=== PATIENT | male | born 1955 | race African-American/Black ===

== ENCOUNTER 2016-10-30 10:39 | Inpatient (IN) | payer OTHER ==
[2016-10-30 11:24] VITALS: BMI 30.1
--- NOTE | 2016-10-30 13:23 | HP ---
COWS - Scale Resting Pulse: 0= ND 80 or Below Sweatin= Chills/Flushing Pupil Size: 2= Moderately Dilated Bone or Joint Aches: 4=Acute Joint/Muscle Pain Runny Nose/ Eye Tearin= Runny Nose/Eyes GI Upset > 30mins: 1= Stomach Cramp Tremor Observation: 1= Tremor [place], Not Seen Yawning Observation: 1= 1-2x During Session Anxiety or Irritability: 2=Irritable/Anxious Goose Flesh Skin: 0=Smooth Skin CIWA Score - CIWA Score Nausea/Vomitin-No Nausea/No Vomiting Muscle Tremors: 4-Moderate,w/Arms Extend Anxiety: 4-Mod. Anxious/Guarded Agitation: 4-Moderately Restless Paroxysmal Sweats: 1-Minimal Palms Moist Orientation: 0-Oriented Tacttile Disturbances: 3-Moderate Itch/Numb/Burn Visual Disturbances: 0-None Headache: 0-None Present Admission ROS BHS - HPI Chief Complaint: DETOX TX FOR HEROIN ALCOHOL AND MARIJUANA DEPENDENCE Allergies/Adverse Reactions: Allergies Allergy/AdvReac Type Severity Reaction Status Date / Time No Known Allergies Allergy Verified 10/30/16 11:32 History of Present Illness: 61 Y/O AA/MALE WITH A HX OF HEROIN,ALCOHOL AND MARIJUANA DEPENDENCE SEEKING DETOX TX Exam Limitations: No Limitations - Ebola screening Have you traveled outside of the country in the last 21 days: No Have you had contact with anyone from an Ebola affected area: No Have you been sick,other than usual withdrawal symptoms: No - Review of Systems Constitutional: Chills, Loss of Appetite, Night Sweats, Changes in sleep EENT: reports: Blurred Vision, Tearing, Nose Congestion, Dental Problems ( MISSING TEETH UPPER) Respiratory: reports: No Symptoms reported Cardiac: reports: Lightheadedness GI: reports: Diarrhea, Poor Appetite : reports: Frequency Musculoskeletal: reports: Back Pain, Joint Pain (ARTHRITIS), Muscle Pain Integumentary: reports: Other (RIGHT KNEE WITH 6 KELLY-- S/P SUGERY RIGHT KNEE 10/21/16 AT [facility]. PT TO RETURN FOR FOLLOW UP ON 11/13/16.) Neuro: reports: Headache, Dizziness Endocrine: reports: No Symptoms Reported Hematology: reports: No Symptoms Reported Psychiatric: reports: Orientated x3, Anxious Other Systems: Reviewed and Negative Patient History - Patient Medical History Hx Anemia: No Hx Asthma: No Hx Chronic Obstructive Pulmonary Disease (COPD): No Hx Cancer: No Hx Cardiac Disorders: No Hx Congestive Heart Failure: No Hx Hypertension: Yes (on meds.) Hx Hypercholesterolemia: No Hx Pacemaker: No HX Cerebrovascular Accident: No Hx Seizures: No Hx Dementia: No Hx Diabetes: No Hx Gastrointestinal Disorders: No Hx Liver Disease: No Hx Genitourinary Disorders: No Hx Sexually Transmitted Disorders: No Hx Renal Disease (ESRD): No Hx Thyroid Disease: No Hx Human Immunodeficiency Virus (HIV): No (NEGATIVE HX) Hx Hepatitis C: No Hx Depression: No Hx Suicide Attempt: No Hx Bipolar Disorder: No Hx Schizophrenia: No - Patient Surgical History Past Surgical History: No Hx Neurologic Surgery: No Hx Cataract Extraction: No Hx Cardiac Surgery: No Hx Lung Surgery: No Hx Breast Surgery: No Hx Breast Biopsy: No Hx Abdominal Surgery: No Hx Appendectomy: No Hx Cholecystectomy: No Hx Genitourinary Surgery: No Hx Section: No Hx Orthopedic Surgery: No Other Surgical History: Nail removed from R knee 1 week ago-10/21/16. Anesthesia Reaction: No - PPD History Previous Implant?: Yes Documented Results: Negative w/proof Implanted On Prior [facility] Admission?: Yes Date: 08/27/16 Results: 0 mm PPD to be Administered?: No - Reproductive History Patient is a Female of Child Bearing Age (11 -55 yrs old): No (MALE) - Smoking Cessation Smoking history: Never smoked Have you smoked in the past 12 months: No Cigars Per Day: 0 Hx Chewing Tobacco Use: No Initiated information on smoking cessation: No - Substance & Tx. History Hx Alcohol Use: Yes (BEER/GIN) Hx Substance Use: Yes (HEROIN/MARIJUANA) Substance Use Type: Alcohol, Heroin, Marijuana Hx Substance Use Treatment: Yes ([facility]-DETOX) - Substances Abused Heroin Route: Inhalation Frequency: Daily Amount used: 2 BAGS Age of first use: 57 Date of Last Use: 10/29/16 Alcohol Route: Oral Frequency: Daily Amount used: 2-3 40 OZ BEER Age of first use: 17 Date of Last Use: 10/29/16 Marijuana/Hashish Route: Smoking Frequency: Daily Amount used: 2-3 JOINTS Age of first use: 17 Date of Last Use: 10/29/16 Family Disease History - Family Disease History Family Disease History: Diabetes: Mother, [place]: Brother (), Sister ( ), Other: Father () Admission Physical Exam [facility] - Vital Signs Vital Signs: Vital Signs - 24 hr 10/30/16 11:21 Temperature 95.8 F L Pulse Rate 51 L Respiratory 20 Rate Blood Pressure 136/95 - Physical General Appearance: Yes: Moderate Distress, Irritable, Anxious HEENTM: Yes: EOMI, Normocephalic, LISA, Pharynx Normal Respiratory: Yes: Chest Non-Tender, Lungs Clear, Normal Breath Sounds, No Respiratory Distress Neck: Yes: Supple, Trachea in good position Breast: Yes: Breast Exam Deferred Cardiology: Yes: Regular Rhythm, Regular Rate, S1, S2 Abdominal: Yes: Normal Bowel Sounds, Non Tender, Soft Genitourinary: Yes: Other (N/C) Back: Yes: Within Normal Limits Musculoskeletal: Yes: full range of Motion, Gait Steady Extremities: Yes: Normal Range of Motion, Non-Tender 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: Yes: machine stuffer automatic II-XII NML intact, Fully Oriented, Alert Integumentary: Yes: Dry, Warm Lymphatic: Yes: Within Normal Limits - Addiitonal Findings: RIGHT KNEE SX WITH [address](PT HAS FOLLOW UP VISIT ON 11/13/16 AT [facility]). NO SWELLING, REDNESS OR DRAINAGE TO KNEE OR ON SX SITE. - Diagnostic (1) Alcohol dependence with uncomplicated withdrawal Current Visit: Yes Status: Acute (2) Cannabis dependence Current Visit: Yes Status: Acute (3) Essential hypertension Current Visit: Yes Status: Chronic (4) Opioid dependence with withdrawal Current Visit: Yes Status: Acute (5) Arthritis Current Visit: Yes Status: Chronic Comment: KNEES (6) S/P knee surgery Current Visit: Yes Status: Acute Comment: RECENT RIGHT KNEE SX ON 10/21/16 WITH SIX KELLY INTACT. Cleared for Admission [facility] - Detox or Rehab [facility] Level of Care: Medically Managed Detox Regimen/Protocol: Methadone/Librium [facility] Breath Alcohol Content Breath Alcohol Content: 0 Urine Drug Screen - Results Drug Screen Negative: No Urine Drug Screen Results: THC-Marijuana, OPI-Opiates, BZO-Benzodiazepines
[2016-10-30] MEDS ORDERED: MAGNESIUM HYDROX 2400MG/30ML ORAL SUSPENSION 30 ML CUP PO PRN (13:37)
[2016-10-30] MEDS ORDERED: chlordiazePOXIDE HCL 25 MG CAPSULE PO PRN (13:37)
[2016-10-30] MEDS ORDERED: P-EPHED 60MG/TRIPROLIDI 2.5MG TABLET PO PRN (13:37)
[2016-10-30] MEDS ORDERED: hydrOXYzine PAMOATE 50 MG CAPSULE (FP) PO PRN (13:37)
[2016-10-30] MEDS ORDERED: MAGNESIUM CITRATE 300 ML BOTTLE PO PRN (13:37)
[2016-10-30] MEDS ORDERED: guaiFENesin/D-METHORPHAN HB 10 ML UNIT-DOSE CUPS PO PRN (13:37)
[2016-10-30] MEDS ORDERED: MENTHOL/PHENOL 1 EACH UD MM PRN (13:37)
[2016-10-30] MEDS ORDERED: MAG HYDROX/AL HYDROX/SIMETH 30 ML UNIT-DOSE CUP PO PRN (13:37)
[2016-10-30] MEDS ORDERED: LOPERAMIDE HCL 2 MG CAPSULE PO PRN (13:37)
[2016-10-30] MEDS ORDERED: chlordiazePOXIDE HCL 25 MG CAPSULE PO ONE (14:00)
[2016-10-30] MEDS ORDERED: METHADONE HCL 10 MG TABLET (FOR DETOX USE ONLY) PO ONE ×2 (14:01→23:00)
[2016-10-30] MEDS: CYCLOBENZAPRINE HCL 10 MG TABLET (FP) PO PRN ×2 (14:53→22:40)
[2016-10-30] MEDS: BACITRACIN 0.9 GM PACKET TP SCH (14:53)
[2016-10-30 16:54] LABS: URINE APPEARANCE CLEAR; URINE BILIRUBIN NEGATIVE (NEGATIVE); URINE BLOOD NEGATIVE (NEGATIVE); URINE COLOR YELLOW; URINE GLUCOSE (UA) NEGATIVE (NEGATIVE); URINE KETONE NEGATIVE (NEGATIVE); URINE LEUK ESTERASE NEGATIVE (NEGATIVE); URINE NITRITE NEGATIVE (NEGATIVE); URINE UROBILINOGEN 4.0 E.U/dl E.U./dl (0.2-1.0)
[2016-10-30 16:56] LABS: URINE PROTEIN 1+ (NEGATIVE)
[2016-10-30 17:04] LABS: URINE MUCUS MANY; URINE RBC 1 /hpf (0-3); URINE WBC 1 /hpf (3-5); YEAST RARE
[2016-10-30] MEDS: chlordiazePOXIDE HCL 25 MG CAPSULE PO SCH ×2 (17:11→22:37)
[2016-10-30] MEDS: IBUPROFEN 400 MG TABLET (FP) PO PRN (17:11)
[2016-10-30] MEDS: cloNIDine HCL 0.1 MG TABLET PO SCH (22:36)
[2016-10-30] MEDS: THIAMINE HCL 100 MG TABLET (FP) PO SCH (22:36)
[2016-10-30] MEDS: METOPROLOL TARTRATE 25 MG TABLET (FP) PO SCH (22:37)
[2016-10-31] MEDS: chlordiazePOXIDE HCL 25 MG CAPSULE PO SCH ×4 (05:46→23:28)
[2016-10-31] MEDS: CYCLOBENZAPRINE HCL 10 MG TABLET (FP) PO PRN ×2 (05:49→13:54)
[2016-10-31] MEDS: IBUPROFEN 400 MG TABLET (FP) PO PRN ×2 (05:49→17:22)
--- NOTE | 2016-10-31 09:15 | PN ---
S CIWA - CIWA Score Nausea/Vomitin Muscle Tremors: 3 Anxiety: 3 Agitation: 3 Paroxysmal Sweats: 1-Minimal Palms Moist Orientation: 0-Oriented Tacttile Disturbances: 1-Very Mild Itch/Numbness Auditory Disturbances: 1-Very Mild Visual Disturbances: 1-Very Mild Sensitivity Headache: 2-Mild CIWA-Ar Total Score: 18 BHS COWS - Scale Resting Pulse: 1= [place] 81-100 Sweatin= Chills/Flushing Restless Observation: 3= Extraneous Movement Pupil Size: 1= Pupils >than Normal Bone or Joint Aches: 2= Severe Diffuse Aches Runny Nose/ Eye Tearin= Runny Nose/Eyes GI Upset > 30mins: 2= Nausea/Diarrhea Tremor Observation of Outstretched Hands: 2= Slight Tremor Visible Yawning Observation: 1= 1-2x During Session Anxiety or Irritability: 2=Irritable/Anxious Goose Flesh Skin: 0=Smooth Skin COWS Score: 17 S Progress Note (SOAP) Subjective: ALERT,IRRITABLE,ANXIOUS,INTERRUPTED SLEEP,PAIN IN THE BODY,BACK,KNEE Objective: 10/31/16 09:11 Vital Signs Temperature 97.7 F 10/31/16 06:31 Pulse Rate 84 10/31/16 06:31 Respiratory Rate 18 10/31/16 06:31 Blood Pressure 112/64 10/31/16 06:31 O2 Sat by Pulse Oximetry (%) Laboratory Last Values Urine Color Yellow 10/30/16 13:00 Urine Appearance Clear 10/30/16 13:00 Urine pH 6.0 (5.0-8.0) 10/30/16 13:00 Ur Specific [place] 1.024 (1.001-1.035) 10/30/16 13:00 Urine Protein 1+ (NEGATIVE) H 10/30/16 13:00 Urine Glucose (UA) Negative (NEGATIVE) 10/30/16 13:00 Urine Ketones Negative (NEGATIVE) 10/30/16 13:00 Urine Blood Negative (NEGATIVE) 10/30/16 13:00 Urine Nitrite Negative (NEGATIVE) 10/30/16 13:00 Urine Bilirubin Negative (NEGATIVE) 10/30/16 13:00 Urine Urobilinogen 4.0 e.u/dl E.U./dl (0.2-1.0) 10/30/16 13:00 Ur Leukocyte Esterase Negative (NEGATIVE) 10/30/16 13:00 Urine RBC 1 /hpf (0-3) 10/30/16 13:00 Urine WBC 1 /hpf (3-5) 10/30/16 13:00 Ur Epithelial Cells Rare /hpf (FEW) 10/30/16 13:00 Urine Mucus Many 10/30/16 13:00 Urine Yeast Rare 10/30/16 13:00 LABS PENDING EKG NSR,NORMAL ECG Assessment: 10/31/16 09:13 WITHDRAWAL SYMPTOM Plan: CONTINUE DETOX,AMBULATE WITH WHEELCHAIR,ALLOW A PITCHER OF WATER AT BEDSIDE
[2016-10-31 09:31] LABS: MCH 29.5 pg (25.7-33.7); MCHC 33.3 g/dl (32.0-35.9); MEAN CELL VOLUME 88.4 fl (80-96); MEAN PLT VOLUME 8.8 fl (7.5-11.1); PLATELET COUNT 207 K/MM3 (134-434); RDW 13.9 % (11.9-15.9); WHITE BLOOD COUNT 2.4 K/mm3 (4.0-10.0)
[2016-10-31] MEDS ORDERED: METHADONE HCL 10 MG TABLET (FOR DETOX USE ONLY) PO SCH (10:00)
[2016-10-31] MEDS: PRENATAL VITAMINS W/ FOLIC ACID TABLET (FP) PO SCH (10:06)
[2016-10-31] MEDS: BACITRACIN 0.9 GM PACKET TP SCH (10:07)
[2016-10-31] MEDS: cloNIDine HCL 0.1 MG TABLET PO SCH ×2 (10:07→22:55)
[2016-10-31] MEDS: METOPROLOL TARTRATE 25 MG TABLET (FP) PO SCH ×2 (10:07→22:55)
[2016-10-31 10:38] LABS: ALBUMIN 2.9 g/dl (3.4-5.0); ANION GAP 9 (8-16); BILIRUBIN,TOTAL 0.3 mg/dL (0.2-1.0); CALCIUM 8.2 mg/dL (8.5-10.1); CO2 27 mmol/L (21-32); CREATININE 1.1 mg/dL (0.7-1.3); GLUCOSE,RANDOM 79 mg/dL (74-106); SGOT/AST 20 U/L (15-37); SGPT/ALT 19 U/L (12-78); TOT PROT 5.9 g/dl (6.4-8.2)
[2016-10-31 10:39] LABS: ALK PHOS 74 U/L (45-117)
--- NOTE | 2016-10-31 16:44 | EKG ---
Test Reason : Blood Pressure : / mmHG Vent. Rate : 061 BPM Atrial Rate : 061 BPM P-R Int : 158 ms QRS Dur : 086 ms QT Int : 432 ms P-R-T Axes : 060 -26 024 degrees QTc Int : 434 ms NORMAL SINUS RHYTHM NORMAL ECG NO PREVIOUS ECGS AVAILABLE Confirmed by MD ALEXEI, YUNIOR ([id number]) on 10/31/2016 4:44:00 PM Referred By: Confirmed By:YUNIOR LINDA MD
[2016-10-31] MEDS: THIAMINE HCL 100 MG TABLET (FP) PO SCH (22:55)
[2016-11-01] MEDS: CYCLOBENZAPRINE HCL 10 MG TABLET (FP) PO PRN (05:23)
[2016-11-01] MEDS: IBUPROFEN 400 MG TABLET (FP) PO PRN ×2 (05:23→16:35)
[2016-11-01] MEDS: chlordiazePOXIDE HCL 25 MG CAPSULE PO SCH ×2 (05:23→10:18)
[2016-11-01] MEDS: PRENATAL VITAMINS W/ FOLIC ACID TABLET (FP) PO SCH (10:17)
[2016-11-01] MEDS: BACITRACIN 0.9 GM PACKET TP SCH (10:17)
[2016-11-01] MEDS: METOPROLOL TARTRATE 25 MG TABLET (FP) PO SCH ×2 (10:17→22:12)
[2016-11-01] MEDS: cloNIDine HCL 0.1 MG TABLET PO SCH ×2 (10:17→22:12)
[2016-11-01] MEDS: METHADONE HCL 5 MG TABLET (FOR DETOX USE ONLY) PO SCH (10:18)
--- NOTE | 2016-11-01 10:40 | PN ---
S CIWA - CIWA Score Nausea/Vomitin Muscle Tremors: 3 Anxiety: 3 Agitation: 2 Paroxysmal Sweats: 2 Orientation: 0-Oriented Tacttile Disturbances: 1-Very Mild Itch/Numbness Auditory Disturbances: 0-None Visual Disturbances: 0-None Headache: 2-Mild CIWA-Ar Total Score: 15 S COWS - Scale Resting Pulse: 0= SD 80 or Below Sweatin= Chills/Flushing Restless Observation: 1= Difficult to Sit Still Pupil Size: 0= Normal to Room Light Bone or Joint Aches: 2= Severe Diffuse Aches Runny Nose/ Eye Tearin= Nasal Congestion GI Upset > 30mins: 2= Nausea/Diarrhea Tremor Observation of Outstretched Hands: 2= Slight Tremor Visible Yawning Observation: 0= None Anxiety or Irritability: 2=Irritable/Anxious Goose Flesh Skin: 0=Smooth Skin COWS Score: 11 S Progress Note (SOAP) Subjective: restlessness, sleeplessness, joint pain Objective: 11/01/16 10:39 Vital Signs - 8 hr 11/01/16 11/01/16 03:30 06:00 Temperature 97.7 F Pulse Rate 65 Respiratory 18 18 Rate Blood Pressure 137/89 Laboratory Last Values WBC 2.4 K/mm3 (4.0-10.0) L D 10/31/16 06:20 RBC 3.98 M/mm3 (4.00-5.60) L 10/31/16 06:20 Hgb 11.7 GM/dL (11.7-16.9) D 10/31/16 06:20 Hct 35.2 % (35.4-49) L D 10/31/16 06:20 MCV 88.4 fl (80-96) 10/31/16 06:20 MCHC 33.3 g/dl (32.0-35.9) 10/31/16 06:20 RDW 13.9 % (11.9-15.9) 10/31/16 06:20 Plt Count 207 K/MM3 (134-434) 10/31/16 06:20 MPV 8.8 fl (7.5-11.1) 10/31/16 06:20 Sodium 142 mmol/L (136-145) 10/31/16 06:20 Potassium 3.7 mmol/L (3.5-5.1) 10/31/16 06:20 Chloride 106 mmol/L (98-107) 10/31/16 06:20 Carbon Dioxide 27 mmol/L (21-32) 10/31/16 06:20 Anion Gap 9 (8-16) 10/31/16 06:20 BUN 21 mg/dL (7-18) H D 10/31/16 06:20 Creatinine 1.1 mg/dL (0.7-1.3) 10/31/16 06:20 Creat Clearance w eGFR > 60 (>60) 10/31/16 06:20 Random Glucose 79 mg/dL (74-106) 10/31/16 06:20 Calcium 8.2 mg/dL (8.5-10.1) L 10/31/16 06:20 Total Bilirubin 0.3 mg/dL (0.2-1.0) D 10/31/16 06:20 AST 20 U/L (15-37) 10/31/16 06:20 ALT 19 U/L (12-78) 10/31/16 06:20 Alkaline Phosphatase 74 U/L (45-117) 10/31/16 06:20 Total Protein 5.9 g/dl (6.4-8.2) L 10/31/16 06:20 Albumin 2.9 g/dl (3.4-5.0) L D 10/31/16 06:20 Urine Color Yellow 10/30/16 13:00 Urine Appearance Clear 10/30/16 13:00 Urine pH 6.0 (5.0-8.0) 10/30/16 13:00 Ur Specific [place] 1.024 (1.001-1.035) 10/30/16 13:00 Urine Protein 1+ (NEGATIVE) H 10/30/16 13:00 Urine Glucose (UA) Negative (NEGATIVE) 10/30/16 13:00 Urine Ketones Negative (NEGATIVE) 10/30/16 13:00 Urine Blood Negative (NEGATIVE) 10/30/16 13:00 Urine Nitrite Negative (NEGATIVE) 10/30/16 13:00 Urine Bilirubin Negative (NEGATIVE) 10/30/16 13:00 Urine Urobilinogen 4.0 e.u/dl E.U./dl (0.2-1.0) 10/30/16 13:00 Ur Leukocyte Esterase Negative (NEGATIVE) 10/30/16 13:00 Urine RBC 1 /hpf (0-3) 10/30/16 13:00 Urine WBC 1 /hpf (3-5) 10/30/16 13:00 Ur Epithelial Cells Rare /hpf (FEW) 10/30/16 13:00 Urine Mucus Many 10/30/16 13:00 Urine Yeast Rare 10/30/16 13:00 RPR Titer Nonreactive (NONREACTIVE) 10/31/16 06:20 Hepatitis C Antibody <0.1 s/co ratio (0.0-0.9) 10/31/16 06:20 Labs noted, shani to right knee, s/p surgery for injury, sight with no drainage, no odor or any other signs of infection Assessment: 11/01/16 10:40 withdrawal sx s/p right knee surgery Plan: continue detox, monitor surgical site for signs and symptoms of infection
[2016-11-01] MEDS: chlordiazePOXIDE 5 MG CAPSULE PO SCH ×2 (17:58→22:11)
[2016-11-01] MEDS: THIAMINE HCL 100 MG TABLET (FP) PO SCH (22:11)
[2016-11-01] MEDS: diphenhydrAMINE HCL 50 MG CAPSULE PO PRN (22:13)
[2016-11-02] MEDS: CYCLOBENZAPRINE HCL 10 MG TABLET (FP) PO PRN (06:11)
[2016-11-02] MEDS: chlordiazePOXIDE 5 MG CAPSULE PO SCH ×2 (06:11→11:50)
[2016-11-02] MEDS: IBUPROFEN 400 MG TABLET (FP) PO PRN (06:13)
--- NOTE | 2016-11-02 07:17 | PN ---
S Progress Note Note: ASKED TO SEE PT FOR A FALL. PT STATES FELL OOB WHEN TRANSFERRING TO W/C. FELL ON HANDS AND KNEES. DENIES ANY INJURIES/PAIN, C.P., SOB, DIZZINESS, LOC, HEAD TRAUMA. CLIENT RESTING IN BED NAD AWAKE/ALERT/X3 HEAD- NCAT SKIN INTACT NO VISIBLE INJURIES EXTREMITIES FROM W/O LIMITATIONS OR INJURIES NOTED Last Vital Signs Temp Pulse Resp BP Pulse Ox 97.7 F 43 L 18 141/83 11/02/16 06:00 11/02/16 06:00 11/02/16 06:00 11/02/16 06:00 S/P FALL P- FALL PROTOCOL #2 MOTRIN/TYLENOL FOR PAIN ORDERED
--- NOTE | 2016-11-02 10:49 | PN ---
BHS Progress Note (SOAP) Subjective: Restlessness, Anxiety, Body aches, Right Knee discomfort, interrupted sleep Objective: Vital Signs Temperature 97.9 F 11/02/16 10:00 Pulse Rate 52 L 11/02/16 10:00 Respiratory Rate 16 11/02/16 10:00 Blood Pressure 131/91 11/02/16 10:00 O2 Sat by Pulse Oximetry (%) Laboratory Last Values WBC 2.4 K/mm3 (4.0-10.0) L D 10/31/16 06:20 RBC 3.98 M/mm3 (4.00-5.60) L 10/31/16 06:20 Hgb 11.7 GM/dL (11.7-16.9) D 10/31/16 06:20 Hct 35.2 % (35.4-49) L D 10/31/16 06:20 MCV 88.4 fl (80-96) 10/31/16 06:20 MCHC 33.3 g/dl (32.0-35.9) 10/31/16 06:20 RDW 13.9 % (11.9-15.9) 10/31/16 06:20 Plt Count 207 K/MM3 (134-434) 10/31/16 06:20 MPV 8.8 fl (7.5-11.1) 10/31/16 06:20 Sodium 142 mmol/L (136-145) 10/31/16 06:20 Potassium 3.7 mmol/L (3.5-5.1) 10/31/16 06:20 Chloride 106 mmol/L (98-107) 10/31/16 06:20 Carbon Dioxide 27 mmol/L (21-32) 10/31/16 06:20 Anion Gap 9 (8-16) 10/31/16 06:20 BUN 21 mg/dL (7-18) H D 10/31/16 06:20 Creatinine 1.1 mg/dL (0.7-1.3) 10/31/16 06:20 Creat Clearance w eGFR > 60 (>60) 10/31/16 06:20 Random Glucose 79 mg/dL (74-106) 10/31/16 06:20 Calcium 8.2 mg/dL (8.5-10.1) L 10/31/16 06:20 Total Bilirubin 0.3 mg/dL (0.2-1.0) D 10/31/16 06:20 AST 20 U/L (15-37) 10/31/16 06:20 ALT 19 U/L (12-78) 10/31/16 06:20 Alkaline Phosphatase 74 U/L (45-117) 10/31/16 06:20 Total Protein 5.9 g/dl (6.4-8.2) L 10/31/16 06:20 Albumin 2.9 g/dl (3.4-5.0) L D 10/31/16 06:20 Urine Color Yellow 10/30/16 13:00 Urine Appearance Clear 10/30/16 13:00 Urine pH 6.0 (5.0-8.0) 10/30/16 13:00 Ur Specific [place] 1.024 (1.001-1.035) 10/30/16 13:00 Urine Protein 1+ (NEGATIVE) H 10/30/16 13:00 Urine Glucose (UA) Negative (NEGATIVE) 10/30/16 13:00 Urine Ketones Negative (NEGATIVE) 10/30/16 13:00 Urine Blood Negative (NEGATIVE) 10/30/16 13:00 Urine Nitrite Negative (NEGATIVE) 10/30/16 13:00 Urine Bilirubin Negative (NEGATIVE) 10/30/16 13:00 Urine Urobilinogen 4.0 e.u/dl E.U./dl (0.2-1.0) 10/30/16 13:00 Ur Leukocyte Esterase Negative (NEGATIVE) 10/30/16 13:00 Urine RBC 1 /hpf (0-3) 10/30/16 13:00 Urine WBC 1 /hpf (3-5) 10/30/16 13:00 Ur Epithelial Cells Rare /hpf (FEW) 10/30/16 13:00 Urine Mucus Many 10/30/16 13:00 Urine Yeast Rare 10/30/16 13:00 RPR Titer Nonreactive (NONREACTIVE) 10/31/16 06:20 Hepatitis C Antibody <0.1 s/co ratio (0.0-0.9) 10/31/16 06:20 labs noted 11/02/16 10:48 Assessment: Right Knee with Sanaz noted on Right Knee, no s/s of infection Withdrawal Symptoms Plan: Continue Detox
[2016-11-02] MEDS: METHADONE HCL 5 MG TABLET (FOR DETOX USE ONLY) PO SCH (11:49)
[2016-11-02] MEDS: PRENATAL VITAMINS W/ FOLIC ACID TABLET (FP) PO SCH (11:49)
[2016-11-02] MEDS: cloNIDine HCL 0.1 MG TABLET PO SCH ×2 (11:49→22:36)
[2016-11-02] MEDS: METOPROLOL TARTRATE 25 MG TABLET (FP) PO SCH ×2 (11:49→22:36)
[2016-11-02] MEDS: BACITRACIN 0.9 GM PACKET TP SCH (11:49)
[2016-11-02] MEDS: chlordiazePOXIDE HCL 10 MG CAPSULE PO SCH ×2 (17:15→23:02)
[2016-11-02] MEDS: THIAMINE HCL 100 MG TABLET (FP) PO SCH (22:36)
[2016-11-02] MEDS: diphenhydrAMINE HCL 50 MG CAPSULE PO PRN (22:36)
[2016-11-03] MEDS: chlordiazePOXIDE HCL 10 MG CAPSULE PO SCH ×2 (05:51→10:15)
[2016-11-03] MEDS: IBUPROFEN 400 MG TABLET (FP) PO PRN (05:53)
[2016-11-03] MEDS: CYCLOBENZAPRINE HCL 10 MG TABLET (FP) PO PRN ×2 (05:53→22:16)
[2016-11-03] MEDS ORDERED: METHADONE HCL 10 MG TABLET (FOR DETOX USE ONLY) PO SCH (10:00)
[2016-11-03] MEDS: PRENATAL VITAMINS W/ FOLIC ACID TABLET (FP) PO SCH (10:14)
[2016-11-03] MEDS: BACITRACIN 0.9 GM PACKET TP SCH (10:14)
[2016-11-03] MEDS: cloNIDine HCL 0.1 MG TABLET PO SCH ×2 (10:15→22:16)
[2016-11-03] MEDS: METOPROLOL TARTRATE 25 MG TABLET (FP) PO SCH ×2 (10:15→22:16)
--- NOTE | 2016-11-03 11:43 | PN ---
BHS Progress Note (SOAP) Subjective: rt knee shani . sweats Objective: 11/03/16 11:41 Vital Signs Temperature 97.9 F 11/03/16 10:17 Pulse Rate 60 11/03/16 10:17 Respiratory Rate 18 11/03/16 10:17 Blood Pressure 138/83 11/03/16 10:17 O2 Sat by Pulse Oximetry (%) Laboratory Tests 10/30/16 10/31/16 10/31/16 13:00 06:20 06:20 WBC 2.4 L D RBC 3.98 L Hgb 11.7 D Hct 35.2 L D MCV 88.4 MCHC 33.3 RDW 13.9 Plt Count 207 MPV 8.8 Sodium Potassium Chloride Carbon Dioxide Anion Gap BUN Creatinine Creat Clearance w eGFR Random Glucose Calcium Total Bilirubin AST ALT Alkaline Phosphatase Total Protein Albumin Urine Color Yellow Urine Appearance Clear Urine pH 6.0 Ur Specific [place] 1.024 Urine Protein 1+ H Urine Glucose (UA) Negative Urine Ketones Negative Urine Blood Negative Urine Nitrite Negative Urine Bilirubin Negative Urine Urobilinogen 4.0 e.u/dl Ur Leukocyte Esterase Negative Urine RBC 1 Urine WBC 1 Ur Epithelial Cells Rare Urine Mucus Many Urine Yeast Rare RPR Titer Hepatitis C Antibody <0.1 10/31/16 10/31/16 06:20 06:20 WBC RBC Hgb Hct MCV MCHC RDW Plt Count MPV Sodium 142 Potassium 3.7 Chloride 106 Carbon Dioxide 27 Anion Gap 9 BUN 21 H D Creatinine 1.1 Creat Clearance w eGFR > 60 Random Glucose 79 Calcium 8.2 L Total Bilirubin 0.3 D AST 20 ALT 19 Alkaline Phosphatase 74 Total Protein 5.9 L Albumin 2.9 L D Urine Color Urine Appearance Urine pH Ur Specific [place] Urine Protein Urine Glucose (UA) Urine Ketones Urine Blood Urine Nitrite Urine Bilirubin Urine Urobilinogen Ur Leukocyte Esterase Urine RBC Urine WBC Ur Epithelial Cells Urine Mucus Urine Yeast RPR Titer Nonreactive Hepatitis C Antibody pt aox3 in wheelchair multiple rt knee shani Assessment: 11/03/16 11:42 withdrawl sx's shani -clean no d/c Plan: cont. detox increase fluids a/d oint
[2016-11-03] MEDS: VITAMINS A AND D TOPICAL OINTMENT 60 GM TUBE TP SCH ×3 (14:17→23:47)
[2016-11-03] MEDS: ACETAMINOPHEN 325 MG TABLET (FP) PO PRN (19:20)
[2016-11-03] MEDS: THIAMINE HCL 100 MG TABLET (FP) PO SCH (22:16)
[2016-11-03] MEDS: diphenhydrAMINE HCL 50 MG CAPSULE PO PRN (22:17)
[2016-11-04] MEDS: IBUPROFEN 400 MG TABLET (FP) PO PRN (01:08)
[2016-11-04] MEDS: diphenhydrAMINE HCL 50 MG CAPSULE PO PRN (01:08)
[2016-11-04] MEDS: CYCLOBENZAPRINE HCL 10 MG TABLET (FP) PO PRN (05:50)
[2016-11-04] MEDS: ACETAMINOPHEN 325 MG TABLET (FP) PO PRN (05:51)
[2016-11-04] MEDS ORDERED: METHADONE HCL 5 MG TABLET (FOR DETOX USE ONLY) PO SCH (06:00)
[2016-11-04 06:27] VITALS: BP 144/85; PULSE 62; TEMP 98.2
[2016-11-04] MEDS: VITAMINS A AND D TOPICAL OINTMENT 60 GM TUBE TP SCH (06:33)
--- NOTE | 2016-11-04 08:45 | DS ---
[facility] Detox Discharge Summary Admission Date: 10/30/16 Discharge Date: 11/04/16 - History Present History: Alcohol Dependence, Cannabis Dependence, Opioid Dependence - Physical Exam Results Vital Signs: Vital Signs Temperature 98.2 F 11/04/16 06:26 Pulse Rate 62 11/04/16 06:26 Respiratory Rate 16 11/04/16 06:26 Blood Pressure 144/85 11/04/16 06:26 O2 Sat by Pulse Oximetry (%) - Treatment Hospital Course: Detox Protocol Followed, Detoxed Safely, Responded well, Discharged Condition Good, Rehab Referral Accepted - Medication Discharge Medications: Ambulatory Orders Clonidine HCl [Catapres -] 0.1 mg PO BID 08/27/15 Metoprolol Tartrate [Lopressor -] 25 mg PO BID 08/27/15 Clotrimazole [Mycelex -] 10 mg PO 5XD #70 evie 11/04/16 - Diagnosis (1) Alcohol dependence with uncomplicated withdrawal Current Visit: Yes Status: Chronic (2) Cannabis dependence Current Visit: Yes Status: Chronic (3) Opioid dependence with withdrawal Current Visit: Yes Status: Chronic (4) S/P knee surgery Current Visit: No Status: Chronic (5) Arthritis Current Visit: Yes Status: Chronic (6) Essential hypertension Current Visit: Yes Status: Chronic (7) Thrush, oral Current Visit: Yes Status: Acute - AMA Did Patient Leave Against Medical Advice: No
[2016-11-04] MEDS ORDERED: CLOTRIMAZOLE 10 MG TROCHE (FP) PO SCH (10:00)
== END 2016-11-04 08:55 | disposition home or self-care (01) | DRG 773 ==
LOC: YASAS 10:39 → Y6N 13:09
PROVIDERS: ADMIT Internal Medicine; ATTEND Internal Medicine
PROC: HZ2ZZZZ Detoxification Services for Substance Abuse Treatment (ICD-10-PCS; principal; 2016-10-30)
DX: F11.23 Opioid dependence with withdrawal (principal); F10.230 Alcohol dependence with withdrawal, uncomplicated; F12.20 Cannabis dependence, uncomplicated; M19.90 Unspecified osteoarthritis, unspecified site; I10 Essential (primary) hypertension; B37.0 Candidal stomatitis; Z99.3 Dependence on wheelchair; Z98.890 Other specified postprocedural states
CPT/HCPCS: 36415; 80053; 81003; 81015; 85027; 86593; 93005; 93010

== ENCOUNTER 2017-02-15 21:23 | Inpatient (IN) | payer OTHER ==
--- NOTE | 2017-02-15 21:35 | HP ---
COWS - Scale Resting Pulse: 0= [place] 80 or Below Sweatin= Chills/Flushing Restless Observation: 3= Extraneous Movement Pupil Size: 1= Pupils >than Normal Bone or Joint Aches: 2= Severe Diffuse Aches Runny Nose/ Eye Tearin= Runny Nose/Eyes GI Upset > 30mins: 2= Nausea/Diarrhea Tremor Observation: 1= Tremor [place], Not Seen Yawning Observation: 1= 1-2x During Session Anxiety or Irritability: 2=Irritable/Anxious Goose Flesh Skin: 0=Smooth Skin COWS Score: 15 CIWA Score - CIWA Score Nausea/Vomitin Muscle Tremors: 2 Anxiety: 3 Agitation: 2 Paroxysmal Sweats: 3 Orientation: 1-Uncertain about Date Tacttile Disturbances: 1-Very Mild Itch/Numbness Auditory Disturbances: 0-None Visual Disturbances: 0-None Headache: 2-Mild CIWA-Ar Total Score: 16 Admission ROS S - HPI Chief Complaint: WITHDRAWAL SYMPTOMS Allergies/Adverse Reactions: Allergies Allergy/AdvReac Type Severity Reaction Status Date / Time No Known Allergies Allergy Verified 10/30/16 11:32 History of Present Illness: 61 Y.O. MAN WITH A HISTORY OF ALCOHOL AND HEROIN DEPENDENCE IS HERE SEEKING DETOX. HE WAS PREVIOUSLY HERE ON 10/30/16 FOR DETOX. HIS LONGEST PERIOD CLEAN HAS BEEN 13 YEARS. Exam Limitations: Intoxication - Ebola screening Have you traveled outside of the country in the last 21 days: No (N) Have you had contact with anyone from an Ebola affected area: No Do you have a fever: No - Review of Systems Constitutional: Chills, Loss of Appetite, Changes in sleep, Unintentional Wgt. Loss EENT: reports: Blurred Vision, Tearing, Nose Congestion, Difficulty Swallowing Respiratory: reports: Shortness of Breath Cardiac: reports: No Symptoms Reported GI: reports: Diarrhea, Nausea : reports: No Symptoms Reported Musculoskeletal: reports: Back Pain Integumentary: reports: No Symptoms Reported Neuro: reports: Headache Endocrine: reports: No Symptoms Reported Hematology: reports: No Symptoms Reported Psychiatric: reports: Mood/Affect Appropiate Other Systems: Reviewed and Negative Patient History - Patient Medical History Hx Anemia: No Hx Asthma: No Hx Chronic Obstructive Pulmonary Disease (COPD): No Hx Cancer: No Hx Cardiac Disorders: No Hx Congestive Heart Failure: No Hx Hypertension: Yes (on meds.) Hx Hypercholesterolemia: No Hx Pacemaker: No HX Cerebrovascular Accident: No Hx Seizures: No Hx Dementia: No Hx Diabetes: No Hx Gastrointestinal Disorders: No Hx Liver Disease: No Hx Genitourinary Disorders: No Hx Sexually Transmitted Disorders: No Hx Renal Disease (ESRD): No Hx Thyroid Disease: No Hx Human Immunodeficiency Virus (HIV): No (NEGATIVE HX) Hx Hepatitis C: No Hx Depression: No Hx Suicide Attempt: No Hx Bipolar Disorder: No Hx Schizophrenia: No - Patient Surgical History Past Surgical History: Yes Hx Neurologic Surgery: No Hx Cataract Extraction: No Hx Cardiac Surgery: No Hx Lung Surgery: No Hx Breast Surgery: No Hx Breast Biopsy: No Hx Abdominal Surgery: No Hx Appendectomy: No Hx Cholecystectomy: No Hx Genitourinary Surgery: No Hx Section: No Hx Orthopedic Surgery: No Other Surgical History: Nail removed from R knee on 10/21/16. Anesthesia Reaction: No - PPD History Previous Implant?: Yes Documented Results: Negative w/proof Implanted On Prior [facility] Admission?: Yes Date: 08/27/16 Results: 0 mm PPD to be Administered?: No - Reproductive History Patient is a Female of Child Bearing Age (11 -55 yrs old): No - Smoking Cessation Smoking history: Never smoked Have you smoked in the past 12 months: No Cigars Per Day: 0 Hx Chewing Tobacco Use: No - Substance & Tx. History Hx Alcohol Use: Yes Hx Substance Use: Yes Substance Use Type: Alcohol, Heroin Hx Substance Use Treatment: Yes (Detox ([facility]-12/2016) & rehab (can't recall date)) - Substances Abused Alcohol Route: Oral Frequency: 3-6 times per week Amount used: 2-3 40oz of beer + 1-2 c. of liquor Age of first use: 17 Date of Last Use: 02/15/17 Heroin Route: Inhalation Frequency: 3-6 times per week Amount used: 2-3 bags Age of first use: 58 Date of Last Use: 02/15/17 Family Disease History - Family Disease History Family Disease History: Diabetes: Mother, [place]: Brother (), Sister ( ), Other: Father () Admission Physical Exam [facility] - Vital Signs Vital Signs: Last Vital Signs Temp Pulse Resp BP Pulse Ox 98.2 F 71 16 147/99 02/15/17 21:48 02/15/17 21:48 02/15/17 21:48 02/15/17 21:48 - Physical General Appearance: Yes: Alcohol on Breath, Intoxicated, Anxious HEENTM: Yes: Hearing grossly Normal, Normocephalic, Normal Voice Respiratory: Yes: Chest Non-Tender, Lungs Clear, Normal Breath Sounds, No Respiratory Distress, No Accessory Muscle Use Neck: Yes: No masses,lesions,Nodules, Trachea in good position Breast: Yes: Breast Exam Deferred Cardiology: Yes: Regular Rhythm, Regular Rate, S1, S2 Abdominal: Yes: Flat, Soft Genitourinary: Yes: Other (NO COMPLAINT REPORTED) Back: Yes: Normal Inspection Musculoskeletal: Yes: Back pain Extremities: Yes: Normal Inspection, Normal Range of Motion, Non-Tender, Tremors 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: Yes: Alert, Motor Strength 5/5, Normal Mood/Affect, Normal Response Integumentary: Yes: Other (Abrasion to the back of the head. Pt. reports it's due to shaving.) Lymphatic: Yes: Within Normal Limits - Diagnostic (1) Alcohol dependence with uncomplicated withdrawal Current Visit: Yes Status: Chronic (2) Arthritis Current Visit: Yes Status: Chronic Comment: KNEES (3) Essential hypertension Current Visit: Yes Status: Chronic (4) Opioid dependence with withdrawal Current Visit: Yes Status: Chronic Cleared for Admission [facility] - Detox or Rehab [facility] Level of Care: Medically Managed Detox Regimen/Protocol: Methadone/Librium S Breath Alcohol Content Breath Alcohol Content: 0.21 Vital Signs - Vital Signs Vital Signs Refused: No Temperature: 98.2 F Temperature Source: Oral Pulse Rate: 71 Respiratory Rate: 16 Blood Pressure: 147/99 BP Location: Left Arm Blood Pressure Position: Sitting - Height Height: 5 ft 11 in - Weight Weight: 208 lb Weight Measurement Method: Standing Scale Body Mass Index (BMI): 29.0 Urine Drug Screen - Test Device Lot Number: [id number] Expiration Date: 08/06/18 - Results Urine Drug Screen Results: THC-Marijuana, OPI-Opiates, OXY-Oxycodone
[2017-02-15] MEDS ORDERED: METHADONE HCL 10 MG TABLET (FOR DETOX USE ONLY) PO ONE ×2 (21:41→23:00)
[2017-02-15] MEDS ORDERED: guaiFENesin/D-METHORPHAN HB 10 ML UNIT-DOSE CUPS PO PRN (21:41)
[2017-02-15] MEDS ORDERED: MENTHOL/PHENOL 1 EACH UD MM PRN (21:41)
[2017-02-15] MEDS ORDERED: chlordiazePOXIDE HCL 25 MG CAPSULE PO ONE (21:41)
[2017-02-15] MEDS ORDERED: IBUPROFEN 400 MG TABLET (FP) PO PRN (21:41)
[2017-02-15] MEDS ORDERED: MAGNESIUM CITRATE 300 ML BOTTLE PO PRN (21:41)
[2017-02-15] MEDS ORDERED: hydrOXYzine PAMOATE 50 MG CAPSULE (FP) PO PRN (21:41)
[2017-02-15] MEDS ORDERED: ACETAMINOPHEN 325 MG TABLET (FP) PO PRN (21:41)
[2017-02-15] MEDS ORDERED: MAGNESIUM HYDROX 2400MG/30ML ORAL SUSPENSION 30 ML CUP PO PRN (21:41)
[2017-02-15] MEDS ORDERED: LOPERAMIDE HCL 2 MG CAPSULE PO PRN (21:41)
[2017-02-15] MEDS ORDERED: P-EPHED 60MG/TRIPROLIDI 2.5MG TABLET PO PRN (21:41)
[2017-02-15 21:48] VITALS: BMI 29.0
[2017-02-15] MEDS: METOPROLOL TARTRATE 25 MG TABLET (FP) PO SCH (23:07)
[2017-02-15] MEDS: chlordiazePOXIDE HCL 25 MG CAPSULE PO SCH (23:08)
[2017-02-15] MEDS: diphenhydrAMINE HCL 50 MG CAPSULE PO PRN (23:10)
[2017-02-15] MEDS: THIAMINE HCL 100 MG TABLET (FP) PO SCH (23:10)
[2017-02-15] MEDS: BACITRACIN 30 GM TUBE TOPICAL OINTMENT TP SCH (23:12)
[2017-02-15] MEDS: MAG HYDROX/AL HYDROX/SIMETH 30 ML UNIT-DOSE CUP PO PRN (23:23)
[2017-02-16] MEDS: chlordiazePOXIDE HCL 25 MG CAPSULE PO PRN (01:36)
[2017-02-16] MEDS: diphenhydrAMINE HCL 50 MG CAPSULE PO PRN (01:38)
[2017-02-16] MEDS: chlordiazePOXIDE HCL 25 MG CAPSULE PO SCH ×4 (05:05→22:35)
[2017-02-16] MEDS ORDERED: BACITRACIN 0.9 GM PACKET ONE (08:54)
--- NOTE | 2017-02-16 09:57 | PN ---
[facility] CIWA - CIWA Score Nausea/Vomitin Muscle Tremors: 3 Anxiety: 2 Agitation: 2 Paroxysmal Sweats: 1-Minimal Palms Moist Orientation: 0-Oriented Tacttile Disturbances: 1-Very Mild Itch/Numbness Auditory Disturbances: 1-Very Mild Visual Disturbances: 1-Very Mild Sensitivity Headache: 2-Mild CIWA-Ar Total Score: 16 [facility] COWS - Scale Resting Pulse: 2= [place] 101-120 Sweatin= Chills/Flushing Restless Observation: 3= Extraneous Movement Pupil Size: 1= Pupils >than Normal Bone or Joint Aches: 2= Severe Diffuse Aches Runny Nose/ Eye Tearin= Runny Nose/Eyes GI Upset > 30mins: 3= Vomiting/Diarrhea Tremor Observation of Outstretched Hands: 2= Slight Tremor Visible Yawning Observation: 1= 1-2x During Session Anxiety or Irritability: 2=Irritable/Anxious Goose Flesh Skin: 0=Smooth Skin COWS Score: 19 S Progress Note (SOAP) Subjective: ALERT,IRRITABLE,ANXIOUS,INTERRUPTED SLEEP,TREMOR,PAIN IN THE BODY AND BACK Objective: 02/16/17 09:55 Vital Signs Temperature 97.0 F L 02/16/17 09:52 Pulse Rate 62 02/16/17 09:53 Respiratory Rate 18 02/16/17 09:53 Blood Pressure 133/93 02/16/17 09:53 O2 Sat by Pulse Oximetry (%) EKG SINUS BRADYCARDIA 56/MIN NO CHEST PAIN,NO SOB,NO DIZZINESS LABS PENDING Assessment: 02/16/17 09:57 WITHDRAWAL SYMPTOM Plan: CONTINUE DETOX
[2017-02-16] MEDS ORDERED: METHADONE HCL 10 MG TABLET (FOR DETOX USE ONLY) PO SCH (10:00)
[2017-02-16 10:04] LABS: MCH 28.5 pg (25.7-33.7); MCHC 32.6 g/dl (32.0-35.9); MEAN CELL VOLUME 87.5 fl (80-96); MEAN PLT VOLUME 9.4 fl (7.5-11.1); PLATELET COUNT 152 K/MM3 (134-434); RDW 14.2 % (11.9-15.9); WHITE BLOOD COUNT 3.6 K/mm3 (4.0-10.0)
[2017-02-16 10:25] LABS: ALBUMIN 3.9 g/dl (3.4-5.0); BILIRUBIN,TOTAL 0.7 mg/dL (0.2-1.0); CALCIUM 9.1 mg/dL (8.5-10.1); COCKROFT - GAULT 69.88; CREATININE 1.5 mg/dL (0.7-1.3)
[2017-02-16] MEDS: METOPROLOL TARTRATE 25 MG TABLET (FP) PO SCH ×2 (10:42→22:35)
[2017-02-16] MEDS: PRENATAL VITAMINS W/ FOLIC ACID TABLET (FP) PO SCH (10:42)
[2017-02-16] MEDS: BACITRACIN 30 GM TUBE TOPICAL OINTMENT TP SCH ×2 (10:42→22:37)
[2017-02-16 10:56] LABS: URINE APPEARANCE CLEAR; URINE BLOOD NEGATIVE (NEGATIVE); URINE COLOR AMBER; URINE GLUCOSE (UA) NEGATIVE (NEGATIVE); URINE KETONE TRACE (NEGATIVE); URINE LEUK ESTERASE NEGATIVE (NEGATIVE); URINE NITRITE NEGATIVE (NEGATIVE); URINE UROBILINOGEN 2.0 E.U/dl E.U./dl (0.2-1.0)
[2017-02-16 10:58] LABS: URINE PROTEIN 1+ (NEGATIVE)
[2017-02-16 11:05] LABS: URINE HYALINE CAST 21 /lpf; URINE MUCUS MANY; URINE RBC 1 /hpf (0-3); URINE WBC 1 /hpf (3-5)
[2017-02-16 12:39] LABS: HIV 1 & 2 AB NEGATIVE; HIV 1 AGp24 NEGATIVE
--- NOTE | 2017-02-16 14:12 | EKG ---
Test Reason : Blood Pressure : / mmHG Vent. Rate : 056 BPM Atrial Rate : 056 BPM P-R Int : 152 ms QRS Dur : 094 ms QT Int : 424 ms P-R-T Axes : 045 -35 032 degrees QTc Int : 409 ms SINUS BRADYCARDIA LEFT AXIS DEVIATION INCOMPLETE RIGHT BUNDLE BRANCH BLOCK ABNORMAL ECG WHEN COMPARED WITH ECG OF 30-OCT-2016 14:48, INCOMPLETE RIGHT BUNDLE BRANCH BLOCK IS NOW PRESENT Confirmed by EMILY PATEL MD ([id number]) on 02/16/2017 2:12:15 PM Referred By: Confirmed By:EMILY PATEL MD
[2017-02-16] MEDS: MAG HYDROX/AL HYDROX/SIMETH 30 ML UNIT-DOSE CUP PO PRN (17:22)
[2017-02-16] MEDS: cloNIDine HCL 0.1 MG TABLET PO PRN (22:35)
[2017-02-16] MEDS: THIAMINE HCL 100 MG TABLET (FP) PO SCH (22:35)
[2017-02-17] MEDS: chlordiazePOXIDE HCL 25 MG CAPSULE PO SCH ×3 (05:42→18:00)
--- NOTE | 2017-02-17 10:32 | PN ---
[facility] CIWA - CIWA Score Nausea/Vomitin Muscle Tremors: 3 Anxiety: 2 Agitation: 2 Paroxysmal Sweats: 1-Minimal Palms Moist Orientation: 0-Oriented Tacttile Disturbances: 1-Very Mild Itch/Numbness Auditory Disturbances: 1-Very Mild Visual Disturbances: 1-Very Mild Sensitivity Headache: 2-Mild CIWA-Ar Total Score: 16 BHS COWS - Scale Resting Pulse: 0= [place] 80 or Below Sweatin= Chills/Flushing Restless Observation: 3= Extraneous Movement Pupil Size: 1= Pupils >than Normal Bone or Joint Aches: 2= Severe Diffuse Aches Runny Nose/ Eye Tearin= Runny Nose/Eyes GI Upset > 30mins: 2= Nausea/Diarrhea Tremor Observation of Outstretched Hands: 2= Slight Tremor Visible Yawning Observation: 1= 1-2x During Session Anxiety or Irritability: 2=Irritable/Anxious Goose Flesh Skin: 0=Smooth Skin COWS Score: 16 [facility] Progress Note (SOAP) Subjective: ALERT,IRRITABLE,ANXIOUS,INTERRUPTED SLEEP,PAIN IN THE BODY AND BACK Objective: 02/17/17 10:31 Vital Signs Temperature 96.3 F L 02/17/17 09:39 Pulse Rate 79 02/17/17 09:39 Respiratory Rate 20 02/17/17 09:39 Blood Pressure 127/80 02/17/17 09:39 O2 Sat by Pulse Oximetry (%) Laboratory Last Values WBC 3.6 K/mm3 (4.0-10.0) L D 02/16/17 07:00 RBC 4.82 M/mm3 (4.00-5.60) D 02/16/17 07:00 Hgb 13.8 GM/dL (11.7-16.9) D 02/16/17 07:00 Hct 42.2 % (35.4-49) D 02/16/17 07:00 MCV 87.5 fl (80-96) 02/16/17 07:00 MCHC 32.6 g/dl (32.0-35.9) 02/16/17 07:00 RDW 14.2 % (11.9-15.9) 02/16/17 07:00 Plt Count 152 K/MM3 (134-434) D 02/16/17 07:00 MPV 9.4 fl (7.5-11.1) 02/16/17 07:00 Sodium 141 mmol/L (136-145) 02/16/17 07:00 Potassium 4.0 mmol/L (3.5-5.1) 02/16/17 07:00 Chloride 102 mmol/L (98-107) 02/16/17 07:00 Carbon Dioxide 32 mmol/L (21-32) 02/16/17 07:00 Anion Gap 7 (8-16) L 02/16/17 07:00 BUN 18 mg/dL (7-18) 02/16/17 07:00 Creatinine 1.5 mg/dL (0.7-1.3) H D 02/16/17 07:00 Creat Clearance w eGFR 47.74 (>60) 02/16/17 07:00 Random Glucose 100 mg/dL (74-106) D 02/16/17 07:00 Calcium 9.1 mg/dL (8.5-10.1) 02/16/17 07:00 Total Bilirubin 0.7 mg/dL (0.2-1.0) D 02/16/17 07:00 AST 22 U/L (15-37) 02/16/17 07:00 ALT 22 U/L (12-78) 02/16/17 07:00 Alkaline Phosphatase 90 U/L (45-117) D 02/16/17 07:00 Total Protein 7.0 g/dl (6.4-8.2) 02/16/17 07:00 Albumin 3.9 g/dl (3.4-5.0) D 02/16/17 07:00 Urine Color [place] 02/16/17 08:00 Urine Appearance Clear 02/16/17 08:00 Urine pH 5.0 (5.0-8.0) 02/16/17 08:00 Ur Specific [place] >= 1.030 (1.005-1.025) H 02/16/17 08:00 Urine Protein 1+ (NEGATIVE) H 02/16/17 08:00 Urine Glucose (UA) Negative (NEGATIVE) 02/16/17 08:00 Urine Ketones Trace (NEGATIVE) H 02/16/17 08:00 Urine Blood Negative (NEGATIVE) 02/16/17 08:00 Urine Nitrite Negative (NEGATIVE) 02/16/17 08:00 Urine Bilirubin 2.0 (NEGATIVE) 02/16/17 08:00 Urine Urobilinogen 2.0 e.u/dl E.U./dl (0.2-1.0) 02/16/17 08:00 Ur Leukocyte Esterase Negative (NEGATIVE) 02/16/17 08:00 Urine RBC 1 /hpf (0-3) 02/16/17 08:00 Urine WBC 1 /hpf (3-5) 02/16/17 08:00 Ur Epithelial Cells Rare /hpf (FEW) 02/16/17 08:00 Hyaline Casts 21 /lpf 02/16/17 08:00 Urine Mucus Many 02/16/17 08:00 RPR Titer Nonreactive (NONREACTIVE) 02/16/17 07:00 Hepatitis C Antibody <0.1 s/co ratio (0.0-0.9) 02/15/17 07:00 HIV 1&2 Antibody Screen Negative 02/16/17 07:00 HIV P24 Antigen Negative 02/16/17 07:00 Assessment: 02/17/17 10:32 WITHDRAWAL SYMPTOM Plan: CONTINUE DETOX
[2017-02-17] MEDS: cloNIDine HCL 0.1 MG TABLET PO PRN (10:42)
[2017-02-17] MEDS: PRENATAL VITAMINS W/ FOLIC ACID TABLET (FP) PO SCH (10:42)
[2017-02-17] MEDS: METOPROLOL TARTRATE 25 MG TABLET (FP) PO SCH ×2 (10:42→22:07)
[2017-02-17] MEDS: METHADONE HCL 5 MG TABLET (FOR DETOX USE ONLY) PO SCH (10:42)
[2017-02-17] MEDS: BACITRACIN 30 GM TUBE TOPICAL OINTMENT TP SCH ×2 (10:44→23:18)
[2017-02-17] MEDS: chlordiazePOXIDE 5 MG CAPSULE PO SCH (22:07)
[2017-02-17] MEDS: THIAMINE HCL 100 MG TABLET (FP) PO SCH (22:07)
[2017-02-18] MEDS: chlordiazePOXIDE 5 MG CAPSULE PO SCH ×3 (05:41→18:50)
[2017-02-18] MEDS: METHADONE HCL 5 MG TABLET (FOR DETOX USE ONLY) PO SCH (10:46)
[2017-02-18] MEDS: METOPROLOL TARTRATE 25 MG TABLET (FP) PO SCH ×2 (10:46→23:07)
[2017-02-18] MEDS: PRENATAL VITAMINS W/ FOLIC ACID TABLET (FP) PO SCH (10:46)
[2017-02-18] MEDS: cloNIDine HCL 0.1 MG TABLET PO PRN (10:46)
[2017-02-18] MEDS: BACITRACIN 30 GM TUBE TOPICAL OINTMENT TP SCH ×2 (10:47→23:07)
--- NOTE | 2017-02-18 11:06 | PN ---
S Progress Note (SOAP) Subjective: alert,irritable,anxious,interrupted sleep Objective: 02/18/17 11:05 Vital Signs Temperature 97.3 F L 02/18/17 09:46 Pulse Rate 65 02/18/17 09:46 Respiratory Rate 20 02/18/17 09:46 Blood Pressure 132/89 02/18/17 09:46 O2 Sat by Pulse Oximetry (%) Assessment: 02/18/17 11:05 withdrawal symptom Plan: continue detox
[2017-02-18] MEDS: chlordiazePOXIDE HCL 25 MG CAPSULE PO PRN (15:10)
[2017-02-18] MEDS: chlordiazePOXIDE HCL 10 MG CAPSULE PO SCH (23:06)
[2017-02-18] MEDS: THIAMINE HCL 100 MG TABLET (FP) PO SCH (23:07)
[2017-02-19] MEDS: chlordiazePOXIDE HCL 10 MG CAPSULE PO SCH (06:00)
[2017-02-19 06:19] VITALS: BP 141/88; PULSE 55; TEMP 97
--- NOTE | 2017-02-19 08:32 | DS ---
[facility] Detox Discharge Summary Admission Date: 02/15/17 Discharge Date: 02/19/17 - History Present History: Opioid Dependence, Sedative Dependence Additional Comments: FOLLOW UP WITH AFTER CARE PROGRAM ARRANGE,EMT AND PMD FOR MEDICAL PROBLEM Pertinent Past History: ARTHRITIS HYPERTENSION WEIGHT LOSS - Physical Exam Results Vital Signs: Vital Signs Temperature 97 F L 02/19/17 06:19 Pulse Rate 55 L 02/19/17 06:19 Respiratory Rate 18 02/19/17 06:19 Blood Pressure 141/88 02/19/17 06:19 O2 Sat by Pulse Oximetry (%) Pertinent Admission Physical Exam Findings: WITHDRAWAL SYMPTOM - Treatment Hospital Course: Detox Protocol Followed, Detoxed Safely, Responded well, Discharged Condition Good Patient has Accepted a Rehab Referral to: DECLINED - Medication Discharge Medications: Ambulatory Orders Metoprolol Tartrate [Lopressor -] 25 mg PO BID 08/27/15 - AMA Did Patient Leave Against Medical Advice: No
[2017-02-19] MEDS ORDERED: METHADONE HCL 5 MG TABLET (FOR DETOX USE ONLY) PO ONE (08:35)
[2017-02-19] MEDS: PRENATAL VITAMINS W/ FOLIC ACID TABLET (FP) PO SCH (09:01)
[2017-02-19] MEDS: METOPROLOL TARTRATE 25 MG TABLET (FP) PO SCH (09:03)
[2017-02-19] MEDS ORDERED: METHADONE HCL 10 MG TABLET (FOR DETOX USE ONLY) PO SCH (10:00)
--- NOTE | 2017-02-19 10:53 | PN ---
S Progress Note (SOAP) Subjective: ALERT,NO COMPLAINT Objective: 02/19/17 10:51 Vital Signs Temperature 97 F L 02/19/17 06:19 Pulse Rate 55 L 02/19/17 06:19 Respiratory Rate 18 02/19/17 06:19 Blood Pressure 141/88 02/19/17 06:19 O2 Sat by Pulse Oximetry (%) 02/19/17 10:52 Assessment: 02/19/17 10:52 NO WITHDRAWAL SYMPTOM Plan: DISCHARGE TODAY,FOLLOW UP WITH AFTER CARE PROGRAM ARRANGEMENT
[2017-02-20] MEDS ORDERED: METHADONE HCL 5 MG TABLET (FOR DETOX USE ONLY) PO SCH (06:00)
== END 2017-02-19 09:23 | disposition home or self-care (01) | DRG 773 ==
LOC: YASAS 21:23 → Y6N 21:39
PROVIDERS: ADMIT Internal Medicine; ATTEND Internal Medicine
PROC: HZ2ZZZZ Detoxification Services for Substance Abuse Treatment (ICD-10-PCS; principal; 2017-02-15)
DX: F11.23 Opioid dependence with withdrawal (principal); F10.230 Alcohol dependence with withdrawal, uncomplicated; I10 Essential (primary) hypertension; M19.90 Unspecified osteoarthritis, unspecified site; R00.1 Bradycardia, unspecified; Z87.898 Personal history of other specified conditions
CPT/HCPCS: 36415; 80053; 81003; 81015; 85027; 86593; 86803; 87389; 93005; 93010

== ENCOUNTER 2018-09-01 14:15 | Inpatient (IN) | payer OTHER ==
[2018-09-01 15:11] VITALS: BMI 30.5
--- NOTE | 2018-09-01 16:17 | HP ---
COWS - Scale Resting Pulse: 0= [place] 80 or Below Sweatin=Flushed/Facial Moisture Restless Observation: 1= Difficult to Sit Still Pupil Size: 0= Normal to Room Light Bone or Joint Aches: 2= Severe Diffuse Aches Runny Nose/ Eye Tearin= Runny Nose/Eyes GI Upset > 30mins: 2= Nausea/Diarrhea Tremor Observation: 2= Slight Tremor Visible Yawning Observation: 0= None Anxiety or Irritability: 1=Feels Anxious/Irritable Goose Flesh Skin: 0=Smooth Skin COWS Score: 12 CIWA Score Nausea/Vomitin-Mild Nausea/No Vomiting Muscle Tremors: 4-Moderate,w/Arms Extend Anxiety: 3 Agitation: 3 Paroxysmal Sweats: 3 Orientation: 0-Oriented Tacttile Disturbances: 0-None Auditory Disturbances: 0-None Visual Disturbances: 0-None Headache: 1-Very Mild CIWA-Ar Total Score: 15 - Admission Criteria [facility] Guidelines: Admission for Medically Managed Detox: Requires at least one of the followin. CIWA greater than 12 2. Seizures within the past 24 hours 3. Delirium tremens within the past 24 hours 4. Hallucinations within the past 24 hours 5. Acute intervention needed for co occurring medical disorder 6. Acute intervention needed for co occurring psychiatric disorder 7. Severe withdrawal that cannot be handled at a lower level of care (continued vomiting, continued diarrhea, abnormal vital signs) requiring intravenous medication and/or fluids 8. Admission ROS [facility] Chief Complaint: I am here to try to kick this habit. Allergies/Adverse Reactions: Allergies Allergy/AdvReac Type Severity Reaction Status Date / Time No Known Allergies Allergy Verified 09/01/18 15:34 History of Present Illness: pt is a 63yr old male with a history of heroin, alcohol and cannabis dependence seeking detox for treatment. Exam Limitations: No Limitations - Ebola screening Have you traveled outside of the country in the last 21 days: No (N) Have you had contact with anyone from an Ebola affected area: No Have you been sick,other than usual withdrawal symptoms: No Do you have a fever: No - Review of Systems Constitutional: Chills, Diaphoresis, Changes in sleep EENT: reports: Tearing, Nose Congestion, Dental Problems (missing teeth) Respiratory: reports: No Symptoms reported Cardiac: reports: No Symptoms Reported GI: reports: Nausea, Poor Fluid Intake : reports: No Symptoms Reported Musculoskeletal: reports: Back Pain Integumentary: reports: Flushing, Sweating Neuro: reports: Headache, Tremors Endocrine: reports: Excessive Sweating, Flushing, Intolerance to Cold, Intolerance to Heat Hematology: reports: No Symptoms Reported Psychiatric: reports: Judgement Intact, Mood/Affect Appropiate, Orientated x3, Agitated, Anxious Other Systems: Reviewed and Negative Patient History - Patient Medical History Hx Anemia: No Hx Asthma: No Hx Chronic Obstructive Pulmonary Disease (COPD): No Hx Cancer: No Hx Cardiac Disorders: No Hx Congestive Heart Failure: No Hx Hypertension: Yes (on medication) Hx Hypercholesterolemia: No Hx Pacemaker: No HX Cerebrovascular Accident: No Hx Seizures: No Hx Dementia: No Hx Diabetes: No Hx Gastrointestinal Disorders: No Hx Liver Disease: No Hx Genitourinary Disorders: No Hx Sexually Transmitted Disorders: No Hx Renal Disease (ESRD): No Hx Thyroid Disease: No Hx Human Immunodeficiency Virus (HIV): No (negative) Hx Hepatitis C: No (negative) Hx Depression: No Hx Suicide Attempt: No (denies) Hx Bipolar Disorder: No Hx Schizophrenia: No - Patient Surgical History Past Surgical History: Yes Hx Neurologic Surgery: No Hx Cataract Extraction: No Hx Cardiac Surgery: No Hx Lung Surgery: No Hx Breast Surgery: No Hx Breast Biopsy: No Hx Abdominal Surgery: No Hx Appendectomy: No Hx Cholecystectomy: No Hx Genitourinary Surgery: No Hx Section: No Hx Orthopedic Surgery: No Other Surgical History: Nail removed from R knee on 10/21/16. Anesthesia Reaction: No - PPD History Previous Implant?: Yes Date: 08/27/16 Results: 0 mm PPD to be Administered?: Yes - Reproductive History Patient is a Female of Child Bearing Age (11 -55 yrs old): No - Smoking Cessation Smoking history: Never smoked Have you smoked in the past 12 months: No Aproximately how many cigarettes per day: 0 Cigars Per Day: 0 Hx Chewing Tobacco Use: No Initiated information on smoking cessation: No - Substance & Tx. History Hx Alcohol Use: Yes Hx Substance Use: Yes Substance Use Type: Alcohol, Heroin, Marijuana Hx Substance Use Treatment: Yes (last detox 3weeks ago [facility]) - Substances Abused Alcohol Route: Oral Frequency: Daily Amount used: 3 40oz cans of beer Age of first use: 18 Date of Last Use: 08/31/18 Marijuana/Hashish Route: Smoking Frequency: Daily Amount used: 6 joints Age of first use: 22 Date of Last Use: 08/31/18 Heroin Route: Inhalation Frequency: Daily Amount used: 3 bags Age of first use: 56 Date of Last Use: 09/01/18 Family Disease History - Family Disease History Family Disease History: Diabetes: Mother, [place]: Brother (), Sister ( ), Other: Father () Admission Physical Exam [facility] - Vital Signs Vital Signs: Vital Signs - 24 hr 09/01/18 15:08 Temperature 97.8 F Pulse Rate 67 Respiratory 18 Rate Blood Pressure 145/91 - Physical General Appearance: Yes: Appropriately Dressed, Moderate Distress, Tremorous, Irritable, Sweating, Anxious HEENTM: Yes: Normal Voice, Nasal Congestion, Rhinorrhea, Other (redness to both eyes. not conjuctivities. no d/c complain or noted) Respiratory: Yes: Lungs Clear, Normal Breath Sounds, No Respiratory Distress Neck: Yes: No masses,lesions,Nodules Breast: Yes: Within Normal Limits Cardiology: Yes: Regular Rhythm, Regular Rate, S1, S2 Abdominal: Yes: Normal Bowel Sounds, Non Tender, Soft Genitourinary: Yes: Within Normal Limits Back: Yes: Normal Inspection Musculoskeletal: Yes: full range of Motion, Back pain Extremities: Yes: Normal Capillary Refill, Normal Inspection, Non-Tender, Tremors 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: Yes: Fully Oriented, Alert, Normal Response Integumentary: Yes: Normal Color, Diaphoresis Lymphatic: Yes: Within Normal Limits - Diagnostic (1) Alcohol dependence with uncomplicated withdrawal Current Visit: Yes Status: Chronic (2) Cannabis dependence Current Visit: Yes Status: Chronic (3) Essential hypertension Current Visit: Yes Status: Chronic (4) Opioid dependence with withdrawal Current Visit: Yes Status: Chronic (5) S/P knee surgery Current Visit: No Status: Chronic Comment: RECENT RIGHT KNEE SX ON 10/21/16 WITH SIX KELLY INTACT. (6) Redness of eye Current Visit: Yes Status: Chronic Comment: no conjuctivities noted Cleared for Admission [facility] - Detox or Rehab [facility] Level of Care: Medically Managed Detox Regimen/Protocol: Methadone/Librium S Breath Alcohol Content Breath Alcohol Content: 0 Urine Drug Screen - Results Drug Screen Negative: No Urine Drug Screen Results: THC-Marijuana, OPI-Opiates, BZO-Benzodiazepines, FEN- Fentanyl
[2018-09-01] MEDS ORDERED: MAGNESIUM HYDROX 2400MG/30ML ORAL SUSPENSION 30 ML CUP PO PRN (16:20)
[2018-09-01] MEDS ORDERED: chlordiazePOXIDE HCL 25 MG CAPSULE PO PRN (16:20)
[2018-09-01] MEDS ORDERED: MAGNESIUM CITRATE 300 ML BOTTLE PO PRN (16:20)
[2018-09-01] MEDS ORDERED: LOPERAMIDE HCL 2 MG CAPSULE PO PRN (16:20)
[2018-09-01] MEDS ORDERED: P-EPHED 60MG/TRIPROLIDI 2.5MG TABLET PO PRN (16:20)
[2018-09-01] MEDS ORDERED: METHADONE HCL 10 MG TABLET (FOR DETOX USE ONLY) PO ONE ×2 (16:20→23:00)
[2018-09-01] MEDS ORDERED: MENTHOL/PHENOL 1 EACH UD MM PRN (16:20)
[2018-09-01] MEDS ORDERED: IBUPROFEN 400 MG TABLET (FP) PO PRN (16:20)
[2018-09-01] MEDS ORDERED: guaiFENesin/D-METHORPHAN HB 10 ML UNIT-DOSE CUPS PO PRN (16:20)
[2018-09-01] MEDS ORDERED: MAG HYDROX/AL HYDROX/SIMETH 30 ML UNIT-DOSE CUP PO PRN (16:20)
[2018-09-01] MEDS ORDERED: ACETAMINOPHEN 325 MG TABLET (FP) PO PRN (16:20)
[2018-09-01] MEDS ORDERED: chlordiazePOXIDE HCL 25 MG CAPSULE PO ONE (16:20)
[2018-09-01] MEDS ORDERED: TRYPAN BLUE 0.5 ML DISP.SYRIN IO SCH (22:00)
[2018-09-01] MEDS: chlordiazePOXIDE HCL 25 MG CAPSULE PO SCH (22:27)
[2018-09-01] MEDS: NAPHAZOLINE/PHENIRAMINE OPHTHALMIC 15 ML BOTTLE OU PRN (22:27)
[2018-09-01] MEDS: THIAMINE HCL 100 MG TABLET (FP) PO SCH (22:27)
[2018-09-01] MEDS: MELATONIN 5 MG TABLETS PO PRN (23:28)
[2018-09-02] MEDS: chlordiazePOXIDE HCL 25 MG CAPSULE PO SCH ×4 (05:32→22:08)
--- NOTE | 2018-09-02 07:56 | PN ---
[facility] Progress Note Note: Patient was seen at bedside and examined with complaint of left upper lips swelling. Patient was noted with upper tooth decay and gum tenderness and swelling. He denies allergy to medications. Vital Signs Temperature 97.7 F 09/02/18 06:01 Pulse Rate 50 L 09/02/18 06:01 Respiratory Rate 18 09/02/18 06:01 Blood Pressure 117/73 09/02/18 06:01 O2 Sat by Pulse Oximetry (%) Action: Penicillin V. Potassium 250mg Q6H x 7 days ordered
[2018-09-02] MEDS ORDERED: diphenhydrAMINE HCL 50 MG CAPSULE PO ONE ×2 (09:55→11:25)
[2018-09-02] MEDS ORDERED: METHADONE HCL 10 MG TABLET (FOR DETOX USE ONLY) PO SCH (10:00)
--- NOTE | 2018-09-02 10:00 | PN ---
S Progress Note Note: pt c/o upper lip swollen pt states he is not allergic to anything as far as he is concerned. pt states this happened just this morning. no s/s of infection noted to gum, there is tooth decay noted but no s/s of infection. ABX discontinued. Benadryl 50mg x one dose ordered. will continue to monitor
[2018-09-02] MEDS ORDERED: diphenhydrAMINE HCL 25 MG CAPSULE (FP) PO ONE ×2 (10:02→11:23)
[2018-09-02] MEDS: amLODIPine BESYLATE 10 MG TABLET (FP) PO SCH (10:13)
[2018-09-02] MEDS: PRENATAL VITAMINS W/ FOLIC ACID TABLET (FP) PO SCH (10:13)
[2018-09-02] MEDS: ASPIRIN COATED 81 MG TABLET.EC PO SCH (10:13)
[2018-09-02] MEDS: LISINOPRIL 10 MG TABLET (FP) PO SCH (10:16)
[2018-09-02 11:01] LABS: HEMATOCRIT 39.7 % (35.4-49); HEMOGLOBIN 13.1 GM/dL (11.7-16.9); MCH 28.5 pg (25.7-33.7); MCHC 32.9 g/dl (32.0-35.9); MEAN CELL VOLUME 86.6 fl (80-96); MEAN PLT VOLUME 9.1 fl (7.5-11.1); PLATELET COUNT 184 K/MM3 (134-434); RBC 4.58 M/mm3 (4.00-5.60); RDW 13.3 % (11.9-15.9); WHITE BLOOD COUNT 3.4 K/mm3 (4.0-10.0)
[2018-09-02 11:20] LABS: ALBUMIN 3.7 g/dl (3.4-5.0); ALK PHOS 107 U/L (45-117); ANION GAP 6 MMOL/L (8-16); BILIRUBIN,TOTAL 0.4 mg/dL (0.2-1); BLOOD UREA NITROGEN 21 mg/dL (7-18); CALCIUM 8.9 mg/dL (8.5-10.1); CHLORIDE 103 mmol/L (98-107); CO2 30 mmol/L (21-32); CREATININE 1.2 mg/dL (0.55-1.3); GLUCOSE,RANDOM 118 mg/dL (74-106); POTASSIUM 3.8 mmol/L (3.5-5.1); SGOT/AST 19 U/L (15-37); SGPT/ALT 23 U/L (13-61); SODIUM 139 mmol/L (136-145); TOT PROT 6.9 g/dl (6.4-8.2)
--- NOTE | 2018-09-02 11:22 | PN ---
[facility] CIWA - CIWA Score Nausea/Vomitin-No Nausea/No Vomiting Muscle Tremors: 3 Anxiety: 3 Agitation: 3 Paroxysmal Sweats: 3 Orientation: 0-Oriented Tacttile Disturbances: 0-None Auditory Disturbances: 0-None Visual Disturbances: 0-None Headache: 0-None Present CIWA-Ar Total Score: 12 [facility] COWS - Scale Resting Pulse: 0= [place] 80 or Below Sweatin=Flushed/Facial Moisture Restless Observation: 1= Difficult to Sit Still Pupil Size: 0= Normal to Room Light Bone or Joint Aches: 2= Severe Diffuse Aches Runny Nose/ Eye Tearin= Runny Nose/Eyes GI Upset > 30mins: 1= Stomach Cramp Tremor Observation of Outstretched Hands: 2= Slight Tremor Visible Yawning Observation: 2= >3x During Session Anxiety or Irritability: 2=Irritable/Anxious Goose Flesh Skin: 0=Smooth Skin COWS Score: 14 S Progress Note (SOAP) Subjective: sweats shakes interrupted sleep upper lip swelling noted Objective: 09/02/18 11:20 Vital Signs Temperature 97 F L 09/02/18 09:59 Pulse Rate 54 L 09/02/18 09:59 Respiratory Rate 16 09/02/18 09:59 Blood Pressure 121/78 09/02/18 09:59 O2 Sat by Pulse Oximetry (%) Laboratory Tests 09/02/18 09/02/18 07:00 07:00 WBC 3.4 L RBC 4.58 Hgb 13.1 Hct 39.7 MCV 86.6 MCH 28.5 MCHC 32.9 RDW 13.3 Plt Count 184 D MPV 9.1 Sodium 139 Potassium 3.8 Chloride 103 Carbon Dioxide 30 Anion Gap 6 L BUN 21 H Creatinine 1.2 Creat Clearance w eGFR > 60 Random Glucose 118 H Calcium 8.9 Total Bilirubin 0.4 AST 19 ALT 23 Alkaline Phosphatase 107 Total Protein 6.9 Albumin 3.7 aaox3 ambulating no acute distress Assessment: 09/02/18 11:21 withdrawal sx Plan: continue detox increase fluids note for upper lip swelling documented on next note
[2018-09-02] MEDS ORDERED: PENICILLIN V POTASSIUM 250 MG TABLET PO SCH (12:00)
[2018-09-02] MEDS: METHYL SALICYLATE/MENTHOL OINT 30 GM TUBE TP SCH ×2 (12:32→22:07)
[2018-09-02] MEDS ORDERED: diphenhydrAMINE HCL 25 MG CAPSULE (FP) PO PRN (12:39)
[2018-09-02] MEDS ORDERED: PENICILLIN V POTASSIUM 500 MG TABLET PO ONE (12:41)
--- NOTE | 2018-09-02 12:43 | PN ---
[facility] Progress Note Note: benadryl 50mg x 2 ordered and swelling is minimally decreasing. pt will continue with benadryl 25mg q6hr until swelling decreases.
[2018-09-02] MEDS ORDERED: diphenhydrAMINE HCL 25 MG CAPSULE (FP) PO SCH (12:45)
[2018-09-02] MEDS ORDERED: PENICILLIN V POTASSIUM 500 MG TABLET PO SCH (18:00)
[2018-09-02] MEDS: diphenhydrAMINE HCL 25 MG CAPSULE (FP) PO SCH ×2 (18:13→23:25)
[2018-09-02] MEDS: NAPHAZOLINE/PHENIRAMINE OPHTHALMIC 15 ML BOTTLE OU PRN ×2 (18:14→22:08)
[2018-09-02] MEDS: THIAMINE HCL 100 MG TABLET (FP) PO SCH (22:07)
[2018-09-03] MEDS: chlordiazePOXIDE HCL 25 MG CAPSULE PO SCH ×3 (05:42→17:15)
[2018-09-03] MEDS: diphenhydrAMINE HCL 25 MG CAPSULE (FP) PO SCH (05:42)
[2018-09-03] MEDS: amLODIPine BESYLATE 10 MG TABLET (FP) PO SCH (10:17)
[2018-09-03] MEDS: ASPIRIN COATED 81 MG TABLET.EC PO SCH (10:17)
[2018-09-03] MEDS: LISINOPRIL 10 MG TABLET (FP) PO SCH (10:17)
[2018-09-03] MEDS: PRENATAL VITAMINS W/ FOLIC ACID TABLET (FP) PO SCH (10:17)
[2018-09-03] MEDS: METHADONE HCL 5 MG TABLET (FOR DETOX USE ONLY) PO SCH (10:18)
[2018-09-03] MEDS: NAPHAZOLINE/PHENIRAMINE OPHTHALMIC 15 ML BOTTLE OU PRN (10:19)
[2018-09-03] MEDS: METHYL SALICYLATE/MENTHOL OINT 30 GM TUBE TP SCH ×2 (10:19→21:58)
[2018-09-03] MEDS ORDERED: diphenhydrAMINE HCL 25 MG CAPSULE (FP) PO PRN (10:50)
--- NOTE | 2018-09-03 10:55 | PN ---
[facility] CIWA - CIWA Score Nausea/Vomitin-No Nausea/No Vomiting Muscle Tremors: 3 Anxiety: 2 Agitation: 3 Paroxysmal Sweats: 2 Orientation: 0-Oriented Tacttile Disturbances: 0-None Auditory Disturbances: 0-None Visual Disturbances: 0-None Headache: 0-None Present CIWA-Ar Total Score: 10 S COWS - Scale Resting Pulse: 0= [place] 80 or Below Sweatin=Flushed/Facial Moisture Restless Observation: 1= Difficult to Sit Still Pupil Size: 0= Normal to Room Light Bone or Joint Aches: 2= Severe Diffuse Aches Runny Nose/ Eye Tearin= Nasal Congestion GI Upset > 30mins: 0= None Tremor Observation of Outstretched Hands: 2= Slight Tremor Visible Yawning Observation: 2= >3x During Session Anxiety or Irritability: 2=Irritable/Anxious Goose Flesh Skin: 0=Smooth Skin COWS Score: 12 [facility] Progress Note (SOAP) Subjective: lip swelling feels better sweats shakes body aches Objective: 09/03/18 10:58 Vital Signs Temperature 98.4 F 09/03/18 09:12 Pulse Rate 61 09/03/18 09:12 Respiratory Rate 18 09/03/18 09:12 Blood Pressure 126/76 09/03/18 09:12 O2 Sat by Pulse Oximetry (%) Laboratory Tests 09/02/18 09/02/18 09/02/18 07:00 07:00 07:00 WBC 3.4 L RBC 4.58 Hgb 13.1 Hct 39.7 MCV 86.6 MCH 28.5 MCHC 32.9 RDW 13.3 Plt Count 184 D MPV 9.1 Sodium 139 Potassium 3.8 Chloride 103 Carbon Dioxide 30 Anion Gap 6 L BUN 21 H Creatinine 1.2 Creat Clearance w eGFR > 60 Random Glucose 118 H Calcium 8.9 Total Bilirubin 0.4 AST 19 ALT 23 Alkaline Phosphatase 107 Total Protein 6.9 Albumin 3.7 RPR Titer Nonreactive Hep C Ab Diagnostic 09/02/18 07:00 WBC RBC Hgb Hct MCV MCH MCHC RDW Plt Count MPV Sodium Potassium Chloride Carbon Dioxide Anion Gap BUN Creatinine Creat Clearance w eGFR Random Glucose Calcium Total Bilirubin AST ALT Alkaline Phosphatase Total Protein Albumin RPR Titer Hep C Ab Diagnostic 0.2 aaox3 ambulating no acute distress Assessment: 09/03/18 11:00 withdrawal sx lip swelling has decreased significantly Plan: continue detox increase fluids scheduled Benadryl switched to prn if needed
[2018-09-03] MEDS: THIAMINE HCL 100 MG TABLET (FP) PO SCH (21:57)
[2018-09-03] MEDS: chlordiazePOXIDE 5 MG CAPSULE PO SCH (22:01)
[2018-09-04] MEDS: chlordiazePOXIDE 5 MG CAPSULE PO SCH ×3 (05:24→18:07)
[2018-09-04] MEDS: METHADONE HCL 5 MG TABLET (FOR DETOX USE ONLY) PO SCH (10:30)
[2018-09-04] MEDS: LISINOPRIL 10 MG TABLET (FP) PO SCH (10:30)
[2018-09-04] MEDS: METHYL SALICYLATE/MENTHOL OINT 30 GM TUBE TP SCH ×2 (10:31→22:29)
[2018-09-04] MEDS: ASPIRIN COATED 81 MG TABLET.EC PO SCH (10:31)
[2018-09-04] MEDS: amLODIPine BESYLATE 10 MG TABLET (FP) PO SCH (10:31)
[2018-09-04] MEDS: PRENATAL VITAMINS W/ FOLIC ACID TABLET (FP) PO SCH (10:31)
--- NOTE | 2018-09-04 10:57 | PN ---
[facility] Progress Note Note: PATIENT CONTINUES WITH DETOX REGIMEN. PATIENT C/O LBP BUT FEELS MUCH BETTER SINCE ADMISSION. Vital Signs Temperature 97.7 F 09/04/18 06:00 Pulse Rate 48 L 09/04/18 06:00 Respiratory Rate 20 09/04/18 06:00 Blood Pressure 126/77 09/04/18 06:00 O2 Sat by Pulse Oximetry (%) Laboratory Tests 09/02/18 09/02/18 09/02/18 07:00 07:00 07:00 WBC 3.4 L RBC 4.58 Hgb 13.1 Hct 39.7 MCV 86.6 MCH 28.5 MCHC 32.9 RDW 13.3 Plt Count 184 D MPV 9.1 Sodium 139 Potassium 3.8 Chloride 103 Carbon Dioxide 30 Anion Gap 6 L BUN 21 H Creatinine 1.2 Creat Clearance w eGFR > 60 Random Glucose 118 H Calcium 8.9 Total Bilirubin 0.4 AST 19 ALT 23 Alkaline Phosphatase 107 Total Protein 6.9 Albumin 3.7 RPR Titer Nonreactive Hep C Ab Diagnostic HIV 1&2 Antibody Screen HIV P24 Antigen 09/02/18 09/03/18 07:00 06:00 WBC RBC Hgb Hct MCV MCH MCHC RDW Plt Count MPV Sodium Potassium Chloride Carbon Dioxide Anion Gap BUN Creatinine Creat Clearance w eGFR Random Glucose Calcium Total Bilirubin AST ALT Alkaline Phosphatase Total Protein Albumin RPR Titer Hep C Ab Diagnostic 0.2 HIV 1&2 Antibody Screen Negative HIV P24 Antigen Negative PE: ALERT AND ORIENTED X 3 SKIN WARM AND DRY EXT FULL ROM AMB AD CHAYA A/P WITHDRAWAL SX-IMPROVED CONTINUE DETOX CONTINUE TO MONITOR
[2018-09-04] MEDS: NAPHAZOLINE/PHENIRAMINE OPHTHALMIC 15 ML BOTTLE OU PRN (11:24)
--- NOTE | 2018-09-04 13:28 | EKG ---
Test Reason : Blood Pressure : / mmHG Vent. Rate : 050 BPM Atrial Rate : 050 BPM P-R Int : 172 ms QRS Dur : 094 ms QT Int : 454 ms P-R-T Axes : 029 -29 009 degrees QTc Int : 413 ms SINUS BRADYCARDIA WITH PREMATURE ATRIAL COMPLEXES OTHERWISE NORMAL ECG WHEN COMPARED WITH ECG OF 15-FEB-2017 21:59, PREMATURE ATRIAL COMPLEXES ARE NOW PRESENT INCOMPLETE RIGHT BUNDLE BRANCH BLOCK IS NO LONGER PRESENT Confirmed by NICKIE SADLER, TARAN ([id number]) on 09/04/2018 1:28:30 PM Referred By: Confirmed By:TARAN FU MD
[2018-09-04] MEDS: chlordiazePOXIDE HCL 10 MG CAPSULE PO SCH (22:28)
[2018-09-04] MEDS: THIAMINE HCL 100 MG TABLET (FP) PO SCH (22:28)
[2018-09-05] MEDS: MELATONIN 5 MG TABLETS PO PRN ×2 (02:13→22:15)
[2018-09-05] MEDS: chlordiazePOXIDE HCL 10 MG CAPSULE PO SCH ×3 (06:12→17:36)
[2018-09-05] MEDS: NAPHAZOLINE/PHENIRAMINE OPHTHALMIC 15 ML BOTTLE OU PRN (07:02)
[2018-09-05] MEDS ORDERED: METHADONE HCL 10 MG TABLET (FOR DETOX USE ONLY) PO SCH (10:00)
[2018-09-05] MEDS: amLODIPine BESYLATE 10 MG TABLET (FP) PO SCH (10:12)
[2018-09-05] MEDS: LISINOPRIL 10 MG TABLET (FP) PO SCH (10:12)
[2018-09-05] MEDS: METHYL SALICYLATE/MENTHOL OINT 30 GM TUBE TP SCH ×2 (10:12→22:15)
[2018-09-05] MEDS: ASPIRIN COATED 81 MG TABLET.EC PO SCH (10:12)
[2018-09-05] MEDS: PRENATAL VITAMINS W/ FOLIC ACID TABLET (FP) PO SCH (10:13)
--- NOTE | 2018-09-05 13:59 | PN ---
[facility] Progress Note (SOAP) Subjective: feeling better no body aches no gi distress no tremor less sweat sleep better at night discuss aftercare with staff Objective: 09/05/18 13:59 Vital Signs Temperature 97.5 F L 09/05/18 13:41 Pulse Rate 63 09/05/18 13:41 Respiratory Rate 18 09/05/18 13:41 Blood Pressure 117/70 09/05/18 13:41 O2 Sat by Pulse Oximetry (%) Laboratory Last Values WBC 3.4 K/mm3 (4.0-10.0) L 09/02/18 07:00 RBC 4.58 M/mm3 (4.00-5.60) 09/02/18 07:00 Hgb 13.1 GM/dL (11.7-16.9) 09/02/18 07:00 Hct 39.7 % (35.4-49) 09/02/18 07:00 MCV 86.6 fl (80-96) 09/02/18 07:00 MCH 28.5 pg (25.7-33.7) 09/02/18 07:00 MCHC 32.9 g/dl (32.0-35.9) 09/02/18 07:00 RDW 13.3 % (11.9-15.9) 09/02/18 07:00 Plt Count 184 K/MM3 (134-434) D 09/02/18 07:00 MPV 9.1 fl (7.5-11.1) 09/02/18 07:00 Sodium 139 mmol/L (136-145) 09/02/18 07:00 Potassium 3.8 mmol/L (3.5-5.1) 09/02/18 07:00 Chloride 103 mmol/L (98-107) 09/02/18 07:00 Carbon Dioxide 30 mmol/L (21-32) 09/02/18 07:00 Anion Gap 6 MMOL/L (8-16) L 09/02/18 07:00 BUN 21 mg/dL (7-18) H 09/02/18 07:00 Creatinine 1.2 mg/dL (0.55-1.3) 09/02/18 07:00 Creat Clearance w eGFR > 60 (>60) 09/02/18 07:00 Random Glucose 118 mg/dL (74-106) H 09/02/18 07:00 Calcium 8.9 mg/dL (8.5-10.1) 09/02/18 07:00 Total Bilirubin 0.4 mg/dL (0.2-1) 09/02/18 07:00 AST 19 U/L (15-37) 09/02/18 07:00 ALT 23 U/L (13-61) 09/02/18 07:00 Alkaline Phosphatase 107 U/L (45-117) 09/02/18 07:00 Total Protein 6.9 g/dl (6.4-8.2) 09/02/18 07:00 Albumin 3.7 g/dl (3.4-5.0) 09/02/18 07:00 RPR Titer Nonreactive (NONREACTIVE) 09/02/18 07:00 Hep C Ab Diagnostic 0.2 s/co ratio (0.0-0.9) 09/02/18 07:00 HIV 1&2 Antibody Screen Negative 09/03/18 06:00 HIV P24 Antigen Negative 09/03/18 06:00 lab noted Assessment: 09/05/18 14:01 mild withdrawal sx Plan: medically supervised detox
[2018-09-05] MEDS: THIAMINE HCL 100 MG TABLET (FP) PO SCH (22:15)
[2018-09-06] MEDS ORDERED: METHADONE HCL 5 MG TABLET (FOR DETOX USE ONLY) PO SCH (06:00)
[2018-09-06 07:18] VITALS: BP 132/85; PULSE 55; TEMP 97.9
[2018-09-06] MEDS: NAPHAZOLINE/PHENIRAMINE OPHTHALMIC 15 ML BOTTLE OU PRN (08:01)
--- NOTE | 2018-09-06 08:41 | DS ---
[facility] Detox Discharge Summary Admission Date: 09/01/18 Discharge Date: 09/06/18 - History Present History: Alcohol Dependence, Cannabis Dependence, Opioid Dependence - Physical Exam Results Vital Signs: Vital Signs Temperature 97.9 F 09/06/18 07:17 Pulse Rate 55 L 09/06/18 07:17 Respiratory Rate 18 09/06/18 07:17 Blood Pressure 132/85 09/06/18 07:17 O2 Sat by Pulse Oximetry (%) - Treatment Hospital Course: Detox Protocol Followed, Detoxed Safely, Responded well, Discharged Condition Good, Rehab Referral Accepted - Medication Discharge Medications: Ambulatory Orders Aspirin [Aspirin EC] 81 mg PO DAILY 09/01/18 Folic Acid 1 mg PO DAILY 09/01/18 Multivitamin,Ther and Minerals [Vitamin and Minerals] 1 tab PO DAILY 09/01/18 Amlodipine Besylate 10 mg PO DAILY #20 tablet 09/05/18 Lisinopril 10 mg PO DAILY #20 tablet 09/05/18 - Diagnosis (1) Alcohol dependence with uncomplicated withdrawal Current Visit: Yes Status: Chronic (2) Cannabis dependence Current Visit: Yes Status: Chronic (3) Essential hypertension Current Visit: Yes Status: Chronic (4) Opioid dependence with withdrawal Current Visit: Yes Status: Chronic (5) S/P knee surgery Current Visit: No Status: Chronic (6) Redness of eye Current Visit: Yes Status: Chronic (7) Swollen upper lip Current Visit: Yes Status: Acute - AMA Did Patient Leave Against Medical Advice: No (referred to outpatient rehab.)
== END 2018-09-06 08:52 | disposition home or self-care (01) | DRG 773 ==
LOC: YASAS 14:15 → Y6N 16:33
PROC: HZ2ZZZZ Detoxification Services for Substance Abuse Treatment (ICD-10-PCS; principal; 2018-09-01)
DX: F11.23 Opioid dependence with withdrawal (principal); F10.230 Alcohol dependence with withdrawal, uncomplicated; F12.20 Cannabis dependence, uncomplicated; I10 Essential (primary) hypertension; H57.89 Other specified disorders of eye and adnexa; R22.0 Localized swelling, mass and lump, head; Z98.890 Other specified postprocedural states
CPT/HCPCS: 36415; 80053; 85027; 86593; 86803; 87389; 93005; 93010

== ENCOUNTER 2018-10-08 18:14 | Inpatient (IN) | payer OTHER ==
[2018-10-08 19:22] VITALS: BMI 29.8
--- NOTE | 2018-10-08 23:04 | HP ---
COWS - Scale Resting Pulse: 0= [place] 80 or Below Sweatin=Flushed/Facial Moisture Restless Observation: 1= Difficult to Sit Still Pupil Size: 0= Normal to Room Light Bone or Joint Aches: 2= Severe Diffuse Aches Runny Nose/ Eye Tearin= Runny Nose/Eyes GI Upset > 30mins: 3= Vomiting/Diarrhea (VOMITING X 4, NO DIARRHEA) Tremor Observation: 2= Slight Tremor Visible Yawning Observation: 0= None Anxiety or Irritability: 2=Irritable/Anxious Goose Flesh Skin: 0=Smooth Skin COWS Score: 14 CIWA Score Nausea/Vomitin Muscle Tremors: 3 Anxiety: 3 Agitation: 3 Paroxysmal Sweats: 2 Orientation: 0-Oriented Tacttile Disturbances: 1-Very Mild Itch/Numbness Auditory Disturbances: 0-None Visual Disturbances: 0-None Headache: 0-None Present CIWA-Ar Total Score: 15 - Admission Criteria [facility] Guidelines: Admission for Medically Managed Detox: Requires at least one of the followin. CIWA greater than 12 2. Seizures within the past 24 hours 3. Delirium tremens within the past 24 hours 4. Hallucinations within the past 24 hours 5. Acute intervention needed for co occurring medical disorder 6. Acute intervention needed for co occurring psychiatric disorder 7. Severe withdrawal that cannot be handled at a lower level of care (continued vomiting, continued diarrhea, abnormal vital signs) requiring intravenous medication and/or fluids 8. Admission [facility] Chief Complaint: Heroin and alcohol withdrawal symptoms Allergies/Adverse Reactions: Allergies Allergy/AdvReac Type Severity Reaction Status Date / Time No Known Allergies Allergy Verified 09/01/18 15:34 History of Present Illness: 63 years old male with a long history of alcohol dependence and five years of heroin dependence us seeking admission. Patient was in detox 09/01/2018 - 2017. He reports 10 years of sobriety. He has medical history of hypertension and denies suicide attempt or suicidal ideation at this time. Exam Limitations: No Limitations - Ebola screening Have you traveled outside of the country in the last 21 days: No Have you had contact with anyone from an Ebola affected area: No Have you been sick,other than usual withdrawal symptoms: No Do you have a fever: No - Review of Systems Constitutional: Chills, Loss of Appetite, Malaise, Changes in sleep, Weakness EENT: reports: Nose Congestion Respiratory: reports: No Symptoms reported Cardiac: reports: No Symptoms Reported GI: reports: Diarrhea, Poor Appetite, Poor Fluid Intake : reports: No Symptoms Reported Musculoskeletal: reports: Back Pain Integumentary: reports: Dryness, Flushing Neuro: reports: Tremors Endocrine: reports: No Symptoms Reported Hematology: reports: No Symptoms Reported Psychiatric: reports: Orientated x3, Anxious Other Systems: Reviewed and Negative Patient History - Patient Medical History Hx Anemia: No Hx Asthma: No Hx Chronic Obstructive Pulmonary Disease (COPD): No Hx Cancer: No Hx Cardiac Disorders: No Hx Congestive Heart Failure: No Hx Hypertension: Yes (on medication) Hx Hypercholesterolemia: No Hx Pacemaker: No HX Cerebrovascular Accident: No Hx Seizures: No Hx Dementia: No Hx Diabetes: No Hx Gastrointestinal Disorders: No Hx Liver Disease: No Hx Genitourinary Disorders: No Hx Sexually Transmitted Disorders: No Hx Renal Disease (ESRD): No Hx Thyroid Disease: No Hx Human Immunodeficiency Virus (HIV): No (Negat2017) Hx Hepatitis C: No Hx Depression: No Hx Suicide Attempt: No (Denies suicidal ideation at this time) Hx Bipolar Disorder: No Hx Schizophrenia: No - Patient Surgical History Past Surgical History: Yes Hx Neurologic Surgery: No Hx Cataract Extraction: No Hx Cardiac Surgery: No Hx Lung Surgery: No Hx Breast Surgery: No Hx Breast Biopsy: No Hx Abdominal Surgery: No Hx Appendectomy: No Hx Cholecystectomy: No Hx Genitourinary Surgery: No Hx Section: No Hx Orthopedic Surgery: No Other Surgical History: Nail removed from R knee on 10/21/16. Anesthesia Reaction: No - PPD History Date: 09/03/18 Results: 0 mm - Smoking Cessation Smoking history: Never smoked Have you smoked in the past 12 months: No Aproximately how many cigarettes per day: 0 Cigars Per Day: 0 Hx Chewing Tobacco Use: No Family Disease History - Family Disease History Family Disease History: Diabetes: Mother, [place]: Brother (), Sister ( ), Other: Father () Admission Physical Exam [facility] - Vital Signs Vital Signs: Vital Signs - 24 hr 10/08/18 19:18 Temperature 98.6 F Pulse Rate 65 Respiratory 18 Rate Blood Pressure 139/82 - Physical General Appearance: Yes: Moderate Distress, Tremorous, Irritable, Sweating, Anxious HEENTM: Yes: EOMI, Normal ENT Inspection, Normal Voice, LISA Respiratory: Yes: Lungs Clear, Normal Breath Sounds, No Respiratory Distress Neck: Yes: Supple Breast: Yes: Breast Exam Deferred Cardiology: Yes: Regular Rhythm Abdominal: Yes: Normal Bowel Sounds Genitourinary: Yes: Within Normal Limits Back: Yes: Normal Inspection Musculoskeletal: Yes: Back pain Extremities: Yes: Tremors 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: Yes: Alert, Normal Mood/Affect Integumentary: Yes: Warm Lymphatic: Yes: Within Normal Limits - Diagnostic (1) Alcohol dependence with uncomplicated withdrawal Current Visit: Yes Status: Chronic (2) Cannabis dependence Current Visit: Yes Status: Chronic (3) Essential hypertension Current Visit: Yes Status: Chronic (4) Opioid dependence with withdrawal Current Visit: Yes Status: Chronic Cleared for Admission [facility] - Detox or Rehab [facility] Level of Care: Medically Managed Detox Regimen/Protocol: Methadone/Librium [facility] Breath Alcohol Content Breath Alcohol Content: 0 Urine Drug Screen - Results Drug Screen Negative: No Urine Drug Screen Results: THC-Marijuana, OPI-Opiates, BAR-Barbiturates, BZO- Benzodiazepines, FEN-Fentanyl
[2018-10-08] MEDS ORDERED: MENTHOL/PHENOL 1 EACH UD MM PRN (23:24)
[2018-10-08] MEDS ORDERED: P-EPHED 60MG/TRIPROLIDI 2.5MG TABLET PO PRN (23:24)
[2018-10-08] MEDS ORDERED: IBUPROFEN 400 MG TABLET (FP) PO PRN (23:24)
[2018-10-08] MEDS ORDERED: guaiFENesin/D-METHORPHAN HB 10 ML UNIT-DOSE CUPS PO PRN (23:24)
[2018-10-08] MEDS ORDERED: MAGNESIUM HYDROX 2400MG/30ML ORAL SUSPENSION 30 ML CUP PO PRN (23:24)
[2018-10-08] MEDS ORDERED: MAG HYDROX/AL HYDROX/SIMETH 30 ML UNIT-DOSE CUP PO PRN (23:24)
[2018-10-08] MEDS ORDERED: MAGNESIUM CITRATE 300 ML BOTTLE PO PRN (23:24)
[2018-10-08] MEDS ORDERED: ACETAMINOPHEN 325 MG TABLET (FP) PO PRN (23:24)
[2018-10-08] MEDS ORDERED: LOPERAMIDE HCL 2 MG CAPSULE PO PRN (23:24)
[2018-10-09] MEDS ORDERED: METHADONE HCL 10 MG TABLET (FOR DETOX USE ONLY) PO ONE ×3 (00:46→22:00)
[2018-10-09] MEDS ORDERED: chlordiazePOXIDE HCL 25 MG CAPSULE PO PRN (00:46)
[2018-10-09] MEDS: MELATONIN 5 MG TABLETS PO PRN (01:38)
[2018-10-09] MEDS ORDERED: diphenhydrAMINE HCL 25 MG CAPSULE (FP) PO ONE (04:07)
[2018-10-09] MEDS: chlordiazePOXIDE HCL 25 MG CAPSULE PO SCH ×4 (05:21→22:24)
--- NOTE | 2018-10-09 07:42 | PN ---
[facility] Progress Note Note: I was notified by the the nurse, Warren Matthew that patient had a cut while shaving his head. Laceration noted on the top lower right side of the head and and close to the right ear. Patient denies pain or discomfort. Vital Signs Temperature 97.9 F 10/09/18 06:37 Pulse Rate 56 L 10/09/18 06:37 Respiratory Rate 18 10/09/18 06:37 Blood Pressure 115/79 10/09/18 06:37 O2 Sat by Pulse Oximetry (%) Action: Bacitracin ointment ordered to be applied as directed
[2018-10-09] MEDS ORDERED: MULTIVITAMINS THER W-MINERALS COMBO TABLET (FP) PO SCH (10:00)
[2018-10-09] MEDS: PRENATAL VITAMINS W/ FOLIC ACID TABLET (FP) PO SCH (10:07)
[2018-10-09] MEDS: LISINOPRIL 10 MG TABLET (FP) PO SCH (10:07)
[2018-10-09] MEDS: ASPIRIN COATED 81 MG TABLET.EC PO SCH (10:08)
[2018-10-09] MEDS: amLODIPine BESYLATE 10 MG TABLET (FP) PO SCH (10:08)
--- NOTE | 2018-10-09 10:23 | PN ---
[facility] CIWA - CIWA Score Nausea/Vomitin Muscle Tremors: 2 Anxiety: 1-Mildly Anxious Agitation: 2 Paroxysmal Sweats: 2 Orientation: 0-Oriented Tacttile Disturbances: 2-Mild Itch/Numbness/Burn Auditory Disturbances: 2-Mild Harshness/Frighten Visual Disturbances: 1-Very Mild Sensitivity Headache: 3-Moderate CIWA-Ar Total Score: 17 [facility] COWS - Scale Resting Pulse: 0= [place] 80 or Below Sweatin= Chills/Flushing Restless Observation: 1= Difficult to Sit Still Pupil Size: 0= Normal to Room Light Bone or Joint Aches: 1= Mild Discomfort Runny Nose/ Eye Tearin= Nasal Congestion GI Upset > 30mins: 2= Nausea/Diarrhea Tremor Observation of Outstretched Hands: 2= Slight Tremor Visible Yawning Observation: 0= None Anxiety or Irritability: 2=Irritable/Anxious Goose Flesh Skin: 0=Smooth Skin COWS Score: 10 S Progress Note (SOAP) Subjective: Abdominal cramps,headache, sweats,tremors and irritability Objective: 10/09/18 10:20 Vital Signs 10/09/18 10/09/18 06:37 09:15 Temperature 97.9 F 97.0 F L Pulse Rate 56 L 69 Respiratory 18 18 Rate Blood Pressure 115/79 109/85 Labs pending Small scalp laceration from razor blade, no bleeding, denies pain Assessment: 10/09/18 10:23 Withdrawal sx Plan: Continue detox Continue bacitracin to scalp
[2018-10-09 10:41] LABS: HEMATOCRIT 40.3 % (35.4-49); HEMOGLOBIN 13.6 GM/dL (11.7-16.9); MCH 29.7 pg (25.7-33.7); MCHC 33.7 g/dl (32.0-35.9); MEAN CELL VOLUME 87.9 fl (80-96); PLATELET COUNT 168 K/MM3 (134-434); RBC 4.58 M/mm3 (4.00-5.60); RDW 13.2 % (11.9-15.9); WHITE BLOOD COUNT 2.7 K/mm3 (4.0-10.0)
[2018-10-09 11:04] LABS: ALBUMIN 3.8 g/dl (3.4-5.0); ALK PHOS 100 U/L (45-117); ANION GAP 8 MMOL/L (8-16); BILIRUBIN,TOTAL 0.4 mg/dL (0.2-1); BLOOD UREA NITROGEN 17 mg/dL (7-18); CHLORIDE 104 mmol/L (98-107); CO2 29 mmol/L (21-32); CREATININE 1.4 mg/dL (0.55-1.3); GLUCOSE,RANDOM 81 mg/dL (74-106); POTASSIUM 4.2 mmol/L (3.5-5.1); SGOT/AST 17 U/L (15-37); SGPT/ALT 19 U/L (13-61); SODIUM 141 mmol/L (136-145)
[2018-10-09] MEDS: THIAMINE HCL 100 MG TABLET (FP) PO SCH (22:24)
[2018-10-10] MEDS: chlordiazePOXIDE HCL 25 MG CAPSULE PO SCH ×4 (05:36→22:04)
[2018-10-10] MEDS ORDERED: METHADONE HCL 10 MG TABLET (FOR DETOX USE ONLY) PO SCH (10:00)
[2018-10-10] MEDS: PRENATAL VITAMINS W/ FOLIC ACID TABLET (FP) PO SCH (10:04)
[2018-10-10] MEDS: ASPIRIN COATED 81 MG TABLET.EC PO SCH (10:04)
[2018-10-10] MEDS: LISINOPRIL 10 MG TABLET (FP) PO SCH (10:04)
[2018-10-10] MEDS: amLODIPine BESYLATE 10 MG TABLET (FP) PO SCH (10:04)
--- NOTE | 2018-10-10 10:26 | PN ---
[facility] CIWA - CIWA Score Nausea/Vomitin-No Nausea/No Vomiting Muscle Tremors: None Anxiety: 0-No Anxiety, at Ease Agitation: 0-Normal Activity Paroxysmal Sweats: No Perspiration Orientation: 0-Oriented Tacttile Disturbances: 0-None Auditory Disturbances: 0-None Visual Disturbances: 0-None Headache: 0-None Present CIWA-Ar Total Score: 0 [facility] COWS - Scale Resting Pulse: 0= [place] 80 or Below Sweatin= No chills or Flushing Restless Observation: 0= Sits Still Pupil Size: 0= Normal to Room Light Bone or Joint Aches: 0= None Runny Nose/ Eye Tearin= None GI Upset > 30mins: 0= None Tremor Observation of Outstretched Hands: 0= None Yawning Observation: 0= None Anxiety or Irritability: 0= None Goose Flesh Skin: 0=Smooth Skin COWS Score: 0 [facility] Progress Note (SOAP) Subjective: pt states feeling fine on detox protocol, says he has had unilateral L lower lip swelling since yesterday, somewhat better with benadryl. would like another dose. O: Vital Signs - 24 hr 10/09/18 10/09/18 10/09/18 13:41 17:23 22:06 Temperature 97.5 F L 97.7 F 98.4 F Pulse Rate 54 L 53 L 54 L Respiratory 16 18 18 Rate Blood Pressure 116/65 137/81 142/75 10/10/18 10/10/18 10/10/18 00:44 06:26 09:17 Temperature 98.1 F 98.2 F Pulse Rate 47 L 62 Respiratory 18 18 16 Rate Blood Pressure 132/84 122/76 Laboratory Tests 10/09/18 10/09/18 10/09/18 08:00 08:00 08:00 WBC 2.7 L RBC 4.58 Hgb 13.6 Hct 40.3 MCV 87.9 MCH 29.7 MCHC 33.7 RDW 13.2 Plt Count 168 MPV 9.0 Sodium 141 Potassium 4.2 Chloride 104 Carbon Dioxide 29 Anion Gap 8 BUN 17 Creatinine 1.4 H Creat Clearance w eGFR 51.35 Random Glucose 81 Calcium 9.0 Total Bilirubin 0.4 AST 17 ALT 19 Alkaline Phosphatase 100 Total Protein 7.0 Albumin 3.8 RPR Titer Nonreactive L lower lip- with minimal edema of L side of lower lip a/p: conintue alcohol and opioid detox lip swelling most likely due to lisinopril related angioedema: will d/c lisinopril and add this to allergy list pt on norvasc and HCTZ for BP control- BP 122/76 this morning
[2018-10-10] MEDS ORDERED: diphenhydrAMINE HCL 25 MG CAPSULE (FP) PO ONE (10:49)
[2018-10-10] MEDS ORDERED: diphenhydrAMINE HCL 25 MG CAPSULE (FP) PO PRN (10:50)
[2018-10-10] MEDS: THIAMINE HCL 100 MG TABLET (FP) PO SCH (22:04)
[2018-10-11] MEDS: MELATONIN 5 MG TABLETS PO PRN (00:56)
[2018-10-11] MEDS ORDERED: chlordiazePOXIDE 5 MG CAPSULE PO SCH ×2 (05:00→11:00)
[2018-10-11] MEDS ORDERED: METHADONE HCL 10 MG TABLET (FOR DETOX USE ONLY) PO SCH (10:00)
[2018-10-11] MEDS ORDERED: METHADONE HCL 5 MG TABLET (FOR DETOX USE ONLY) PO SCH (10:00)
[2018-10-11] MEDS: amLODIPine BESYLATE 10 MG TABLET (FP) PO SCH (10:27)
[2018-10-11] MEDS: PRENATAL VITAMINS W/ FOLIC ACID TABLET (FP) PO SCH (10:27)
[2018-10-11] MEDS: ASPIRIN COATED 81 MG TABLET.EC PO SCH (10:27)
--- NOTE | 2018-10-11 13:06 | PN ---
S Progress Note (SOAP) Subjective: Patient Denies Any Current Withdrawal / Detox Symptoms and Reports That He Feels Well Overall At This Time. Objective: PATIENT A & O X 3, OBSERVED AMBULATING ON UNIT. IN NO ACUTE DISTRESS. 10/11/18 13:02 Vital Signs Temperature 98.1 F 10/11/18 09:03 Pulse Rate 56 L 10/11/18 09:03 Respiratory Rate 18 10/11/18 09:03 Blood Pressure 109/70 10/11/18 09:03 O2 Sat by Pulse Oximetry (%) Laboratory Tests 10/09/18 10/09/18 10/09/18 08:00 08:00 08:00 WBC 2.7 L RBC 4.58 Hgb 13.6 Hct 40.3 MCV 87.9 MCH 29.7 MCHC 33.7 RDW 13.2 Plt Count 168 MPV 9.0 Sodium 141 Potassium 4.2 Chloride 104 Carbon Dioxide 29 Anion Gap 8 BUN 17 Creatinine 1.4 H Creat Clearance w eGFR 51.35 Random Glucose 81 Calcium 9.0 Total Bilirubin 0.4 AST 17 ALT 19 Alkaline Phosphatase 100 Total Protein 7.0 Albumin 3.8 RPR Titer Nonreactive LABS NOTED. PATIENT HAS HAD LOW WBC COUNTS ON PREVIOUS ADMISSIONS. 10/11/18 13:05 Assessment: 10/11/18 13:03 WITHDRAWAL SYMPTOMS. LEUKOPENIA. 10/11/18 13:05 Plan: CONTINUE DETOX. D/C IBUPROFEN AND MAGNESIUM-CONTAINING MEDS. FOR ABNORMAL ADMISSION RENAL LAB VALUES. PATIENT REPORTS THAT HE IS TOLERATING CURRENT WITHDRAWAL / DETOX SYMPTOMS WELL. AT PATIENT'S REQUEST, CURRENT DETOX MEDICATION REGIMEN (METHADONE - LIBRIUM) MODIFIED SO THAT PATIENT MAY BE DISCHARGED TOMORROW, 10/12/2018.
[2018-10-11 13:09] VITALS: BP 124/79; PULSE 54; TEMP 98
--- NOTE | 2018-10-11 15:31 | DS ---
[facility] Detox Discharge Summary Admission Date: 10/09/18 Discharge Date: 10/11/18 - History Present History: Alcohol Dependence, Cannabis Dependence, Opioid Dependence Additional Comments: PATIENT REPORTS SUDDEN FAMILY EMERGENCY AND DOES NOT WISH TO REMAIN TO COMPLETE DETOX REGIMEN. DURATION OF DETOX REGIMEN ALREADY PREVIOUSLY SHORTENED BY ONE DAY TO ALLOW PATIENT TO COMPLETE DETOX REGIMEN (TOMORROW) ONE DAY EARLIER THAN ORIGINALLY SCHEDULED. THUS, UNABLE TO MARGARITA STANDARD DISCHARGE TO PATIENT AT THIS TIME. RISKS OF LEAVING DETOX UNIT AGAINST MEDICAL ADVICE AND PRIOR TO COMPLETION OF DETOX REGIMEN EXPLAINED TO PATIENT. PATIENT ADVISED TO GO IMMEDIATELY TO NEAREST ER SHOULD ANY INTOLERABLE DETOX SYMPTOMS DEVELOP AT ANY TIME. PATIENT VERBALIZED UNDERSTANDING OF ALL INFORMATION / RECOMMENDATIONS PRESENTED TO HIM PRIOR TO DEPARTURE FROM DETOX UNIT. PATIENT DECLINED OFFER OF MEDICATION PRESCRIPTION FOR HOME MEDICATION AT TIME OF DISCHARGE FROM DETOX, NOTING THAT HE CURRENTLY HAS ADEQUATE SUPPLIES OF ALL PRESCRIBED HOME MEDICATIONS AT HOME. PATIENT LEFT DETOX UNIT IN STABLE MEDICAL CONDITION. Pertinent Past History: HTN. - Physical Exam Results Vital Signs: Vital Signs Temperature 98.0 F 10/11/18 13:09 Pulse Rate 54 L 10/11/18 13:09 Respiratory Rate 18 10/11/18 13:09 Blood Pressure 124/79 10/11/18 13:09 O2 Sat by Pulse Oximetry (%) Pertinent Admission Physical Exam Findings: WITHDRAWAL SYMPTOMS. Laboratory Tests 10/09/18 10/09/18 10/09/18 08:00 08:00 08:00 WBC 2.7 L RBC 4.58 Hgb 13.6 Hct 40.3 MCV 87.9 MCH 29.7 MCHC 33.7 RDW 13.2 Plt Count 168 MPV 9.0 Sodium 141 Potassium 4.2 Chloride 104 Carbon Dioxide 29 Anion Gap 8 BUN 17 Creatinine 1.4 H Creat Clearance w eGFR 51.35 Random Glucose 81 Calcium 9.0 Total Bilirubin 0.4 AST 17 ALT 19 Alkaline Phosphatase 100 Total Protein 7.0 Albumin 3.8 RPR Titer Nonreactive LABS NOTED. - Treatment Hospital Course: Detoxed Safely - Medication Discharge Medications: Ambulatory Orders Aspirin [Aspirin EC] 81 mg PO DAILY 09/01/18 Folic Acid 1 mg PO DAILY 09/01/18 Multivitamin,Ther and Minerals [Vitamin and Minerals] 1 tab PO DAILY 09/01/18 Amlodipine Besylate 10 mg PO DAILY #20 tablet 09/05/18 Lisinopril 10 mg PO DAILY #20 tablet 12/30/18 - Diagnosis (1) Alcohol dependence with uncomplicated withdrawal Current Visit: Yes Status: Acute (2) Cannabis dependence Current Visit: Yes Status: Acute (3) Opioid dependence with withdrawal Current Visit: Yes Status: Acute (4) Essential hypertension Current Visit: Yes Status: Chronic - AMA Did Patient Leave Against Medical Advice: Yes (PT HAS FAMILY EMERGENCY AND DOES NOT WISH TO REMAIN TO COMPLETE DETOX.)
[2018-10-12] MEDS ORDERED: chlordiazePOXIDE HCL 10 MG CAPSULE PO SCH (05:00)
[2018-10-13] MEDS ORDERED: METHADONE HCL 10 MG TABLET (FOR DETOX USE ONLY) PO SCH (10:00)
[2018-10-14] MEDS ORDERED: METHADONE HCL 5 MG TABLET (FOR DETOX USE ONLY) PO SCH (06:00)
== END 2018-10-11 15:40 | disposition left against medical advice (07) | DRG 770 ==
LOC: YASAS 18:14 → Y6N 10-09 01:01
PROVIDERS: ADMIT Neuromusculoskeletal Medicine & OMM; ATTEND Neuromusculoskeletal Medicine & OMM
PROC: HZ2ZZZZ Detoxification Services for Substance Abuse Treatment (ICD-10-PCS; principal; 2018-10-09)
DX: F11.23 Opioid dependence with withdrawal (principal); F10.230 Alcohol dependence with withdrawal, uncomplicated; F12.20 Cannabis dependence, uncomplicated; I10 Essential (primary) hypertension; D72.819 Decreased white blood cell count, unspecified; T78.3XXA Angioneurotic edema, initial encounter; R22.0 Localized swelling, mass and lump, head
CPT/HCPCS: 36415; 80053; 85027; 86593

== ENCOUNTER 2018-10-29 16:40 | Inpatient (IN) | payer OTHER ==
[2018-10-29 18:31] VITALS: BMI 28.6
[2018-10-29] MEDS ORDERED: MELATONIN 5 MG TABLETS PO PRN (22:00)
--- NOTE | 2018-10-29 22:53 | HP ---
COWS - Scale Resting Pulse: 0= [place] 80 or Below Sweatin=Flushed/Facial Moisture Restless Observation: 1= Difficult to Sit Still Pupil Size: 0= Normal to Room Light Bone or Joint Aches: 4=Acute Joint/Muscle Pain Runny Nose/ Eye Tearin= Runny Nose/Eyes GI Upset > 30mins: 2= Nausea/Diarrhea (diarrhea x 2) Tremor Observation: 2= Slight Tremor Visible Yawning Observation: 1= 1-2x During Session Anxiety or Irritability: 2=Irritable/Anxious Goose Flesh Skin: 0=Smooth Skin COWS Score: 16 CIWA Score Nausea/Vomitin-Mild Nausea/No Vomiting Muscle Tremors: 3 Anxiety: 3 Agitation: 3 Paroxysmal Sweats: 2 Orientation: 0-Oriented Tacttile Disturbances: 0-None Auditory Disturbances: 0-None Visual Disturbances: 0-None Headache: 3-Moderate CIWA-Ar Total Score: 15 - Admission Criteria OASAS Guidelines: Admission for Medically Managed Detox: Requires at least one of the followin. CIWA greater than 12 2. Seizures within the past 24 hours 3. Delirium tremens within the past 24 hours 4. Hallucinations within the past 24 hours 5. Acute intervention needed for co occurring medical disorder 6. Acute intervention needed for co occurring psychiatric disorder 7. Severe withdrawal that cannot be handled at a lower level of care (continued vomiting, continued diarrhea, abnormal vital signs) requiring intravenous medication and/or fluids 8. Admission [facility] Chief Complaint: Heroin and alcohol withdrawal symptoms Allergies/Adverse Reactions: Allergies Allergy/AdvReac Type Severity Reaction Status Date / Time lisinopril AdvReac Mild Swelling Verified 10/29/18 23:00 History of Present Illness: 63 years old male with a long history of alcohol and heroin dependence is seeking admission to detox. Patient reports 10 years of sobriety. He has medical history of hypertension and denies suicide attempt or suicidal ideation at this time. Exam Limitations: No Limitations - Ebola screening Have you traveled outside of the country in the last 21 days: No (N) Have you had contact with anyone from an Ebola affected area: No Have you been sick,other than usual withdrawal symptoms: No Do you have a fever: No - Review of Systems Constitutional: Chills, Malaise, Night Sweats EENT: reports: Nose Congestion Respiratory: reports: No Symptoms reported Cardiac: reports: No Symptoms Reported GI: reports: Diarrhea, Poor Appetite, Poor Fluid Intake, Vomiting, Abdominal cramping : reports: No Symptoms Reported Musculoskeletal: reports: Back Pain Integumentary: reports: Dryness, Flushing Endocrine: reports: Flushing Hematology: reports: No Symptoms Reported Psychiatric: reports: Mood/Affect Appropiate, Orientated x3, Anxious Other Systems: Reviewed and Negative Patient History - Patient Medical History Hx Anemia: No Hx Asthma: No Hx Chronic Obstructive Pulmonary Disease (COPD): No Hx Cancer: No Hx Cardiac Disorders: No Hx Congestive Heart Failure: No Hx Hypertension: Yes (Not on mwedication) Hx Hypercholesterolemia: No Hx Pacemaker: No HX Cerebrovascular Accident: No Hx Seizures: No Hx Dementia: No Hx Diabetes: No Hx Gastrointestinal Disorders: No Hx Liver Disease: No Hx Genitourinary Disorders: No Hx Sexually Transmitted Disorders: No Hx Renal Disease (ESRD): No Hx Thyroid Disease: No Hx Human Immunodeficiency Virus (HIV): No (Negative 2017) Hx Hepatitis C: No Hx Depression: No Hx Suicide Attempt: No (Denies suicidal ideation at this time) Hx Bipolar Disorder: No Hx Schizophrenia: No - Patient Surgical History Past Surgical History: Yes Hx Neurologic Surgery: No Hx Cataract Extraction: No Hx Cardiac Surgery: No Hx Lung Surgery: No Hx Breast Surgery: No Hx Breast Biopsy: No Hx Abdominal Surgery: No Hx Appendectomy: No Hx Cholecystectomy: No Hx Genitourinary Surgery: No Hx Section: No Hx Orthopedic Surgery: No Other Surgical History: Nail removed from R knee on 10/21/16. Anesthesia Reaction: No - PPD History Previous Implant?: Yes Documented Results: Negative w/o proof Date: 09/03/18 Results: 0 mm PPD to be Administered?: No - Reproductive History Patient is a Female of Child Bearing Age (11 -55 yrs old): No (Male) - Smoking Cessation Smoking history: Never smoked Have you smoked in the past 12 months: No Aproximately how many cigarettes per day: 0 Cigars Per Day: 0 Hx Chewing Tobacco Use: No Initiated information on smoking cessation: No - Substance & Tx. History Hx Alcohol Use: Yes Hx Substance Use: Yes Substance Use Type: Alcohol, Cocaine, Heroin, Opiates Hx Substance Use Treatment: Yes ([facility]) - Substances Abused Heroin Route: SNIFF Amount used: 4-5 BAGS Age of first use: 51 Date of Last Use: 10/28/18 Alcohol Route: Oral Frequency: Daily Amount used: 4-5 BEERS Age of first use: 16 Date of Last Use: 10/28/18 Marijuana/Hashish Route: Smoking Frequency: 3-6 times per week Amount used: 4- BLUNTS Age of first use: 16 Date of Last Use: 10/28/18 Family Disease History - Family Disease History Family Disease History: Diabetes: Mother, [place]: Brother (), Sister ( ), Other: Father () Admission Physical Exam [facility] - Vital Signs Vital Signs: Vital Signs - 24 hr 10/29/18 18:29 Temperature 96.8 F L Pulse Rate 49 L Respiratory 18 Rate Blood Pressure 131/80 - Physical General Appearance: Yes: Moderate Distress, Tremorous, Sweating, Anxious HEENTM: Yes: EOMI, Normal ENT Inspection, Normal Voice, LISA Cleared for Admission [facility] - Detox or Rehab [facility] Level of Care: Medically Managed Detox Regimen/Protocol: Methadone/Valium S Breath Alcohol Content Breath Alcohol Content: 0 Urine Drug Screen - Results Drug Screen Negative: No Urine Drug Screen Results: OPI-Opiates, AMP-Amphetamines, BZO-Benzodiazepines, MTD-Methadone, FEN-Fentanyl Inpatient Rehab Admission - Rehab Decision to Admit Inpatient rehab admission?: No
[2018-10-29] MEDS ORDERED: METHADONE HCL 10 MG TABLET (FOR DETOX USE ONLY) PO ONE ×2 (23:00→23:03)
[2018-10-29] MEDS ORDERED: LOPERAMIDE HCL 2 MG CAPSULE PO PRN (23:03)
[2018-10-29] MEDS ORDERED: P-EPHED 60MG/TRIPROLIDI 2.5MG TABLET PO PRN (23:03)
[2018-10-29] MEDS ORDERED: guaiFENesin/D-METHORPHAN HB 10 ML UNIT-DOSE CUPS PO PRN (23:03)
[2018-10-29] MEDS ORDERED: MAGNESIUM HYDROX 2400MG/30ML ORAL SUSPENSION 30 ML CUP PO PRN (23:03)
[2018-10-29] MEDS ORDERED: ACETAMINOPHEN 325 MG TABLET (FP) PO PRN (23:03)
[2018-10-29] MEDS ORDERED: chlordiazePOXIDE HCL 25 MG CAPSULE PO PRN (23:03)
[2018-10-29] MEDS ORDERED: MAG HYDROX/AL HYDROX/SIMETH 30 ML UNIT-DOSE CUP PO PRN (23:03)
[2018-10-29] MEDS ORDERED: IBUPROFEN 400 MG TABLET (FP) PO PRN (23:03)
[2018-10-29] MEDS ORDERED: MENTHOL/PHENOL 1 EACH UD MM PRN (23:03)
[2018-10-29] MEDS ORDERED: MAGNESIUM CITRATE 300 ML BOTTLE PO PRN (23:03)
[2018-10-29] MEDS: chlordiazePOXIDE HCL 25 MG CAPSULE PO SCH (23:41)
[2018-10-30] MEDS: chlordiazePOXIDE HCL 25 MG CAPSULE PO SCH ×4 (05:53→23:31)
[2018-10-30] MEDS ORDERED: METHADONE HCL 10 MG TABLET (FOR DETOX USE ONLY) PO SCH (10:00)
[2018-10-30 10:31] LABS: HEMATOCRIT 41.1 % (35.4-49); MCH 29.6 pg (25.7-33.7); MCHC 34.1 g/dl (32.0-35.9); MEAN CELL VOLUME 86.9 fl (80-96); MEAN PLT VOLUME 9.5 fl (7.5-11.1); PLATELET COUNT 156 K/MM3 (134-434); RBC 4.73 M/mm3 (4.00-5.60); RDW 12.9 % (11.9-15.9); WHITE BLOOD COUNT 3.2 K/mm3 (4.0-10.0)
[2018-10-30] MEDS: PRENATAL VITAMINS W/ FOLIC ACID TABLET (FP) PO SCH (10:35)
[2018-10-30] MEDS: ASPIRIN COATED 81 MG TABLET.EC PO SCH (10:40)
[2018-10-30 10:41] LABS: ALBUMIN 3.8 g/dl (3.4-5.0); ALK PHOS 108 U/L (45-117); ANION GAP 8 MMOL/L (8-16); BILIRUBIN,TOTAL 0.4 mg/dL (0.2-1); BLOOD UREA NITROGEN 16 mg/dL (7-18); CALCIUM 8.9 mg/dL (8.5-10.1); CHLORIDE 102 mmol/L (98-107); CO2 27 mmol/L (21-32); CREATININE 1.3 mg/dL (0.55-1.3); GLUCOSE,RANDOM 78 mg/dL (74-106); POTASSIUM 3.9 mmol/L (3.5-5.1); SGOT/AST 16 U/L (15-37); SGPT/ALT 18 U/L (13-61); SODIUM 137 mmol/L (136-145); TOT PROT 7.2 g/dl (6.4-8.2)
[2018-10-30] MEDS: amLODIPine BESYLATE 10 MG TABLET (FP) PO SCH (11:00)
--- NOTE | 2018-10-30 13:43 | PN ---
S CIWA - CIWA Score Nausea/Vomitin-No Nausea/No Vomiting Muscle Tremors: 4-Moderate,w/Arms Extend Anxiety: 5 Agitation: 4-Moderately Restless Paroxysmal Sweats: 1-Minimal Palms Moist Orientation: 0-Oriented Tacttile Disturbances: 0-None Auditory Disturbances: 0-None Visual Disturbances: 0-None Headache: 0-None Present CIWA-Ar Total Score: 14 S COWS - Scale Resting Pulse: 0= [place] 80 or Below Sweatin= Chills/Flushing Restless Observation: 3= Extraneous Movement Pupil Size: 0= Normal to Room Light Bone or Joint Aches: 1= Mild Discomfort Runny Nose/ Eye Tearin= None GI Upset > 30mins: 0= None Tremor Observation of Outstretched Hands: 1= Tremor [place], Not Seen Yawning Observation: 1= 1-2x During Session Anxiety or Irritability: 2=Irritable/Anxious Goose Flesh Skin: 0=Smooth Skin COWS Score: 9 S Progress Note (SOAP) Subjective: ANXIETY, IRRITABILITY, TREMORS, DECRESED APPETITE AND INTERMITTENT SLEEP-"HAD A ROUGH NIGHT". Objective: 10/30/18 13:42 Vital Signs 10/30/18 10/30/18 06:00 10:02 Temperature 97.0 F L 98.1 F Pulse Rate 48 L 66 Respiratory 18 16 Rate Blood Pressure 130/81 137/79 Laboratory Tests 10/30/18 10/30/18 10/30/18 07:40 07:40 07:40 WBC 3.2 L RBC 4.73 Hgb 14.0 Hct 41.1 MCV 86.9 MCH 29.6 MCHC 34.1 RDW 12.9 Plt Count 156 MPV 9.5 Sodium 137 Potassium 3.9 Chloride 102 Carbon Dioxide 27 Anion Gap 8 BUN 16 Creatinine 1.3 Creat Clearance w eGFR 55.94 Random Glucose 78 Calcium 8.9 Total Bilirubin 0.4 AST 16 ALT 18 Alkaline Phosphatase 108 Total Protein 7.2 Albumin 3.8 RPR Titer Nonreactive Assessment: 10/30/18 13:42 WITHDRAWAL SX Plan: CONTINUE DETOX
[2018-10-30] MEDS: hydrOXYzine PAMOATE 50 MG CAPSULE (FP) PO PRN (23:30)
[2018-10-30] MEDS: THIAMINE HCL 100 MG TABLET (FP) PO SCH (23:31)
[2018-10-31] MEDS: chlordiazePOXIDE HCL 25 MG CAPSULE PO SCH ×3 (06:17→17:56)
[2018-10-31] MEDS ORDERED: METHADONE HCL 5 MG TABLET (FOR DETOX USE ONLY) PO SCH (10:00)
[2018-10-31] MEDS: PRENATAL VITAMINS W/ FOLIC ACID TABLET (FP) PO SCH (10:10)
[2018-10-31] MEDS: amLODIPine BESYLATE 10 MG TABLET (FP) PO SCH (10:10)
[2018-10-31] MEDS: ASPIRIN COATED 81 MG TABLET.EC PO SCH (10:10)
--- NOTE | 2018-10-31 16:15 | PN ---
[facility] CIWA - CIWA Score Nausea/Vomitin-Mild Nausea/No Vomiting Muscle Tremors: 3 Anxiety: 3 Agitation: 3 Paroxysmal Sweats: 3 Orientation: 0-Oriented Tacttile Disturbances: 0-None Auditory Disturbances: 0-None Visual Disturbances: 0-None Headache: 0-None Present CIWA-Ar Total Score: 13 [facility] COWS - Scale Resting Pulse: 0= [place] 80 or Below Sweatin= Chills/Flushing Restless Observation: 3= Extraneous Movement Pupil Size: 0= Normal to Room Light Bone or Joint Aches: 2= Severe Diffuse Aches Runny Nose/ Eye Tearin= Runny Nose/Eyes GI Upset > 30mins: 1= Stomach Cramp Tremor Observation of Outstretched Hands: 2= Slight Tremor Visible Yawning Observation: 0= None Anxiety or Irritability: 2=Irritable/Anxious Goose Flesh Skin: 0=Smooth Skin COWS Score: 13 [facility] Progress Note (SOAP) Subjective: Back pain, runny nose. Patient requesting to be discharged on Thursday instead of Thursday. He agreed to have his detox protocol adjusted. Objective: 10/31/18 16:13 Last Vital Signs Temp Pulse Resp BP Pulse Ox 97.2 F L 68 18 143/93 10/31/18 13:27 10/31/18 13:27 10/31/18 13:27 10/31/18 13:27 Laboratory Tests 10/30/18 10/30/18 10/30/18 07:40 07:40 07:40 WBC 3.2 L RBC 4.73 Hgb 14.0 Hct 41.1 MCV 86.9 MCH 29.6 MCHC 34.1 RDW 12.9 Plt Count 156 MPV 9.5 Sodium 137 Potassium 3.9 Chloride 102 Carbon Dioxide 27 Anion Gap 8 BUN 16 Creatinine 1.3 Creat Clearance w eGFR 55.94 Random Glucose 78 Calcium 8.9 Total Bilirubin 0.4 AST 16 ALT 18 Alkaline Phosphatase 108 Total Protein 7.2 Albumin 3.8 RPR Titer Nonreactive Labs reviewed: prerenal azotemia, encouraged PO water hydration Assessment: 10/31/18 16:13 Withdrawal symptoms Noted with prerenal azotemia Plan: Continue detox Prerenal azotemia: encouraged PO water hydration Detox protocol for methadone adjusted so patient can be discharged on Thursday as per his request
[2018-10-31] MEDS: hydrOXYzine PAMOATE 50 MG CAPSULE (FP) PO PRN (23:17)
[2018-10-31] MEDS: chlordiazePOXIDE 5 MG CAPSULE PO SCH (23:17)
[2018-10-31] MEDS: THIAMINE HCL 100 MG TABLET (FP) PO SCH (23:17)
[2018-11-01] MEDS: chlordiazePOXIDE 5 MG CAPSULE PO SCH ×3 (06:23→18:30)
[2018-11-01] MEDS ORDERED: METHADONE HCL 10 MG TABLET (FOR DETOX USE ONLY) PO SCH (10:00)
[2018-11-01] MEDS: PRENATAL VITAMINS W/ FOLIC ACID TABLET (FP) PO SCH (11:01)
[2018-11-01] MEDS: ASPIRIN COATED 81 MG TABLET.EC PO SCH (11:01)
[2018-11-01] MEDS: amLODIPine BESYLATE 10 MG TABLET (FP) PO SCH (11:01)
--- NOTE | 2018-11-01 14:18 | PN ---
[facility] Progress Note (SOAP) Subjective: DENIES ANY COMPLAINTS VERBALIZED AGAIN WANTING TO LEAVE TOMORROW BECAUSE HIS CAR IS PARKED ON THE WRONG SIDE OF STREET AND DOES NOT WANT TO GET A TICKET. DECLINES MED PRESCRIPTIONS STATING HE HAS REFILLS AT HIS RX. DECLINES [facility] BECAUSE "I AM GOING TO STAY AWAY FROM THOSE THINGS , I AM GOING TO START GOING BACK TO [place]. IT HELPED ME BEFORE". DECLINES AFTERCARE GROUP MEETINGS STATING "THE [place] IS ALL I NEED". Objective: 11/01/18 14:17 A & O X3 SLIGHT TREMORS OF ARMS NOTED NOT IN ACUTE DISTRESS GAIT STEADY CONVERSATIONAL, CALM AND COOPERATIVE Vital Signs Temperature 97.3 F L 11/01/18 09:13 Pulse Rate 58 L 11/01/18 09:13 Respiratory Rate 16 11/01/18 09:13 Blood Pressure 129/87 11/01/18 09:13 O2 Sat by Pulse Oximetry (%) Laboratory Last Values WBC 3.2 K/mm3 (4.0-10.0) L 10/30/18 07:40 RBC 4.73 M/mm3 (4.00-5.60) 10/30/18 07:40 Hgb 14.0 GM/dL (11.7-16.9) 10/30/18 07:40 Hct 41.1 % (35.4-49) 10/30/18 07:40 MCV 86.9 fl (80-96) 10/30/18 07:40 MCH 29.6 pg (25.7-33.7) 10/30/18 07:40 MCHC 34.1 g/dl (32.0-35.9) 10/30/18 07:40 RDW 12.9 % (11.9-15.9) 10/30/18 07:40 Plt Count 156 K/MM3 (134-434) 10/30/18 07:40 MPV 9.5 fl (7.5-11.1) 10/30/18 07:40 Sodium 137 mmol/L (136-145) 10/30/18 07:40 Potassium 3.9 mmol/L (3.5-5.1) 10/30/18 07:40 Chloride 102 mmol/L (98-107) 10/30/18 07:40 Carbon Dioxide 27 mmol/L (21-32) 10/30/18 07:40 Anion Gap 8 MMOL/L (8-16) 10/30/18 07:40 BUN 16 mg/dL (7-18) 10/30/18 07:40 Creatinine 1.3 mg/dL (0.55-1.3) 10/30/18 07:40 Creat Clearance w eGFR 55.94 (>60) 10/30/18 07:40 Random Glucose 78 mg/dL (74-106) 10/30/18 07:40 Calcium 8.9 mg/dL (8.5-10.1) 10/30/18 07:40 Total Bilirubin 0.4 mg/dL (0.2-1) 10/30/18 07:40 AST 16 U/L (15-37) 10/30/18 07:40 ALT 18 U/L (13-61) 10/30/18 07:40 Alkaline Phosphatase 108 U/L (45-117) 10/30/18 07:40 Total Protein 7.2 g/dl (6.4-8.2) 10/30/18 07:40 Albumin 3.8 g/dl (3.4-5.0) 10/30/18 07:40 RPR Titer Nonreactive (NONREACTIVE) 10/30/18 07:40 LABS NOTED Assessment: 11/01/18 14:18 WITHDRAWAL SX DETOX GOING WELL Plan: CONTINUE DETOX FOR DISCHARGE IN A.M
[2018-11-01] MEDS: THIAMINE HCL 100 MG TABLET (FP) PO SCH (22:26)
[2018-11-01] MEDS: chlordiazePOXIDE HCL 10 MG CAPSULE PO SCH (22:26)
[2018-11-01] MEDS: hydrOXYzine PAMOATE 50 MG CAPSULE (FP) PO PRN (22:28)
[2018-11-02] MEDS ORDERED: METHADONE HCL 5 MG TABLET (FOR DETOX USE ONLY) PO SCH (06:00)
[2018-11-02] MEDS: chlordiazePOXIDE HCL 10 MG CAPSULE PO SCH (06:21)
[2018-11-02 07:00] VITALS: BP 137/86; PULSE 62; TEMP 97.9
--- NOTE | 2018-11-02 08:30 | DS ---
[facility] Detox Discharge Summary Admission Date: 10/29/18 Discharge Date: 11/02/18 - History Present History: Alcohol Dependence, Cannabis Dependence, Opioid Dependence - Physical Exam Results Vital Signs: Vital Signs Temperature 97.9 F 11/02/18 06:59 Pulse Rate 62 11/02/18 06:59 Respiratory Rate 18 11/02/18 06:59 Blood Pressure 137/86 11/02/18 06:59 O2 Sat by Pulse Oximetry (%) - Treatment Hospital Course: Detox Protocol Followed, Detoxed Safely, Responded well, Discharged Condition Good, Rehab Referral Accepted - Medication Discharge Medications: Ambulatory Orders Aspirin [Aspirin EC] 81 mg PO DAILY 09/01/18 Amlodipine Besylate 10 mg PO DAILY #20 tablet 09/05/18 Folic Acid - 1 mg PO DAILY 10/29/18 - AMA Did Patient Leave Against Medical Advice: No (referred to PCP/outpatient rehab)
[2018-11-02] MEDS ORDERED: METHADONE HCL 10 MG TABLET (FOR DETOX USE ONLY) PO SCH (10:00)
[2018-11-03] MEDS ORDERED: METHADONE HCL 5 MG TABLET (FOR DETOX USE ONLY) PO SCH (06:00)
== END 2018-11-02 09:18 | disposition home or self-care (01) | DRG 773 ==
LOC: YASAS 16:40 → Y6N 20:22
PROVIDERS: ADMIT Surgery; ATTEND Surgery
PROC: HZ2ZZZZ Detoxification Services for Substance Abuse Treatment (ICD-10-PCS; principal; 2018-10-29)
DX: F11.23 Opioid dependence with withdrawal (principal); F10.230 Alcohol dependence with withdrawal, uncomplicated; F12.20 Cannabis dependence, uncomplicated; I10 Essential (primary) hypertension; Z88.8 Allergy status to other drugs, medicaments and biological substances
CPT/HCPCS: 36415; 80053; 85027; 86593

== ENCOUNTER 2018-12-31 11:11 | Inpatient (IN) | payer OTHER ==
[2018-12-31 12:52] VITALS: BMI 29.0
--- NOTE | 2018-12-31 14:10 | HP ---
COWS - Scale Resting Pulse: 0= [place] 80 or Below Sweatin=Flushed/Facial Moisture Restless Observation: 1= Difficult to Sit Still Pupil Size: 0= Normal to Room Light Bone or Joint Aches: 2= Severe Diffuse Aches Runny Nose/ Eye Tearin= Runny Nose/Eyes GI Upset > 30mins: 0= None Tremor Observation: 2= Slight Tremor Visible Yawning Observation: 2= >3x During Session Anxiety or Irritability: 2=Irritable/Anxious Goose Flesh Skin: 0=Smooth Skin COWS Score: 13 CIWA Score Nausea/Vomitin-Mild Nausea/No Vomiting Muscle Tremors: 4-Moderate,w/Arms Extend Anxiety: 3 Agitation: 3 Paroxysmal Sweats: 3 Orientation: 0-Oriented Tacttile Disturbances: 0-None Auditory Disturbances: 0-None Visual Disturbances: 0-None Headache: 1-Very Mild CIWA-Ar Total Score: 15 - Admission Criteria OASAS Guidelines: Admission for Medically Managed Detox: Requires at least one of the followin. CIWA greater than 12 2. Seizures within the past 24 hours 3. Delirium tremens within the past 24 hours 4. Hallucinations within the past 24 hours 5. Acute intervention needed for co occurring medical disorder 6. Acute intervention needed for co occurring psychiatric disorder 7. Severe withdrawal that cannot be handled at a lower level of care (continued vomiting, continued diarrhea, abnormal vital signs) requiring intravenous medication and/or fluids 8. Admission ROS S - [facility] Chief Complaint: I need to get it right this time. Allergies/Adverse Reactions: Allergies Allergy/AdvReac Type Severity Reaction Status Date / Time lisinopril AdvReac Mild Swelling Verified 12/31/18 12:40 History of Present Illness: pt is a 63yrold male with a history of alcohol and heroin dependence seeking detox for treatment. Exam Limitations: No Limitations - Ebola screening Have you traveled outside of the country in the last 21 days: No Have you had contact with anyone from an Ebola affected area: No Have you been sick,other than usual withdrawal symptoms: No Do you have a fever: No - Review of Systems Constitutional: Chills, Diaphoresis, Loss of Appetite, Night Sweats, Unintentional Wgt. Loss EENT: reports: Tearing, Dental Problems (missing teeth) Respiratory: reports: No Symptoms reported Cardiac: reports: No Symptoms Reported GI: reports: Nausea, Poor Fluid Intake : reports: No Symptoms Reported Musculoskeletal: reports: Back Pain, Joint Pain Integumentary: reports: Flushing, Sweating Neuro: reports: Headache, Tremors Endocrine: reports: Flushing, Intolerance to Cold, Intolerance to Heat Hematology: reports: No Symptoms Reported Psychiatric: reports: Judgement Intact, Mood/Affect Appropiate, Orientated x3, Agitated, Anxious Other Systems: Reviewed and Negative Patient History - Patient Medical History Hx Anemia: No Hx Asthma: No Hx Chronic Obstructive Pulmonary Disease (COPD): No Hx Cancer: No Hx Cardiac Disorders: No Hx Congestive Heart Failure: No Hx Hypertension: Yes (norvasc 10mg) Hx Hypercholesterolemia: No Hx Pacemaker: No HX Cerebrovascular Accident: No Hx Seizures: No Hx Dementia: No Hx Diabetes: No Hx Gastrointestinal Disorders: No Hx Liver Disease: No Hx Genitourinary Disorders: No Hx Sexually Transmitted Disorders: No Hx Renal Disease (ESRD): No Hx Thyroid Disease: No Hx Human Immunodeficiency Virus (HIV): No (Negative 2017) Hx Hepatitis C: No (negative) Hx Depression: No Hx Suicide Attempt: No Hx Bipolar Disorder: No Hx Schizophrenia: No - Patient Surgical History Past Surgical History: Yes Hx Neurologic Surgery: No Hx Cataract Extraction: No Hx Cardiac Surgery: No Hx Lung Surgery: No Hx Breast Surgery: No Hx Breast Biopsy: No Hx Abdominal Surgery: No Hx Appendectomy: No Hx Cholecystectomy: No Hx Genitourinary Surgery: No Hx Section: No Hx Orthopedic Surgery: No Other Surgical History: Nail removed from R knee on 10/21/16. Anesthesia Reaction: No - PPD History Previous Implant?: Yes Documented Results: Negative w/o proof Date: 09/03/18 Results: 0 mm PPD to be Administered?: No - Reproductive History Patient is a Female of Child Bearing Age (11 -55 yrs old): No - Smoking Cessation Smoking history: Never smoked Have you smoked in the past 12 months: No Aproximately how many cigarettes per day: 0 Cigars Per Day: 0 Hx Chewing Tobacco Use: No Initiated information on smoking cessation: No - Substance & Tx. History Hx Alcohol Use: Yes Hx Substance Use: Yes Substance Use Type: Alcohol, Heroin, Marijuana Hx Substance Use Treatment: Yes (last detox [facility] 2019) - Substances abused Heroin Substance route: Inhalation Frequency: Daily Amount used: 4 to 5 bags Age of first use: 55 Date of last use: 12/31/18 Alcohol Substance route: Oral Frequency: Daily Amount used: 3 of 40 ounce of beer Age of first use: 19 Date of last use: 12/30/18 Marijuana/Hashish Substance route: Smoking Frequency: Daily Amount used: 4 to 5 joints Age of first use: 19 Date of last use: 12/30/18 Family Disease History - Family Disease History Family Disease History: Diabetes: Mother, [place]: Brother (), Sister ( ), Other: Father () Admission Physical Exam [facility] - Vital Signs Vital Signs: Vital Signs - 24 hr 12/31/18 12:45 Temperature 96.8 F L Pulse Rate 54 L Respiratory 18 Rate Blood Pressure 139/85 - Physical General Appearance: Yes: Appropriately Dressed, Moderate Distress, Tremorous, Irritable, Sweating, Anxious HEENTM: Yes: Normal Voice, Nasal Congestion, Rhinorrhea Respiratory: Yes: Lungs Clear, Normal Breath Sounds, No Respiratory Distress Neck: Yes: No masses,lesions,Nodules Breast: Yes: Within Normal Limits Cardiology: Yes: Regular Rhythm, Regular Rate, S1, S2 Abdominal: Yes: Normal Bowel Sounds, Non Tender, Soft Genitourinary: Yes: Within Normal Limits Back: Yes: Normal Inspection Musculoskeletal: Yes: full range of Motion, Back pain Extremities: Yes: Normal Capillary Refill, Normal Inspection, Tremors 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: Yes: Fully Oriented, Alert, Normal Response Integumentary: Yes: Diaphoresis Lymphatic: Yes: Within Normal Limits - Diagnostic (1) Alcohol dependence with uncomplicated withdrawal Current Visit: Yes Status: Chronic (2) Cannabis dependence Current Visit: Yes Status: Chronic (3) Opioid dependence with withdrawal Current Visit: Yes Status: Chronic (4) Essential hypertension Current Visit: Yes Status: Chronic (5) S/P knee surgery Current Visit: No Status: Chronic Comment: RECENT RIGHT KNEE SX ON 10/21/16 WITH SIX KELLY INTACT. Cleared for Admission [facility] - Detox or Rehab [facility] Level of Care: Medically Managed Detox Regimen/Protocol: Methadone/Librium Breathalyzer - Breathalyzer Breathalyzer: 0 Urine Drug Screen - Test Device Lot number: [id number] Expiration date: 08/06/20 - Control Is test valid?: Yes - Results Drug screen NEGATIVE: No Urine drug screen results: THC-Marijuana, MOP-Opiates Inpatient Rehab Admission - Rehab Decision to Admit Inpatient rehab admission?: No
[2018-12-31] MEDS ORDERED: MAGNESIUM CITRATE 300 ML BOTTLE PO PRN (14:24)
[2018-12-31] MEDS ORDERED: chlordiazePOXIDE HCL 25 MG CAPSULE PO PRN (14:24)
[2018-12-31] MEDS ORDERED: MAG HYDROX/AL HYDROX/SIMETH 30 ML UNIT-DOSE CUP PO PRN (14:24)
[2018-12-31] MEDS ORDERED: ACETAMINOPHEN 325 MG TABLET (FP) PO PRN ×2 (14:24)
[2018-12-31] MEDS ORDERED: IBUPROFEN 400 MG TABLET (FP) PO PRN (14:24)
[2018-12-31] MEDS ORDERED: MAGNESIUM HYDROX 2400MG/30ML ORAL SUSPENSION 30 ML CUP PO PRN (14:24)
[2018-12-31] MEDS ORDERED: MENTHOL/PHENOL 1 EACH UD MM PRN (14:24)
[2018-12-31] MEDS ORDERED: ONDANSETRON *ODT* 4 MG TABLET SL PRN (14:24)
[2018-12-31] MEDS ORDERED: P-EPHED 60MG/TRIPROLIDI 2.5MG TABLET PO PRN (14:24)
[2018-12-31] MEDS ORDERED: BISMUTH SUBSALICYLATE 262 MG/15 ML BTL PO PRN (14:24)
[2018-12-31] MEDS ORDERED: METHOCARBAMOL 500 MG TABLET PO PRN (14:24)
[2018-12-31] MEDS ORDERED: DICYCLOMINE HCL 10 MG CAPSULE PO PRN (14:24)
[2018-12-31] MEDS ORDERED: chlordiazePOXIDE HCL 25 MG CAPSULE PO ONE (14:45)
[2018-12-31] MEDS ORDERED: METHADONE HCL 10 MG TABLET (FOR DETOX USE ONLY) PO ONE ×2 (14:45→23:00)
[2018-12-31 16:51] LABS: HEMATOCRIT 43.8 % (35.4-49); HEMOGLOBIN 14.7 GM/dL (11.7-16.9); MCH 29.3 pg (25.7-33.7); MCHC 33.7 g/dl (32.0-35.9); MEAN CELL VOLUME 87.1 fl (80-96); MEAN PLT VOLUME 9.7 fl (7.5-11.1); PLATELET COUNT 160 K/MM3 (134-434); RBC 5.03 M/mm3 (4.00-5.60); RDW 13.8 % (11.9-15.9)
[2018-12-31 16:53] LABS: ALBUMIN 3.9 g/dl (3.4-5.0); ALK PHOS 91 U/L (45-117); ANION GAP 5 MMOL/L (8-16); BILIRUBIN,TOTAL 0.9 mg/dL (0.2-1); BLOOD UREA NITROGEN 14 mg/dL (7-18); CALCIUM 9.5 mg/dL (8.5-10.1); CHLORIDE 102 mmol/L (98-107); CO2 32 mmol/L (21-32); CREATININE 1.3 mg/dL (0.55-1.3); GLUCOSE,RANDOM 110 mg/dL (74-106); POTASSIUM 4.1 mmol/L (3.5-5.1); SGOT/AST 20 U/L (15-37); SGPT/ALT 19 U/L (13-61); SODIUM 139 mmol/L (136-145); TOT PROT 7.5 g/dl (6.4-8.2)
[2018-12-31] MEDS: hydrOXYzine PAMOATE 25 MG CAPSULE (FP) PO PRN (22:23)
[2018-12-31] MEDS: MELATONIN 5 MG TABLETS PO PRN (22:23)
[2018-12-31] MEDS: cloNIDine HCL 0.1 MG TABLET PO PRN (22:23)
[2018-12-31] MEDS: THIAMINE HCL 100 MG TABLET (FP) PO SCH (22:23)
[2018-12-31] MEDS: chlordiazePOXIDE HCL 25 MG CAPSULE PO SCH (22:23)
[2019-01-01] MEDS: chlordiazePOXIDE HCL 25 MG CAPSULE PO SCH ×4 (05:26→22:23)
[2019-01-01] MEDS ORDERED: METHADONE HCL 10 MG TABLET (FOR DETOX USE ONLY) PO ONE (10:00)
[2019-01-01] MEDS: PRENATAL VITAMINS W/ FOLIC ACID TABLET (FP) PO SCH (10:36)
[2019-01-01] MEDS: ASPIRIN COATED 81 MG TABLET.EC PO SCH (10:36)
[2019-01-01] MEDS: amLODIPine BESYLATE 10 MG TABLET (FP) PO SCH (10:36)
--- NOTE | 2019-01-01 11:50 | PN ---
[facility] CIWA - CIWA Score Nausea/Vomitin-No Nausea/No Vomiting Muscle Tremors: 3 Anxiety: 3 Agitation: 3 Paroxysmal Sweats: 3 Orientation: 0-Oriented Tacttile Disturbances: 0-None Auditory Disturbances: 0-None Visual Disturbances: 0-None Headache: 0-None Present CIWA-Ar Total Score: 12 S COWS - Scale Resting Pulse: 0= [place] 80 or Below Sweatin=Flushed/Facial Moisture Restless Observation: 0= Sits Still Pupil Size: 0= Normal to Room Light Bone or Joint Aches: 2= Severe Diffuse Aches Runny Nose/ Eye Tearin= Nasal Congestion GI Upset > 30mins: 0= None Tremor Observation of Outstretched Hands: 1= Tremor [place], Not Seen Yawning Observation: 2= >3x During Session Anxiety or Irritability: 2=Irritable/Anxious Goose Flesh Skin: 0=Smooth Skin COWS Score: 10 [facility] Progress Note (SOAP) Subjective: sweats shakes interrupted sleep body aches Objective: 01/01/19 11:49 Vital Signs Temperature 97.0 F L 01/01/19 09:38 Pulse Rate 51 L 01/01/19 09:38 Respiratory Rate 16 01/01/19 09:38 Blood Pressure 103/66 01/01/19 09:38 O2 Sat by Pulse Oximetry (%) Laboratory Tests 12/31/18 12/31/18 12/31/18 14:15 14:15 14:15 WBC 3.0 L RBC 5.03 Hgb 14.7 Hct 43.8 MCV 87.1 MCH 29.3 MCHC 33.7 RDW 13.8 Plt Count 160 MPV 9.7 Sodium 139 Potassium 4.1 Chloride 102 Carbon Dioxide 32 Anion Gap 5 L BUN 14 Creatinine 1.3 Creat Clearance w eGFR 55.94 Random Glucose 110 H Calcium 9.5 Total Bilirubin 0.9 AST 20 ALT 19 Alkaline Phosphatase 91 Total Protein 7.5 Albumin 3.9 RPR Titer Nonreactive aaox3 ambulating no acute distress Assessment: 01/01/19 11:49 withdrawal sx Plan: continue detox increase fluids
[2019-01-01] MEDS: cloNIDine HCL 0.1 MG TABLET PO PRN (22:23)
[2019-01-01] MEDS: THIAMINE HCL 100 MG TABLET (FP) PO SCH (22:23)
[2019-01-02] MEDS: chlordiazePOXIDE HCL 25 MG CAPSULE PO SCH ×3 (06:12→17:55)
[2019-01-02] MEDS ORDERED: METHADONE HCL 10 MG TABLET (FOR DETOX USE ONLY) PO ONE (10:00)
--- NOTE | 2019-01-02 10:55 | PN ---
[facility] CIWA - CIWA Score Nausea/Vomitin-Mild Nausea/No Vomiting Muscle Tremors: None Anxiety: 2 Agitation: 2 Paroxysmal Sweats: 2 Orientation: 0-Oriented Tacttile Disturbances: 0-None Auditory Disturbances: 0-None Visual Disturbances: 0-None Headache: 2-Mild CIWA-Ar Total Score: 9 S COWS - Scale Resting Pulse: 1= [place] 81-100 Sweatin= Chills/Flushing Restless Observation: 1= Difficult to Sit Still Pupil Size: 0= Normal to Room Light Bone or Joint Aches: 1= Mild Discomfort Runny Nose/ Eye Tearin= None GI Upset > 30mins: 2= Nausea/Diarrhea Tremor Observation of Outstretched Hands: 0= None Yawning Observation: 0= None Anxiety or Irritability: 1=Feels Anxious/Irritable Goose Flesh Skin: 0=Smooth Skin COWS Score: 7 [facility] Progress Note (SOAP) Subjective: patient c/o anxiety, restlessness, sweating, mild nausea, headache Objective: 01/02/19 10:53 Laboratory Tests 12/31/18 12/31/18 12/31/18 14:15 14:15 14:15 WBC 3.0 L RBC 5.03 Hgb 14.7 Hct 43.8 MCV 87.1 MCH 29.3 MCHC 33.7 RDW 13.8 Plt Count 160 MPV 9.7 Sodium 139 Potassium 4.1 Chloride 102 Carbon Dioxide 32 Anion Gap 5 L BUN 14 Creatinine 1.3 Creat Clearance w eGFR 55.94 Random Glucose 110 H Calcium 9.5 Total Bilirubin 0.9 AST 20 ALT 19 Alkaline Phosphatase 91 Total Protein 7.5 Albumin 3.9 RPR Titer Nonreactive Vital Signs Temperature 97.3 F L 01/02/19 09:33 Pulse Rate 56 L 01/02/19 09:33 Respiratory Rate 18 01/02/19 09:33 Blood Pressure 132/77 01/02/19 09:33 O2 Sat by Pulse Oximetry (%) pe: alert and oriented x 3 skin warm,mild moisture to forehead +perrla, eoms intact b/l ext full rom, amb ad lindy anxious Assessment: 01/02/19 10:54 withdrawal sx Plan: continue detox encourage fluids monitor clinically
[2019-01-02] MEDS: amLODIPine BESYLATE 10 MG TABLET (FP) PO SCH (11:00)
[2019-01-02] MEDS: ASPIRIN COATED 81 MG TABLET.EC PO SCH (11:00)
[2019-01-02] MEDS: cloNIDine HCL 0.1 MG TABLET PO PRN (11:00)
[2019-01-02] MEDS: PRENATAL VITAMINS W/ FOLIC ACID TABLET (FP) PO SCH (11:01)
[2019-01-02] MEDS: THIAMINE HCL 100 MG TABLET (FP) PO SCH (22:04)
[2019-01-02] MEDS: chlordiazePOXIDE HCL 10 MG CAPSULE PO SCH (22:04)
[2019-01-02] MEDS: MELATONIN 5 MG TABLETS PO PRN (22:04)
[2019-01-02] MEDS ORDERED: chlordiazePOXIDE HCL 10 MG CAPSULE PO PRN (23:00)
[2019-01-03] MEDS: chlordiazePOXIDE HCL 10 MG CAPSULE PO SCH ×3 (06:29→18:24)
[2019-01-03] MEDS ORDERED: METHADONE HCL 10 MG TABLET (FOR DETOX USE ONLY) PO ONE (10:00)
[2019-01-03] MEDS: amLODIPine BESYLATE 10 MG TABLET (FP) PO SCH (10:19)
[2019-01-03] MEDS: ASPIRIN COATED 81 MG TABLET.EC PO SCH (10:19)
[2019-01-03] MEDS: PRENATAL VITAMINS W/ FOLIC ACID TABLET (FP) PO SCH (10:19)
--- NOTE | 2019-01-03 15:46 | PN ---
[facility] CIWA - CIWA Score Nausea/Vomitin-No Nausea/No Vomiting Muscle Tremors: None Anxiety: 0-No Anxiety, at Ease Agitation: 1-Slight > Activity Paroxysmal Sweats: No Perspiration Orientation: 0-Oriented Tacttile Disturbances: 0-None Auditory Disturbances: 0-None Visual Disturbances: 0-None Headache: 0-None Present CIWA-Ar Total Score: 1 [facility] COWS - Scale Resting Pulse: 0= ID 80 or Below Sweatin= No chills or Flushing Restless Observation: 0= Sits Still Pupil Size: 0= Normal to Room Light Bone or Joint Aches: 0= None Runny Nose/ Eye Tearin= None GI Upset > 30mins: 0= None Tremor Observation of Outstretched Hands: 0= None Yawning Observation: 1= 1-2x During Session Anxiety or Irritability: 0= None Goose Flesh Skin: 0=Smooth Skin COWS Score: 1 [facility] Progress Note (SOAP) Subjective: Patient denies current Withdrawal / Detox symptoms and reports that he feels well overall. Objective: PATIENT A & O X 3, OBSERVED AMBULATING ON UNIT UNASSISTED. IN NO ACUTE DISTRESS. 01/03/19 15:45 Vital Signs Temperature 97.7 F 01/03/19 13:12 Pulse Rate 57 L 01/03/19 13:12 Respiratory Rate 18 01/03/19 13:12 Blood Pressure 122/76 01/03/19 13:12 O2 Sat by Pulse Oximetry (%) Laboratory Tests 12/31/18 12/31/18 12/31/18 14:15 14:15 14:15 WBC 3.0 L RBC 5.03 Hgb 14.7 Hct 43.8 MCV 87.1 MCH 29.3 MCHC 33.7 RDW 13.8 Plt Count 160 MPV 9.7 Sodium 139 Potassium 4.1 Chloride 102 Carbon Dioxide 32 Anion Gap 5 L BUN 14 Creatinine 1.3 Creat Clearance w eGFR 55.94 Random Glucose 110 H Calcium 9.5 Total Bilirubin 0.9 AST 20 ALT 19 Alkaline Phosphatase 91 Total Protein 7.5 Albumin 3.9 RPR Titer Nonreactive LABS NOTED. PATIENT HAS HAD LOW WBC LEVELS ON PREVIOUS ADMISSIONS. 01/03/19 15:45 Assessment: 01/03/19 15:46 WITHDRAWAL SYMPTOMS. LEUKOPENIA. Plan: CONTINUE DETOX. PATIENT SCHEDULED FOR D/C TOMORROW.
[2019-01-03] MEDS: THIAMINE HCL 100 MG TABLET (FP) PO SCH (22:41)
[2019-01-03] MEDS: hydrOXYzine PAMOATE 25 MG CAPSULE (FP) PO PRN (22:42)
[2019-01-03] MEDS: MELATONIN 5 MG TABLETS PO PRN (22:42)
[2019-01-03] MEDS ORDERED: chlordiazePOXIDE HCL 10 MG CAPSULE PO SCH (23:00)
[2019-01-04] MEDS ORDERED: METHADONE HCL 5 MG TABLET (FOR DETOX USE ONLY) PO ONE (06:00)
[2019-01-04 07:06] VITALS: BP 138/86; PULSE 52; TEMP 97.2
--- NOTE | 2019-01-04 16:04 | DS ---
[facility] Detox Discharge Summary Admission Date: 12/31/18 Discharge Date: 01/04/19 - History Present History: Alcohol Dependence, Cannabis Dependence, Opioid Dependence Additional Comments: PATIENT GOING HOME FOR TIME BEING, REPORTS THAT HE NEEDS TO HAVE SURGERY ON HIS HIP IN NEAR FUTURE AND THAT HE WILL CONSIDER AFTERCARE OPTIONS AFTER ADDRESSING THAT ISSUE. PATIENT ADVISED TO CONSIDER LOCAL 12-STEP / NA / AA OUTPATIENT SUPPORT GROUP MEETINGS FOR AFTERCARE. PATIENT VERBALIZED UNDERSTANDING OF RECOMMENDATION. PATIENT DECLINED OFFER OF MEDICATION PRESCRIPTION FOR HOME MEDICATION AT TIME OF DISCHARGE FROM DETOX, NOTING THAT HE CURRENTLY HAS ADEQUATE SUPPLIES OF ALL PRESCRIBED HOME MEDICATIONS AT HOME. PATIENT WAS DISCHARGED FROM DETOX UNIT IN STABLE MEDICAL CONDITION. Pertinent Past History: HTN, S/P Knee Surgery (Right). - Physical Exam Results Vital Signs: Vital Signs Temperature 97.2 F L 01/04/19 06:00 Pulse Rate 52 L 01/04/19 06:00 Respiratory Rate 18 01/04/19 06:00 Blood Pressure 138/86 01/04/19 06:00 O2 Sat by Pulse Oximetry (%) Pertinent Admission Physical Exam Findings: WITHDRAWAL SYMPTOMS. Laboratory Tests 12/31/18 12/31/18 12/31/18 14:15 14:15 14:15 WBC 3.0 L RBC 5.03 Hgb 14.7 Hct 43.8 MCV 87.1 MCH 29.3 MCHC 33.7 RDW 13.8 Plt Count 160 MPV 9.7 Sodium 139 Potassium 4.1 Chloride 102 Carbon Dioxide 32 Anion Gap 5 L BUN 14 Creatinine 1.3 Creat Clearance w eGFR 55.94 Random Glucose 110 H Calcium 9.5 Total Bilirubin 0.9 AST 20 ALT 19 Alkaline Phosphatase 91 Total Protein 7.5 Albumin 3.9 RPR Titer Nonreactive LABS NOTED. - Treatment Hospital Course: Detox Protocol Followed, Detoxed Safely, Responded well, Discharged Condition Good Patient has Accepted a Rehab Referral to: PT. GOING HOME; ADVISED TO CONSIDER LOCAL 12-STEP/NA OP SUPPORT GROUPS. - Medication Discharge Medications: Ambulatory Orders Aspirin [Aspirin EC] 81 mg PO DAILY 09/01/18 Amlodipine Besylate 10 mg PO DAILY #20 tablet 09/05/18 Folic Acid - 1 mg PO DAILY 10/29/18 Thera M 1 tablet PO DAILY 12/31/18 - Diagnosis (1) Leukopenia Status: Acute Qualifiers: Leukopenia type: unspecified Qualified Code(s): D72.819 - Decreased white blood cell count, unspecified (2) Alcohol dependence with uncomplicated withdrawal Status: Acute (3) Cannabis dependence Status: Chronic (4) Essential hypertension Status: Chronic (5) Opioid dependence with withdrawal Status: Acute (6) S/P knee surgery Status: Chronic - AMA Did Patient Leave Against Medical Advice: No
== END 2019-01-04 09:05 | disposition home or self-care (01) | DRG 773 ==
LOC: YASAS 11:11 → Y6N 14:35
PROVIDERS: ADMIT Surgery; ATTEND Surgery
PROC: HZ2ZZZZ Detoxification Services for Substance Abuse Treatment (ICD-10-PCS; principal; 2018-12-31)
DX: F11.23 Opioid dependence with withdrawal (principal); F10.230 Alcohol dependence with withdrawal, uncomplicated; F12.20 Cannabis dependence, uncomplicated; I10 Essential (primary) hypertension; D72.819 Decreased white blood cell count, unspecified; Z98.890 Other specified postprocedural states; Z88.8 Allergy status to other drugs, medicaments and biological substances
CPT/HCPCS: 36415; 80053; 85027; 86593; J0735; Q0162

== ENCOUNTER 2019-05-02 15:33 | Inpatient (IN) | payer OTHER ==
[2019-05-02 17:21] VITALS: BMI 29.2
--- NOTE | 2019-05-02 18:13 | HP ---
COWS - Scale Resting Pulse: 1= SD 81-100 Sweatin= Chills/Flushing Restless Observation: 1= Difficult to Sit Still Pupil Size: 1= Pupils >than Normal Bone or Joint Aches: 1= Mild Discomfort Runny Nose/ Eye Tearin= Runny Nose/Eyes GI Upset > 30mins: 1= Stomach Cramp Tremor Observation: 2= Slight Tremor Visible Yawning Observation: 1= 1-2x During Session Anxiety or Irritability: 1=Feels Anxious/Irritable Goose Flesh Skin: 0=Smooth Skin COWS Score: 12 CIWA Score - Admission Criteria [facility] Guidelines: Admission for Medically Managed Detox: Requires at least one of the followin. CIWA greater than 12 2. Seizures within the past 24 hours 3. Delirium tremens within the past 24 hours 4. Hallucinations within the past 24 hours 5. Acute intervention needed for co occurring medical disorder 6. Acute intervention needed for co occurring psychiatric disorder 7. Severe withdrawal that cannot be handled at a lower level of care (continued vomiting, continued diarrhea, abnormal vital signs) requiring intravenous medication and/or fluids 8. Admission ROS [facility] Chief Complaint: I GOTTA STOP Allergies/Adverse Reactions: Allergies Allergy/AdvReac Type Severity Reaction Status Date / Time lisinopril AdvReac Mild Swelling Verified 05/02/19 17:15 History of Present Illness: longstanding ho opiate and etoh use denies significant period of abstienence - Ebola screening Have you traveled outside of the country in the last 21 days: No Have you had contact with anyone from an Ebola affected area: No Have you been sick,other than usual withdrawal symptoms: No Do you have a fever: No - Review of Systems Constitutional: Malaise, Changes in sleep, Unintentional Wgt. Loss EENT: reports: Nose Congestion Respiratory: reports: Shortness of Breath Cardiac: reports: No Symptoms Reported GI: reports: Abdominal cramping : reports: No Symptoms Reported Musculoskeletal: reports: No Symptoms Reported Integumentary: reports: No Symptoms Reported Neuro: reports: Numbness Endocrine: reports: No Symptoms Reported Hematology: reports: No Symptoms Reported Psychiatric: reports: Anxious Patient History - Patient Medical History Hx Anemia: No Hx Asthma: No Hx Chronic Obstructive Pulmonary Disease (COPD): No Hx Cancer: No Hx Cardiac Disorders: No Hx Congestive Heart Failure: No Hx Hypertension: Yes (on meds) Hx Hypercholesterolemia: No Hx Pacemaker: No HX Cerebrovascular Accident: No Hx Seizures: No Hx Dementia: No Hx Diabetes: No Hx Gastrointestinal Disorders: No Hx Liver Disease: No Hx Genitourinary Disorders: No Hx Sexually Transmitted Disorders: No Hx Renal Disease (ESRD): No Hx Thyroid Disease: No Hx Human Immunodeficiency Virus (HIV): No (Negative 2018) Hx Hepatitis C: No (negative) Hx Depression: No Hx Suicide Attempt: No Hx Bipolar Disorder: No Hx Schizophrenia: No - Patient Surgical History Past Surgical History: Yes Hx Neurologic Surgery: No Hx Cataract Extraction: No Hx Cardiac Surgery: No Hx Lung Surgery: No Hx Breast Surgery: No Hx Breast Biopsy: No Hx Abdominal Surgery: No Hx Appendectomy: No Hx Cholecystectomy: No Hx Genitourinary Surgery: No Hx Section: No Hx Orthopedic Surgery: No Other Surgical History: Nail removed from R knee on 10/21/16. Anesthesia Reaction: No - PPD History Previous Implant?: Yes Date: 09/03/18 Results: 0 mm - Smoking Cessation Smoking history: Never smoked Have you smoked in the past 12 months: No Aproximately how many cigarettes per day: 0 Cigars Per Day: 0 Hx Chewing Tobacco Use: No - Substances abused Heroin Substance route: Inhalation Frequency: Daily Amount used: 4 to 5 bags Age of first use: 55 Date of last use: 05/02/19 Alcohol Substance route: Oral Frequency: Daily Amount used: 3 of 40 ounce of beer Age of first use: 19 Date of last use: 05/01/19 Marijuana/Hashish Substance route: Smoking Frequency: Daily Amount used: 4 to 5 joints Age of first use: 19 Date of last use: 05/01/19 Family Disease History - Family Disease History Family Disease History: Diabetes: Mother, [place]: Brother (), Sister ( ), Other: Father () Admission Physical Exam BHS - Vital Signs Vital Signs: Vital Signs - 24 hr 05/02/19 17:17 Temperature 97.1 F L Pulse Rate 47 L Respiratory 18 Rate Blood Pressure 155/98 - Physical General Appearance: Yes: Irritable, Anxious HEENTM: Yes: EOMI Respiratory: Yes: Chest Non-Tender, Lungs Clear, Normal Breath Sounds Neck: Yes: Within Normal Limits Breast: Yes: Breast Exam Deferred Cardiology: Yes: Regular Rhythm, Regular Rate, S1, S2 Abdominal: Yes: Normal Bowel Sounds Genitourinary: Yes: Within Normal Limits Back: Yes: Normal Inspection, CVA Tenderness Musculoskeletal: Yes: full range of Motion, Gait Steady, Pelvis Stable Extremities: Yes: Normal Capillary Refill, Normal Inspection, Normal Range of Motion, Non-Tender 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: 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: 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 II-XII NML intact, Motor Strength 5/5, Normal Mood/Affect , Normal Response - Diagnostic (1) Alcohol dependence with uncomplicated withdrawal Current Visit: Yes Status: Acute (2) Opioid dependence with withdrawal Current Visit: Yes Status: Acute (3) Cannabis dependence Current Visit: Yes Status: Chronic (4) Essential hypertension Current Visit: Yes Status: Chronic Breathalyzer - Breathalyzer Breathalyzer: 0 Urine Drug Screen - Test Device Lot number: [id number] Expiration date: 08/06/20 - Control Is test valid?: Yes - Results Drug screen NEGATIVE: No Urine drug screen results: THC-Marijuana, MOP-Opiates Inpatient Rehab Admission - Rehab Decision to Admit Inpatient rehab admission?: No
[2019-05-02] MEDS ORDERED: ACETAMINOPHEN 325 MG TABLET (FP) PO PRN ×2 (18:15)
[2019-05-02] MEDS ORDERED: MAGNESIUM CITRATE 300 ML BOTTLE PO PRN (18:15)
[2019-05-02] MEDS ORDERED: MAGNESIUM HYDROX 2400MG/30ML ORAL SUSPENSION 30 ML CUP PO PRN (18:15)
[2019-05-02] MEDS ORDERED: METHADONE HCL 10 MG TABLET (FOR DETOX USE ONLY) PO ONE (18:15)
[2019-05-02] MEDS ORDERED: MENTHOL/PHENOL 1 EACH UD MM PRN (18:15)
[2019-05-02] MEDS ORDERED: chlordiazePOXIDE HCL 10 MG CAPSULE PO PRN (18:15)
[2019-05-02] MEDS ORDERED: MAG HYDROX/AL HYDROX/SIMETH 30 ML UNIT-DOSE CUP PO PRN (18:15)
[2019-05-02] MEDS ORDERED: BISMUTH SUBSALICYLATE 524 MG/30 ML UD PO PRN (18:15)
[2019-05-02] MEDS ORDERED: cloNIDine HCL 0.1 MG TABLET PO PRN (18:15)
--- NOTE | 2019-05-02 18:30 | PN ---
- Vital Signs Vital Signs: Vital Signs - 24 hr 05/02/19 17:17 Temperature 97.1 F L Pulse Rate 47 L Respiratory 18 Rate Blood Pressure 155/98 COWS - Scale Resting Pulse: 1= [place] 81-100 Sweatin= Chills/Flushing Restless Observation: 1= Difficult to Sit Still Pupil Size: 1= Pupils >than Normal Bone or Joint Aches: 1= Mild Discomfort Runny Nose/ Eye Tearin= Runny Nose/Eyes GI Upset > 30mins: 1= Stomach Cramp Tremor Observation: 2= Slight Tremor Visible Yawning Observation: 1= 1-2x During Session Anxiety or Irritability: 1=Feels Anxious/Irritable Goose Flesh Skin: 0=Smooth Skin COWS Score: 12 Medical/Surgical History - Patient Medical History Hx Anemia: No Hx Asthma: No Hx Chronic Obstructive Pulmonary Disease (COPD): No Hx Cancer: No Hx Cardiac Disorders: No Hx Congestive Heart Failure: No Hx Hypertension: Yes (on meds) Hx Hypercholesterolemia: No Hx Pacemaker: No HX Cerebrovascular Accident: No Hx Seizures: No Hx Dementia: No Hx Diabetes: No Hx Gastrointestinal Disorders: No Hx Liver Disease: No Hx Genitourinary Disorders: No Hx Sexually Transmitted Disorders: No Hx Renal Disease (ESRD): No Hx Thyroid Disease: No Hx Human Immunodeficiency Virus (HIV): No (Negative 2018) Hx Hepatitis C: No (negative) Hx Depression: No Hx Suicide Attempt: No Hx Bipolar Disorder: No Hx Schizophrenia: No - Patient Surgical History Past Surgical History: Yes Hx Neurologic Surgery: No Hx Cataract Extraction: No Hx Cardiac Surgery: No Hx Lung Surgery: No Hx Breast Surgery: No Hx Breast Biopsy: No Hx Abdominal Surgery: No Hx Appendectomy: No Hx Cholecystectomy: No Hx Genitourinary Surgery: No Hx Section: No Hx Orthopedic Surgery: No Other Surgical History: Nail removed from R knee on 10/21/16. Anesthesia Reaction: No - Substances abused Heroin Substance route: Inhalation Frequency: Daily Amount used: 4 to 5 bags Age of first use: 55 Date of last use: 05/02/19 Alcohol Substance route: Oral Frequency: Daily Amount used: 3 of 40 ounce of beer Age of first use: 19 Date of last use: 05/01/19 Marijuana/Hashish Substance route: Smoking Frequency: Daily Amount used: 4 to 5 joints Age of first use: 19 Date of last use: 05/01/19 Breathalyzer - Breathalyzer Breathalyzer: 0.006 Urine Drug Screen - Test Device Lot number: [id number] Expiration date: 08/06/20 - Control Is test valid?: Yes - Results Drug screen NEGATIVE: No Urine drug screen results: THC-Marijuana, MOP-Opiates
[2019-05-02] MEDS: MELATONIN 5 MG TABLETS PO PRN (20:09)
[2019-05-02] MEDS: amLODIPine BESYLATE 10 MG TABLET (FP) PO SCH (20:10)
[2019-05-02] MEDS: chlordiazePOXIDE HCL 25 MG CAPSULE PO SCH (20:10)
[2019-05-02] MEDS: IBUPROFEN 400 MG TABLET (FP) PO PRN (20:18)
[2019-05-02] MEDS: METHOCARBAMOL 500 MG TABLET PO PRN (20:18)
[2019-05-02] MEDS: THIAMINE HCL 100 MG TABLET (FP) PO SCH (22:37)
[2019-05-03] MEDS: hydrOXYzine PAMOATE 25 MG CAPSULE (FP) PO PRN ×2 (04:01→22:18)
[2019-05-03] MEDS: chlordiazePOXIDE HCL 25 MG CAPSULE PO SCH ×3 (04:01→22:18)
[2019-05-03] MEDS: METHOCARBAMOL 500 MG TABLET PO PRN ×3 (04:01→22:20)
[2019-05-03] MEDS ORDERED: METHADONE HCL 5 MG TABLET (FOR DETOX USE ONLY) PO ONE (10:00)
[2019-05-03] MEDS: amLODIPine BESYLATE 10 MG TABLET (FP) PO SCH (10:38)
[2019-05-03] MEDS: PRENATAL VITAMINS W/ FOLIC ACID TABLET (FP) PO SCH (10:38)
[2019-05-03 12:01] LABS: ALBUMIN 3.5 g/dl (3.4-5.0); BILIRUBIN,TOTAL 0.4 mg/dL (0.2-1); BLOOD UREA NITROGEN 17.4 mg/dL (7-18); CALCIUM 8.8 mg/dL (8.5-10.1); POTASSIUM 4.2 mmol/L (3.5-5.1); TOT PROT 6.4 g/dl (6.4-8.2)
[2019-05-03 12:02] LABS: HEMATOCRIT 38.4 % (35.4-49); HEMOGLOBIN 13.2 GM/dL (11.7-16.9); MCH 29.3 pg (25.7-33.7); MCHC 34.3 g/dl (32.0-35.9); MEAN CELL VOLUME 85.5 fl (80-96); MEAN PLT VOLUME 9.3 fl (7.5-11.1); PLATELET COUNT 166 K/MM3 (134-434); RBC 4.49 M/mm3 (4.00-5.60); RDW 12.9 % (11.9-15.9)
--- NOTE | 2019-05-03 14:24 | PN ---
[facility] CIWA - CIWA Score Nausea/Vomitin-Mild Nausea/No Vomiting Muscle Tremors: 4-Moderate,w/Arms Extend Anxiety: 3 Agitation: 2 Paroxysmal Sweats: 1-Minimal Palms Moist Orientation: 0-Oriented Tacttile Disturbances: 1-Very Mild Itch/Numbness Auditory Disturbances: 0-None Visual Disturbances: 0-None Headache: 0-None Present CIWA-Ar Total Score: 12 [facility] COWS - Scale Resting Pulse: 0= [place] 80 or Below Sweatin= Chills/Flushing Restless Observation: 0= Sits Still Pupil Size: 0= Normal to Room Light Bone or Joint Aches: 2= Severe Diffuse Aches Runny Nose/ Eye Tearin= Nasal Congestion GI Upset > 30mins: 2= Nausea/Diarrhea Tremor Observation of Outstretched Hands: 2= Slight Tremor Visible Yawning Observation: 2= >3x During Session Anxiety or Irritability: 2=Irritable/Anxious Goose Flesh Skin: 0=Smooth Skin COWS Score: 12 S Progress Note (SOAP) Subjective: 63 years old male admitted on 05/02/19 for alcohol and opiate withdrawal sx management doing well with libirum and methadone detox regimen ambulating on hallway mild anxiety less body aches Objective: 05/03/19 14:23 Vital Signs Temperature 98.0 F 05/03/19 13:20 Pulse Rate 56 L 05/03/19 13:20 Respiratory Rate 18 05/03/19 13:20 Blood Pressure 152/84 05/03/19 13:20 O2 Sat by Pulse Oximetry (%) Laboratory Last Values WBC 3.0 K/mm3 (4.0-10.0) L 05/03/19 07:30 RBC 4.49 M/mm3 (4.00-5.60) 05/03/19 07:30 Hgb 13.2 GM/dL (11.7-16.9) 05/03/19 07:30 Hct 38.4 % (35.4-49) 05/03/19 07:30 MCV 85.5 fl (80-96) 05/03/19 07:30 MCH 29.3 pg (25.7-33.7) 05/03/19 07:30 MCHC 34.3 g/dl (32.0-35.9) 05/03/19 07:30 RDW 12.9 % (11.9-15.9) 05/03/19 07:30 Plt Count 166 K/MM3 (134-434) 05/03/19 07:30 MPV 9.3 fl (7.5-11.1) 05/03/19 07:30 Sodium 140 mmol/L (136-145) 05/03/19 07:30 Potassium 4.2 mmol/L (3.5-5.1) 05/03/19 07:30 Chloride 102 mmol/L (98-107) 05/03/19 07:30 Carbon Dioxide 32 mmol/L (21-32) 05/03/19 07:30 Anion Gap 6 MMOL/L (8-16) L 05/03/19 07:30 BUN 17.4 mg/dL (7-18) 05/03/19 07:30 Creatinine 1.0 mg/dL (0.55-1.3) 05/03/19 07:30 Est GFR (CKD-EPI)AfAm 93.08 05/03/19 07:30 Est GFR (CKD-EPI)NonAf 80.31 05/03/19 07:30 Random Glucose 86 mg/dL (74-106) 05/03/19 07:30 Calcium 8.8 mg/dL (8.5-10.1) 05/03/19 07:30 Total Bilirubin 0.4 mg/dL (0.2-1) 05/03/19 07:30 AST 16 U/L (15-37) 05/03/19 07:30 ALT 19 U/L (13-61) 05/03/19 07:30 Alkaline Phosphatase 102 U/L (45-117) 05/03/19 07:30 Total Protein 6.4 g/dl (6.4-8.2) 05/03/19 07:30 Albumin 3.5 g/dl (3.4-5.0) 05/03/19 07:30 RPR Titer Nonreactive (NONREACTIVE) 05/03/19 07:30 HIV 1&2 Antibody Screen Cancelled 05/03/19 07:30 HIV P24 Antigen Cancelled 05/03/19 07:30 lab noted Assessment: 05/03/19 14:23 alcohol and opiate withdrawal sx alert oriented x 3 speech clearly denies headache no 05/03/19 14:24 no chest pain no shortness of breath no dizziness Plan: continue librium and methadone detox
[2019-05-03] MEDS: THIAMINE HCL 100 MG TABLET (FP) PO SCH (22:18)
[2019-05-03] MEDS: MELATONIN 5 MG TABLETS PO PRN (22:18)
[2019-05-04] MEDS: chlordiazePOXIDE 5 MG CAPSULE PO SCH ×3 (04:43→21:57)
[2019-05-04] MEDS: METHOCARBAMOL 500 MG TABLET PO PRN (04:44)
[2019-05-04] MEDS: IBUPROFEN 400 MG TABLET (FP) PO PRN (04:44)
[2019-05-04] MEDS ORDERED: METHADONE HCL 10 MG TABLET (FOR DETOX USE ONLY) PO ONE (10:00)
[2019-05-04] MEDS: PRENATAL VITAMINS W/ FOLIC ACID TABLET (FP) PO SCH (10:48)
[2019-05-04] MEDS: amLODIPine BESYLATE 10 MG TABLET (FP) PO SCH (10:48)
--- NOTE | 2019-05-04 12:14 | EKG ---
Test Reason : Blood Pressure : / mmHG Vent. Rate : 046 BPM Atrial Rate : 046 BPM P-R Int : 176 ms QRS Dur : 088 ms QT Int : 456 ms P-R-T Axes : 040 -34 033 degrees QTc Int : 399 ms SINUS BRADYCARDIA LEFT AXIS DEVIATION SEPTAL INFARCT , AGE UNDETERMINED ABNORMAL ECG WHEN COMPARED WITH ECG OF 04-SEP-2018 05:41, PREMATURE ATRIAL COMPLEXES ARE NO LONGER PRESENT SEPTAL INFARCT IS NOW PRESENT Confirmed by DIALLO SADLER, GWENDOLYN ([id number]) on 05/04/2019 12:14:06 PM Referred By: SEBAS Confirmed By:GWENDOLYN LANDRUM MD
--- NOTE | 2019-05-04 13:22 | PN ---
[facility] CIWA - CIWA Score Nausea/Vomitin-Mild Nausea/No Vomiting Muscle Tremors: 2 Anxiety: 3 Agitation: 3 Paroxysmal Sweats: No Perspiration Orientation: 0-Oriented Tacttile Disturbances: 1-Very Mild Itch/Numbness Auditory Disturbances: 0-None Visual Disturbances: 0-None Headache: 1-Very Mild CIWA-Ar Total Score: 11 S COWS - Scale Resting Pulse: 0= SD 80 or Below Sweatin= No chills or Flushing Restless Observation: 1= Difficult to Sit Still Pupil Size: 1= Pupils >than Normal Bone or Joint Aches: 2= Severe Diffuse Aches Runny Nose/ Eye Tearin= Nasal Congestion GI Upset > 30mins: 1= Stomach Cramp Tremor Observation of Outstretched Hands: 2= Slight Tremor Visible Yawning Observation: 1= 1-2x During Session Anxiety or Irritability: 2=Irritable/Anxious Goose Flesh Skin: 0=Smooth Skin COWS Score: 11 [facility] Progress Note (SOAP) Subjective: alert,irritable,anxious,interrupted sleep,pain in the body and back Objective: 05/04/19 13:20 Vital Signs Temperature 96.4 F L 05/04/19 13:11 Pulse Rate 64 05/04/19 13:11 Respiratory Rate 18 05/04/19 13:11 Blood Pressure 142/83 05/04/19 13:11 O2 Sat by Pulse Oximetry (%) 05/04/19 13:21 Laboratory Last Values WBC 3.0 K/mm3 (4.0-10.0) L 05/03/19 07:30 RBC 4.49 M/mm3 (4.00-5.60) 05/03/19 07:30 Hgb 13.2 GM/dL (11.7-16.9) 05/03/19 07:30 Hct 38.4 % (35.4-49) 05/03/19 07:30 MCV 85.5 fl (80-96) 05/03/19 07:30 MCH 29.3 pg (25.7-33.7) 05/03/19 07:30 MCHC 34.3 g/dl (32.0-35.9) 05/03/19 07:30 RDW 12.9 % (11.9-15.9) 05/03/19 07:30 Plt Count 166 K/MM3 (134-434) 05/03/19 07:30 MPV 9.3 fl (7.5-11.1) 05/03/19 07:30 Sodium 140 mmol/L (136-145) 05/03/19 07:30 Potassium 4.2 mmol/L (3.5-5.1) 05/03/19 07:30 Chloride 102 mmol/L (98-107) 05/03/19 07:30 Carbon Dioxide 32 mmol/L (21-32) 05/03/19 07:30 Anion Gap 6 MMOL/L (8-16) L 05/03/19 07:30 BUN 17.4 mg/dL (7-18) 05/03/19 07:30 Creatinine 1.0 mg/dL (0.55-1.3) 05/03/19 07:30 Est GFR (CKD-EPI)AfAm 93.08 05/03/19 07:30 Est GFR (CKD-EPI)NonAf 80.31 05/03/19 07:30 Random Glucose 86 mg/dL (74-106) 05/03/19 07:30 Calcium 8.8 mg/dL (8.5-10.1) 05/03/19 07:30 Total Bilirubin 0.4 mg/dL (0.2-1) 05/03/19 07:30 AST 16 U/L (15-37) 05/03/19 07:30 ALT 19 U/L (13-61) 05/03/19 07:30 Alkaline Phosphatase 102 U/L (45-117) 05/03/19 07:30 Total Protein 6.4 g/dl (6.4-8.2) 05/03/19 07:30 Albumin 3.5 g/dl (3.4-5.0) 05/03/19 07:30 RPR Titer Nonreactive (NONREACTIVE) 05/03/19 07:30 HIV 1&2 Ag/Ab, 4th Gen Non reactive (Non Reactive) 05/03/19 10:00 HIV 1&2 Antibody Screen Cancelled 05/03/19 07:30 HIV P24 Antigen Cancelled 05/03/19 07:30 Assessment: 05/04/19 13:21 withdrawal symptom Plan: continue detox methadone and librium regimen
[2019-05-04] MEDS: MELATONIN 5 MG TABLETS PO PRN (21:58)
[2019-05-04] MEDS: THIAMINE HCL 100 MG TABLET (FP) PO SCH (21:58)
[2019-05-05] MEDS ORDERED: chlordiazePOXIDE HCL 10 MG CAPSULE PO PRN
[2019-05-05] MEDS: chlordiazePOXIDE HCL 10 MG CAPSULE PO SCH ×3 (05:25→22:17)
[2019-05-05] MEDS ORDERED: METHADONE HCL 5 MG TABLET (FOR DETOX USE ONLY) PO ONE (06:00)
[2019-05-05] MEDS: PRENATAL VITAMINS W/ FOLIC ACID TABLET (FP) PO SCH (09:30)
[2019-05-05] MEDS: amLODIPine BESYLATE 10 MG TABLET (FP) PO SCH (09:31)
--- NOTE | 2019-05-05 11:49 | PN ---
[facility] CIWA - CIWA Score Nausea/Vomitin-No Nausea/No Vomiting Muscle Tremors: 2 Anxiety: 2 Agitation: 2 Paroxysmal Sweats: 1-Minimal Palms Moist Orientation: 0-Oriented Tacttile Disturbances: 0-None Auditory Disturbances: 0-None Visual Disturbances: 0-None Headache: 0-None Present CIWA-Ar Total Score: 7 [facility] COWS - Scale Resting Pulse: 0= SD 80 or Below Sweatin= Chills/Flushing Restless Observation: 0= Sits Still Pupil Size: 0= Normal to Room Light Bone or Joint Aches: 1= Mild Discomfort Runny Nose/ Eye Tearin= Nasal Congestion GI Upset > 30mins: 1= Stomach Cramp Tremor Observation of Outstretched Hands: 1= Tremor [place], Not Seen Yawning Observation: 1= 1-2x During Session Anxiety or Irritability: 1=Feels Anxious/Irritable Goose Flesh Skin: 0=Smooth Skin COWS Score: 7 [facility] Progress Note (SOAP) Subjective: doing well with libirum and methadone detox regimen less tremor mild sweat tolerate food and fluid well Objective: 05/05/19 11:55 Vital Signs Temperature 97.5 F L 05/05/19 09:09 Pulse Rate 62 05/05/19 09:09 Respiratory Rate 18 05/05/19 09:09 Blood Pressure 135/87 05/05/19 09:09 O2 Sat by Pulse Oximetry (%) Laboratory Last Values WBC 3.0 K/mm3 (4.0-10.0) L 05/03/19 07:30 RBC 4.49 M/mm3 (4.00-5.60) 05/03/19 07:30 Hgb 13.2 GM/dL (11.7-16.9) 05/03/19 07:30 Hct 38.4 % (35.4-49) 05/03/19 07:30 MCV 85.5 fl (80-96) 05/03/19 07:30 MCH 29.3 pg (25.7-33.7) 05/03/19 07:30 MCHC 34.3 g/dl (32.0-35.9) 05/03/19 07:30 RDW 12.9 % (11.9-15.9) 05/03/19 07:30 Plt Count 166 K/MM3 (134-434) 05/03/19 07:30 MPV 9.3 fl (7.5-11.1) 05/03/19 07:30 Sodium 140 mmol/L (136-145) 05/03/19 07:30 Potassium 4.2 mmol/L (3.5-5.1) 05/03/19 07:30 Chloride 102 mmol/L (98-107) 05/03/19 07:30 Carbon Dioxide 32 mmol/L (21-32) 05/03/19 07:30 Anion Gap 6 MMOL/L (8-16) L 05/03/19 07:30 BUN 17.4 mg/dL (7-18) 05/03/19 07:30 Creatinine 1.0 mg/dL (0.55-1.3) 05/03/19 07:30 Est GFR (CKD-EPI)AfAm 93.08 05/03/19 07:30 Est GFR (CKD-EPI)NonAf 80.31 05/03/19 07:30 Random Glucose 86 mg/dL (74-106) 05/03/19 07:30 Calcium 8.8 mg/dL (8.5-10.1) 05/03/19 07:30 Total Bilirubin 0.4 mg/dL (0.2-1) 05/03/19 07:30 AST 16 U/L (15-37) 05/03/19 07:30 ALT 19 U/L (13-61) 05/03/19 07:30 Alkaline Phosphatase 102 U/L (45-117) 05/03/19 07:30 Total Protein 6.4 g/dl (6.4-8.2) 05/03/19 07:30 Albumin 3.5 g/dl (3.4-5.0) 05/03/19 07:30 RPR Titer Nonreactive (NONREACTIVE) 05/03/19 07:30 HIV 1&2 Ag/Ab, 4th Gen Non reactive (Non Reactive) 05/03/19 10:00 HIV 1&2 Antibody Screen Cancelled 05/03/19 07:30 HIV P24 Antigen Cancelled 05/03/19 07:30 lab noted Assessment: 05/05/19 11:56 alcohol and opiate withdrawal sx alert oriented x 3 [address] steady gait hesitating to discuss aftercare with staff speech clearly Plan: continue libirum and methadone detox regimen
[2019-05-05] MEDS: MELATONIN 5 MG TABLETS PO PRN (22:17)
[2019-05-05] MEDS: THIAMINE HCL 100 MG TABLET (FP) PO SCH (22:17)
[2019-05-06] MEDS ORDERED: chlordiazePOXIDE HCL 10 MG CAPSULE PO ONE (05:00)
--- NOTE | 2019-05-06 09:30 | PN ---
[facility] CIWA - CIWA Score Nausea/Vomitin-No Nausea/No Vomiting Muscle Tremors: None Anxiety: 0-No Anxiety, at Ease Agitation: 1-Slight > Activity Paroxysmal Sweats: No Perspiration Orientation: 0-Oriented Tacttile Disturbances: 0-None Auditory Disturbances: 0-None Visual Disturbances: 0-None Headache: 0-None Present CIWA-Ar Total Score: 1 [facility] COWS - Scale Resting Pulse: 0= SD 80 or Below Sweatin= No chills or Flushing Restless Observation: 0= Sits Still Pupil Size: 0= Normal to Room Light Bone or Joint Aches: 0= None Runny Nose/ Eye Tearin= None GI Upset > 30mins: 0= None Tremor Observation of Outstretched Hands: 0= None Yawning Observation: 0= None Anxiety or Irritability: 1=Feels Anxious/Irritable Goose Flesh Skin: 0=Smooth Skin COWS Score: 1 [facility] Progress Note (SOAP) Subjective: alert,no complaint Objective: 05/06/19 09:29 Vital Signs Temperature 97.4 F L 05/06/19 06:43 Pulse Rate 54 L 05/06/19 06:43 Respiratory Rate 18 05/06/19 06:43 Blood Pressure 135/78 05/06/19 06:43 O2 Sat by Pulse Oximetry (%) Assessment: 05/06/19 09:29 detox completed,no withdrawal symptom Plan: discharge today,follow up with after care program as arrangement
--- NOTE | 2019-05-06 09:33 | DS ---
[facility] Detox Discharge Summary Admission Date: 05/02/19 Discharge Date: 05/06/19 - History Present History: Alcohol Dependence, Cannabis Dependence, Opioid Dependence Additional Comments: follow up with [facility] as arrangement Pertinent Past History: essential hypertension - Physical Exam Results Vital Signs: Vital Signs Temperature 97.4 F L 05/06/19 06:43 Pulse Rate 54 L 05/06/19 06:43 Respiratory Rate 18 05/06/19 06:43 Blood Pressure 135/78 05/06/19 06:43 O2 Sat by Pulse Oximetry (%) - Treatment Hospital Course: Detox Protocol Followed, Detoxed Safely, Responded well, Discharged Condition Good Patient has Accepted a Rehab Referral to: declined - Medication Discharge Medications: Ambulatory Orders Aspirin [Aspirin EC] 81 mg PO DAILY 09/01/18 Amlodipine Besylate 10 mg PO DAILY #20 tablet 09/05/18 Clonidine HCl 0.2 mg PO DAILY 05/02/19 Amlodipine Besylate [Norvasc -] 10 mg PO DAILY #30 tablet 05/05/19 - Diagnosis (1) Opioid dependence with withdrawal Current Visit: Yes Status: Acute (2) Alcohol dependence with uncomplicated withdrawal Current Visit: Yes Status: Acute (3) Cannabis dependence Current Visit: Yes Status: Chronic (4) Essential hypertension Current Visit: Yes Status: Chronic (5) S/P knee surgery Current Visit: No Status: Chronic - AMA Did Patient Leave Against Medical Advice: No
[2019-05-06 09:47] VITALS: BP 135/85; PULSE 65; TEMP 96.8
[2019-05-06] MEDS ORDERED: ASPIRIN COATED 81 MG TABLET.EC PO SCH (10:00)
== END 2019-05-06 08:55 | disposition home or self-care (01) | DRG 773 ==
LOC: YASAS 15:33 → Y3N 18:54
PROVIDERS: ADMIT Surgery; ATTEND Surgery
PROC: HZ2ZZZZ Detoxification Services for Substance Abuse Treatment (ICD-10-PCS; principal; 2019-05-02)
DX: F10.230 Alcohol dependence with withdrawal, uncomplicated (principal); F11.23 Opioid dependence with withdrawal; F12.20 Cannabis dependence, uncomplicated; I10 Essential (primary) hypertension; Z98.890 Other specified postprocedural states
CPT/HCPCS: 36415; 80053; 85027; 86593; 87389; 93005; 93010

== ENCOUNTER 2019-05-27 12:49 | Inpatient (IN) | payer OTHER ==
[2019-05-27 18:33] VITALS: BMI 29.2
--- NOTE | 2019-05-27 18:53 | HP ---
COWS - Scale Resting Pulse: 0= [place] 80 or Below Sweatin= Chills/Flushing Restless Observation: 3= Extraneous Movement Pupil Size: 0= Normal to Room Light Bone or Joint Aches: 4=Acute Joint/Muscle Pain Runny Nose/ Eye Tearin= None GI Upset > 30mins: 2= Nausea/Diarrhea Tremor Observation: 0= None Yawning Observation: 0= None Anxiety or Irritability: 1=Feels Anxious/Irritable Goose Flesh Skin: 0=Smooth Skin COWS Score: 11 CIWA Score Nausea/Vomitin-Mild Nausea/No Vomiting Muscle Tremors: None Anxiety: 1-Mildly Anxious Agitation: 4-Moderately Restless Paroxysmal Sweats: 3 Orientation: 2-Disoriented Date<2 days Tacttile Disturbances: 2-Mild Itch/Numbness/Burn Auditory Disturbances: 0-None Visual Disturbances: 0-None Headache: 2-Mild CIWA-Ar Total Score: 15 - Admission Criteria OAS Guidelines: Admission for Medically Managed Detox: Requires at least one of the followin. CIWA greater than 12 2. Seizures within the past 24 hours 3. Delirium tremens within the past 24 hours 4. Hallucinations within the past 24 hours 5. Acute intervention needed for co occurring medical disorder 6. Acute intervention needed for co occurring psychiatric disorder 7. Severe withdrawal that cannot be handled at a lower level of care (continued vomiting, continued diarrhea, abnormal vital signs) requiring intravenous medication and/or fluids 8. Patient presents the following: CIWA greater than 12 Admission Criteria Met: Admission criteria met Admission ROS [facility] Chief Complaint: c/o withdrawal sx's Allergies/Adverse Reactions: Allergies Allergy/AdvReac Type Severity Reaction Status Date / Time lisinopril AdvReac Mild Swelling Verified 05/27/19 18:25 History of Present Illness: HERE FOR ALCOHOL AND HEROIN DETOX. SELF REFERRED. WAS HERE 3 WEEKS AGO. STATES HE RELAPSED 2 DAYS AFTER DC. REPORTS DAILY ALCOHOL AND HEROIN USE. LAST USE OF BOTH SUBSTANCES TODAY. DENIES CLEAN TIME IN THE PAST YEAR. DENIES HX/O BLACKOUTS , OVERDOSE, AVH AND SEIZURES. DENIES MENTAL HEALTH. LIVEAS ALONE, SSI, DENIES LEGALS Exam Limitations: No Limitations - Ebola screening Have you traveled outside of the country in the last 21 days: No Have you had contact with anyone from an Ebola affected area: No Do you have a fever: No - Review of Systems Constitutional: Chills, Malaise, Night Sweats, Changes in sleep EENT: reports: Other (missing teeth) Respiratory: reports: Shortness of Breath Cardiac: reports: No Symptoms Reported GI: reports: Constipated (last bm 2 days ago), Nausea : reports: Frequency Musculoskeletal: reports: Back Pain, Joint Pain (acute) Integumentary: reports: Dryness Neuro: reports: Headache, Numbness (toes) Endocrine: reports: Intolerance to Heat Hematology: reports: No Symptoms Reported Psychiatric: reports: Orientated x3, Anxious Other Systems: Reviewed and Negative Patient History - Patient Medical History Hx Anemia: No Hx Asthma: No Hx Chronic Obstructive Pulmonary Disease (COPD): No Hx Cancer: No Hx Cardiac Disorders: No Hx Congestive Heart Failure: No Hx Hypertension: Yes (on meds) Hx Hypercholesterolemia: No Hx Pacemaker: No HX Cerebrovascular Accident: No Hx Seizures: No Hx Dementia: No Hx Diabetes: No Hx Gastrointestinal Disorders: No Hx Liver Disease: No Hx Genitourinary Disorders: No Hx Sexually Transmitted Disorders: No Hx Renal Disease (ESRD): No Hx Thyroid Disease: No Hx Human Immunodeficiency Virus (HIV): No (Negative 2018) Hx Hepatitis C: No (negative) Hx Depression: No Hx Suicide Attempt: No Hx Bipolar Disorder: No Hx Schizophrenia: No - Patient Surgical History Past Surgical History: Yes Hx Neurologic Surgery: No Hx Cataract Extraction: No Hx Cardiac Surgery: No Hx Lung Surgery: No Hx Breast Surgery: No Hx Breast Biopsy: No Hx Abdominal Surgery: No Hx Appendectomy: No Hx Cholecystectomy: No Hx Genitourinary Surgery: No Hx Section: No Hx Orthopedic Surgery: No Other Surgical History: Nail removed from R knee on 10/21/16. Anesthesia Reaction: No - PPD History Previous Implant?: Yes Documented Results: Negative w/proof Implanted On Prior R Admission?: Yes Date: 09/03/18 Results: 0 mm PPD to be Administered?: No - Smoking Cessation Smoking history: Former smoker Have you smoked in the past 12 months: No Aproximately how many cigarettes per day: 0 Cigars Per Day: 0 Hx Chewing Tobacco Use: No Initiated information on smoking cessation: Yes 'Breaking Loose' booklet given: 05/27/19 - Substance & Tx. History Hx Alcohol Use: Yes Hx Substance Use: Yes Substance Use Type: Alcohol, Heroin Hx Substance Use Treatment: Yes ([facility]) - Substances abused Heroin Substance route: Inhalation Frequency: Daily Amount used: 4 to 5 bags Age of first use: 53 Date of last use: 05/27/19 Alcohol Substance route: Oral Frequency: Daily Amount used: 3 of 40 ounce of beer Age of first use: 19 Date of last use: 05/27/19 Marijuana/Hashish Substance route: Smoking Frequency: Daily Amount used: 4 to 5 joints Age of first use: 19 Date of last use: 05/20/19 Admission Physical Exam [facility] - Vital Signs Vital Signs: Vital Signs - 24 hr 05/27/19 18:19 Temperature 98.0 F Pulse Rate 55 L Respiratory 16 Rate Blood Pressure 118/73 - Physical General Appearance: Yes: Anxious HEENTM: Yes: EOMI, Normocephalic, Normal Voice, LISA, Pharynx Normal, Other ( missing teeth) Respiratory: Yes: Chest Non-Tender, Lungs Clear, Normal Breath Sounds, No Respiratory Distress, No Accessory Muscle Use Neck: Yes: No masses,lesions,Nodules, Supple, Trachea in good position Breast: Yes: Breast Exam Deferred Cardiology: Yes: Regular Rhythm, Regular Rate, S1, S2 Abdominal: Yes: Non Tender, Soft, Decreased BS Genitourinary: Yes: Frequency (c/o) Back: Yes: Normal Inspection Musculoskeletal: Yes: full range of Motion, Gait Steady Extremities: Yes: Normal Range of Motion, Non-Tender 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: Yes: Fully Oriented, Alert, Motor Strength 5/5 Integumentary: Yes: Dry, Warm, Other (healing wound to left lower arm near wrist ) Lymphatic: Yes: Within Normal Limits - Diagnostic (1) Alcohol dependence with uncomplicated withdrawal Current Visit: Yes Status: Acute (2) Opioid dependence with withdrawal Current Visit: Yes Status: Acute (3) Essential hypertension Current Visit: Yes Status: Chronic (4) Constipation Current Visit: Yes Status: Acute Qualifiers: Constipation type: drug induced constipation Qualified Code(s): K59.03 - Drug induced constipation Cleared for Admission [facility] - Detox or Rehab [facility] Level of Care: Medically Managed Detox Regimen/Protocol: Methadone/Librium Claeared for Rehab Admission: No Breathalyzer - Breathalyzer Breathalyzer: 0.258 Urine Drug Screen - Test Device Lot number: [id number] Expiration date: 02/04/21 - Control Is test valid?: Yes - Results Drug screen NEGATIVE: Yes Urine drug screen results: THC-Marijuana, MOP-Opiates Inpatient Rehab Admission - Rehab Decision to Admit Inpatient rehab admission?: No
[2019-05-27] MEDS ORDERED: cloNIDine HCL 0.1 MG TABLET PO PRN (18:56)
[2019-05-27] MEDS ORDERED: MENTHOL/PHENOL 1 EACH UD MM PRN (18:56)
[2019-05-27] MEDS ORDERED: ONDANSETRON *ODT* 4 MG TABLET SL PRN (18:56)
[2019-05-27] MEDS ORDERED: MELATONIN 5 MG TABLETS PO PRN (18:56)
[2019-05-27] MEDS ORDERED: P-EPHED 60MG/TRIPROLIDI 2.5MG TABLET PO PRN (18:56)
[2019-05-27] MEDS ORDERED: METHOCARBAMOL 500 MG TABLET PO PRN (18:56)
[2019-05-27] MEDS ORDERED: hydrOXYzine PAMOATE 25 MG CAPSULE (FP) PO PRN (18:56)
[2019-05-27] MEDS ORDERED: MAG HYDROX/AL HYDROX/SIMETH 30 ML UNIT-DOSE CUP PO PRN (18:56)
[2019-05-27] MEDS ORDERED: MAGNESIUM HYDROX 2400MG/30ML ORAL SUSPENSION 30 ML CUP PO PRN (18:56)
[2019-05-27] MEDS ORDERED: NALOXONE HCL 0.4 MG/ML VIAL IM PRN (18:56)
[2019-05-27] MEDS ORDERED: METHADONE HCL 10 MG TABLET (FOR DETOX USE ONLY) PO ONE (18:56)
[2019-05-27] MEDS ORDERED: BISMUTH SUBSALICYLATE 524 MG/30 ML UD PO PRN (18:56)
[2019-05-27] MEDS ORDERED: DICYCLOMINE HCL 10 MG CAPSULE PO PRN (18:56)
[2019-05-27] MEDS ORDERED: ACETAMINOPHEN 325 MG TABLET (FP) PO PRN ×2 (18:56)
[2019-05-27] MEDS ORDERED: MAGNESIUM CITRATE 300 ML BOTTLE PO PRN (18:56)
[2019-05-27] MEDS ORDERED: IBUPROFEN 400 MG TABLET (FP) PO PRN (18:56)
[2019-05-27] MEDS ORDERED: guaiFENesin 200 MG/10 ML 10 ML UNIT-DOSE CUPS PO PRN (18:56)
[2019-05-27] MEDS: chlordiazePOXIDE HCL 25 MG CAPSULE PO SCH (20:31)
[2019-05-27] MEDS: THIAMINE HCL 100 MG TABLET (FP) PO SCH (22:05)
[2019-05-27] MEDS: DOCUSATE SODIUM 100 MG CAPSULE (FP) PO SCH (22:05)
[2019-05-28] MEDS: chlordiazePOXIDE HCL 10 MG CAPSULE PO PRN (00:45)
[2019-05-28] MEDS: chlordiazePOXIDE HCL 25 MG CAPSULE PO SCH ×3 (05:08→22:01)
[2019-05-28] MEDS ORDERED: METHADONE HCL 10 MG TABLET (FOR DETOX USE ONLY) ONE (08:38)
[2019-05-28] MEDS ORDERED: METHADONE HCL 5 MG TABLET (FOR DETOX USE ONLY) ONE (08:39)
[2019-05-28] MEDS ORDERED: METHADONE (DETOX) 20 MG, METHADONE (DETOX) 5 MG PO ONE (10:00)
[2019-05-28] MEDS: ASPIRIN COATED 81 MG TABLET.EC PO SCH (10:03)
[2019-05-28] MEDS: PRENATAL VITAMINS W/ FOLIC ACID TABLET (FP) PO SCH (10:03)
[2019-05-28] MEDS: cloNIDine HCL 0.1 MG TABLET PO SCH (10:04)
[2019-05-28] MEDS: amLODIPine BESYLATE 10 MG TABLET (FP) PO SCH (10:04)
[2019-05-28 11:27] LABS: ALBUMIN 3.3 g/dl (3.4-5.0); BILIRUBIN,TOTAL 0.6 mg/dL (0.2-1); BLOOD UREA NITROGEN 20.9 mg/dL (7-18); CALCIUM 8.7 mg/dL (8.5-10.1); CREATININE 1.2 mg/dL (0.55-1.3); POTASSIUM 3.9 mmol/L (3.5-5.1); TOT PROT 6.2 g/dl (6.4-8.2)
[2019-05-28 11:28] LABS: HEMATOCRIT 37.1 % (35.4-49); HEMOGLOBIN 12.5 GM/dL (11.7-16.9); MCH 29.3 pg (25.7-33.7); MCHC 33.8 g/dl (32.0-35.9); MEAN CELL VOLUME 86.6 fl (80-96); MEAN PLT VOLUME 9.3 fl (7.5-11.1); PLATELET COUNT 149 K/MM3 (134-434); RBC 4.28 M/mm3 (4.00-5.60); RDW 13.3 % (11.9-15.9); WHITE BLOOD COUNT 2.8 K/mm3 (4.0-10.0)
[2019-05-28] MEDS: LIDOCAINE 5% TOPICAL PATCH TP SCH (12:51)
--- NOTE | 2019-05-28 13:29 | PN ---
[facility] CIWA - CIWA Score Nausea/Vomitin-No Nausea/No Vomiting Muscle Tremors: None Anxiety: 3 Agitation: 4-Moderately Restless Paroxysmal Sweats: No Perspiration Orientation: 0-Oriented Tacttile Disturbances: 0-None Auditory Disturbances: 2-Mild Harshness/Frighten Visual Disturbances: 3-Moderate Sensitivity Headache: 0-None Present CIWA-Ar Total Score: 12 S COWS - Scale Resting Pulse: 0= [place] 80 or Below Sweatin= No chills or Flushing Restless Observation: 1= Difficult to Sit Still Pupil Size: 0= Normal to Room Light Bone or Joint Aches: 0= None Runny Nose/ Eye Tearin= None GI Upset > 30mins: 1= Stomach Cramp (Constipation.) Tremor Observation of Outstretched Hands: 0= None Yawning Observation: 1= 1-2x During Session Anxiety or Irritability: 2=Irritable/Anxious Goose Flesh Skin: 3=Piloerection COWS Score: 8 [facility] Progress Note (SOAP) Subjective: Constipation, Fatigue, Interrupted Sleep, Poor Appetite, Anxious. Objective: PATIENT A & O X 3, OBSERVED AMBULATING ON DETOX UNIT UNASSISTED. IN NO ACUTE DISTRESS. 05/28/19 13:27 Vital Signs Temperature 97.0 F L 05/28/19 13:18 Pulse Rate 57 L 05/28/19 13:18 Respiratory Rate 18 05/28/19 13:18 Blood Pressure 115/69 05/28/19 13:18 O2 Sat by Pulse Oximetry (%) Laboratory Tests 05/28/19 05/28/19 08:00 08:00 WBC 2.8 L RBC 4.28 Hgb 12.5 Hct 37.1 MCV 86.6 MCH 29.3 MCHC 33.8 RDW 13.3 Plt Count 149 MPV 9.3 Sodium 139 Potassium 3.9 Chloride 102 Carbon Dioxide 31 Anion Gap 6 L BUN 20.9 H Creatinine 1.2 Est GFR (CKD-EPI)AfAm 74.66 Est GFR (CKD-EPI)NonAf 64.42 Random Glucose 91 Calcium 8.7 Total Bilirubin 0.6 AST 15 ALT 16 Alkaline Phosphatase 94 Total Protein 6.2 L Albumin 3.3 L LABS NOTED. PATIENT HAS HAD LOW WBC LEVELS ON PREVIOUS ADMISSIONS. 05/28/19 13:28 Assessment: 05/28/19 13:27 WITHDRAWAL SYMPTOMS. LEUKOPENIA. Plan: CONTINUE DETOX. INCREASE DAILY PO WATER INTAKE. ENSURE PO FOR CALORIC SUPPLEMENTATION.
[2019-05-28] MEDS: THIAMINE HCL 100 MG TABLET (FP) PO SCH (22:01)
[2019-05-28] MEDS: SENNOSIDES 8.6MG TABLET (FP) PO SCH (22:01)
[2019-05-28] MEDS: DOCUSATE SODIUM 100 MG CAPSULE (FP) PO SCH (22:01)
[2019-05-28] MEDS: LIDOCAINE PATCH REMOVAL MC SCH (22:02)
[2019-05-29] MEDS: chlordiazePOXIDE 5 MG CAPSULE PO SCH ×3 (05:37→22:07)
[2019-05-29 09:12] LABS: URINE APPEARANCE CLEAR; URINE BILIRUBIN NEGATIVE (NEGATIVE); URINE COLOR YELLOW; URINE GLUCOSE (UA) NEGATIVE (NEGATIVE); URINE KETONE NEGATIVE (NEGATIVE); URINE LEUK ESTERASE NEGATIVE (NEGATIVE); URINE NITRITE NEGATIVE (NEGATIVE); URINE PROTEIN NEGATIVE (NEGATIVE); URINE UROBILINOGEN 0.2 mg/dL (0.2-1.0)
--- NOTE | 2019-05-29 09:55 | PN ---
[facility] CIWA - CIWA Score Nausea/Vomitin-Mild Nausea/No Vomiting Muscle Tremors: 3 Anxiety: 2 Agitation: 1-Slight > Activity Paroxysmal Sweats: 1-Minimal Palms Moist Orientation: 0-Oriented Tacttile Disturbances: 0-None Auditory Disturbances: 0-None Visual Disturbances: 0-None Headache: 0-None Present CIWA-Ar Total Score: 8 [facility] COWS - Scale Resting Pulse: 0= [place] 80 or Below Sweatin= Chills/Flushing Restless Observation: 0= Sits Still Pupil Size: 0= Normal to Room Light Bone or Joint Aches: 1= Mild Discomfort Runny Nose/ Eye Tearin= None GI Upset > 30mins: 2= Nausea/Diarrhea (no diarrhea) Tremor Observation of Outstretched Hands: 1= Tremor [place], Not Seen Yawning Observation: 1= 1-2x During Session Anxiety or Irritability: 1=Feels Anxious/Irritable Goose Flesh Skin: 0=Smooth Skin COWS Score: 7 [facility] Progress Note (SOAP) Subjective: doing well with librium and methadone detox regimen mild body ache ambulating on hallway social with peers in day room 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 Objective: 05/29/19 09:54 Vital Signs Temperature 97.5 F L 05/29/19 09:14 Pulse Rate 60 05/29/19 09:14 Respiratory Rate 18 05/29/19 09:14 Blood Pressure 123/82 05/29/19 09:14 O2 Sat by Pulse Oximetry (%) Laboratory Last Values WBC 2.8 K/mm3 (4.0-10.0) L 05/28/19 08:00 RBC 4.28 M/mm3 (4.00-5.60) 05/28/19 08:00 Hgb 12.5 GM/dL (11.7-16.9) 05/28/19 08:00 Hct 37.1 % (35.4-49) 05/28/19 08:00 MCV 86.6 fl (80-96) 05/28/19 08:00 MCH 29.3 pg (25.7-33.7) 05/28/19 08:00 MCHC 33.8 g/dl (32.0-35.9) 05/28/19 08:00 RDW 13.3 % (11.9-15.9) 05/28/19 08:00 Plt Count 149 K/MM3 (134-434) 05/28/19 08:00 MPV 9.3 fl (7.5-11.1) 05/28/19 08:00 Sodium 139 mmol/L (136-145) 05/28/19 08:00 Potassium 3.9 mmol/L (3.5-5.1) 05/28/19 08:00 Chloride 102 mmol/L (98-107) 05/28/19 08:00 Carbon Dioxide 31 mmol/L (21-32) 05/28/19 08:00 Anion Gap 6 MMOL/L (8-16) L 05/28/19 08:00 BUN 20.9 mg/dL (7-18) H 05/28/19 08:00 Creatinine 1.2 mg/dL (0.55-1.3) 05/28/19 08:00 Est GFR (CKD-EPI)AfAm 74.66 05/28/19 08:00 Est GFR (CKD-EPI)NonAf 64.42 05/28/19 08:00 Random Glucose 91 mg/dL (74-106) 05/28/19 08:00 Calcium 8.7 mg/dL (8.5-10.1) 05/28/19 08:00 Total Bilirubin 0.6 mg/dL (0.2-1) 05/28/19 08:00 AST 15 U/L (15-37) 05/28/19 08:00 ALT 16 U/L (13-61) 05/28/19 08:00 Alkaline Phosphatase 94 U/L (45-117) 05/28/19 08:00 Total Protein 6.2 g/dl (6.4-8.2) L 05/28/19 08:00 Albumin 3.3 g/dl (3.4-5.0) L 05/28/19 08:00 Urine Color Yellow 05/29/19 07:40 Urine Appearance Clear 05/29/19 07:40 Urine pH 7.0 (5.0-8.0) D 05/29/19 07:40 Ur Specific [place] 1.016 (1.010-1.035) 05/29/19 07:40 Urine Protein Negative (NEGATIVE) 05/29/19 07:40 Urine Glucose (UA) Negative (NEGATIVE) 05/29/19 07:40 Urine Ketones Negative (NEGATIVE) 05/29/19 07:40 Urine Blood Negative (NEGATIVE) 05/29/19 07:40 Urine Nitrite Negative (NEGATIVE) 05/29/19 07:40 Urine Bilirubin Negative (NEGATIVE) 05/29/19 07:40 Urine Urobilinogen 0.2 mg/dL (0.2-1.0) 05/29/19 07:40 Ur Leukocyte Esterase Negative (NEGATIVE) 05/29/19 07:40 lab noted long history of low wbc asymptomatic recommand follow up with primary care provider possible refer to hemotologist 05/29/19 09:57 Assessment: 05/29/19 09:58 alcohol and opiate withdrawal sx Plan: continue librium and methadone detox regimen
[2019-05-29] MEDS ORDERED: METHADONE HCL 10 MG TABLET (FOR DETOX USE ONLY) PO ONE (10:00)
[2019-05-29] MEDS: amLODIPine BESYLATE 10 MG TABLET (FP) PO SCH (10:03)
[2019-05-29] MEDS: cloNIDine HCL 0.1 MG TABLET PO SCH (10:03)
[2019-05-29] MEDS: ASPIRIN COATED 81 MG TABLET.EC PO SCH (10:03)
[2019-05-29] MEDS: PRENATAL VITAMINS W/ FOLIC ACID TABLET (FP) PO SCH (10:03)
[2019-05-29] MEDS: LIDOCAINE 5% TOPICAL PATCH TP SCH (10:04)
[2019-05-29] MEDS: chlordiazePOXIDE HCL 10 MG CAPSULE PO PRN (17:24)
[2019-05-29] MEDS: SENNOSIDES 8.6MG TABLET (FP) PO SCH (22:07)
[2019-05-29] MEDS: THIAMINE HCL 100 MG TABLET (FP) PO SCH (22:07)
[2019-05-29] MEDS: DOCUSATE SODIUM 100 MG CAPSULE (FP) PO SCH (22:07)
[2019-05-29] MEDS: LIDOCAINE PATCH REMOVAL MC SCH (22:08)
[2019-05-30] MEDS ORDERED: chlordiazePOXIDE HCL 10 MG CAPSULE PO PRN
[2019-05-30] MEDS: chlordiazePOXIDE HCL 10 MG CAPSULE PO SCH ×3 (05:17→22:03)
[2019-05-30] MEDS ORDERED: METHADONE HCL 10 MG TABLET (FOR DETOX USE ONLY) ONE (08:33)
[2019-05-30] MEDS ORDERED: METHADONE HCL 5 MG TABLET (FOR DETOX USE ONLY) ONE (08:33)
--- NOTE | 2019-05-30 09:53 | DS ---
[facility] Detox Discharge Summary Admission Date: 05/27/19 Discharge Date: 05/30/19 - History Present History: Alcohol Dependence Additional Comments: did well with librium detox regimen no complication through out the detox stay patient is alert oriented x 3 - Physical Exam Results Vital Signs: Vital Signs Temperature 96.5 F L 05/30/19 09:48 Pulse Rate 59 L 05/30/19 09:48 Respiratory Rate 18 05/30/19 09:48 Blood Pressure 111/71 05/30/19 09:48 O2 Sat by Pulse Oximetry (%) - Treatment Hospital Course: Detox Protocol Followed, Detoxed Safely, Responded well, Discharged Condition Good, Rehab Referral Accepted Patient has Accepted a Rehab Referral to: [facility] - Medication Discharge Medications: Ambulatory Orders Clonidine HCl 0.2 mg PO DAILY 05/02/19 Amlodipine Besylate [Norvasc -] 10 mg PO DAILY #30 tablet 05/05/19 Aspirin [Aspirin EC] 81 mg PO DAILY #30 tablet. 05/06/19 Multivitamin with Iron [Daily Pedro with Iron] 1 each PO DAILY 05/27/19 Naloxone HCl [Narcan] 4 mg NS ASDIR PRN #1 spray 05/29/19
[2019-05-30] MEDS ORDERED: METHADONE (DETOX) 10 MG, METHADONE (DETOX) 5 MG PO ONE (10:00)
[2019-05-30] MEDS: ASPIRIN COATED 81 MG TABLET.EC PO SCH (10:15)
[2019-05-30] MEDS: cloNIDine HCL 0.1 MG TABLET PO SCH (10:15)
[2019-05-30] MEDS: PRENATAL VITAMINS W/ FOLIC ACID TABLET (FP) PO SCH (10:15)
[2019-05-30] MEDS: LIDOCAINE 5% TOPICAL PATCH TP SCH (10:17)
[2019-05-30] MEDS: amLODIPine BESYLATE 10 MG TABLET (FP) PO SCH (10:17)
--- NOTE | 2019-05-30 13:27 | PN ---
[facility] CIWA - CIWA Score Nausea/Vomitin-Mild Nausea/No Vomiting Muscle Tremors: 2 Anxiety: 2 Agitation: 2 Paroxysmal Sweats: No Perspiration Orientation: 0-Oriented Tacttile Disturbances: 1-Very Mild Itch/Numbness Auditory Disturbances: 0-None Visual Disturbances: 0-None Headache: 1-Very Mild CIWA-Ar Total Score: 9 BHS COWS - Scale Resting Pulse: 0= [place] 80 or Below Sweatin= No chills or Flushing Restless Observation: 1= Difficult to Sit Still Pupil Size: 1= Pupils >than Normal Bone or Joint Aches: 1= Mild Discomfort Runny Nose/ Eye Tearin= Nasal Congestion GI Upset > 30mins: 1= Stomach Cramp Tremor Observation of Outstretched Hands: 1= Tremor [place], Not Seen Yawning Observation: 1= 1-2x During Session Anxiety or Irritability: 2=Irritable/Anxious Goose Flesh Skin: 0=Smooth Skin COWS Score: 9 [facility] Progress Note (SOAP) Subjective: ALERT,IRRITABLE,ANXIOUS,INTERRUPTED SLEEP,PAIN IN THE BODY AND BACK Objective: 05/30/19 13:24 Vital Signs Temperature 97.0 F L 05/30/19 13:16 Pulse Rate 51 L 05/30/19 13:16 Respiratory Rate 18 05/30/19 13:16 Blood Pressure 114/73 05/30/19 13:16 O2 Sat by Pulse Oximetry (%) PATIENT WOULD LIKE TO HAVE HIV TEST DONE,ORDERED Assessment: 05/30/19 13:25 WITHDRAWAL SYMPTOM BUT LESS Plan: CONTINUE DETOX METHADONE AND LIBRIUM REGIMEN,METHADONE ADJUST,ENCOURAGE ORAL FLUID,DISCHARGE IN AM
[2019-05-30] MEDS: THIAMINE HCL 100 MG TABLET (FP) PO SCH (22:04)
[2019-05-30] MEDS: LIDOCAINE PATCH REMOVAL MC SCH (22:05)
[2019-05-30] MEDS: SENNOSIDES 8.6MG TABLET (FP) PO SCH (22:05)
[2019-05-30] MEDS: DOCUSATE SODIUM 100 MG CAPSULE (FP) PO SCH (22:05)
[2019-05-31] MEDS ORDERED: chlordiazePOXIDE HCL 10 MG CAPSULE PO ONE (05:00)
[2019-05-31] MEDS ORDERED: METHADONE HCL 5 MG TABLET (FOR DETOX USE ONLY) PO ONE (06:00)
[2019-05-31 09:30] VITALS: BP 145/91; PULSE 51; TEMP 97.2
[2019-05-31] MEDS ORDERED: METHADONE HCL 10 MG TABLET (FOR DETOX USE ONLY) PO ONE (10:00)
[2019-05-31] MEDS: ASPIRIN COATED 81 MG TABLET.EC PO SCH (10:57)
[2019-05-31] MEDS: amLODIPine BESYLATE 10 MG TABLET (FP) PO SCH (10:57)
[2019-05-31] MEDS: cloNIDine HCL 0.1 MG TABLET PO SCH (10:57)
[2019-05-31] MEDS: LIDOCAINE 5% TOPICAL PATCH TP SCH (10:57)
[2019-05-31] MEDS: PRENATAL VITAMINS W/ FOLIC ACID TABLET (FP) PO SCH (10:57)
--- NOTE | 2019-05-31 13:42 | DS ---
[facility] Detox Discharge Summary Admission Date: 05/27/19 Discharge Date: 05/31/19 - History Present History: Alcohol Dependence, Opioid Dependence Additional Comments: did well with librium and methadone detox regimen no complication through out the detox stay patient is alert oriented x 3 cardiac sinus bradycardia deneis dizziness no shortness of breath skin warm dry speech clearly coherently ambulating steady gait respiratory clear bilaterally on auscultation extremities full range of motion - Physical Exam Results Vital Signs: Vital Signs Temperature 97.2 F L 05/31/19 09:29 Pulse Rate 51 L 05/31/19 09:29 Respiratory Rate 18 05/31/19 09:29 Blood Pressure 145/91 05/31/19 09:29 O2 Sat by Pulse Oximetry (%) Pertinent Admission Physical Exam Findings: alcohol withdrawal sx Laboratory Last Values WBC 2.8 K/mm3 (4.0-10.0) L 05/28/19 08:00 RBC 4.28 M/mm3 (4.00-5.60) 05/28/19 08:00 Hgb 12.5 GM/dL (11.7-16.9) 05/28/19 08:00 Hct 37.1 % (35.4-49) 05/28/19 08:00 MCV 86.6 fl (80-96) 05/28/19 08:00 MCH 29.3 pg (25.7-33.7) 05/28/19 08:00 MCHC 33.8 g/dl (32.0-35.9) 05/28/19 08:00 RDW 13.3 % (11.9-15.9) 05/28/19 08:00 Plt Count 149 K/MM3 (134-434) 05/28/19 08:00 MPV 9.3 fl (7.5-11.1) 05/28/19 08:00 Sodium 139 mmol/L (136-145) 05/28/19 08:00 Potassium 3.9 mmol/L (3.5-5.1) 05/28/19 08:00 Chloride 102 mmol/L (98-107) 05/28/19 08:00 Carbon Dioxide 31 mmol/L (21-32) 05/28/19 08:00 Anion Gap 6 MMOL/L (8-16) L 05/28/19 08:00 BUN 20.9 mg/dL (7-18) H 09/21/19 08:00 Creatinine 1.2 mg/dL (0.55-1.3) 05/28/19 08:00 Est GFR (CKD-EPI)AfAm 74.66 05/28/19 08:00 Est GFR (CKD-EPI)NonAf 64.42 05/28/19 08:00 Random Glucose 91 mg/dL (74-106) 05/28/19 08:00 Calcium 8.7 mg/dL (8.5-10.1) 05/28/19 08:00 Total Bilirubin 0.6 mg/dL (0.2-1) 05/28/19 08:00 AST 15 U/L (15-37) 05/28/19 08:00 ALT 16 U/L (13-61) 05/28/19 08:00 Alkaline Phosphatase 94 U/L (45-117) 05/28/19 08:00 Total Protein 6.2 g/dl (6.4-8.2) L 05/28/19 08:00 Albumin 3.3 g/dl (3.4-5.0) L 05/28/19 08:00 Urine Color Yellow 05/29/19 07:40 Urine Appearance Clear 05/29/19 07:40 Urine pH 7.0 (5.0-8.0) D 05/29/19 07:40 Ur Specific [place] 1.016 (1.010-1.035) 05/29/19 07:40 Urine Protein Negative (NEGATIVE) 05/29/19 07:40 Urine Glucose (UA) Negative (NEGATIVE) 05/29/19 07:40 Urine Ketones Negative (NEGATIVE) 05/29/19 07:40 Urine Blood Negative (NEGATIVE) 05/29/19 07:40 Urine Nitrite Negative (NEGATIVE) 05/29/19 07:40 Urine Bilirubin Negative (NEGATIVE) 05/29/19 07:40 Urine Urobilinogen 0.2 mg/dL (0.2-1.0) 05/29/19 07:40 Ur Leukocyte Esterase Negative (NEGATIVE) 05/29/19 07:40 HIV 1&2 Ag/Ab, 4th Gen Non reactive (Non Reactive) 05/30/19 13:00 lab noted long history of low wbc discuss healthy lifestyle asymptomatic - Treatment Hospital Course: Detox Protocol Followed, Detoxed Safely, Responded well, Discharged Condition Good, Rehab Referral Accepted Patient has Accepted a Rehab Referral to: [facility] - Medication Discharge Medications: Ambulatory Orders Clonidine HCl 0.2 mg PO DAILY 05/02/19 Amlodipine Besylate [Norvasc -] 10 mg PO DAILY #30 tablet 05/05/19 Aspirin [Aspirin EC] 81 mg PO DAILY #30 tablet. 05/06/19 Multivitamin with Iron [Daily Pedro with Iron] 1 each PO DAILY 05/27/19 Naloxone HCl [Narcan] 4 mg NS ASDIR PRN #1 spray 05/29/19 - Diagnosis (1) Alcohol dependence with uncomplicated withdrawal Status: Acute (2) Opioid dependence with withdrawal Status: Acute (3) Essential hypertension Status: Chronic - AMA Did Patient Leave Against Medical Advice: No CIWA Score - CIWA Score Nausea/Vomitin-No Nausea/No Vomiting Muscle Tremors: 1-None Visible, but [place] Anxiety: 1-Mildly Anxious Agitation: 1-Slight > Activity Paroxysmal Sweats: No Perspiration Orientation: 0-Oriented Tacttile Disturbances: 1-Very Mild Itch/Numbness Auditory Disturbances: 0-None Visual Disturbances: 0-None Headache: 1-Very Mild CIWA-Ar Total Score: 5 COWS (PN) - Opiate Withdrawal Resting Pulse: 0= [place] 80 or Below Sweatin= Chills/Flushing Restless Observation: 0= Sits Still Pupil Size: 0= Normal to Room Light Bone or Joint Aches: 1= Mild Discomfort Runny Nose/ Eye Tearin= None GI Upset > 30mins: 1= Stomach Cramp Tremor Observation of Outstretched Hands: 1= Tremor [place], Not Seen Yawning Observation: 0= None Anxiety or Irritability: 1=Feels Anxious/Irritable Goose Flesh Skin: 0=Smooth Skin COWS Score: 5
[2019-06-01] MEDS ORDERED: METHADONE HCL 5 MG TABLET (FOR DETOX USE ONLY) PO ONE (06:00)
== END 2019-05-31 08:50 | disposition home or self-care (01) | DRG 773 ==
LOC: YASAS 12:49 → Y3N 19:44
PROVIDERS: ADMIT Surgery; ATTEND Surgery
PROC: HZ2ZZZZ Detoxification Services for Substance Abuse Treatment (ICD-10-PCS; principal; 2019-05-27)
DX: F11.23 Opioid dependence with withdrawal (principal); F10.230 Alcohol dependence with withdrawal, uncomplicated; I10 Essential (primary) hypertension; D72.819 Decreased white blood cell count, unspecified; K59.03 Drug induced constipation; Z87.891 Personal history of nicotine dependence; Z88.8 Allergy status to other drugs, medicaments and biological substances
CPT/HCPCS: 36415; 80053; 81003; 85027; 87389; J0735

== ENCOUNTER 2019-07-27 15:44 | Inpatient (IN) | payer OTHER ==
[2019-07-27 21:05] VITALS: BMI 29.2
--- NOTE | 2019-07-27 21:52 | HP ---
COWS - Scale Resting Pulse: 0= [place] 80 or Below Sweatin= Chills/Flushing Restless Observation: 0= Sits Still Pupil Size: 0= Normal to Room Light Bone or Joint Aches: 4=Acute Joint/Muscle Pain Runny Nose/ Eye Tearin= Runny Nose/Eyes GI Upset > 30mins: 1= Stomach Cramp Tremor Observation: 0= None Yawning Observation: 1= 1-2x During Session Anxiety or Irritability: 2=Irritable/Anxious (anxious) Goose Flesh Skin: 0=Smooth Skin COWS Score: 11 CIWA Score Nausea/Vomitin-No Nausea/No Vomiting Muscle Tremors: None Anxiety: 1-Mildly Anxious Agitation: 0-Normal Activity Paroxysmal Sweats: 3 Orientation: 0-Oriented Tacttile Disturbances: 3-Moderate Itch/Numb/Burn (both feet) Auditory Disturbances: 0-None Visual Disturbances: 2-Mild Sensitivity (to lights) Headache: 3-Moderate CIWA-Ar Total Score: 12 - Admission Criteria OASAS Guidelines: Admission for Medically Managed Detox: Requires at least one of the followin. CIWA greater than 12 2. Seizures within the past 24 hours 3. Delirium tremens within the past 24 hours 4. Hallucinations within the past 24 hours 5. Acute intervention needed for co occurring medical disorder 6. Acute intervention needed for co occurring psychiatric disorder 7. Severe withdrawal that cannot be handled at a lower level of care (continued vomiting, continued diarrhea, abnormal vital signs) requiring intravenous medication and/or fluids 8. Admitting History and Physical - Smoking History Smoking history: Former smoker Have you smoked in the past 12 months: No Aproximately how many cigarettes per day: 0 - Alcohol/Substance Use Hx Alcohol Use: Yes Admission [facility] Chief Complaint: c/o withdrawal sx's. seeking alcohol/heroin detox Allergies/Adverse Reactions: Allergies Allergy/AdvReac Type Severity Reaction Status Date / Time lisinopril AdvReac Mild Swelling Verified 07/27/19 20:52 History of Present Illness: here for alcohol/ heroin detox. client is self referred. known to this program last here 05/2019. client reports daily use of alcohol and heroin. addiction started at age 19. last use of both substances approx 10 hours ago. presents now with c/o withdrawal sx's. 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 denies seizure d/o, blackouts, ivdu. denies any significant period of clean time in the past year. last clean time 10 years relapsing 9 years ago. lives alone, unemployed- ssi, denies legals. Exam Limitations: No Limitations - Ebola screening Have you traveled outside of the country in the last 21 days: No Have you had contact with anyone from an Ebola affected area: No Do you have a fever: No - Review of Systems Constitutional: Chills, Loss of Appetite, Malaise, Night Sweats, Changes in sleep, Unintentional Wgt. Loss EENT: reports: Dental Problems (missing teeth) Respiratory: reports: Shortness of Breath Cardiac: reports: No Symptoms Reported GI: reports: Poor Appetite, Poor Fluid Intake, Abdominal cramping : reports: No Symptoms Reported Musculoskeletal: reports: Joint Pain Integumentary: reports: No Symptoms Reported Neuro: reports: Headache, Numbness (both feet) Endocrine: reports: No Symptoms Reported Hematology: reports: No Symptoms Reported Psychiatric: reports: Orientated x3, Anxious Other Systems: Reviewed and Negative Patient History - Patient Medical History Hx Anemia: No Hx Asthma: No Hx Chronic Obstructive Pulmonary Disease (COPD): No Hx Cancer: No Hx Cardiac Disorders: No Hx Congestive Heart Failure: No Hx Hypertension: Yes Hx Hypercholesterolemia: No Hx Pacemaker: No HX Cerebrovascular Accident: No Hx Seizures: No Hx Dementia: No Hx Diabetes: No Hx Gastrointestinal Disorders: No Hx Liver Disease: No Hx Genitourinary Disorders: No Hx Sexually Transmitted Disorders: No Hx Renal Disease (ESRD): No Hx Thyroid Disease: No Hx Human Immunodeficiency Virus (HIV): No Hx Hepatitis C: No Hx Depression: No Hx Suicide Attempt: No Hx Bipolar Disorder: No Hx Schizophrenia: No Other Medical History: denies - Patient Surgical History Past Surgical History: Yes Hx Neurologic Surgery: No Hx Cataract Extraction: No Hx Cardiac Surgery: No Hx Lung Surgery: No Hx Breast Surgery: No Hx Breast Biopsy: No Hx Abdominal Surgery: No Hx Appendectomy: No Hx Cholecystectomy: No Hx Genitourinary Surgery: No Hx Section: No Hx Orthopedic Surgery: No Other Surgical History: Nail removed from R knee on 10/21/16. Anesthesia Reaction: No - PPD History Previous Implant?: Yes Documented Results: Negative w/proof Implanted On Prior [facility] Admission?: Yes Date: 09/03/18 Results: 0 mm PPD to be Administered?: No - Smoking Cessation Smoking history: Former smoker Have you smoked in the past 12 months: No Aproximately how many cigarettes per day: 0 Cigars Per Day: 0 Hx Chewing Tobacco Use: No Initiated information on smoking cessation: No 'Breaking Loose' booklet given: 07/27/19 - Substance & Tx. History Hx Alcohol Use: Yes Hx Substance Use: Yes Substance Use Type: Alcohol, Heroin Hx Substance Use Treatment: Yes ([facility]) - Substances abused Heroin Substance route: Inhalation Frequency: Daily Amount used: 4 to 5 bags Age of first use: 53 Date of last use: 07/27/19 Alcohol Substance route: Oral Frequency: Daily Amount used: 3 of 40 ounce of beer Age of first use: 19 Date of last use: 07/27/19 Marijuana/Hashish Substance route: Smoking Frequency: Daily Amount used: 4 to 5 joints Age of first use: 19 Date of last use: 07/21/19 Admission Physical Exam [facility] - Vital Signs Vital Signs: Vital Signs - 24 hr 07/27/19 20:51 Temperature 96.4 F L Pulse Rate 62 Respiratory 18 Rate Blood Pressure 119/78 - Physical General Appearance: Yes: Mild Distress, Tremorous (felt), Irritable, Anxious HEENTM: Yes: EOMI, Normocephalic, Normal Voice, LISA, Pharynx Normal Respiratory: Yes: Chest Non-Tender, Lungs Clear, Normal Breath Sounds, No Respiratory Distress, No Accessory Muscle Use Neck: Yes: No masses,lesions,Nodules, Supple, Trachea in good position Breast: Yes: Breasts Symetrical Cardiology: Yes: Regular Rhythm, Regular Rate, S1, S2 Abdominal: Yes: Normal Bowel Sounds, Non Tender, Soft Genitourinary: Yes: Within Normal Limits (no c/o offered) Back: Yes: Normal Inspection Musculoskeletal: Yes: full range of Motion, Gait Steady Extremities: Yes: Normal Capillary Refill, Normal Range of Motion, Non-Tender, Tremors 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: Yes: Fully Oriented, Alert, Motor Strength 5/5 Integumentary: Yes: Dry, Warm Lymphatic: Yes: Within Normal Limits - Diagnostic (1) Alcohol dependence with uncomplicated withdrawal Current Visit: Yes Status: Acute (2) Opioid dependence with withdrawal Current Visit: Yes Status: Acute (3) Essential hypertension Current Visit: Yes Status: Chronic Cleared for Admission [facility] - Detox or Rehab [facility] Level of Care: Medically Managed Claeared for Rehab Admission: No Breathalyzer - Breathalyzer Breathalyzer: 0 Urine Drug Screen - Test Device Lot number: [id number] Expiration date: 02/04/21 - Control Is test valid?: Yes - Results Drug screen NEGATIVE: Yes Urine drug screen results: THC-Marijuana, MOP-Opiates Inpatient Rehab Admission - Rehab Decision to Admit Inpatient rehab admission?: No
[2019-07-27] MEDS ORDERED: P-EPHED 60MG/TRIPROLIDI 2.5MG TABLET PO PRN (21:57)
[2019-07-27] MEDS ORDERED: LORazepam 1 MG TABLET PO PRN (21:57)
[2019-07-27] MEDS ORDERED: ONDANSETRON *ODT* 4 MG TABLET SL PRN (21:57)
[2019-07-27] MEDS ORDERED: METHOCARBAMOL 500 MG TABLET PO PRN (21:57)
[2019-07-27] MEDS ORDERED: DICYCLOMINE HCL 10 MG CAPSULE PO PRN (21:57)
[2019-07-27] MEDS ORDERED: guaiFENesin 200 MG/10 ML 10 ML UNIT-DOSE CUPS PO PRN (21:57)
[2019-07-27] MEDS ORDERED: BISMUTH SUBSALICYLATE 524 MG/30 ML UD PO PRN (21:57)
[2019-07-27] MEDS ORDERED: MAG HYDROX/AL HYDROX/SIMETH 30 ML UNIT-DOSE CUP PO PRN (21:57)
[2019-07-27] MEDS ORDERED: IBUPROFEN 400 MG TABLET (FP) PO PRN (21:57)
[2019-07-27] MEDS ORDERED: MELATONIN 5 MG TABLETS PO PRN (21:57)
[2019-07-27] MEDS ORDERED: ACETAMINOPHEN 325 MG TABLET (FP) PO PRN ×2 (21:57)
[2019-07-27] MEDS ORDERED: hydrOXYzine PAMOATE 25 MG CAPSULE (FP) PO PRN (21:57)
[2019-07-27] MEDS ORDERED: MAGNESIUM CITRATE 300 ML BOTTLE PO PRN (21:57)
[2019-07-27] MEDS ORDERED: MENTHOL/PHENOL 1 EACH UD MM PRN (21:57)
[2019-07-27] MEDS ORDERED: MAGNESIUM HYDROX 2400MG/30ML ORAL SUSPENSION 30 ML CUP PO PRN (21:57)
[2019-07-27] MEDS ORDERED: THIAMINE HCL 100 MG TABLET (FP) PO SCH (22:00)
[2019-07-27] MEDS ORDERED: METHADONE HCL 10 MG TABLET (FOR DETOX USE ONLY) PO ONE (22:01)
[2019-07-27] MEDS ORDERED: NALOXONE HCL 0.4 MG/ML VIAL IM PRN (22:01)
[2019-07-27] MEDS ORDERED: cloNIDine HCL 0.1 MG TABLET PO PRN (22:01)
[2019-07-28] MEDS: LORazepam 2 MG TABLET PO SCH ×3 (00:06→10:13)
[2019-07-28 09:41] LABS: HEMATOCRIT 39.5 % (35.4-49); HEMOGLOBIN 13.2 GM/dL (11.7-16.9); MCH 28.7 pg (25.7-33.7); MCHC 33.3 g/dl (32.0-35.9); MEAN CELL VOLUME 86.1 fl (80-96); MEAN PLT VOLUME 9.5 fl (7.5-11.1); PLATELET COUNT 176 K/MM3 (134-434); RBC 4.59 M/mm3 (4.00-5.60); RDW 13.3 % (11.9-15.9); WHITE BLOOD COUNT 3.3 K/mm3 (4.0-10.0)
[2019-07-28 09:48] LABS: ALBUMIN 3.7 g/dl (3.4-5.0); BILIRUBIN,TOTAL 0.5 mg/dL (0.2-1); BLOOD UREA NITROGEN 17.2 mg/dL (7-18); CREATININE 1.2 mg/dL (0.55-1.3); POTASSIUM 3.7 mmol/L (3.5-5.1); TOT PROT 6.9 g/dl (6.4-8.2)
[2019-07-28] MEDS ORDERED: METHADONE HCL 10 MG TABLET (FOR DETOX USE ONLY) PO ONE (10:00)
[2019-07-28] MEDS ORDERED: amLODIPine BESYLATE 10 MG TABLET (FP) PO SCH (10:00)
[2019-07-28] MEDS ORDERED: PRENATAL VITAMINS W/ FOLIC ACID TABLET (FP) PO SCH (10:00)
[2019-07-28] MEDS ORDERED: ASPIRIN COATED 81 MG TABLET.EC PO SCH (10:00)
[2019-07-28] MEDS ORDERED: CARBAMIDE PEROXIDE 6.5% OTIC 15 ML BOTTLE AU SCH (11:30)
--- NOTE | 2019-07-28 12:23 | PN ---
S CIWA - CIWA Score Nausea/Vomitin-Mild Nausea/No Vomiting Muscle Tremors: 2 Anxiety: 2 Agitation: 2 Paroxysmal Sweats: No Perspiration Orientation: 0-Oriented Tacttile Disturbances: 1-Very Mild Itch/Numbness Auditory Disturbances: 0-None Visual Disturbances: 0-None Headache: 2-Mild CIWA-Ar Total Score: 10 BHS COWS - Scale Resting Pulse: 0= [place] 80 or Below Sweatin= Chills/Flushing Restless Observation: 1= Difficult to Sit Still Pupil Size: 1= Pupils >than Normal Bone or Joint Aches: 1= Mild Discomfort Runny Nose/ Eye Tearin= Runny Nose/Eyes GI Upset > 30mins: 1= Stomach Cramp Tremor Observation of Outstretched Hands: 1= Tremor [place], Not Seen Yawning Observation: 1= 1-2x During Session Anxiety or Irritability: 2=Irritable/Anxious Goose Flesh Skin: 0=Smooth Skin COWS Score: 11 S Progress Note (SOAP) Subjective: alert,irritable,anxious,interrupted sleep,tremor,pain in the body,irritation in both ears Objective: 07/28/19 12:21 Vital Signs Temperature 96.1 F L 07/28/19 11:14 Pulse Rate 74 07/28/19 11:14 Respiratory Rate 16 07/28/19 11:14 Blood Pressure 138/89 07/28/19 11:14 O2 Sat by Pulse Oximetry (%) Vital Signs Temperature 96.1 F L 07/28/19 11:14 Pulse Rate 74 07/28/19 11:14 Respiratory Rate 16 07/28/19 11:14 Blood Pressure 138/89 07/28/19 11:14 O2 Sat by Pulse Oximetry (%) Laboratory Last Values WBC 3.3 K/mm3 (4.0-10.0) L 07/28/19 08:00 RBC 4.59 M/mm3 (4.00-5.60) 07/28/19 08:00 Hgb 13.2 GM/dL (11.7-16.9) 07/28/19 08:00 Hct 39.5 % (35.4-49) 07/28/19 08:00 MCV 86.1 fl (80-96) 07/28/19 08:00 MCH 28.7 pg (25.7-33.7) 07/28/19 08:00 MCHC 33.3 g/dl (32.0-35.9) 07/28/19 08:00 RDW 13.3 % (11.9-15.9) 07/28/19 08:00 Plt Count 176 K/MM3 (134-434) 07/28/19 08:00 MPV 9.5 fl (7.5-11.1) 07/28/19 08:00 Sodium 141 mmol/L (136-145) 07/28/19 08:00 Potassium 3.7 mmol/L (3.5-5.1) 07/28/19 08:00 Chloride 105 mmol/L (98-107) 07/28/19 08:00 Carbon Dioxide 32 mmol/L (21-32) 07/28/19 08:00 Anion Gap 4 MMOL/L (8-16) L 07/28/19 08:00 BUN 17.2 mg/dL (7-18) 07/28/19 08:00 Creatinine 1.2 mg/dL (0.55-1.3) 07/28/19 08:00 Est GFR (CKD-EPI)AfAm 74.14 07/28/19 08:00 Est GFR (CKD-EPI)NonAf 63.97 07/28/19 08:00 Random Glucose 55 mg/dL (74-106) L 07/28/19 08:00 Calcium 9.0 mg/dL (8.5-10.1) 07/28/19 08:00 Total Bilirubin 0.5 mg/dL (0.2-1) 07/28/19 08:00 AST 14 U/L (15-37) L 07/28/19 08:00 ALT 19 U/L (13-61) 07/28/19 08:00 Alkaline Phosphatase 113 U/L (45-117) 07/28/19 08:00 Total Protein 6.9 g/dl (6.4-8.2) 07/28/19 08:00 Albumin 3.7 g/dl (3.4-5.0) 07/28/19 08:00 Assessment: 07/28/19 12:22 withdrawal symptom ear wax both ears Plan: continue methadone and ativan regimen,debrox both ears
[2019-07-28 13:22] VITALS: BP 146/99; PULSE 104; TEMP 98.4
--- NOTE | 2019-07-28 14:40 | PN ---
[facility] Progress Note Note: pt states he cannot stay another day. he has things to do. Pt was encouraged to stay to prevent relapse, seizure, OD, DT and loss however pt chose to sign out AMA.
--- NOTE | 2019-07-28 14:44 | DS ---
[facility] Detox Discharge Summary Admission Date: 07/27/19 - History Present History: Alcohol Dependence, Cannabis Dependence - Physical Exam Results Vital Signs: Vital Signs Temperature 98.4 F 07/28/19 13:21 Pulse Rate 104 H 07/28/19 13:21 Respiratory Rate 18 07/28/19 13:21 Blood Pressure 146/99 07/28/19 13:21 O2 Sat by Pulse Oximetry (%) - Treatment Hospital Course: Rehab Referral Accepted - Medication Discharge Medications: Ambulatory Orders Clonidine HCl 0.2 mg PO DAILY 05/02/19 Amlodipine Besylate [Norvasc -] 10 mg PO DAILY #30 tablet 05/05/19 Aspirin [Aspirin EC] 81 mg PO DAILY #30 tablet. 05/06/19 Multivitamin with Iron [Daily Pedro with Iron] 1 each PO DAILY 05/27/19 Naloxone HCl [Narcan] 4 mg NS ASDIR PRN #1 spray 05/29/19 - Diagnosis (1) Alcohol dependence with uncomplicated withdrawal Current Visit: Yes Status: Chronic (2) Opioid dependence with withdrawal Current Visit: Yes Status: Chronic (3) Essential hypertension Current Visit: Yes Status: Chronic (4) Cannabis dependence Current Visit: No Status: Chronic (5) S/P knee surgery Current Visit: No Status: Chronic - AMA Did Patient Leave Against Medical Advice: Yes
[2019-07-29] MEDS ORDERED: LORazepam 1 MG TABLET PO SCH (05:00)
[2019-07-29] MEDS ORDERED: METHADONE HCL 10 MG TABLET (FOR DETOX USE ONLY) PO ONE (10:00)
[2019-07-30] MEDS ORDERED: LORazepam 0.5 MG TABLET PO PRN
[2019-07-30] MEDS ORDERED: LORazepam 0.5 MG TABLET PO SCH (05:00)
[2019-07-30] MEDS ORDERED: METHADONE (DETOX) 10 MG, METHADONE (DETOX) 5 MG PO ONE (10:00)
[2019-07-31] MEDS ORDERED: LORazepam 0.5 MG TABLET PO ONE (05:00)
[2019-07-31] MEDS ORDERED: METHADONE HCL 10 MG TABLET (FOR DETOX USE ONLY) PO ONE (10:00)
[2019-08-01] MEDS ORDERED: METHADONE HCL 5 MG TABLET (FOR DETOX USE ONLY) PO ONE (06:00)
== END 2019-07-28 11:55 | disposition home or self-care (01) | DRG 773 ==
LOC: YASAS 15:44 → Y6N 23:21
PROVIDERS: ADMIT Allergy & Immunology; ATTEND Allergy & Immunology
PROC: HZ2ZZZZ Detoxification Services for Substance Abuse Treatment (ICD-10-PCS; principal; 2019-07-27)
DX: F10.230 Alcohol dependence with withdrawal, uncomplicated (principal); F11.23 Opioid dependence with withdrawal; F12.20 Cannabis dependence, uncomplicated; I10 Essential (primary) hypertension; Z87.891 Personal history of nicotine dependence; Z98.890 Other specified postprocedural states; Z88.8 Allergy status to other drugs, medicaments and biological substances
CPT/HCPCS: 36415; 80053; 85027; 87389

== ENCOUNTER 2019-09-23 11:15 | Inpatient (IN) | payer OTHER ==
[2019-09-23 12:07] VITALS: BMI 31.8
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
[2019-09-23] MEDS ORDERED: MAG HYDROX/AL HYDROX/SIMETH 30 ML UNIT-DOSE CUP PO PRN (14:44)
[2019-09-23] MEDS ORDERED: IBUPROFEN 400 MG TABLET (FP) PO PRN (14:44)
[2019-09-23] MEDS ORDERED: P-EPHED 60MG/TRIPROLIDI 2.5MG TABLET PO PRN (14:44)
[2019-09-23] MEDS ORDERED: MENTHOL/PHENOL 1 EACH UD MM PRN (14:44)
[2019-09-23] MEDS ORDERED: MAGNESIUM HYDROX 2400MG/30ML ORAL SUSPENSION 30 ML CUP PO PRN (14:44)
[2019-09-23] MEDS ORDERED: guaiFENesin 200 MG/10 ML 10 ML UNIT-DOSE CUPS PO PRN (14:44)
[2019-09-23] MEDS ORDERED: ACETAMINOPHEN 325 MG TABLET (FP) PO PRN (14:44)
[2019-09-23] MEDS ORDERED: MAGNESIUM CITRATE 300 ML BOTTLE PO PRN (14:44)
--- NOTE | 2019-09-23 15:45 | PN ---
S Progress Note Note: Pt is a 64 y/o male with a hx of KESHA admitted to rehab through [facility]. PMHx:HTN(on Norvasc). Denies Psych Hx. Reports he has a PCP Dr. Jose Grissom(spelling not sure) in [place], [place]. Vital Signs - 24 hr 09/23/19 09/23/19 09/23/19 12:02 15:41 15:53 Temperature 97.5 F L 97.8 F 97.8 F Pulse Rate 65 53 L 53 L Respiratory 18 18 18 Rate Blood Pressure 146/93 122/76 122/76 Alert o x 3 nad oob ambulating with steady gait A/P new rehab pt Maintain safety increase po fluids
[2019-09-23] MEDS: amLODIPine BESYLATE 10 MG TABLET (FP) PO SCH (15:48)
[2019-09-23] MEDS: ASPIRIN COATED 81 MG TABLET.EC PO SCH (15:48)
[2019-09-23 17:09] LABS: HEMATOCRIT 45.2 % (35.4-49); HEMOGLOBIN 15.2 GM/dL (11.7-16.9); MCH 29.5 pg (25.7-33.7); MCHC 33.6 g/dl (32.0-35.9); MEAN CELL VOLUME 87.8 fl (80-96); MEAN PLT VOLUME 9.7 fl (7.5-11.1); PLATELET COUNT 181 K/MM3 (134-434); RBC 5.15 M/mm3 (4.00-5.60); RDW 13.6 % (11.9-15.9); WHITE BLOOD COUNT 3.1 K/mm3 (4.0-10.0)
[2019-09-23 17:20] LABS: BILIRUBIN,TOTAL 0.6 mg/dL (0.2-1); BLOOD UREA NITROGEN 13.8 mg/dL (7-18); CALCIUM 9.3 mg/dL (8.5-10.1); CREATININE 1.1 mg/dL (0.55-1.3); POTASSIUM 3.9 mmol/L (3.5-5.1); TOT PROT 7.8 g/dl (6.4-8.2)
[2019-09-23] MEDS: THIAMINE HCL 100 MG TABLET (FP) PO SCH (22:16)
[2019-09-23] MEDS: cloNIDine HCL 0.1 MG TABLET PO SCH (22:16)
[2019-09-24] MEDS: MELATONIN 5 MG TABLETS PO PRN (01:02)
[2019-09-24] MEDS: cloNIDine HCL 0.1 MG TABLET PO SCH ×2 (09:39→22:02)
[2019-09-24] MEDS: PRENATAL VITAMINS W/ FOLIC ACID TABLET (FP) PO SCH (09:39)
[2019-09-24] MEDS: amLODIPine BESYLATE 10 MG TABLET (FP) PO SCH (09:39)
[2019-09-24] MEDS: ASPIRIN COATED 81 MG TABLET.EC PO SCH (09:39)
[2019-09-24] MEDS ORDERED: ERGOCALCIFEROL (VIT D2) 50,000 UNIT (1.25 MG) CAPSULE PO SCH (10:00)
[2019-09-24 11:41] LABS: PH,URINE 6.5 (5.0-8.0); URINE APPEARANCE CLEAR; URINE BILIRUBIN NEGATIVE (NEGATIVE); URINE COLOR YELLOW; URINE GLUCOSE (UA) NEGATIVE (NEGATIVE); URINE KETONE NEGATIVE (NEGATIVE); URINE LEUK ESTERASE NEGATIVE (NEGATIVE); URINE NITRITE NEGATIVE (NEGATIVE); URINE PROTEIN NEGATIVE (NEGATIVE); URINE UROBILINOGEN 0.2 mg/dL (0.2-1.0)
[2019-09-24] MEDS: THIAMINE HCL 100 MG TABLET (FP) PO SCH (22:02)
[2019-09-25] MEDS: PRENATAL VITAMINS W/ FOLIC ACID TABLET (FP) PO SCH (09:40)
[2019-09-25] MEDS: amLODIPine BESYLATE 10 MG TABLET (FP) PO SCH (09:40)
[2019-09-25] MEDS: cloNIDine HCL 0.1 MG TABLET PO SCH ×2 (09:40→22:24)
[2019-09-25] MEDS: ASPIRIN COATED 81 MG TABLET.EC PO SCH (09:40)
[2019-09-25] MEDS: THIAMINE HCL 100 MG TABLET (FP) PO SCH (22:24)
[2019-09-26] MEDS: ASPIRIN COATED 81 MG TABLET.EC PO SCH (09:26)
[2019-09-26] MEDS: amLODIPine BESYLATE 10 MG TABLET (FP) PO SCH (09:26)
[2019-09-26] MEDS: cloNIDine HCL 0.1 MG TABLET PO SCH ×2 (09:26→21:53)
[2019-09-26] MEDS: PRENATAL VITAMINS W/ FOLIC ACID TABLET (FP) PO SCH (09:26)
[2019-09-26] MEDS: THIAMINE HCL 100 MG TABLET (FP) PO SCH (21:53)
[2019-09-27] MEDS: PRENATAL VITAMINS W/ FOLIC ACID TABLET (FP) PO SCH (10:02)
[2019-09-27] MEDS: cloNIDine HCL 0.1 MG TABLET PO SCH ×2 (10:04→21:35)
[2019-09-27] MEDS: amLODIPine BESYLATE 10 MG TABLET (FP) PO SCH (10:04)
[2019-09-27] MEDS: ASPIRIN COATED 81 MG TABLET.EC PO SCH (10:04)
[2019-09-27] MEDS: THIAMINE HCL 100 MG TABLET (FP) PO SCH (21:35)
[2019-09-28] MEDS ORDERED: ERGOCALCIFEROL (VIT D2) 50,000 UNIT (1.25 MG) CAPSULE PO SCH (10:00)
[2019-09-28] MEDS: amLODIPine BESYLATE 10 MG TABLET (FP) PO SCH (10:05)
[2019-09-28] MEDS: cloNIDine HCL 0.1 MG TABLET PO SCH ×2 (10:05→21:23)
[2019-09-28] MEDS: PRENATAL VITAMINS W/ FOLIC ACID TABLET (FP) PO SCH (10:05)
[2019-09-28] MEDS: ASPIRIN COATED 81 MG TABLET.EC PO SCH (10:05)
[2019-09-28] MEDS: ERGOCALCIFEROL (VIT D2) 50,000 UNIT (1.25 MG) CAPSULE PO SCH (10:06)
[2019-09-28] MEDS: THIAMINE HCL 100 MG TABLET (FP) PO SCH (21:24)
[2019-09-29] MEDS: PRENATAL VITAMINS W/ FOLIC ACID TABLET (FP) PO SCH (09:53)
[2019-09-29] MEDS: ASPIRIN COATED 81 MG TABLET.EC PO SCH (09:54)
[2019-09-29] MEDS: cloNIDine HCL 0.1 MG TABLET PO SCH ×2 (09:54→22:03)
[2019-09-29] MEDS: amLODIPine BESYLATE 10 MG TABLET (FP) PO SCH (09:54)
[2019-09-29] MEDS: THIAMINE HCL 100 MG TABLET (FP) PO SCH (22:03)
[2019-09-30] MEDS: amLODIPine BESYLATE 10 MG TABLET (FP) PO SCH (10:02)
[2019-09-30] MEDS: cloNIDine HCL 0.1 MG TABLET PO SCH ×2 (10:02→22:28)
[2019-09-30] MEDS: PRENATAL VITAMINS W/ FOLIC ACID TABLET (FP) PO SCH (10:02)
[2019-09-30] MEDS: ASPIRIN COATED 81 MG TABLET.EC PO SCH (10:04)
[2019-09-30] MEDS: THIAMINE HCL 100 MG TABLET (FP) PO SCH (22:28)
[2019-10-01] MEDS: cloNIDine HCL 0.1 MG TABLET PO SCH ×2 (09:28→22:05)
[2019-10-01] MEDS: PRENATAL VITAMINS W/ FOLIC ACID TABLET (FP) PO SCH (09:28)
[2019-10-01] MEDS: amLODIPine BESYLATE 10 MG TABLET (FP) PO SCH (09:28)
[2019-10-01] MEDS: ASPIRIN COATED 81 MG TABLET.EC PO SCH (09:29)
[2019-10-01] MEDS: THIAMINE HCL 100 MG TABLET (FP) PO SCH (22:05)
[2019-10-02] MEDS: amLODIPine BESYLATE 10 MG TABLET (FP) PO SCH (09:58)
[2019-10-02] MEDS: cloNIDine HCL 0.1 MG TABLET PO SCH ×2 (09:58→21:15)
[2019-10-02] MEDS: PRENATAL VITAMINS W/ FOLIC ACID TABLET (FP) PO SCH (09:58)
[2019-10-02] MEDS: ASPIRIN COATED 81 MG TABLET.EC PO SCH (09:59)
[2019-10-02] MEDS: THIAMINE HCL 100 MG TABLET (FP) PO SCH (21:16)
[2019-10-03] MEDS: PRENATAL VITAMINS W/ FOLIC ACID TABLET (FP) PO SCH (10:11)
[2019-10-03] MEDS: amLODIPine BESYLATE 10 MG TABLET (FP) PO SCH (10:11)
[2019-10-03] MEDS: ASPIRIN COATED 81 MG TABLET.EC PO SCH (10:11)
[2019-10-03] MEDS: cloNIDine HCL 0.1 MG TABLET PO SCH ×2 (10:11→22:06)
[2019-10-03] MEDS: THIAMINE HCL 100 MG TABLET (FP) PO SCH (22:06)
[2019-10-04] MEDS: cloNIDine HCL 0.1 MG TABLET PO SCH ×2 (09:39→22:05)
[2019-10-04] MEDS: PRENATAL VITAMINS W/ FOLIC ACID TABLET (FP) PO SCH (09:40)
[2019-10-04] MEDS: ASPIRIN COATED 81 MG TABLET.EC PO SCH (09:40)
[2019-10-04] MEDS: amLODIPine BESYLATE 10 MG TABLET (FP) PO SCH (09:40)
[2019-10-04] MEDS: THIAMINE HCL 100 MG TABLET (FP) PO SCH (22:05)
[2019-10-05] MEDS: cloNIDine HCL 0.1 MG TABLET PO SCH ×2 (09:55→21:05)
[2019-10-05] MEDS: ERGOCALCIFEROL (VIT D2) 50,000 UNIT (1.25 MG) CAPSULE PO SCH (09:56)
[2019-10-05] MEDS: amLODIPine BESYLATE 10 MG TABLET (FP) PO SCH (09:56)
[2019-10-05] MEDS: PRENATAL VITAMINS W/ FOLIC ACID TABLET (FP) PO SCH (09:56)
[2019-10-05] MEDS: ASPIRIN COATED 81 MG TABLET.EC PO SCH (09:56)
[2019-10-05] MEDS: THIAMINE HCL 100 MG TABLET (FP) PO SCH (21:05)
[2019-10-06] MEDS: PRENATAL VITAMINS W/ FOLIC ACID TABLET (FP) PO SCH (09:46)
[2019-10-06] MEDS: ASPIRIN COATED 81 MG TABLET.EC PO SCH (09:47)
[2019-10-06] MEDS: cloNIDine HCL 0.1 MG TABLET PO SCH ×2 (09:47→21:40)
[2019-10-06] MEDS: amLODIPine BESYLATE 10 MG TABLET (FP) PO SCH (09:47)
--- NOTE | 2019-10-06 11:40 | DS ---
[facility] Rehab Discharge Summary - [facility] Rehab Discharge Summary Admission Date: 09/23/19 Discharge Date: 10/07/19 - History Present History: Alcohol dependence, Cannabis dependence, Opioid dependence Additional Comments: Pt is a 64 y/o male with a hx of KESHA- Pertinent Past History: HTN S/P Left Knee suture relate to [place] - Discharge Physical Exam Vital Signs: Vital Signs Temperature 97.3 F L 10/06/19 06:48 Pulse Rate 62 10/06/19 06:48 Respiratory Rate 18 10/06/19 06:48 Blood Pressure 126/80 10/06/19 06:48 O2 Sat by Pulse Oximetry (%) Alert o x 3,denies s/h/i nad oob ambulating with steady gait cardiac:s1 s2,rrr lungs:cta,arnoldo. abdomen:+bs,soft,nt,nd extremities/skin:no edema;skin intact. Pertinent Admission Physical Exam Findings: Laboratory Tests 09/23/19 09/23/19 09/24/19 15:15 15:15 07:30 WBC 3.1 L RBC 5.15 Hgb 15.2 Hct 45.2 MCV 87.8 MCH 29.5 MCHC 33.6 RDW 13.6 Plt Count 181 MPV 9.7 Sodium 143 Potassium 3.9 Chloride 106 Carbon Dioxide 32 Anion Gap 5 L BUN 13.8 Creatinine 1.1 Est GFR (CKD-EPI)AfAm 82.37 Est GFR (CKD-EPI)NonAf 71.07 Random Glucose 72 L Calcium 9.3 Total Bilirubin 0.6 AST 28 ALT 40 Alkaline Phosphatase 99 Total Protein 7.8 Albumin 4.0 Urine Color Yellow Urine Appearance Clear Urine pH 6.5 Ur Specific [place] 1.014 Urine Protein Negative Urine Glucose (UA) Negative Urine Ketones Negative Urine Blood Negative Urine Nitrite Negative Urine Bilirubin Negative Urine Urobilinogen 0.2 Ur Leukocyte Esterase Negative - Treatment Discharge Condition: Discharge condition good Hospital Course: CD after care referral provided to patient for follow up. Rehabilitated safely Participated in group activities and individual sessions. - Medication Discharge Medications: Ambulatory Orders Clonidine HCl 0.2 mg PO BID 05/02/19 Amlodipine Besylate [Norvasc -] 10 mg PO DAILY #30 tablet 05/05/19 Aspirin [Aspirin EC] 81 mg PO DAILY #30 tablet. 05/06/19 Ergocalciferol (Vitamin D2) [Vitamin D2] 50,000 unit PO WEEKLY 09/23/19 - Medication-Assisted Treatment (MAT) Medication-Assisted Treatment (MAT): No - Discharge Instructions Diet, activity, other medical instructions: Diet:MARJORIE Activity: oob ad lindy Other medical instructions:follow up with your primary care provider, Dr. Jose Alexander in [place], [place] for medical management within 1-2 weeks after discharge. Follow up with CD aftercare as recommended and scheduled. - Diagnosis (1) Opioid use disorder Status: Chronic (2) Alcohol dependence in early full remission Status: Chronic (3) Cannabis dependence Status: Chronic (4) Essential hypertension Status: Chronic (5) S/P knee surgery Status: Chronic - Follow-up Referral Minutes to complete discharge: 20 - AMA Did Patient Leave Against Medical Advice: No Additional Comments: Pt reports he has own medications at home.
[2019-10-06] MEDS: THIAMINE HCL 100 MG TABLET (FP) PO SCH (21:40)
[2019-10-06] MEDS: MELATONIN 5 MG TABLETS PO PRN (23:25)
[2019-10-07 06:56] VITALS: BP 117/74; PULSE 55; TEMP 97.4
[2019-10-07] MEDS: ASPIRIN COATED 81 MG TABLET.EC PO SCH (09:23)
[2019-10-07] MEDS: PRENATAL VITAMINS W/ FOLIC ACID TABLET (FP) PO SCH (09:23)
[2019-10-07] MEDS: cloNIDine HCL 0.1 MG TABLET PO SCH (09:23)
[2019-10-07] MEDS: amLODIPine BESYLATE 10 MG TABLET (FP) PO SCH (09:23)
== END 2019-10-07 10:20 | disposition home or self-care (01) | DRG 772 ==
LOC: YASAS 11:15 → Y5N 15:16
PROVIDERS: ADMIT Allergy & Immunology; ATTEND Allergy & Immunology
PROC: HZ42ZZZ Group Counseling for Substance Abuse Treatment, Cognitive-Behavioral (ICD-10-PCS; principal; 2019-09-23)
DX: F10.20 Alcohol dependence, uncomplicated (principal); F11.20 Opioid dependence, uncomplicated; F12.20 Cannabis dependence, uncomplicated; I10 Essential (primary) hypertension; Z87.891 Personal history of nicotine dependence
CPT/HCPCS: 36415; 80053; 81003; 85027; J0735

== ENCOUNTER 2020-04-06 13:29 | Inpatient (IN) | payer OTHER ==
--- NOTE | 2020-04-06 14:09 | BHS.RME ---
Substance Use & Tx History - Substance Use History Alcohol Substance amount: 5 x 40 ounce beer Frequency of use: Daily Substance route: Oral Date of Last Use: 04/05/20 (First use age 20y. No seizures. 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 NO ODs. NO Narcan) Marijuana/Hashish Substance amount: 5 joints Frequency of use: Daily Substance route: Smoking Date of Last Use: 04/05/20 (First use age 20y) Physical/Psych/Mental Status - Behavior General Behavior: Increased activity (restlessness, agitation) Eye Contact: Normal - Cooperativeness Cooperativeness: Reluctant - Thinking Thought Processes: Tight Thought content: Future oriented - Physical Health Problems Is patient presently having any pain?: Yes (withdrawal) Does patient presently have any injuries (include location): No Does patient currently have a fever: No COWS - Scale Resting Pulse: 0= [place] 80 or Below Sweatin= No chills or Flushing Restless Observation: 0= Sits Still Pupil Size: 0= Normal to Room Light Bone or Joint Aches: 1= Mild Discomfort Runny Nose/ Eye Tearin= Runny Nose/Eyes GI Upset > 30mins: 1= Stomach Cramp Tremor Observation: 0= None Yawning Observation: 0= None Anxiety or Irritability: 1=Feels Anxious/Irritable Goose Flesh Skin: 0=Smooth Skin COWS Score: 5 CIWA Nausea/Vomitin-Mild Nausea/No Vomiting Muscle Tremors: None Anxiety: 1-Mildly Anxious Agitation: 0-Normal Activity Paroxysmal Sweats: No Perspiration Orientation: 0-Oriented Tacttile Disturbances: 0-None Auditory Disturbances: 0-None Visual Disturbances: 0-None Headache: 2-Mild CIWA-Ar Total Score: 4
--- NOTE | 2020-04-06 16:01 | HP ---
<Jesus Painting - Last Filed: 04/06/20 15:56> COWS - Scale Resting Pulse: 0= [place] 80 or Below Sweatin= No chills or Flushing Restless Observation: 0= Sits Still Pupil Size: 0= Normal to Room Light Bone or Joint Aches: 1= Mild Discomfort Runny Nose/ Eye Tearin= Runny Nose/Eyes GI Upset > 30mins: 1= Stomach Cramp Tremor Observation: 0= None Yawning Observation: 0= None Anxiety or Irritability: 1=Feels Anxious/Irritable Goose Flesh Skin: 0=Smooth Skin COWS Score: 5 CIWA Score Nausea/Vomitin-Mild Nausea/No Vomiting Muscle Tremors: None Anxiety: 1-Mildly Anxious Agitation: 0-Normal Activity Paroxysmal Sweats: No Perspiration Orientation: 0-Oriented Tacttile Disturbances: 0-None Auditory Disturbances: 0-None Visual Disturbances: 0-None Headache: 2-Mild CIWA-Ar Total Score: 4 - Admission Criteria OASAS Guidelines: Admission for Medically Managed Detox: Requires at least one of the followin. CIWA greater than 12 2. Seizures within the past 24 hours 3. Delirium tremens within the past 24 hours 4. Hallucinations within the past 24 hours 5. Acute intervention needed for co occurring medical disorder 6. Acute intervention needed for co occurring psychiatric disorder 7. Severe withdrawal that cannot be handled at a lower level of care (continued vomiting, continued diarrhea, abnormal vital signs) requiring intravenous medication and/or fluids 8. Admitting History and Physical - Admission Chief Complaint: Patient is a 64 year old male with history of hypertension, alcohol use disorder, opiate use disorder, presents for detox. History of Present Illness: Patient is a 64 year old male with history of hypertension, alcohol use disorder, opiate use disorder, presents for detox. Prior detox was 12/29 -01/04. Prior rehab was 09/23- 10/07. PMH: hypertension PSH: right knee nail removal Social: lives alone in [facility] Psych: denies Legal:denies - Substance Use History Alcohol Substance amount: 5 x 40 ounce beer Frequency of use: Daily Substance route: Oral Date of Last Use: 04/05/20 (First use age 20y. No seizures. 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 NO ODs. NO Narcan) Marijuana/Hashish Substance amount: 5 joints Frequency of use: Daily Substance route: Smoking Date of Last Use: 04/05/20 (First use age 20y) History Source: Patient Limitations to Obtaining History: No Limitations - Past Medical History Cardiovascular: Yes: HTN - Smoking History Smoking history: Never smoked Have you smoked in the past 12 months: No Aproximately how many cigarettes per day: 0 - Alcohol/Substance Use Hx Alcohol Use: Yes - Social History ADL: Independent Occupation: disabled and SSI History of Recent Travel: No Admission [facility] Allergies/Adverse Reactions: Allergies Allergy/AdvReac Type Severity Reaction Status Date / Time lisinopril AdvReac Mild Swelling Verified 04/06/20 16:22 Exam Limitations: No Limitations - Ebola screening Have you traveled outside of the country in the last 21 days: No Have you been sick,other than usual withdrawal symptoms: No Do you have a fever: No - Review of Systems Constitutional: No Symptoms Reported EENT: denies: Recent change in vision, Tinnitus Respiratory: denies: Cough, Shortness of Breath Cardiac: denies: Chest Pain, Lightheadedness, Palpitations GI: denies: Nausea, Vomiting, Abdominal cramping : denies: Burning, Dysuria Musculoskeletal: denies: Back Pain, Muscle Pain Integumentary: denies: Pruritus, Rash Neuro: denies: Numbness, Paresthesia, Weakness Endocrine: denies: Unexplained Weight Loss Hematology: denies: Blood Clots, Easy Bleeding Psychiatric: reports: other (denies suicidal, homicidal ideation) Patient History - Patient Medical History Hx Anemia: No Hx Asthma: No Hx Chronic Obstructive Pulmonary Disease (COPD): No Hx Cancer: No Hx Cardiac Disorders: No Hx Congestive Heart Failure: No Hx Hypertension: Yes (on meds) Hx Hypercholesterolemia: No Hx Pacemaker: No HX Cerebrovascular Accident: No Hx Seizures: No Hx Dementia: No Hx Diabetes: No Hx Gastrointestinal Disorders: No Hx Liver Disease: No Hx Genitourinary Disorders: No Hx Sexually Transmitted Disorders: No Hx Renal Disease (ESRD): No Hx Thyroid Disease: No Hx Human Immunodeficiency Virus (HIV): No Hx Hepatitis C: No Hx Depression: No Hx Suicide Attempt: No Hx Bipolar Disorder: No Hx Schizophrenia: No - Patient Surgical History Past Surgical History: Yes Hx Neurologic Surgery: No Hx Cataract Extraction: No Hx Cardiac Surgery: No Hx Lung Surgery: No Hx Breast Surgery: No Hx Breast Biopsy: No Hx Abdominal Surgery: No Hx Appendectomy: No Hx Cholecystectomy: No Hx Genitourinary Surgery: No Hx Section: No Hx Orthopedic Surgery: No Other Surgical History: Nail removed from R knee on 10/21/16. Anesthesia Reaction: No - PPD History Date: 09/03/18 Results: 0 mm - Smoking Cessation Smoking history: Never smoked Have you smoked in the past 12 months: No Aproximately how many cigarettes per day: 0 Cigars Per Day: 0 Hx Chewing Tobacco Use: No Admission Physical Exam [facility] Physical General Appearance: Yes: Nourished, Mild Distress, Anxious HEENTM: Yes: EOMI, Hearing grossly Normal Respiratory: Yes: Lungs Clear, Normal Breath Sounds, No Respiratory Distress, No Accessory Muscle Use Neck: Yes: Supple Breast: Yes: Breast Exam Deferred Cardiology: Yes: Regular Rhythm, Regular Rate, S1, S2 Abdominal: Yes: Normal Bowel Sounds, Non Tender, Flat, Soft Musculoskeletal: Yes: Within Normal Limits, full range of Motion Extremities: Yes: Within Normal Limits, Normal Range of Motion 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, Motor Strength 5/5, Normal Response Integumentary: Yes: Dry, Warm - Diagnostic (1) Alcohol dependence with uncomplicated withdrawal Current Visit: Yes Status: Acute (2) Cannabis dependence Current Visit: Yes Status: Chronic (3) Essential hypertension Current Visit: Yes Status: Chronic (4) Opioid dependence with withdrawal Current Visit: Yes Status: Acute Cleared for Admission [facility] - Detox or Rehab [facility] Level of Care: Medically Managed Detox Regimen/Protocol: Methadone/Librium Claeared for Rehab Admission: No Screened but not Admitted - Documentation of Visit Screened but not Admitted: No Breathalyzer - Breathalyzer Breathalyzer: 0 Urine Drug Screen - Test Device Lot number: [id number] Expiration date: 04/10/22 - Control Is test valid?: Yes - Results Drug screen NEGATIVE: No Urine drug screen results: THC-Marijuana, MOP-Opiates, MTD-Methadone Inpatient Rehab Admission - Rehab Decision to Admit Inpatient rehab admission?: No <Ayse,Bernie E - Last Filed: 04/09/20 08:22> CIWA Score - Admission Criteria OASAS Guidelines: Admission for Medically Managed Detox: Requires at least one of the followin. CIWA greater than 12 2. Seizures within the past 24 hours 3. Delirium tremens within the past 24 hours 4. Hallucinations within the past 24 hours 5. Acute intervention needed for co occurring medical disorder 6. Acute intervention needed for co occurring psychiatric disorder 7. Severe withdrawal that cannot be handled at a lower level of care (continued vomiting, continued diarrhea, abnormal vital signs) requiring intravenous medication and/or fluids 8. Patient History - Substances abused Alcohol Substance route: Oral Frequency: Daily Amount used: 5 of 40 ounces of beer. Age of first use: 20 Date of last use: 04/05/20 Marijuana/Hashish Substance route: Smoking Frequency: Daily Amount used: 5 joints Age of first use: 20 Date of last use: 04/05/20 Heroin Substance route: Inhalation Frequency: Daily Amount used: 5 bags Age of first use: 55 Date of last use: 04/05/20 Admission Physical Exam [facility] - Vital Signs Vital Signs: Vital Signs - 24 hr 04/08/20 04/08/20 04/08/20 08:36 12:22 17:27 Temperature 97.3 F L 97.1 F L 97.3 F L Pulse Rate 55 L 50 L 55 L Respiratory 16 16 18 Rate Blood Pressure 121/72 107/60 117/76 O2 Sat by Pulse 96 Oximetry (%) 04/08/20 04/09/20 21:02 07:00 Temperature 97.3 F L 97.5 F L Pulse Rate 62 48 L Respiratory 16 18 Rate Blood Pressure 119/69 137/95 O2 Sat by Pulse 97 97 Oximetry (%)
[2020-04-06] MEDS ORDERED: METHOCARBAMOL 500 MG TABLET PO PRN (16:02)
[2020-04-06] MEDS ORDERED: IBUPROFEN 400 MG TABLET (FP) PO PRN (16:02)
[2020-04-06] MEDS ORDERED: MENTHOL/PHENOL 1 EACH UD MM PRN (16:02)
[2020-04-06] MEDS ORDERED: MAGNESIUM CITRATE 300 ML BOTTLE PO PRN (16:02)
[2020-04-06] MEDS ORDERED: MAGNESIUM HYDROX 2400MG/30ML ORAL SUSPENSION 30 ML CUP PO PRN (16:02)
[2020-04-06] MEDS ORDERED: MAG HYDROX/AL HYDROX/SIMETH 30 ML UNIT-DOSE CUP PO PRN (16:02)
[2020-04-06] MEDS ORDERED: BISMUTH SUBSALICYLATE 524 MG/30 ML UD PO PRN (16:02)
[2020-04-06] MEDS ORDERED: ACETAMINOPHEN 325 MG TABLET (FP) PO PRN ×2 (16:02)
[2020-04-06] MEDS ORDERED: NICOTINE POLACRILEX 2 MG GUM BUC PRN (16:02)
[2020-04-06] MEDS ORDERED: METHADONE HCL 10 MG TABLET (FOR DETOX USE ONLY) PO ONE (16:02)
[2020-04-06] MEDS ORDERED: cloNIDine HCL 0.1 MG TABLET PO PRN (16:02)
[2020-04-06] MEDS ORDERED: ONDANSETRON *ODT* 4 MG TABLET SL PRN (16:02)
[2020-04-06] MEDS ORDERED: chlordiazePOXIDE HCL 25 MG CAPSULE PO PRN (16:02)
[2020-04-06 16:34] VITALS: BMI 31.5
[2020-04-06] MEDS ORDERED: TUBERCULIN PPD 5 TU/0.1ML VIAL ID ONE (17:30)
[2020-04-06] MEDS: chlordiazePOXIDE HCL 25 MG CAPSULE PO SCH ×2 (17:40→22:21)
[2020-04-06] MEDS: hydrOXYzine PAMOATE 25 MG CAPSULE (FP) PO SCH ×2 (17:44→22:20)
[2020-04-06] MEDS: cloNIDine HCL 0.1 MG TABLET PO SCH (22:20)
[2020-04-06] MEDS: MELATONIN 5 MG TABLETS PO SCH (22:20)
[2020-04-06] MEDS: THIAMINE HCL 100 MG TABLET (FP) PO SCH (22:21)
[2020-04-07] MEDS: chlordiazePOXIDE HCL 25 MG CAPSULE PO SCH ×4 (06:56→22:24)
[2020-04-07] MEDS: hydrOXYzine PAMOATE 25 MG CAPSULE (FP) PO SCH ×5 (07:01→22:24)
[2020-04-07] MEDS ORDERED: METHADONE (DETOX) 20 MG, METHADONE (DETOX) 5 MG PO ONE (10:00)
[2020-04-07] MEDS ORDERED: ERGOCALCIFEROL (VIT D2) 50,000 UNIT (1.25 MG) CAPSULE PO SCH (10:00)
[2020-04-07] MEDS ORDERED: METHADONE HCL 10 MG TABLET (FOR DETOX USE ONLY) ONE (10:01)
[2020-04-07] MEDS ORDERED: METHADONE HCL 5 MG TABLET (FOR DETOX USE ONLY) ONE (10:02)
[2020-04-07] MEDS: cloNIDine HCL 0.1 MG TABLET PO SCH ×2 (10:35→22:24)
[2020-04-07] MEDS: amLODIPine BESYLATE 10 MG TABLET (FP) PO SCH (10:36)
[2020-04-07] MEDS: PRENATAL VITAMINS W/ FOLIC ACID TABLET (FP) PO SCH (10:36)
[2020-04-07] MEDS: ASPIRIN COATED 81 MG TABLET.EC PO SCH (10:37)
--- NOTE | 2020-04-07 10:45 | PN ---
[facility] CIWA - CIWA Score Nausea/Vomitin-No Nausea/No Vomiting Muscle Tremors: None Anxiety: 3 Agitation: 0-Normal Activity Paroxysmal Sweats: 3 Orientation: 0-Oriented Tacttile Disturbances: 0-None Auditory Disturbances: 0-None Visual Disturbances: 0-None Headache: 1-Very Mild CIWA-Ar Total Score: 7 S COWS - Scale Resting Pulse: 0= [place] 80 or Below Sweatin= Beads of Sweat on Face Restless Observation: 1= Difficult to Sit Still Pupil Size: 0= Normal to Room Light Bone or Joint Aches: 1= Mild Discomfort Runny Nose/ Eye Tearin= None GI Upset > 30mins: 0= None Tremor Observation of Outstretched Hands: 0= None Yawning Observation: 1= 1-2x During Session Anxiety or Irritability: 1=Feels Anxious/Irritable Goose Flesh Skin: 0=Smooth Skin COWS Score: 7 [facility] Progress Note (SOAP) Subjective: c/o anxiety, muscle aches, mild headache, and sweats. Objective: 04/07/20 10:44 Vital Signs 04/07/20 04/07/20 05:48 09:42 Temperature 96.8 F L 97.1 F L Pulse Rate 59 L 56 L Respiratory 19 18 Rate Blood Pressure 140/85 123/75 O2 Sat by Pulse 97 98 Oximetry (%) Labs pending. Assessment: 04/07/20 10:45 AOX3, in no acute respiratory distress. Full ROM, ambulating in the unit. Withdrawal symptoms. Plan: continue detox.
[2020-04-07 11:01] LABS: HEMATOCRIT 39.1 % (35.4-49); HEMOGLOBIN 12.9 GM/dL (11.7-16.9); MCH 28.6 pg (25.7-33.7); MEAN CELL VOLUME 86.6 fl (80-96); MEAN PLT VOLUME 10.1 fl (7.5-11.1); PLATELET COUNT 138 K/MM3 (134-434); RBC 4.52 M/mm3 (4.00-5.60); RDW 13.4 % (11.9-15.9); WHITE BLOOD COUNT 3.4 K/mm3 (4.0-10.0)
[2020-04-07 12:57] LABS: ALBUMIN 3.4 g/dl (3.4-5.0); BLOOD UREA NITROGEN 15.9 mg/dL (7-18); CALCIUM 8.8 mg/dL (8.5-10.1); POTASSIUM 3.8 mmol/L (3.5-5.1)
[2020-04-07 13:01] LABS: BILIRUBIN,TOTAL 0.4 mg/dL (0.2-1); CREATININE 1.3 mg/dL (0.55-1.3); TOT PROT 6.6 g/dl (6.4-8.2)
[2020-04-07] MEDS: THIAMINE HCL 100 MG TABLET (FP) PO SCH (22:24)
[2020-04-07] MEDS: MELATONIN 5 MG TABLETS PO SCH (22:24)
[2020-04-08] MEDS: chlordiazePOXIDE HCL 25 MG CAPSULE PO SCH ×4 (06:31→22:23)
[2020-04-08] MEDS: hydrOXYzine PAMOATE 25 MG CAPSULE (FP) PO SCH ×5 (06:32→22:22)
[2020-04-08] MEDS ORDERED: METHADONE HCL 10 MG TABLET (FOR DETOX USE ONLY) PO ONE (10:00)
[2020-04-08] MEDS: PRENATAL VITAMINS W/ FOLIC ACID TABLET (FP) PO SCH (10:48)
[2020-04-08] MEDS: cloNIDine HCL 0.1 MG TABLET PO SCH ×2 (10:48→22:22)
[2020-04-08] MEDS: amLODIPine BESYLATE 10 MG TABLET (FP) PO SCH (10:48)
[2020-04-08] MEDS: ASPIRIN COATED 81 MG TABLET.EC PO SCH (10:49)
--- NOTE | 2020-04-08 16:33 | PN ---
[facility] CIWA - CIWA Score Nausea/Vomitin-Mild Nausea/No Vomiting Muscle Tremors: 1-None Visible, but [place] Anxiety: 2 Agitation: 1-Slight > Activity Paroxysmal Sweats: 2 Orientation: 0-Oriented Tacttile Disturbances: 0-None Auditory Disturbances: 0-None Visual Disturbances: 0-None Headache: 0-None Present CIWA-Ar Total Score: 7 [facility] COWS - Scale Resting Pulse: 0= [place] 80 or Below Sweatin= Chills/Flushing Restless Observation: 0= Sits Still Pupil Size: 0= Normal to Room Light Bone or Joint Aches: 1= Mild Discomfort Runny Nose/ Eye Tearin= Nasal Congestion GI Upset > 30mins: 2= Nausea/Diarrhea Tremor Observation of Outstretched Hands: 1= Tremor [place], Not Seen Yawning Observation: 0= None Anxiety or Irritability: 1=Feels Anxious/Irritable Goose Flesh Skin: 0=Smooth Skin COWS Score: 7 [facility] Progress Note (SOAP) Subjective: "Methadone helps symptoms" Objective: 04/08/20 16:32 Last Vital Signs Temp Pulse Resp BP Pulse Ox 97.1 F L 50 L 16 107/60 96 04/08/20 12:22 04/08/20 12:22 04/08/20 12:22 04/08/20 12:22 04/08/20 12:22 Bradycardia noted: encourage PO water intake and frequent ambulation Laboratory Tests 04/06/20 04/07/20 04/07/20 16:45 07:30 07:30 WBC 3.4 L RBC 4.52 Hgb 12.9 Hct 39.1 D MCV 86.6 MCH 28.6 MCHC 33.0 RDW 13.4 Plt Count 138 MPV 10.1 Sodium Potassium Chloride Carbon Dioxide Anion Gap BUN Creatinine Est GFR (CKD-EPI)AfAm Est GFR (CKD-EPI)NonAf Random Glucose Calcium Total Bilirubin AST ALT Alkaline Phosphatase Total Protein Albumin Syphilis Serology Non-reactive COVID-19 (SARAH) Not detected 04/07/20 07:30 WBC RBC Hgb Hct MCV MCH MCHC RDW Plt Count MPV Sodium 140 Potassium 3.8 Chloride 107 Carbon Dioxide 28 Anion Gap 6 L BUN 15.9 Creatinine 1.3 Est GFR (CKD-EPI)AfAm 67.30 Est GFR (CKD-EPI)NonAf 58.07 Random Glucose 82 Calcium 8.8 Total Bilirubin 0.4 AST 17 ALT 19 Alkaline Phosphatase 98 Total Protein 6.6 Albumin 3.4 Syphilis Serology COVID-19 (SARAH) Labs reviewed Assessment: 04/08/20 16:33 Withdrawal sxs Plan: Continue detox Encourage PO water intake
[2020-04-08] MEDS: THIAMINE HCL 100 MG TABLET (FP) PO SCH (22:22)
[2020-04-08] MEDS: MELATONIN 5 MG TABLETS PO SCH (22:22)
[2020-04-09] MEDS ORDERED: chlordiazePOXIDE HCL 10 MG CAPSULE PO PRN
[2020-04-09] MEDS: chlordiazePOXIDE HCL 10 MG CAPSULE PO SCH ×4 (06:20→23:00)
[2020-04-09] MEDS: hydrOXYzine PAMOATE 25 MG CAPSULE (FP) PO SCH ×5 (06:20→23:00)
--- NOTE | 2020-04-09 09:42 | PN ---
Teaching Attending Note Name of Resident: Jesus Painting ATTENDING PHYSICIAN STATEMENT I saw and evaluated the patient. I reviewed the resident's note and discussed the case with the resident. I agree with the resident's findings and plan as documented. SUBJECTIVE: OBJECTIVE: ASSESSMENT AND PLAN: Patient is a 64 year old male with history of hypertension, alcohol use disorder, opiate use disorder, presents for detox. Prior detox was 12/29 -01/04. Prior rehab was 09/23- 10/07. Impresssion 1. Alcohol use disorder 2. Opiate use disorder 3. Cannabis dependence Plan 1. Admit for alcohol and opiate detox protocol
[2020-04-09] MEDS ORDERED: METHADONE (DETOX) 10 MG, METHADONE (DETOX) 5 MG PO ONE (10:00)
--- NOTE | 2020-04-09 10:29 | EKG ---
Test Reason : Blood Pressure : / mmHG Vent. Rate : 043 BPM Atrial Rate : 043 BPM P-R Int : 178 ms QRS Dur : 090 ms QT Int : 474 ms P-R-T Axes : 048 -30 013 degrees QTc Int : 400 ms MARKED SINUS BRADYCARDIA LEFT AXIS DEVIATION ABNORMAL ECG WHEN COMPARED WITH ECG OF 02-MAY-2019 19:03, CRITERIA FOR SEPTAL INFARCT ARE NO LONGER PRESENT Confirmed by Jeromy Rabago ([id number]) on 04/09/2020 10:28:53 AM Referred By: Confirmed By:Jeromy Rabago
--- NOTE | 2020-04-09 10:49 | PN ---
[facility] CIWA - CIWA Score Nausea/Vomitin-No Nausea/No Vomiting Muscle Tremors: 1-None Visible, but [place] Anxiety: 3 Agitation: 2 Paroxysmal Sweats: 1-Minimal [place] Moist Orientation: 0-Oriented Tacttile Disturbances: 0-None Auditory Disturbances: 0-None Visual Disturbances: 0-None Headache: 0-None Present CIWA-Ar Total Score: 7 S COWS - Scale Resting Pulse: 0= [place] 80 or Below Sweatin= Chills/Flushing Restless Observation: 0= Sits Still Pupil Size: 0= Normal to Room Light Bone or Joint Aches: 1= Mild Discomfort Runny Nose/ Eye Tearin= None GI Upset > 30mins: 0= None Tremor Observation of Outstretched Hands: 1= Tremor [place], Not Seen Yawning Observation: 0= None Anxiety or Irritability: 1=Feels Anxious/Irritable Goose Flesh Skin: 0=Smooth Skin COWS Score: 4 S Progress Note (SOAP) Subjective: c/o decreased withdrawal sx with meds-sl anxiety,sweats. Objective: 04/09/20 10:46 Vital Signs - 24 hr 04/08/20 04/08/20 04/08/20 12:22 17:27 21:02 Temperature 97.1 F L 97.3 F L 97.3 F L Pulse Rate 50 L 55 L 62 Respiratory 16 18 16 Rate Blood Pressure 107/60 117/76 119/69 O2 Sat by Pulse 96 97 Oximetry (%) 04/09/20 07:00 Temperature 97.5 F L Pulse Rate 48 L Respiratory 18 Rate Blood Pressure 137/95 O2 Sat by Pulse 97 Oximetry (%) Laboratory Tests 04/06/20 04/07/20 04/07/20 16:45 07:30 07:30 WBC 3.4 L RBC 4.52 Hgb 12.9 Hct 39.1 D MCV 86.6 MCH 28.6 MCHC 33.0 RDW 13.4 Plt Count 138 MPV 10.1 Sodium Potassium Chloride Carbon Dioxide Anion Gap BUN Creatinine Est GFR (CKD-EPI)AfAm Est GFR (CKD-EPI)NonAf Random Glucose Calcium Total Bilirubin AST ALT Alkaline Phosphatase Total Protein Albumin Syphilis Serology Non-reactive COVID-19 (SARAH) Not detected 04/07/20 07:30 WBC RBC Hgb Hct MCV MCH MCHC RDW Plt Count MPV Sodium 140 Potassium 3.8 Chloride 107 Carbon Dioxide 28 Anion Gap 6 L BUN 15.9 Creatinine 1.3 Est GFR (CKD-EPI)AfAm 67.30 Est GFR (CKD-EPI)NonAf 58.07 Random Glucose 82 Calcium 8.8 Total Bilirubin 0.4 AST 17 ALT 19 Alkaline Phosphatase 98 Total Protein 6.6 Albumin 3.4 Syphilis Serology COVID-19 (SARAH) covid-19 not detected alert o x 3 nad oob ambulating with steady gait Assessment: 04/09/20 10:47 mild withdrawal sx Plan: cont detox increase po fluids maintain safety
[2020-04-09] MEDS: amLODIPine BESYLATE 10 MG TABLET (FP) PO SCH (11:07)
[2020-04-09] MEDS: PRENATAL VITAMINS W/ FOLIC ACID TABLET (FP) PO SCH (11:07)
[2020-04-09] MEDS: ASPIRIN COATED 81 MG TABLET.EC PO SCH (11:10)
[2020-04-09] MEDS: cloNIDine HCL 0.1 MG TABLET PO SCH ×2 (11:10→23:00)
[2020-04-09] MEDS ORDERED: METHADONE HCL 10 MG TABLET (FOR DETOX USE ONLY) ONE (11:12)
[2020-04-09] MEDS ORDERED: METHADONE HCL 5 MG TABLET (FOR DETOX USE ONLY) ONE (11:12)
[2020-04-09] MEDS: THIAMINE HCL 100 MG TABLET (FP) PO SCH (23:00)
[2020-04-09] MEDS: MELATONIN 5 MG TABLETS PO SCH (23:00)
[2020-04-10] MEDS: chlordiazePOXIDE HCL 10 MG CAPSULE PO SCH ×2 (06:23→17:47)
[2020-04-10] MEDS: hydrOXYzine PAMOATE 25 MG CAPSULE (FP) PO SCH ×5 (06:23→22:31)
[2020-04-10] MEDS ORDERED: METHADONE HCL 10 MG TABLET (FOR DETOX USE ONLY) PO ONE (10:00)
[2020-04-10] MEDS: PRENATAL VITAMINS W/ FOLIC ACID TABLET (FP) PO SCH (10:30)
[2020-04-10] MEDS: ASPIRIN COATED 81 MG TABLET.EC PO SCH (10:31)
[2020-04-10] MEDS: cloNIDine HCL 0.1 MG TABLET PO SCH ×2 (10:31→22:31)
[2020-04-10] MEDS: amLODIPine BESYLATE 10 MG TABLET (FP) PO SCH (10:31)
--- NOTE | 2020-04-10 12:41 | PN ---
[facility] CIWA - CIWA Score Nausea/Vomitin-No Nausea/No Vomiting Muscle Tremors: 1-None Visible, but [place] Anxiety: 4-Mod. Anxious/Guarded Agitation: 0-Normal Activity Paroxysmal Sweats: 1-Minimal [place] Moist Orientation: 0-Oriented Tacttile Disturbances: 0-None Auditory Disturbances: 0-None Visual Disturbances: 0-None Headache: 0-None Present CIWA-Ar Total Score: 6 S COWS - Scale Resting Pulse: 0= [place] 80 or Below Sweatin= Chills/Flushing Restless Observation: 0= Sits Still Pupil Size: 0= Normal to Room Light Bone or Joint Aches: 1= Mild Discomfort Runny Nose/ Eye Tearin= None GI Upset > 30mins: 0= None Tremor Observation of Outstretched Hands: 0= None Yawning Observation: 0= None Anxiety or Irritability: 0= None Goose Flesh Skin: 0=Smooth Skin COWS Score: 2 S Progress Note (SOAP) Subjective: c/o sweats anxiety Objective: 04/10/20 12:39 Vital Signs - 24 hr 04/09/20 04/09/20 04/09/20 13:07 16:53 19:50 Temperature 97.5 F L 97.3 F L 97.7 F Pulse Rate 53 L 60 79 Respiratory 20 18 18 Rate Blood Pressure 120/71 114/70 127/69 O2 Sat by Pulse 95 95 Oximetry (%) 04/10/20 06:15 Temperature 97.1 F L Pulse Rate 47 L Respiratory 18 Rate Blood Pressure 141/77 O2 Sat by Pulse 95 Oximetry (%) Laboratory Tests 04/06/20 04/07/20 04/07/20 16:45 07:30 07:30 WBC 3.4 L RBC 4.52 Hgb 12.9 Hct 39.1 D MCV 86.6 MCH 28.6 MCHC 33.0 RDW 13.4 Plt Count 138 MPV 10.1 Sodium Potassium Chloride Carbon Dioxide Anion Gap BUN Creatinine Est GFR (CKD-EPI)AfAm Est GFR (CKD-EPI)NonAf Random Glucose Calcium Total Bilirubin AST ALT Alkaline Phosphatase Total Protein Albumin Syphilis Serology Non-reactive COVID-19 (SARAH) Not detected 04/07/20 07:30 WBC RBC Hgb Hct MCV MCH MCHC RDW Plt Count MPV Sodium 140 Potassium 3.8 Chloride 107 Carbon Dioxide 28 Anion Gap 6 L BUN 15.9 Creatinine 1.3 Est GFR (CKD-EPI)AfAm 67.30 Est GFR (CKD-EPI)NonAf 58.07 Random Glucose 82 Calcium 8.8 Total Bilirubin 0.4 AST 17 ALT 19 Alkaline Phosphatase 98 Total Protein 6.6 Albumin 3.4 Syphilis Serology COVID-19 (SARAH) Assessment: 04/10/20 12:40 withdrawal sx Plan: cont detox increase po fluids maintain safety scheduled for discharge tomorrow
[2020-04-10] MEDS: MELATONIN 5 MG TABLETS PO SCH (22:31)
[2020-04-10] MEDS: THIAMINE HCL 100 MG TABLET (FP) PO SCH (22:32)
[2020-04-11] MEDS ORDERED: chlordiazePOXIDE HCL 10 MG CAPSULE PO ONE (05:00)
[2020-04-11] MEDS ORDERED: METHADONE HCL 5 MG TABLET (FOR DETOX USE ONLY) PO ONE (06:00)
[2020-04-11 06:23] VITALS: BP 141/88; PULSE 51; TEMP 97.3
[2020-04-11] MEDS: hydrOXYzine PAMOATE 25 MG CAPSULE (FP) PO SCH ×2 (06:40→09:43)
--- NOTE | 2020-04-11 08:20 | DS ---
[facility] Detox Discharge Summary Admission Date: 04/06/20 Discharge Date: 04/11/20 - History Present History: Alcohol Dependence, Opioid Dependence Additional Comments: Pt reports has own meds and has current primary care provider, Dr. Grissom at [place], [place]. Pertinent Past History: HtN Vit D defficiency - Physical Exam Results Vital Signs: Vital Signs Temperature 97.3 F L 04/11/20 06:00 Pulse Rate 51 L 04/11/20 06:00 Respiratory Rate 18 04/11/20 06:00 Blood Pressure 141/88 04/11/20 06:00 O2 Sat by Pulse Oximetry (%) 94 L 04/11/20 06:00 Aklert o x 3 nad oob ambulating with steady gait cardiac:s1 s2, rrr lungs:ctab abdomen:soft,+bs,nt,nd extremities:no edema, skin intact Pertinent Admission Physical Exam Findings: Withdrawal sx Laboratory Tests 04/06/20 04/07/20 04/07/20 16:45 07:30 07:30 WBC 3.4 L RBC 4.52 Hgb 12.9 Hct 39.1 D MCV 86.6 MCH 28.6 MCHC 33.0 RDW 13.4 Plt Count 138 MPV 10.1 Sodium Potassium Chloride Carbon Dioxide Anion Gap BUN Creatinine Est GFR (CKD-EPI)AfAm Est GFR (CKD-EPI)NonAf Random Glucose Calcium Total Bilirubin AST ALT Alkaline Phosphatase Total Protein Albumin Syphilis Serology Non-reactive COVID-19 (SARAH) Not detected 04/07/20 07:30 WBC RBC Hgb Hct MCV MCH MCHC RDW Plt Count MPV Sodium 140 Potassium 3.8 Chloride 107 Carbon Dioxide 28 Anion Gap 6 L BUN 15.9 Creatinine 1.3 Est GFR (CKD-EPI)AfAm 67.30 Est GFR (CKD-EPI)NonAf 58.07 Random Glucose 82 Calcium 8.8 Total Bilirubin 0.4 AST 17 ALT 19 Alkaline Phosphatase 98 Total Protein 6.6 Albumin 3.4 Syphilis Serology COVID-19 (SARAH) - Treatment Hospital Course: Detox Protocol Followed, Detoxed Safely, Responded well, Discharged Condition Good, Rehab Referral Accepted Patient has Accepted a Rehab Referral to: [facility] - Medication Discharge Medications: Ambulatory Orders Aspirin [Aspirin EC] 81 mg PO DAILY #30 tablet. 05/06/19 Ergocalciferol (Vitamin D2) [Vitamin D2] 50,000 unit PO WEEKLY 09/23/19 Amlodipine Besylate [Norvasc -] 10 mg PO DAILY #30 tablet 01/05/20 cloNIDine HCL [Catapres -] 0.2 mg PO BID tablet 01/05/20 - Diagnosis (1) Alcohol dependence with uncomplicated withdrawal Status: Acute (2) Opioid dependence with withdrawal Status: Acute (3) Cannabis dependence Status: Acute (4) Essential hypertension Status: Chronic - AMA Did Patient Leave Against Medical Advice: No
[2020-04-11] MEDS: PRENATAL VITAMINS W/ FOLIC ACID TABLET (FP) PO SCH (09:42)
[2020-04-11] MEDS: ASPIRIN COATED 81 MG TABLET.EC PO SCH (09:43)
[2020-04-11] MEDS: amLODIPine BESYLATE 10 MG TABLET (FP) PO SCH (09:43)
[2020-04-11] MEDS: cloNIDine HCL 0.1 MG TABLET PO SCH (09:43)
== END 2020-04-11 09:45 | disposition home or self-care (01) | DRG 773 ==
LOC: YASAS 13:29 → Y5N DETOX 16:24
PROVIDERS: ADMIT Allergy & Immunology; ATTEND Allergy & Immunology
PROC: HZ2ZZZZ Detoxification Services for Substance Abuse Treatment (ICD-10-PCS; principal; 2020-04-06)
DX: F11.23 Opioid dependence with withdrawal (principal); F10.230 Alcohol dependence with withdrawal, uncomplicated; F12.20 Cannabis dependence, uncomplicated; I10 Essential (primary) hypertension; R00.1 Bradycardia, unspecified; Z88.8 Allergy status to other drugs, medicaments and biological substances
CPT/HCPCS: 36415; 80053; 85027; 86780; 93005; 93010; J0735; U0003

== ENCOUNTER 2020-09-01 13:56 | Inpatient (IN) | payer OTHER ==
[2020-09-01 16:04] VITALS: BMI 29.4
[2020-09-01] MEDS ORDERED: MENTHOL/PHENOL 1 EACH UD MM PRN (18:14)
[2020-09-01] MEDS ORDERED: IBUPROFEN 400 MG TABLET (FP) PO PRN (18:14)
[2020-09-01] MEDS ORDERED: METHOCARBAMOL 500 MG TABLET PO PRN (18:14)
[2020-09-01] MEDS ORDERED: MAGNESIUM HYDROX 2400MG/30ML ORAL SUSPENSION 30 ML CUP PO PRN (18:14)
[2020-09-01] MEDS ORDERED: DICYCLOMINE HCL 10 MG CAPSULE PO PRN (18:14)
[2020-09-01] MEDS ORDERED: BISMUTH SUBSALICYLATE 524 MG/30 ML UD PO PRN (18:14)
[2020-09-01] MEDS ORDERED: ACETAMINOPHEN 325 MG TABLET (FP) PO PRN ×2 (18:14)
[2020-09-01] MEDS ORDERED: cloNIDine HCL 0.1 MG TABLET PO PRN (18:14)
[2020-09-01] MEDS ORDERED: ONDANSETRON *ODT* 4 MG TABLET SL PRN (18:14)
[2020-09-01] MEDS ORDERED: MAG HYDROX/AL HYDROX/SIMETH 30 ML UNIT-DOSE CUP PO PRN (18:14)
[2020-09-01] MEDS ORDERED: MAGNESIUM CITRATE 300 ML BOTTLE PO PRN (18:14)
[2020-09-01] MEDS ORDERED: P-EPHED 60MG/TRIPROLIDI 2.5MG TABLET PO PRN (18:14)
[2020-09-01] MEDS ORDERED: METHADONE HCL 10 MG TABLET (FOR DETOX USE ONLY) PO ONE (18:14)
[2020-09-01] MEDS ORDERED: guaiFENesin 200 MG/10 ML 10 ML UNIT-DOSE CUPS PO PRN (18:14)
[2020-09-01] MEDS ORDERED: diazePAM 5 MG TABLET PO PRN (18:17)
[2020-09-01] MEDS: THIAMINE HCL 100 MG TABLET (FP) PO SCH (22:06)
[2020-09-01] MEDS: MELATONIN 5 MG TABLETS PO SCH (22:06)
[2020-09-02] MEDS ORDERED: METHADONE HCL 10 MG TABLET (FOR DETOX USE ONLY) PO ONE (10:00)
[2020-09-02] MEDS: ASPIRIN COATED 81 MG TABLET.EC PO SCH (10:08)
[2020-09-02] MEDS: amLODIPine BESYLATE 10 MG TABLET (FP) PO SCH (10:08)
[2020-09-02] MEDS: PRENATAL VITAMINS W/ FOLIC ACID TABLET (FP) PO SCH (10:08)
[2020-09-02 10:41] LABS: HEMATOCRIT 37.1 % (35.4-49); HEMOGLOBIN 12.6 GM/dL (11.7-16.9); MCH 29.1 pg (25.7-33.7); MCHC 34.1 g/dl (32.0-35.9); MEAN CELL VOLUME 85.5 fl (80-96); MEAN PLT VOLUME 9.9 fl (7.5-11.1); PLATELET COUNT 140 K/MM3 (134-434); POTASSIUM 3.7 mmol/L (3.5-5.1); RBC 4.33 M/mm3 (4.00-5.60); RDW 13.1 % (11.9-15.9); WHITE BLOOD COUNT 2.6 K/mm3 (4.0-10.0)
[2020-09-02 10:46] LABS: ALBUMIN 3.3 g/dl (3.4-5.0); CALCIUM 8.4 mg/dL (8.5-10.1)
[2020-09-02 10:47] LABS: BLOOD UREA NITROGEN 15.6 mg/dL (7-18)
[2020-09-02 10:51] LABS: BILIRUBIN,TOTAL 1.1 mg/dL (0.2-1); TOT PROT 6.3 g/dl (6.4-8.2)
[2020-09-02] MEDS: MELATONIN 5 MG TABLETS PO SCH (22:01)
[2020-09-02] MEDS: MINERAL OIL/PETROLAT/WATER TOPICAL CREAM 113 GM JAR TP SCH (22:01)
[2020-09-02] MEDS: THIAMINE HCL 100 MG TABLET (FP) PO SCH (22:01)
[2020-09-03 09:16] LABS: HIV INTERPRETATION NEGATIVE (NEGATIVE)
[2020-09-03] MEDS ORDERED: METHADONE HCL 5 MG TABLET (FOR DETOX USE ONLY) ONE (09:38)
[2020-09-03] MEDS ORDERED: METHADONE HCL 10 MG TABLET (FOR DETOX USE ONLY) ONE (09:38)
[2020-09-03] MEDS: PRENATAL VITAMINS W/ FOLIC ACID TABLET (FP) PO SCH (09:40)
[2020-09-03] MEDS: ASPIRIN COATED 81 MG TABLET.EC PO SCH (09:40)
[2020-09-03] MEDS: amLODIPine BESYLATE 10 MG TABLET (FP) PO SCH (09:40)
[2020-09-03] MEDS: MINERAL OIL/PETROLAT/WATER TOPICAL CREAM 113 GM JAR TP SCH ×2 (09:41→22:09)
[2020-09-03] MEDS ORDERED: METHADONE (DETOX) 10 MG, METHADONE (DETOX) 5 MG PO ONE (10:00)
[2020-09-03] MEDS ORDERED: METHADONE HCL 10 MG TABLET (FOR DETOX USE ONLY) PO ONE (10:00)
[2020-09-03] MEDS: THIAMINE HCL 100 MG TABLET (FP) PO SCH (22:09)
[2020-09-03] MEDS: MELATONIN 5 MG TABLETS PO SCH (22:09)
[2020-09-04] MEDS ORDERED: METHADONE HCL 10 MG TABLET (FOR DETOX USE ONLY) ONE (09:04)
[2020-09-04] MEDS ORDERED: METHADONE HCL 5 MG TABLET (FOR DETOX USE ONLY) ONE (09:05)
[2020-09-04] MEDS ORDERED: METHADONE (DETOX) 10 MG, METHADONE (DETOX) 5 MG PO ONE (10:00)
[2020-09-04] MEDS: PRENATAL VITAMINS W/ FOLIC ACID TABLET (FP) PO SCH (10:09)
[2020-09-04] MEDS: amLODIPine BESYLATE 10 MG TABLET (FP) PO SCH (10:10)
[2020-09-04] MEDS: MINERAL OIL/PETROLAT/WATER TOPICAL CREAM 113 GM JAR TP SCH ×2 (10:10→22:12)
[2020-09-04] MEDS: ASPIRIN COATED 81 MG TABLET.EC PO SCH (10:10)
[2020-09-04 15:05] LABS: URINE APPEARANCE CLEAR; URINE BILIRUBIN NEGATIVE (NEGATIVE); URINE COLOR YELLOW; URINE GLUCOSE (UA) NEGATIVE (NEGATIVE); URINE KETONE NEGATIVE (NEGATIVE); URINE LEUK ESTERASE NEGATIVE (NEGATIVE); URINE NITRITE NEGATIVE (NEGATIVE); URINE PROTEIN NEGATIVE (NEGATIVE); URINE UROBILINOGEN 0.2 mg/dL (0.2-1.0)
[2020-09-04] MEDS: THIAMINE HCL 100 MG TABLET (FP) PO SCH (22:11)
[2020-09-04] MEDS: MELATONIN 5 MG TABLETS PO SCH (22:12)
[2020-09-05 09:02] VITALS: BP 137/82; PULSE 62; TEMP 96.9
[2020-09-05] MEDS ORDERED: METHADONE HCL 10 MG TABLET (FOR DETOX USE ONLY) PO ONE (10:00)
[2020-09-06] MEDS ORDERED: METHADONE HCL 5 MG TABLET (FOR DETOX USE ONLY) PO ONE (06:00)
[2020-09-07] MEDS ORDERED: ERGOCALCIFEROL (VIT D2) 50,000 UNIT (1.25 MG) CAPSULE PO SCH (10:00)
== END 2020-09-05 09:28 | disposition home or self-care (01) | DRG 773 ==
LOC: YASAS 13:56 → Y3N 18:06
PROVIDERS: ADMIT Allergy & Immunology; ATTEND Allergy & Immunology
PROC: HZ2ZZZZ Detoxification Services for Substance Abuse Treatment (ICD-10-PCS; principal; 2020-09-01)
DX: F11.23 Opioid dependence with withdrawal (principal); F10.230 Alcohol dependence with withdrawal, uncomplicated; F19.24 Other psychoactive substance dependence with psychoactive substance-induced mood disorder; F19.280 Other psychoactive substance dependence with psychoactive substance-induced anxiety disorder; F19.282 Other psychoactive substance dependence with psychoactive substance-induced sleep disorder; I10 Essential (primary) hypertension; D72.819 Decreased white blood cell count, unspecified; M19.90 Unspecified osteoarthritis, unspecified site; R63.8 Other symptoms and signs concerning food and fluid intake; Z87.891 Personal history of nicotine dependence; Z88.8 Allergy status to other drugs, medicaments and biological substances; Z56.0 Unemployment, unspecified
CPT/HCPCS: 36415; 80053; 81003; 85027; 86780; 87389; 93005; 93010; C9803; Q0162; U0003

== ENCOUNTER 2020-10-17 12:19 | Inpatient (IN) | payer OTHER ==
[2020-10-17] MEDS ORDERED: NALOXONE HCL 0.4 MG/ML VIAL IM PRN (14:16)
[2020-10-17] MEDS ORDERED: METHADONE HCL 10 MG TABLET (FOR DETOX USE ONLY) PO ONE (14:16)
[2020-10-17] MEDS ORDERED: MAG HYDROX/AL HYDROX/SIMETH 30 ML UNIT-DOSE CUP PO PRN (14:16)
[2020-10-17] MEDS ORDERED: MAGNESIUM HYDROX 2400MG/30ML ORAL SUSPENSION 30 ML CUP PO PRN (14:16)
[2020-10-17] MEDS ORDERED: IBUPROFEN 400 MG TABLET (FP) PO PRN (14:16)
[2020-10-17] MEDS ORDERED: METHOCARBAMOL 500 MG TABLET PO PRN (14:16)
[2020-10-17] MEDS ORDERED: MENTHOL/PHENOL 1 EACH UD MM PRN (14:16)
[2020-10-17] MEDS ORDERED: cloNIDine HCL 0.1 MG TABLET PO PRN (14:16)
[2020-10-17] MEDS ORDERED: ONDANSETRON *ODT* 4 MG TABLET SL PRN (14:16)
[2020-10-17] MEDS ORDERED: MAGNESIUM CITRATE 300 ML BOTTLE PO PRN (14:16)
[2020-10-17] MEDS ORDERED: ACETAMINOPHEN 325 MG TABLET (FP) PO PRN (14:16)
[2020-10-17] MEDS ORDERED: BISMUTH SUBSALICYLATE 262 MG/15 ML BTL PO PRN (14:16)
[2020-10-17 14:46] VITALS: BMI 28.7
[2020-10-17] MEDS ORDERED: COLLOIDAL OATMEAL 1 BAR EACH TP PRN (15:35)
[2020-10-17] MEDS: PRENATAL VITAMINS W/ FOLIC ACID TABLET (FP) PO SCH (16:43)
[2020-10-17] MEDS: hydrOXYzine PAMOATE 25 MG CAPSULE (FP) PO SCH ×2 (17:22→22:29)
[2020-10-17 17:23] LABS: HEMOGLOBIN 13.9 GM/dL (11.7-16.9); MCH 28.9 pg (25.7-33.7); MCHC 33.2 g/dl (32.0-35.9); MEAN CELL VOLUME 87.2 fl (80-96); MEAN PLT VOLUME 9.7 fl (7.5-11.1); PLATELET COUNT 181 K/MM3 (134-434); RBC 4.81 M/mm3 (4.00-5.60); RDW 13.6 % (11.9-15.9); WHITE BLOOD COUNT 2.3 K/mm3 (4.0-10.0)
[2020-10-17 17:24] LABS: POTASSIUM 4.3 mmol/L (3.5-5.1)
[2020-10-17 17:31] LABS: ALBUMIN 3.8 g/dl (3.4-5.0)
[2020-10-17 17:32] LABS: BLOOD UREA NITROGEN 17.9 mg/dL (7-18); CALCIUM 8.6 mg/dL (8.5-10.1)
[2020-10-17 17:37] LABS: BILIRUBIN,TOTAL 0.7 mg/dL (0.2-1); TOT PROT 7.5 g/dl (6.4-8.2)
[2020-10-17] MEDS: cloNIDine HCL 0.1 MG TABLET PO SCH (22:28)
[2020-10-17] MEDS: THIAMINE HCL 100 MG TABLET (FP) PO SCH (22:28)
[2020-10-17] MEDS: MINERAL OIL/PETROLAT/WATER TOPICAL CREAM 113 GM JAR TP SCH (22:29)
[2020-10-17] MEDS: MELATONIN 5 MG TABLETS PO SCH (22:29)
[2020-10-18] MEDS: hydrOXYzine PAMOATE 25 MG CAPSULE (FP) PO SCH ×5 (06:27→23:35)
[2020-10-18] MEDS ORDERED: METHADONE HCL 10 MG TABLET (FOR DETOX USE ONLY) ONE (08:48)
[2020-10-18] MEDS ORDERED: METHADONE HCL 5 MG TABLET (FOR DETOX USE ONLY) ONE (08:48)
[2020-10-18] MEDS ORDERED: METHADONE (DETOX) 20 MG, METHADONE (DETOX) 5 MG PO ONE (10:00)
[2020-10-18] MEDS: cloNIDine HCL 0.1 MG TABLET PO SCH ×2 (10:48→23:27)
[2020-10-18] MEDS: ASPIRIN COATED 81 MG TABLET.EC PO SCH (11:10)
[2020-10-18] MEDS: amLODIPine BESYLATE 10 MG TABLET (FP) PO SCH (11:10)
[2020-10-18] MEDS: PRENATAL VITAMINS W/ FOLIC ACID TABLET (FP) PO SCH (11:10)
[2020-10-18] MEDS: MINERAL OIL/PETROLAT/WATER TOPICAL CREAM 113 GM JAR TP SCH ×2 (11:10→23:35)
[2020-10-18] MEDS: MELATONIN 5 MG TABLETS PO SCH (23:35)
[2020-10-18] MEDS: THIAMINE HCL 100 MG TABLET (FP) PO SCH (23:35)
[2020-10-19] MEDS: hydrOXYzine PAMOATE 25 MG CAPSULE (FP) PO SCH ×4 (07:59→17:26)
[2020-10-19] MEDS ORDERED: METHADONE HCL 10 MG TABLET (FOR DETOX USE ONLY) PO ONE (10:00)
[2020-10-19] MEDS: cloNIDine HCL 0.1 MG TABLET PO SCH (10:03)
[2020-10-19] MEDS: ASPIRIN COATED 81 MG TABLET.EC PO SCH (10:04)
[2020-10-19] MEDS: MINERAL OIL/PETROLAT/WATER TOPICAL CREAM 113 GM JAR TP SCH (10:04)
[2020-10-19] MEDS: PRENATAL VITAMINS W/ FOLIC ACID TABLET (FP) PO SCH (10:05)
[2020-10-19] MEDS: amLODIPine BESYLATE 10 MG TABLET (FP) PO SCH (10:05)
[2020-10-19 11:12] LABS: BASO % 0.7 % (0-2.0); EOS % 0.4 % (0-4.5); HEMATOCRIT 38.1 % (35.4-49); HEMOGLOBIN 12.6 GM/dL (11.7-16.9); LYMPH % 49.9 % (8-40); MCH 28.7 pg (25.7-33.7); MCHC 33.1 g/dl (32.0-35.9); MEAN CELL VOLUME 86.6 fl (80-96); MONO % 27.2 % (3.8-10.2); NEUT % 21.8 % (42.8-82.8); PLATELET COUNT 152 K/MM3 (134-434); RDW 13.2 % (11.9-15.9); WHITE BLOOD COUNT 2.7 K/mm3 (4.0-10.0)
[2020-10-19 12:49] LABS: PLATELET ESTIMATE ADEQUATE
[2020-10-19 18:17] LABS: PH,URINE 6.5 (5.0-8.0); URINE APPEARANCE CLEAR; URINE BILIRUBIN NEGATIVE (NEGATIVE); URINE COLOR YELLOW; URINE GLUCOSE (UA) NEGATIVE (NEGATIVE); URINE KETONE NEGATIVE (NEGATIVE); URINE LEUK ESTERASE NEGATIVE (NEGATIVE); URINE NITRITE NEGATIVE (NEGATIVE); URINE PROTEIN NEGATIVE (NEGATIVE); URINE UROBILINOGEN 0.2 mg/dL (0.2-1.0)
[2020-10-19 18:24] VITALS: BP 152/78; PULSE 57; TEMP 97.1
[2020-10-20] MEDS ORDERED: METHADONE (DETOX) 10 MG, METHADONE (DETOX) 5 MG PO ONE (10:00)
[2020-10-20] MEDS ORDERED: ERGOCALCIFEROL (VIT D2) 50,000 UNIT (1.25 MG) CAPSULE PO SCH (10:00)
[2020-10-21] MEDS ORDERED: METHADONE HCL 10 MG TABLET (FOR DETOX USE ONLY) PO ONE (10:00)
[2020-10-22] MEDS ORDERED: METHADONE HCL 5 MG TABLET (FOR DETOX USE ONLY) PO ONE (06:00)
== END 2020-10-19 18:32 | disposition left against medical advice (07) | DRG 773 ==
LOC: YASAS 12:19 → Y6N 14:51
PROVIDERS: ADMIT Allergy & Immunology; ATTEND Allergy & Immunology
PROC: HZ2ZZZZ Detoxification Services for Substance Abuse Treatment (ICD-10-PCS; principal; 2020-10-17)
DX: F11.23 Opioid dependence with withdrawal (principal); F10.20 Alcohol dependence, uncomplicated; U07.1 COVID-19; G62.9 Polyneuropathy, unspecified; D72.819 Decreased white blood cell count, unspecified; E55.9 Vitamin D deficiency, unspecified; I10 Essential (primary) hypertension; M17.0 Bilateral primary osteoarthritis of knee; M16.0 Bilateral primary osteoarthritis of hip; Z88.8 Allergy status to other drugs, medicaments and biological substances; Z72.0 Tobacco use
CPT/HCPCS: 36415; 80053; 81003; 85025; 85027; 86780; C9803; J0735; Q0162; U0003

== ENCOUNTER 2020-12-31 19:35 | Inpatient (IN) | payer OTHER ==
[2020-12-31 21:11] VITALS: BMI 27.8
[2020-12-31] MEDS ORDERED: MAGNESIUM HYDROX 2400MG/30ML ORAL SUSPENSION 30 ML CUP PO PRN (21:32)
[2020-12-31] MEDS ORDERED: P-EPHED 60MG/TRIPROLIDI 2.5MG TABLET PO PRN (21:32)
[2020-12-31] MEDS ORDERED: IBUPROFEN 400 MG TABLET (FP) PO PRN (21:32)
[2020-12-31] MEDS ORDERED: MENTHOL/PHENOL 1 EACH UD MM PRN (21:32)
[2020-12-31] MEDS ORDERED: MAG HYDROX/AL HYDROX/SIMETH 30 ML UNIT-DOSE CUP PO PRN (21:32)
[2020-12-31] MEDS ORDERED: ONDANSETRON *ODT* 4 MG TABLET SL PRN (21:32)
[2020-12-31] MEDS ORDERED: MAGNESIUM CITRATE 300 ML BOTTLE PO PRN (21:32)
[2020-12-31] MEDS ORDERED: BISMUTH SUBSALICYLATE 524 MG/30 ML UD PO PRN (21:32)
[2020-12-31] MEDS ORDERED: ACETAMINOPHEN 325 MG TABLET (FP) PO PRN ×2 (21:32)
[2020-12-31] MEDS ORDERED: cloNIDine HCL 0.1 MG TABLET PO PRN (21:33)
[2020-12-31] MEDS ORDERED: METHADONE HCL 10 MG TABLET (FOR DETOX USE ONLY) PO ONE (21:33)
[2020-12-31] MEDS: ASPIRIN COATED 81 MG TABLET.EC PO SCH (23:11)
[2020-12-31] MEDS: amLODIPine BESYLATE 10 MG TABLET (FP) PO SCH (23:11)
[2020-12-31] MEDS: THIAMINE HCL 100 MG TABLET (FP) PO SCH (23:11)
[2020-12-31] MEDS: MELATONIN 5 MG TABLETS PO SCH (23:16)
[2021-01-01] MEDS ORDERED: METHADONE HCL 5 MG TABLET (FOR DETOX USE ONLY) ONE (08:44)
[2021-01-01] MEDS ORDERED: METHADONE HCL 10 MG TABLET (FOR DETOX USE ONLY) ONE (08:44)
[2021-01-01] MEDS ORDERED: METHADONE (DETOX) 10 MG, METHADONE (DETOX) 5 MG PO ONE (10:00)
[2021-01-01] MEDS ORDERED: METHADONE HCL 10 MG TABLET (FOR DETOX USE ONLY) PO ONE (10:00)
[2021-01-01] MEDS: amLODIPine BESYLATE 10 MG TABLET (FP) PO SCH (10:30)
[2021-01-01] MEDS: ASPIRIN COATED 81 MG TABLET.EC PO SCH (10:30)
[2021-01-01] MEDS: PRENATAL VITAMINS W/ FOLIC ACID TABLET (FP) PO SCH (10:31)
[2021-01-01 11:07] LABS: CALCIUM 8.8 mg/dL (8.5-10.1)
[2021-01-01 11:08] LABS: ALBUMIN 3.3 g/dl (3.4-5.0); BLOOD UREA NITROGEN 18.7 mg/dL (7-18)
[2021-01-01 11:11] LABS: CREATININE 1.1 mg/dL (0.55-1.3)
[2021-01-01 11:12] LABS: BILIRUBIN,TOTAL 0.6 mg/dL (0.2-1); TOT PROT 6.6 g/dl (6.4-8.2)
[2021-01-01 11:44] LABS: HEMOGLOBIN 12.5 GM/dL (11.7-16.9); PLATELET COUNT 179 K/MM3 (134-434); WHITE BLOOD COUNT 2.8 K/mm3 (4.0-10.0)
[2021-01-01 11:46] LABS: HEMATOCRIT 37.2 % (35.4-49); MCH 28.9 pg (25.7-33.7); MCHC 33.6 g/dl (32.0-35.9); MEAN CELL VOLUME 86.2 fl (80-96); MEAN PLT VOLUME 9.7 fl (7.5-11.1); RBC 4.31 M/mm3 (4.00-5.60); RDW 13.9 % (11.9-15.9)
[2021-01-01] MEDS: SODIUM CHLORIDE NASAL SPRAY 44 ML BOTTLE NS SCH ×2 (13:28→22:15)
[2021-01-01] MEDS: hydrOXYzine PAMOATE 25 MG CAPSULE (FP) PO PRN (22:15)
[2021-01-01] MEDS: MELATONIN 5 MG TABLETS PO SCH (22:15)
[2021-01-01] MEDS: THIAMINE HCL 100 MG TABLET (FP) PO SCH (22:15)
[2021-01-02] MEDS: SODIUM CHLORIDE NASAL SPRAY 44 ML BOTTLE NS SCH ×3 (06:06→22:25)
[2021-01-02] MEDS ORDERED: METHADONE HCL 10 MG TABLET (FOR DETOX USE ONLY) PO ONE (10:00)
[2021-01-02] MEDS: amLODIPine BESYLATE 10 MG TABLET (FP) PO SCH (10:06)
[2021-01-02] MEDS: ASPIRIN COATED 81 MG TABLET.EC PO SCH (10:07)
[2021-01-02] MEDS: hydrOXYzine PAMOATE 25 MG CAPSULE (FP) PO PRN (10:07)
[2021-01-02] MEDS: PRENATAL VITAMINS W/ FOLIC ACID TABLET (FP) PO SCH (10:07)
[2021-01-02] MEDS: THIAMINE HCL 100 MG TABLET (FP) PO SCH (22:25)
[2021-01-02] MEDS: MELATONIN 5 MG TABLETS PO SCH (22:25)
[2021-01-03] MEDS: SODIUM CHLORIDE NASAL SPRAY 44 ML BOTTLE NS SCH (05:57)
[2021-01-03 07:05] VITALS: BP 134/74; PULSE 49; TEMP 98.4
[2021-01-03] MEDS ORDERED: METHADONE HCL 10 MG TABLET (FOR DETOX USE ONLY) PO ONE (10:00)
[2021-01-03] MEDS ORDERED: METHADONE HCL 5 MG TABLET (FOR DETOX USE ONLY) PO ONE (10:00)
== END 2021-01-03 09:35 | disposition home or self-care (01) | DRG 773 ==
LOC: YASAS 19:35 → Y6N 21:53
PROVIDERS: ADMIT Allergy & Immunology; ATTEND Allergy & Immunology
PROC: HZ2ZZZZ Detoxification Services for Substance Abuse Treatment (ICD-10-PCS; principal; 2020-12-31)
DX: F11.23 Opioid dependence with withdrawal (principal); F19.24 Other psychoactive substance dependence with psychoactive substance-induced mood disorder; I10 Essential (primary) hypertension; D72.819 Decreased white blood cell count, unspecified; M17.0 Bilateral primary osteoarthritis of knee; M16.0 Bilateral primary osteoarthritis of hip; Z88.8 Allergy status to other drugs, medicaments and biological substances
CPT/HCPCS: 36415; 80053; 85027; 86780; C9803; U0003; U0005

== ENCOUNTER 2021-03-15 09:59 | Inpatient (IN) | payer OTHER ==
[2021-03-15 10:33] VITALS: BMI 27.1
[2021-03-15] MEDS ORDERED: BISMUTH SUBSALICYLATE 262 MG/15 ML BTL PO PRN (11:45)
[2021-03-15] MEDS ORDERED: ONDANSETRON *ODT* 4 MG TABLET SL PRN (11:45)
[2021-03-15] MEDS ORDERED: ACETAMINOPHEN 325 MG TABLET (FP) PO PRN ×2 (11:45)
[2021-03-15] MEDS ORDERED: NICOTINE POLACRILEX 2 MG GUM BUC PRN (11:45)
[2021-03-15] MEDS ORDERED: methaDONE HCL 10 MG TABLET (FOR DETOX USE ONLY) PO ONE (11:45)
[2021-03-15] MEDS ORDERED: cloNIDine HCL 0.1 MG TABLET PO PRN (11:45)
[2021-03-15] MEDS ORDERED: MAGNESIUM HYDROX 2400MG/30ML ORAL SUSPENSION 30 ML CUP PO PRN (11:45)
[2021-03-15] MEDS ORDERED: MAGNESIUM CITRATE 300 ML BOTTLE PO PRN (11:45)
[2021-03-15] MEDS ORDERED: IBUPROFEN 400 MG TABLET (FP) PO PRN (11:45)
[2021-03-15] MEDS ORDERED: MAG HYDROX/AL HYDROX/SIMETH 30 ML UNIT-DOSE CUP PO PRN (11:45)
[2021-03-15] MEDS ORDERED: MENTHOL/PHENOL 1 EACH UD MM PRN (11:45)
[2021-03-15] MEDS ORDERED: METHOCARBAMOL 500 MG TABLET PO PRN (11:45)
[2021-03-15] MEDS ORDERED: hydrOXYzine PAMOATE 25 MG CAPSULE (FP) PO PRN (11:48)
[2021-03-15] MEDS: PRENATAL VITAMINS W/ FOLIC ACID TABLET (FP) PO SCH (12:35)
[2021-03-15 16:23] LABS: HEMATOCRIT 41.2 % (35.4-49); HEMOGLOBIN 13.4 GM/dL (11.7-16.9); MCH 28.3 pg (25.7-33.7); MCHC 32.5 g/dl (32.0-35.9); PLATELET COUNT 181 10^3/uL (134-434); RBC 4.73 M/mm3 (4.00-5.60); RDW 13.9 % (11.9-15.9); WHITE BLOOD COUNT 2.7 K/mm3 (4.0-10.0)
[2021-03-15 16:35] LABS: ALBUMIN 3.8 g/dl (3.4-5.0); BLOOD UREA NITROGEN 17.6 mg/dL (7-18); CALCIUM 9.1 mg/dL (8.5-10.1)
[2021-03-15 16:39] LABS: CREATININE 1.1 mg/dL (0.55-1.3)
[2021-03-15 16:40] LABS: BILIRUBIN,TOTAL 0.9 mg/dL (0.2-1); TOT PROT 7.1 g/dl (6.4-8.2)
[2021-03-15 17:23] LABS: HIV INTERPRETATION NEGATIVE (NEGATIVE)
[2021-03-15] MEDS: MELATONIN 5 MG TABLETS PO SCH (22:18)
[2021-03-15] MEDS: cloNIDine HCL 0.1 MG TABLET PO SCH (22:18)
[2021-03-15] MEDS: THIAMINE HCL 100 MG TABLET (FP) PO SCH (22:18)
[2021-03-16] MEDS ORDERED: methaDONE HCL 10 MG TABLET (FOR DETOX USE ONLY) ONE (10:11)
[2021-03-16] MEDS: cloNIDine HCL 0.1 MG TABLET PO SCH ×2 (10:12→22:27)
[2021-03-16] MEDS: ASPIRIN COATED 81 MG TABLET.EC PO SCH (10:12)
[2021-03-16] MEDS: amLODIPine BESYLATE 10 MG TABLET (FP) PO SCH (10:12)
[2021-03-16] MEDS: PRENATAL VITAMINS W/ FOLIC ACID TABLET (FP) PO SCH (10:15)
[2021-03-16] MEDS ORDERED: IBUPROFEN 600 MG TABLET (FP) PO PRN (10:27)
[2021-03-16] MEDS: LIDOCAINE 5% TOPICAL PATCH TP SCH (12:27)
[2021-03-16] MEDS: THIAMINE HCL 100 MG TABLET (FP) PO SCH (22:26)
[2021-03-16] MEDS: LIDOCAINE PATCH REMOVAL MC SCH (22:27)
[2021-03-16] MEDS: MELATONIN 5 MG TABLETS PO SCH (22:27)
[2021-03-17] MEDS ORDERED: methaDONE HCL 10 MG TABLET (FOR DETOX USE ONLY) PO ONE (10:00)
[2021-03-17] MEDS: amLODIPine BESYLATE 10 MG TABLET (FP) PO SCH (10:19)
[2021-03-17] MEDS: ASPIRIN COATED 81 MG TABLET.EC PO SCH (10:19)
[2021-03-17] MEDS: PRENATAL VITAMINS W/ FOLIC ACID TABLET (FP) PO SCH (10:19)
[2021-03-17] MEDS: cloNIDine HCL 0.1 MG TABLET PO SCH ×2 (10:19→22:06)
[2021-03-17] MEDS: LIDOCAINE 5% TOPICAL PATCH TP SCH (10:21)
[2021-03-17] MEDS: THIAMINE HCL 100 MG TABLET (FP) PO SCH (22:06)
[2021-03-17] MEDS: MELATONIN 5 MG TABLETS PO SCH (22:06)
[2021-03-17] MEDS: LIDOCAINE PATCH REMOVAL MC SCH (22:06)
[2021-03-18] MEDS ORDERED: methaDONE HCL 10 MG TABLET (FOR DETOX USE ONLY) ONE (09:24)
[2021-03-18] MEDS: LIDOCAINE 5% TOPICAL PATCH TP SCH (10:23)
[2021-03-18] MEDS: PRENATAL VITAMINS W/ FOLIC ACID TABLET (FP) PO SCH (10:23)
[2021-03-18] MEDS: cloNIDine HCL 0.1 MG TABLET PO SCH ×4 (10:24→22:40)
[2021-03-18] MEDS: amLODIPine BESYLATE 10 MG TABLET (FP) PO SCH (10:24)
[2021-03-18] MEDS: ASPIRIN COATED 81 MG TABLET.EC PO SCH (10:24)
[2021-03-18] MEDS: THIAMINE HCL 100 MG TABLET (FP) PO SCH (22:39)
[2021-03-18] MEDS: LIDOCAINE PATCH REMOVAL MC SCH (22:40)
[2021-03-18] MEDS: MELATONIN 5 MG TABLETS PO SCH (22:40)
[2021-03-19] MEDS ORDERED: methaDONE HCL 10 MG TABLET (FOR DETOX USE ONLY) PO ONE (10:00)
[2021-03-19] MEDS: PRENATAL VITAMINS W/ FOLIC ACID TABLET (FP) PO SCH (10:43)
[2021-03-19] MEDS: LIDOCAINE 5% TOPICAL PATCH TP SCH (10:43)
[2021-03-19] MEDS: ASPIRIN COATED 81 MG TABLET.EC PO SCH (10:44)
[2021-03-19] MEDS: cloNIDine HCL 0.1 MG TABLET PO SCH ×2 (10:44→22:34)
[2021-03-19] MEDS: amLODIPine BESYLATE 10 MG TABLET (FP) PO SCH (10:45)
[2021-03-19] MEDS: DOCUSATE SODIUM 100 MG CAPSULE (FP) PO SCH ×2 (14:14→22:33)
[2021-03-19] MEDS: THIAMINE HCL 100 MG TABLET (FP) PO SCH (22:33)
[2021-03-19] MEDS: LIDOCAINE PATCH REMOVAL MC SCH (22:34)
[2021-03-19] MEDS: MELATONIN 5 MG TABLETS PO SCH (22:34)
[2021-03-20] MEDS: DOCUSATE SODIUM 100 MG CAPSULE (FP) PO SCH (05:39)
[2021-03-20 09:14] VITALS: BP 148/73; PULSE 58; TEMP 97.9
== END 2021-03-20 09:23 | disposition home or self-care (01) | DRG 772 ==
LOC: YASAS 09:59 → Y6N 11:37
PROVIDERS: ADMIT Allergy & Immunology; ATTEND Allergy & Immunology
PROC: HZ42ZZZ Group Counseling for Substance Abuse Treatment, Cognitive-Behavioral (ICD-10-PCS; principal; 2021-03-15)
DX: F11.23 Opioid dependence with withdrawal (principal); D72.819 Decreased white blood cell count, unspecified; I10 Essential (primary) hypertension; G62.9 Polyneuropathy, unspecified; M17.0 Bilateral primary osteoarthritis of knee; M16.0 Bilateral primary osteoarthritis of hip; Z88.8 Allergy status to other drugs, medicaments and biological substances
CPT/HCPCS: 36415; 80053; 85027; 86780; 87389; C9803; J0735; Q0162; U0003; U0005

== ENCOUNTER 2021-04-14 09:37 | Inpatient (IN) | payer OTHER ==
[2021-04-14] MEDS ORDERED: cloNIDine HCL 0.1 MG TABLET PO PRN (10:34)
[2021-04-14] MEDS ORDERED: MAGNESIUM CITRATE 300 ML BOTTLE PO PRN (10:34)
[2021-04-14] MEDS ORDERED: MENTHOL/PHENOL 1 EACH UD MM PRN (10:34)
[2021-04-14] MEDS ORDERED: IBUPROFEN 400 MG TABLET (FP) PO PRN (10:34)
[2021-04-14] MEDS ORDERED: BISMUTH SUBSALICYLATE 524 MG/30 ML PO PRN (10:34)
[2021-04-14] MEDS ORDERED: ACETAMINOPHEN 325 MG TABLET (FP) PO PRN ×2 (10:34)
[2021-04-14] MEDS ORDERED: clonazePAM 0.5 MG ODT TABLETS SL PRN (10:34)
[2021-04-14] MEDS ORDERED: methaDONE HCL 10 MG TABLET (FOR DETOX USE ONLY) PO ONE (10:34)
[2021-04-14] MEDS ORDERED: MAGNESIUM HYDROX 2400MG/30ML ORAL SUSPENSION 30 ML CUP PO PRN (10:34)
[2021-04-14] MEDS ORDERED: MAG HYDROX/AL HYDROX/SIMETH 30 ML UNIT-DOSE CUP PO PRN (10:34)
[2021-04-14] MEDS ORDERED: methaDONE HCL 10 MG TABLET (FOR DETOX USE ONLY) ONE (11:35)
[2021-04-14 11:45] VITALS: BMI 26.6
[2021-04-14] MEDS: MELATONIN 5 MG TABLETS PO SCH (22:12)
[2021-04-14] MEDS: METHOCARBAMOL 500 MG TABLET PO PRN (22:12)
[2021-04-14] MEDS: THIAMINE HCL 100 MG TABLET (FP) PO SCH (22:12)
[2021-04-15] MEDS ORDERED: methaDONE HCL 10 MG TABLET (FOR DETOX USE ONLY) ONE (09:08)
[2021-04-15] MEDS: ASPIRIN COATED 81 MG TABLET.EC PO SCH (10:08)
[2021-04-15] MEDS: amLODIPine BESYLATE 10 MG TABLET (FP) PO SCH (10:08)
[2021-04-15] MEDS: PRENATAL VITAMINS W/ FOLIC ACID TABLET (FP) PO SCH (10:08)
[2021-04-15 10:22] LABS: HEMATOCRIT 36.2 % (35.4-49); HEMOGLOBIN 12.2 GM/dL (11.7-16.9); MCH 28.9 pg (25.7-33.7); MCHC 33.7 g/dl (32.0-35.9); MEAN CELL VOLUME 85.8 fl (80-96); MEAN PLT VOLUME 9.7 fl (7.5-11.1); PLATELET COUNT 151 10^3/uL (134-434); RBC 4.22 M/mm3 (4.00-5.60); RDW 13.6 % (11.9-15.9); WHITE BLOOD COUNT 2.5 K/mm3 (4.0-10.0)
[2021-04-15 10:27] LABS: ALBUMIN 3.2 g/dl (3.4-5.0); BLOOD UREA NITROGEN 19.4 mg/dL (7-18); CALCIUM 8.3 mg/dL (8.5-10.1)
[2021-04-15 10:31] LABS: CREATININE 1.1 mg/dL (0.55-1.3)
[2021-04-15 10:32] LABS: BILIRUBIN,TOTAL 0.6 mg/dL (0.2-1); TOT PROT 6.2 g/dl (6.4-8.2)
[2021-04-15] MEDS ORDERED: amLODIPine BESYLATE 10 MG TABLET (FP) PO SCH (10:45)
[2021-04-15] MEDS ORDERED: hydrOXYzine PAMOATE 50 MG CAPSULE (FP) PO ONE (11:01)
[2021-04-15] MEDS: PATIENT'S OWN MEDICATION (NON-FORMULARY) (Meloxicam 15 MG Tablet) PO SCH (14:50)
[2021-04-15] MEDS: THIAMINE HCL 100 MG TABLET (FP) PO SCH (22:54)
[2021-04-15] MEDS: MELATONIN 5 MG TABLETS PO SCH (22:54)
[2021-04-16] MEDS ORDERED: methaDONE HCL 10 MG TABLET (FOR DETOX USE ONLY) PO ONE (10:00)
[2021-04-16] MEDS: amLODIPine BESYLATE 10 MG TABLET (FP) PO SCH (10:11)
[2021-04-16] MEDS: ASPIRIN COATED 81 MG TABLET.EC PO SCH (10:11)
[2021-04-16] MEDS: PRENATAL VITAMINS W/ FOLIC ACID TABLET (FP) PO SCH (10:11)
[2021-04-16] MEDS: PATIENT'S OWN MEDICATION (NON-FORMULARY) (Meloxicam 15 MG Tablet) PO SCH (10:11)
[2021-04-16] MEDS: THIAMINE HCL 100 MG TABLET (FP) PO SCH (21:11)
[2021-04-16] MEDS: MELATONIN 5 MG TABLETS PO SCH (21:11)
[2021-04-16] MEDS: METHOCARBAMOL 500 MG TABLET PO PRN (21:13)
[2021-04-17] MEDS ORDERED: methaDONE HCL 10 MG TABLET (FOR DETOX USE ONLY) ONE (09:09)
[2021-04-17] MEDS: PRENATAL VITAMINS W/ FOLIC ACID TABLET (FP) PO SCH (10:38)
[2021-04-17] MEDS: amLODIPine BESYLATE 10 MG TABLET (FP) PO SCH (10:40)
[2021-04-17] MEDS: ASPIRIN COATED 81 MG TABLET.EC PO SCH (10:40)
[2021-04-17] MEDS: PATIENT'S OWN MEDICATION (NON-FORMULARY) (Meloxicam 15 MG Tablet) PO SCH (10:40)
[2021-04-17 10:59] LABS: BASO % 2.3 % (0-2.0); EOS % 2.7 % (0-4.5); HEMOGLOBIN 12.8 GM/dL (11.7-16.9); LYMPH % 40.8 % (8-40); MCHC 33.6 g/dl (32.0-35.9); MEAN CELL VOLUME 86.5 fl (80-96); MEAN PLT VOLUME 9.4 fl (7.5-11.1); MONO % 12.3 % (3.8-10.2); NEUT % 41.9 % (42.8-82.8); PLATELET COUNT 168 10^3/uL (134-434); RDW 13.4 % (11.9-15.9); WHITE BLOOD COUNT 2.8 K/mm3 (4.0-10.0)
[2021-04-17] MEDS ORDERED: hydrOXYzine PAMOATE 25 MG CAPSULE (FP) PO ONE (13:30)
[2021-04-17] MEDS ORDERED: LIDOCAINE VISCOUS 2% ORAL/TOP 15 ML UNIT-DOSE CUP MM PRN (20:08)
[2021-04-17] MEDS: THIAMINE HCL 100 MG TABLET (FP) PO SCH (21:56)
[2021-04-17] MEDS: MELATONIN 5 MG TABLETS PO SCH (22:31)
[2021-04-18] MEDS ORDERED: methaDONE HCL 10 MG TABLET (FOR DETOX USE ONLY) PO ONE (10:00)
[2021-04-18] MEDS: amLODIPine BESYLATE 10 MG TABLET (FP) PO SCH (10:43)
[2021-04-18] MEDS: PATIENT'S OWN MEDICATION (NON-FORMULARY) (Meloxicam 15 MG Tablet) PO SCH (10:43)
[2021-04-18] MEDS: ASPIRIN COATED 81 MG TABLET.EC PO SCH (10:43)
[2021-04-18] MEDS: PRENATAL VITAMINS W/ FOLIC ACID TABLET (FP) PO SCH (11:06)
[2021-04-18 12:51] VITALS: BP 140/80; PULSE 59; TEMP 97.3
== END 2021-04-18 15:00 | disposition home or self-care (01) | DRG 773 ==
LOC: YASAS 09:37 → Y6N 15:08
PROVIDERS: ADMIT Allergy & Immunology; ATTEND Allergy & Immunology
PROC: HZ2ZZZZ Detoxification Services for Substance Abuse Treatment (ICD-10-PCS; principal; 2021-04-14)
DX: F11.23 Opioid dependence with withdrawal (principal); F12.20 Cannabis dependence, uncomplicated; I10 Essential (primary) hypertension; E55.9 Vitamin D deficiency, unspecified; D72.819 Decreased white blood cell count, unspecified; K08.89 Other specified disorders of teeth and supporting structures; G62.9 Polyneuropathy, unspecified; M54.5 Low back pain; G89.29 Other chronic pain; M17.0 Bilateral primary osteoarthritis of knee; M16.0 Bilateral primary osteoarthritis of hip; Z88.8 Allergy status to other drugs, medicaments and biological substances; Z87.891 Personal history of nicotine dependence
CPT/HCPCS: 36415; 80053; 85025; 85027; 86780; C9803; U0003; U0005

== ENCOUNTER 2021-05-26 13:37 | Inpatient (IN) | payer OTHER ==
[2021-05-26 15:20] VITALS: BMI 27.1
[2021-05-26] MEDS ORDERED: IBUPROFEN 400 MG TABLET (FP) PO PRN ×2 (18:23→18:35)
[2021-05-26] MEDS ORDERED: BISMUTH SUBSALICYLATE 524 MG/30 ML PO PRN ×2 (18:23→18:35)
[2021-05-26] MEDS ORDERED: ACETAMINOPHEN 325 MG TABLET (FP) PO PRN ×4 (18:23→18:35)
[2021-05-26] MEDS ORDERED: MAG HYDROX/AL HYDROX/SIMETH 30 ML UNIT-DOSE CUP PO PRN ×2 (18:23→18:35)
[2021-05-26] MEDS ORDERED: METHOCARBAMOL 500 MG TABLET PO PRN ×2 (18:23→18:35)
[2021-05-26] MEDS ORDERED: ONDANSETRON *ODT* 4 MG TABLET SL PRN ×2 (18:23→18:35)
[2021-05-26] MEDS ORDERED: MAGNESIUM CITRATE 300 ML BOTTLE PO PRN ×2 (18:23→18:35)
[2021-05-26] MEDS ORDERED: MAGNESIUM HYDROX 2400MG/30ML ORAL SUSPENSION 30 ML CUP PO PRN ×2 (18:23→18:35)
[2021-05-26] MEDS ORDERED: MENTHOL/PHENOL 1 EACH UD MM PRN ×2 (18:23→18:35)
[2021-05-26] MEDS ORDERED: diazePAM 5 MG TABLET PO PRN (19:29)
[2021-05-26] MEDS ORDERED: cloNIDine HCL 0.1 MG TABLET PO PRN (19:29)
[2021-05-26] MEDS ORDERED: methaDONE HCL 10 MG TABLET (FOR DETOX USE ONLY) PO ONE (19:29)
[2021-05-26] MEDS ORDERED: MELATONIN 5 MG TABLETS PO SCH (22:00)
[2021-05-26] MEDS ORDERED: THIAMINE HCL 100 MG TABLET (FP) PO SCH (22:00)
[2021-05-26] MEDS: diazePAM 5 MG TABLET PO SCH (22:17)
[2021-05-26] MEDS: THIAMINE HCL 100 MG TABLET (FP) PO SCH (22:17)
[2021-05-26] MEDS: MELATONIN 5 MG TABLETS PO SCH (22:18)
[2021-05-27] MEDS: diazePAM 5 MG TABLET PO SCH ×4 (05:31→22:32)
[2021-05-27] MEDS ORDERED: hydrOXYzine PAMOATE 25 MG CAPSULE (FP) PO PRN (09:28)
[2021-05-27] MEDS ORDERED: NALOXONE (NARCAN) HCL 4 MG/0.1 ML SPRAY NS PRN (09:30)
[2021-05-27] MEDS ORDERED: PRENATAL VITAMINS W/ FOLIC ACID TABLET (FP) PO SCH (10:00)
[2021-05-27] MEDS ORDERED: methaDONE HCL 10 MG TABLET (FOR DETOX USE ONLY) ONE (10:09)
[2021-05-27] MEDS: PRENATAL VITAMINS W/ FOLIC ACID TABLET (FP) PO SCH (10:26)
[2021-05-27] MEDS: amLODIPine BESYLATE 10 MG TABLET (FP) PO SCH (10:27)
[2021-05-27 11:33] LABS: HEMATOCRIT 37.6 % (35.4-49); HEMOGLOBIN 12.8 GM/dL (11.7-16.9); MCH 29.6 pg (25.7-33.7); MCHC 34.1 g/dl (32.0-35.9); MEAN CELL VOLUME 86.9 fl (80-96); MEAN PLT VOLUME 9.4 fl (7.5-11.1); PLATELET COUNT 158 10^3/uL (134-434); RBC 4.33 M/mm3 (4.00-5.60); WHITE BLOOD COUNT 2.8 K/mm3 (4.0-10.0)
[2021-05-27] MEDS ORDERED: PATIENT'S OWN MEDICATION (NON-FORMULARY) (Meloxicam 15 MG Tablet) PO SCH (11:45)
[2021-05-27 11:58] LABS: CALCIUM 8.8 mg/dL (8.5-10.1)
[2021-05-27 11:59] LABS: ALBUMIN 3.4 g/dl (3.4-5.0); BLOOD UREA NITROGEN 20.2 mg/dL (7-18)
[2021-05-27 12:02] LABS: CREATININE 1.1 mg/dL (0.55-1.3)
[2021-05-27 12:03] LABS: BILIRUBIN,TOTAL 0.5 mg/dL (0.2-1); TOT PROT 6.8 g/dl (6.4-8.2)
[2021-05-27 15:45] LABS: HIV INTERPRETATION NEGATIVE (NEGATIVE)
[2021-05-27] MEDS: THIAMINE HCL 100 MG TABLET (FP) PO SCH (22:33)
[2021-05-27] MEDS: MELATONIN 5 MG TABLETS PO SCH (22:33)
[2021-05-28] MEDS: diazePAM 5 MG TABLET PO SCH ×3 (06:03→22:18)
[2021-05-28] MEDS ORDERED: methaDONE HCL 10 MG TABLET (FOR DETOX USE ONLY) PO ONE (10:00)
[2021-05-28] MEDS: PATIENT'S OWN MEDICATION (NON-FORMULARY) (Meloxicam 15 MG) PO SCH (10:24)
[2021-05-28] MEDS: PRENATAL VITAMINS W/ FOLIC ACID TABLET (FP) PO SCH (10:24)
[2021-05-28] MEDS: amLODIPine BESYLATE 10 MG TABLET (FP) PO SCH (10:24)
[2021-05-28] MEDS: THIAMINE HCL 100 MG TABLET (FP) PO SCH (22:18)
[2021-05-28] MEDS: MELATONIN 5 MG TABLETS PO SCH (22:20)
[2021-05-29] MEDS: diazePAM 5 MG TABLET PO SCH ×2 (06:01→17:54)
[2021-05-29] MEDS ORDERED: methaDONE HCL 10 MG TABLET (FOR DETOX USE ONLY) ONE (09:24)
[2021-05-29] MEDS ORDERED: cloNIDine HCL 0.1 MG TABLET PO PRN (10:09)
[2021-05-29] MEDS: PRENATAL VITAMINS W/ FOLIC ACID TABLET (FP) PO SCH (10:24)
[2021-05-29] MEDS: PATIENT'S OWN MEDICATION (NON-FORMULARY) (Meloxicam 15 MG) PO SCH (10:24)
[2021-05-29] MEDS: amLODIPine BESYLATE 10 MG TABLET (FP) PO SCH (10:24)
[2021-05-29] MEDS: THIAMINE HCL 100 MG TABLET (FP) PO SCH (22:14)
[2021-05-29] MEDS: MELATONIN 5 MG TABLETS PO SCH (22:14)
[2021-05-30] MEDS ORDERED: diazePAM 5 MG TABLET PO ONE (06:00)
[2021-05-30] MEDS ORDERED: methaDONE HCL 10 MG TABLET (FOR DETOX USE ONLY) PO ONE (10:00)
[2021-05-30] MEDS: PRENATAL VITAMINS W/ FOLIC ACID TABLET (FP) PO SCH (10:06)
[2021-05-30] MEDS: amLODIPine BESYLATE 10 MG TABLET (FP) PO SCH (10:06)
[2021-05-30] MEDS: PATIENT'S OWN MEDICATION (NON-FORMULARY) (Meloxicam 15 MG) PO SCH (10:07)
[2021-05-30] MEDS: MELATONIN 5 MG TABLETS PO SCH (22:34)
[2021-05-30] MEDS: THIAMINE HCL 100 MG TABLET (FP) PO SCH (22:34)
[2021-05-31 06:20] VITALS: BP 137/76; PULSE 50; TEMP 98
[2021-05-31] MEDS: amLODIPine BESYLATE 10 MG TABLET (FP) PO SCH (09:14)
[2021-05-31] MEDS: PRENATAL VITAMINS W/ FOLIC ACID TABLET (FP) PO SCH (09:14)
[2021-05-31] MEDS: PATIENT'S OWN MEDICATION (NON-FORMULARY) (Meloxicam 15 MG) PO SCH (09:15)
== END 2021-05-31 09:24 | disposition home or self-care (01) | DRG 773 ==
LOC: YASAS 13:37 → Y6N 18:23
PROVIDERS: ADMIT Allergy & Immunology; ATTEND Allergy & Immunology
PROC: HZ2ZZZZ Detoxification Services for Substance Abuse Treatment (ICD-10-PCS; principal; 2021-05-26)
DX: F11.23 Opioid dependence with withdrawal (principal); F10.230 Alcohol dependence with withdrawal, uncomplicated; F12.20 Cannabis dependence, uncomplicated; D72.819 Decreased white blood cell count, unspecified; G62.9 Polyneuropathy, unspecified; I10 Essential (primary) hypertension; M16.0 Bilateral primary osteoarthritis of hip; M17.0 Bilateral primary osteoarthritis of knee; M54.5 Low back pain; G89.29 Other chronic pain; Z87.891 Personal history of nicotine dependence; Z88.8 Allergy status to other drugs, medicaments and biological substances
CPT/HCPCS: 36415; 80053; 85027; 86780; 87389; 93005; 93010; C9803; U0003; U0005

== ENCOUNTER 2021-06-27 15:16 | Inpatient (IN) | payer OTHER ==
[2021-06-27 19:39] VITALS: BMI 56.8
[2021-06-27] MEDS ORDERED: MAGNESIUM CITRATE 300 ML BOTTLE PO PRN (19:41)
[2021-06-27] MEDS ORDERED: IBUPROFEN 400 MG TABLET (FP) PO PRN (19:41)
[2021-06-27] MEDS ORDERED: MENTHOL/PHENOL 1 EACH UD MM PRN (19:41)
[2021-06-27] MEDS ORDERED: NICOTINE 10 MG CARTRIDGE (INHALER) IH PRN (19:41)
[2021-06-27] MEDS ORDERED: ONDANSETRON *ODT* 4 MG TABLET SL PRN (19:41)
[2021-06-27] MEDS ORDERED: METHOCARBAMOL 500 MG TABLET PO PRN (19:41)
[2021-06-27] MEDS ORDERED: MAG HYDROX/AL HYDROX/SIMETH 30 ML UNIT-DOSE CUP PO PRN (19:41)
[2021-06-27] MEDS ORDERED: methaDONE HCL 10 MG TABLET (FOR DETOX USE ONLY) PO ONE (19:41)
[2021-06-27] MEDS ORDERED: ACETAMINOPHEN 325 MG TABLET (FP) PO PRN ×2 (19:41)
[2021-06-27] MEDS ORDERED: BISMUTH SUBSALICYLATE 524 MG/30 ML PO PRN (19:41)
[2021-06-27] MEDS ORDERED: MAGNESIUM HYDROX 2400MG/30ML ORAL SUSPENSION 30 ML CUP PO PRN (19:41)
[2021-06-28] MEDS ORDERED: methaDONE HCL 10 MG TABLET PO ONE (00:49)
[2021-06-28] MEDS: hydrOXYzine PAMOATE 25 MG CAPSULE (FP) PO SCH ×6 (01:01→21:33)
[2021-06-28] MEDS: MELATONIN 5 MG TABLETS PO SCH ×2 (01:01→21:34)
[2021-06-28] MEDS: THIAMINE HCL 100 MG TABLET (FP) PO SCH ×2 (01:02→21:33)
[2021-06-28] MEDS: cloNIDine HCL 0.1 MG TABLET PO PRN ×2 (06:01→21:33)
[2021-06-28] MEDS ORDERED: methaDONE HCL 10 MG TABLET (FOR DETOX USE ONLY) ONE (09:06)
[2021-06-28] MEDS: PRENATAL VITAMINS W/ FOLIC ACID TABLET (FP) PO SCH (09:58)
[2021-06-28] MEDS: amLODIPine BESYLATE 10 MG TABLET (FP) PO SCH (09:58)
[2021-06-28] MEDS: FOLIC ACID 1 MG TABLET (FP) PO SCH (11:00)
[2021-06-28 11:43] LABS: HEMATOCRIT 38.9 % (35.4-49); MCH 28.9 pg (25.7-33.7); MCHC 33.3 g/dl (32.0-35.9); MEAN CELL VOLUME 86.6 fl (80-96); MEAN PLT VOLUME 9.3 fl (7.5-11.1); PLATELET COUNT 177 10^3/uL (134-434); RBC 4.48 M/mm3 (4.00-5.60); WHITE BLOOD COUNT 2.6 K/mm3 (4.0-10.0)
[2021-06-28 11:45] LABS: ALBUMIN 3.6 g/dl (3.4-5.0)
[2021-06-28 11:46] LABS: BLOOD UREA NITROGEN 15.3 mg/dL (7-18)
[2021-06-28 11:48] LABS: CREATININE 1.1 mg/dL (0.55-1.3)
[2021-06-28 11:49] LABS: BILIRUBIN,TOTAL 0.8 mg/dL (0.2-1)
[2021-06-28 11:50] LABS: TOT PROT 7.1 g/dl (6.4-8.2)
[2021-06-29] MEDS: hydrOXYzine PAMOATE 25 MG CAPSULE (FP) PO SCH ×6 (05:40→21:56)
[2021-06-29] MEDS ORDERED: methaDONE HCL 10 MG TABLET (FOR DETOX USE ONLY) PO ONE (10:00)
[2021-06-29] MEDS: amLODIPine BESYLATE 10 MG TABLET (FP) PO SCH (10:18)
[2021-06-29] MEDS: PRENATAL VITAMINS W/ FOLIC ACID TABLET (FP) PO SCH (10:18)
[2021-06-29] MEDS: FOLIC ACID 1 MG TABLET (FP) PO SCH (10:18)
[2021-06-29] MEDS: MELATONIN 5 MG TABLETS PO SCH (21:56)
[2021-06-29] MEDS: THIAMINE HCL 100 MG TABLET (FP) PO SCH (21:56)
[2021-06-30] MEDS: hydrOXYzine PAMOATE 25 MG CAPSULE (FP) PO SCH ×5 (05:21→22:05)
[2021-06-30] MEDS ORDERED: methaDONE HCL 10 MG TABLET (FOR DETOX USE ONLY) ONE (09:43)
[2021-06-30] MEDS: PRENATAL VITAMINS W/ FOLIC ACID TABLET (FP) PO SCH (10:17)
[2021-06-30] MEDS: amLODIPine BESYLATE 10 MG TABLET (FP) PO SCH (10:18)
[2021-06-30] MEDS: FOLIC ACID 1 MG TABLET (FP) PO SCH (10:46)
[2021-06-30] MEDS: THIAMINE HCL 100 MG TABLET (FP) PO SCH (22:05)
[2021-06-30] MEDS: MELATONIN 5 MG TABLETS PO SCH (22:06)
[2021-07-01] MEDS: hydrOXYzine PAMOATE 25 MG CAPSULE (FP) PO SCH ×5 (06:56→22:11)
[2021-07-01] MEDS ORDERED: methaDONE HCL 10 MG TABLET (FOR DETOX USE ONLY) PO ONE (10:00)
[2021-07-01] MEDS: amLODIPine BESYLATE 10 MG TABLET (FP) PO SCH (10:14)
[2021-07-01] MEDS: PRENATAL VITAMINS W/ FOLIC ACID TABLET (FP) PO SCH (10:14)
[2021-07-01] MEDS: FOLIC ACID 1 MG TABLET (FP) PO SCH (10:14)
[2021-07-01] MEDS: THIAMINE HCL 100 MG TABLET (FP) PO SCH (22:11)
[2021-07-01] MEDS: MELATONIN 5 MG TABLETS PO SCH (22:12)
[2021-07-02] MEDS: hydrOXYzine PAMOATE 25 MG CAPSULE (FP) PO SCH ×2 (07:21→09:03)
[2021-07-02 08:58] VITALS: BP 134/94; PULSE 59; TEMP 97.7
[2021-07-02] MEDS: PRENATAL VITAMINS W/ FOLIC ACID TABLET (FP) PO SCH (09:03)
[2021-07-02] MEDS: FOLIC ACID 1 MG TABLET (FP) PO SCH (09:03)
[2021-07-02] MEDS: amLODIPine BESYLATE 10 MG TABLET (FP) PO SCH (09:03)
== END 2021-07-02 09:01 | disposition home or self-care (01) | DRG 773 ==
LOC: YASAS 15:16 → Y6N 23:33
PROVIDERS: ADMIT Allergy & Immunology; ATTEND Allergy & Immunology
PROC: HZ2ZZZZ Detoxification Services for Substance Abuse Treatment (ICD-10-PCS; principal; 2021-06-27)
DX: F11.23 Opioid dependence with withdrawal (principal); F10.230 Alcohol dependence with withdrawal, uncomplicated; F12.20 Cannabis dependence, uncomplicated; F19.24 Other psychoactive substance dependence with psychoactive substance-induced mood disorder; I10 Essential (primary) hypertension; D72.810 Lymphocytopenia; M54.50 Low back pain, unspecified; G89.29 Other chronic pain; M19.90 Unspecified osteoarthritis, unspecified site; Z87.891 Personal history of nicotine dependence; Z88.8 Allergy status to other drugs, medicaments and biological substances; Z56.0 Unemployment, unspecified
CPT/HCPCS: 36415; 80053; 85027; 86780; C9803; J0735; U0003; U0005

== ENCOUNTER 2021-07-21 18:11 | Inpatient (IN) | payer OTHER ==
[2021-07-21 19:15] VITALS: BMI 27.9
[2021-07-21] MEDS ORDERED: MAG HYDROX/AL HYDROX/SIMETH 30 ML UNIT-DOSE CUP PO PRN (19:33)
[2021-07-21] MEDS ORDERED: MENTHOL/PHENOL 1 EACH UD MM PRN (19:33)
[2021-07-21] MEDS ORDERED: MAGNESIUM HYDROX 2400MG/30ML ORAL SUSPENSION 30 ML CUP PO PRN (19:33)
[2021-07-21] MEDS ORDERED: BISMUTH SUBSALICYLATE 524 MG/30 ML PO PRN (19:33)
[2021-07-21] MEDS ORDERED: IBUPROFEN 400 MG TABLET (FP) PO PRN (19:33)
[2021-07-21] MEDS ORDERED: ACETAMINOPHEN 325 MG TABLET (FP) PO PRN ×2 (19:33)
[2021-07-21] MEDS ORDERED: MELATONIN 5 MG TABLETS PO PRN (19:33)
[2021-07-21] MEDS ORDERED: METHOCARBAMOL 500 MG TABLET PO PRN (19:33)
[2021-07-21] MEDS ORDERED: methaDONE HCL 10 MG TABLET (FOR DETOX USE ONLY) PO ONE (19:33)
[2021-07-21] MEDS ORDERED: cloNIDine HCL 0.1 MG TABLET PO PRN ×2 (19:33→20:30)
[2021-07-21] MEDS ORDERED: NALOXONE (NARCAN) HCL 4 MG/0.1 ML SPRAY NS PRN (19:33)
[2021-07-21] MEDS ORDERED: MAGNESIUM CITRATE 300 ML BOTTLE PO PRN (19:33)
[2021-07-21] MEDS ORDERED: ONDANSETRON *ODT* 4 MG TABLET SL PRN (19:33)
[2021-07-21] MEDS: hydrOXYzine PAMOATE 25 MG CAPSULE (FP) PO PRN (20:43)
[2021-07-21] MEDS: THIAMINE HCL 100 MG TABLET (FP) PO SCH (21:00)
[2021-07-22] MEDS ORDERED: methaDONE HCL 10 MG TABLET (FOR DETOX USE ONLY) ONE ×2 (09:04→10:15)
[2021-07-22] MEDS: PRENATAL VITAMINS W/ FOLIC ACID TABLET (FP) PO SCH (10:09)
[2021-07-22] MEDS: amLODIPine BESYLATE 10 MG TABLET (FP) PO SCH (10:10)
[2021-07-22] MEDS: ASPIRIN COATED 81 MG TABLET.EC PO SCH (10:10)
[2021-07-22 12:12] LABS: HEMATOCRIT 39.3 % (35.4-49); HEMOGLOBIN 13.1 GM/dL (11.7-16.9); MCH 29.1 pg (25.7-33.7); MCHC 33.4 g/dl (32.0-35.9); MEAN PLT VOLUME 9.2 fl (7.5-11.1); PLATELET COUNT 173 10^3/uL (134-434); RBC 4.52 M/mm3 (4.00-5.60); RDW 13.6 % (11.9-15.9); WHITE BLOOD COUNT 3.3 K/mm3 (4.0-10.0)
[2021-07-22 12:32] LABS: ALBUMIN 3.5 g/dl (3.4-5.0); BLOOD UREA NITROGEN 17.6 mg/dL (7-18)
[2021-07-22 12:35] LABS: CREATININE 1.1 mg/dL (0.55-1.3)
[2021-07-22 12:37] LABS: BILIRUBIN,TOTAL 0.6 mg/dL (0.2-1); TOT PROT 6.9 g/dl (6.4-8.2)
[2021-07-22 13:49] LABS: HIV INTERPRETATION NEGATIVE (NEGATIVE)
[2021-07-22] MEDS: hydrOXYzine PAMOATE 25 MG CAPSULE (FP) PO PRN ×2 (13:55→22:18)
[2021-07-22] MEDS: THIAMINE HCL 100 MG TABLET (FP) PO SCH (22:18)
[2021-07-23] MEDS ORDERED: methaDONE HCL 10 MG TABLET (FOR DETOX USE ONLY) PO ONE (10:00)
[2021-07-23] MEDS ORDERED: ERGOCALCIFEROL (VIT D2) 50,000 UNIT (1.25 MG) CAPSULE PO SCH (10:00)
[2021-07-23] MEDS: PRENATAL VITAMINS W/ FOLIC ACID TABLET (FP) PO SCH (10:14)
[2021-07-23] MEDS: ASPIRIN COATED 81 MG TABLET.EC PO SCH (10:14)
[2021-07-23] MEDS: amLODIPine BESYLATE 10 MG TABLET (FP) PO SCH (10:14)
[2021-07-23] MEDS: hydrOXYzine PAMOATE 25 MG CAPSULE (FP) PO PRN ×2 (17:43→22:03)
[2021-07-23] MEDS: THIAMINE HCL 100 MG TABLET (FP) PO SCH (22:02)
[2021-07-24] MEDS ORDERED: methaDONE HCL 10 MG TABLET (FOR DETOX USE ONLY) ONE (09:26)
[2021-07-24] MEDS ORDERED: ERGOCALCIFEROL (VIT D2) 50,000 UNIT (1.25 MG) CAPSULE PO SCH (10:00)
[2021-07-24] MEDS: ASPIRIN COATED 81 MG TABLET.EC PO SCH (10:13)
[2021-07-24] MEDS: PRENATAL VITAMINS W/ FOLIC ACID TABLET (FP) PO SCH (10:13)
[2021-07-24] MEDS: amLODIPine BESYLATE 10 MG TABLET (FP) PO SCH (10:15)
[2021-07-24] MEDS: hydrOXYzine PAMOATE 25 MG CAPSULE (FP) PO PRN (21:51)
[2021-07-24] MEDS: THIAMINE HCL 100 MG TABLET (FP) PO SCH (21:51)
[2021-07-25] MEDS ORDERED: methaDONE HCL 10 MG TABLET (FOR DETOX USE ONLY) PO ONE (10:00)
[2021-07-25] MEDS: amLODIPine BESYLATE 10 MG TABLET (FP) PO SCH (10:18)
[2021-07-25] MEDS: ASPIRIN COATED 81 MG TABLET.EC PO SCH (10:18)
[2021-07-25] MEDS: PRENATAL VITAMINS W/ FOLIC ACID TABLET (FP) PO SCH (10:18)
[2021-07-25] MEDS: THIAMINE HCL 100 MG TABLET (FP) PO SCH (22:27)
[2021-07-25] MEDS: hydrOXYzine PAMOATE 25 MG CAPSULE (FP) PO PRN (22:28)
[2021-07-26 08:47] VITALS: BP 152/100; PULSE 70; TEMP 96.9
== END 2021-07-26 09:23 | disposition home or self-care (01) | DRG 897 ==
LOC: YASAS 18:11 → Y3N 19:15
PROVIDERS: ADMIT Allergy & Immunology; ATTEND Allergy & Immunology
PROC: HZ2ZZZZ Detoxification Services for Substance Abuse Treatment (ICD-10-PCS; principal; 2021-07-21)
DX: F11.23 Opioid dependence with withdrawal (principal); F12.20 Cannabis dependence, uncomplicated; F42.9 Obsessive-compulsive disorder, unspecified; D72.810 Lymphocytopenia; I10 Essential (primary) hypertension; G62.9 Polyneuropathy, unspecified; M17.0 Bilateral primary osteoarthritis of knee; M16.0 Bilateral primary osteoarthritis of hip; Z88.8 Allergy status to other drugs, medicaments and biological substances; Z91.013 Allergy to seafood; Z87.81 Personal history of (healed) traumatic fracture
CPT/HCPCS: 36415; 80053; 85027; 86780; 87389; C9803; U0003; U0005

== ENCOUNTER 2021-08-16 12:19 | Inpatient (IN) | payer OTHER ==
[2021-08-16 13:10] VITALS: BMI 23.7
[2021-08-16] MEDS ORDERED: METHOCARBAMOL 500 MG TABLET PO PRN (13:39)
[2021-08-16] MEDS ORDERED: MAGNESIUM HYDROX 2400MG/30ML ORAL SUSPENSION 30 ML CUP PO PRN (13:39)
[2021-08-16] MEDS ORDERED: ONDANSETRON *ODT* 4 MG TABLET SL PRN (13:39)
[2021-08-16] MEDS ORDERED: NICOTINE 10 MG CARTRIDGE (INHALER) IH PRN (13:39)
[2021-08-16] MEDS ORDERED: MAG HYDROX/AL HYDROX/SIMETH 30 ML UNIT-DOSE CUP PO PRN (13:39)
[2021-08-16] MEDS ORDERED: ACETAMINOPHEN 325 MG TABLET (FP) PO PRN ×2 (13:39)
[2021-08-16] MEDS ORDERED: MAGNESIUM CITRATE 300 ML BOTTLE PO PRN (13:39)
[2021-08-16] MEDS ORDERED: BISMUTH SUBSALICYLATE 524 MG/30 ML PO PRN (13:39)
[2021-08-16] MEDS ORDERED: cloNIDine HCL 0.1 MG TABLET PO PRN (13:39)
[2021-08-16] MEDS ORDERED: IBUPROFEN 400 MG TABLET (FP) PO PRN (13:39)
[2021-08-16] MEDS ORDERED: NICOTINE 14 MG/24 HOURS TOPICAL PATCH TD SCH (13:45)
[2021-08-16] MEDS ORDERED: methaDONE HCL 10 MG TABLET (FOR DETOX USE ONLY) PO ONE (14:15)
[2021-08-16] MEDS: hydrOXYzine PAMOATE 25 MG CAPSULE (FP) PO SCH ×3 (15:23→22:27)
[2021-08-16] MEDS: PRENATAL VITAMINS W/ FOLIC ACID TABLET (FP) PO SCH (15:23)
[2021-08-16] MEDS: PATIENT'S OWN MEDICATION (NON-FORMULARY) (Meloxicam 15 MG Tablet) PO SCH (15:50)
[2021-08-16] MEDS: THIAMINE HCL 100 MG TABLET (FP) PO SCH (22:27)
[2021-08-16] MEDS: MELATONIN 5 MG TABLETS PO SCH (23:04)
[2021-08-17] MEDS: hydrOXYzine PAMOATE 25 MG CAPSULE (FP) PO SCH ×5 (06:26→22:31)
[2021-08-17] MEDS ORDERED: methaDONE HCL 10 MG TABLET (FOR DETOX USE ONLY) ONE (09:54)
[2021-08-17] MEDS ORDERED: ERGOCALCIFEROL (VIT D2) 50,000 UNIT (1.25 MG) CAPSULE PO SCH (10:00)
[2021-08-17] MEDS: ASPIRIN COATED 81 MG TABLET.EC PO SCH (10:26)
[2021-08-17] MEDS: amLODIPine BESYLATE 10 MG TABLET (FP) PO SCH (10:26)
[2021-08-17] MEDS: PATIENT'S OWN MEDICATION (NON-FORMULARY) (Meloxicam 15 MG Tablet) PO SCH (10:29)
[2021-08-17] MEDS: PRENATAL VITAMINS W/ FOLIC ACID TABLET (FP) PO SCH (10:29)
[2021-08-17 12:26] LABS: CALCIUM 8.7 mg/dL (8.5-10.1)
[2021-08-17 12:27] LABS: BLOOD UREA NITROGEN 20.2 mg/dL (7-18)
[2021-08-17 12:30] LABS: CREATININE 1.4 mg/dL (0.55-1.3)
[2021-08-17 12:31] LABS: BILIRUBIN,TOTAL 0.6 mg/dL (0.2-1); TOT PROT 6.5 g/dl (6.4-8.2)
[2021-08-17 12:33] LABS: HEMATOCRIT 37.7 % (35.4-49); HEMOGLOBIN 12.5 GM/dL (11.7-16.9); MCH 28.9 pg (25.7-33.7); MCHC 33.2 g/dl (32.0-35.9); MEAN CELL VOLUME 87.1 fl (80-96); MEAN PLT VOLUME 9.3 fl (7.5-11.1); PLATELET COUNT 165 10^3/uL (134-434); RBC 4.33 M/mm3 (4.00-5.60); RDW 13.2 % (11.9-15.9); WHITE BLOOD COUNT 3.9 K/mm3 (4.0-10.0)
[2021-08-17] MEDS: MELATONIN 5 MG TABLETS PO SCH (22:31)
[2021-08-17] MEDS: THIAMINE HCL 100 MG TABLET (FP) PO SCH (22:31)
[2021-08-18] MEDS: hydrOXYzine PAMOATE 25 MG CAPSULE (FP) PO SCH ×5 (06:34→22:09)
[2021-08-18] MEDS ORDERED: methaDONE HCL 10 MG TABLET (FOR DETOX USE ONLY) PO ONE (10:00)
[2021-08-18] MEDS: amLODIPine BESYLATE 10 MG TABLET (FP) PO SCH (10:09)
[2021-08-18] MEDS: PRENATAL VITAMINS W/ FOLIC ACID TABLET (FP) PO SCH (10:09)
[2021-08-18] MEDS: ASPIRIN COATED 81 MG TABLET.EC PO SCH (10:10)
[2021-08-18] MEDS: PATIENT'S OWN MEDICATION (NON-FORMULARY) (Meloxicam 15 MG Tablet) PO SCH (10:10)
[2021-08-18] MEDS: MENTHOL/PHENOL 1 EACH UD MM PRN (19:58)
[2021-08-18] MEDS: MELATONIN 5 MG TABLETS PO SCH (22:09)
[2021-08-18] MEDS: THIAMINE HCL 100 MG TABLET (FP) PO SCH (22:09)
[2021-08-19] MEDS: MENTHOL/PHENOL 1 EACH UD MM PRN ×2 (01:19→09:40)
[2021-08-19] MEDS: hydrOXYzine PAMOATE 25 MG CAPSULE (FP) PO SCH ×5 (06:20→22:18)
[2021-08-19] MEDS ORDERED: methaDONE HCL 10 MG TABLET (FOR DETOX USE ONLY) ONE (09:18)
[2021-08-19] MEDS: PRENATAL VITAMINS W/ FOLIC ACID TABLET (FP) PO SCH (10:05)
[2021-08-19] MEDS: amLODIPine BESYLATE 10 MG TABLET (FP) PO SCH (10:06)
[2021-08-19] MEDS: ASPIRIN COATED 81 MG TABLET.EC PO SCH (10:06)
[2021-08-19] MEDS: PATIENT'S OWN MEDICATION (NON-FORMULARY) (Meloxicam 15 MG Tablet) PO SCH (10:08)
[2021-08-19] MEDS: THIAMINE HCL 100 MG TABLET (FP) PO SCH (22:16)
[2021-08-19] MEDS: MELATONIN 5 MG TABLETS PO SCH (22:18)
[2021-08-20] MEDS: hydrOXYzine PAMOATE 25 MG CAPSULE (FP) PO SCH ×5 (06:16→22:34)
[2021-08-20] MEDS ORDERED: methaDONE HCL 10 MG TABLET (FOR DETOX USE ONLY) PO ONE (10:00)
[2021-08-20] MEDS: PATIENT'S OWN MEDICATION (NON-FORMULARY) (Meloxicam 15 MG Tablet) PO SCH (10:32)
[2021-08-20] MEDS: PRENATAL VITAMINS W/ FOLIC ACID TABLET (FP) PO SCH (10:32)
[2021-08-20] MEDS: amLODIPine BESYLATE 10 MG TABLET (FP) PO SCH (10:32)
[2021-08-20] MEDS: ASPIRIN COATED 81 MG TABLET.EC PO SCH (10:32)
[2021-08-20] MEDS: MELATONIN 5 MG TABLETS PO SCH (22:34)
[2021-08-20] MEDS: THIAMINE HCL 100 MG TABLET (FP) PO SCH (22:34)
[2021-08-21] MEDS: hydrOXYzine PAMOATE 25 MG CAPSULE (FP) PO SCH ×2 (06:37→11:33)
[2021-08-21] MEDS: amLODIPine BESYLATE 10 MG TABLET (FP) PO SCH (10:20)
[2021-08-21] MEDS: ASPIRIN COATED 81 MG TABLET.EC PO SCH (10:20)
[2021-08-21] MEDS: MENTHOL/PHENOL 1 EACH UD MM PRN (10:22)
[2021-08-21] MEDS: PATIENT'S OWN MEDICATION (NON-FORMULARY) (Meloxicam 15 MG Tablet) PO SCH (11:32)
[2021-08-21] MEDS: PRENATAL VITAMINS W/ FOLIC ACID TABLET (FP) PO SCH (11:33)
[2021-08-21 12:58] VITALS: BP 135/86; PULSE 78; TEMP 97.3
== END 2021-08-21 13:50 | disposition other institution (70) | DRG 897 ==
LOC: YASAS 12:19 → Y3N 14:34
PROVIDERS: ADMIT Allergy & Immunology; ATTEND Allergy & Immunology
PROC: HZ2ZZZZ Detoxification Services for Substance Abuse Treatment (ICD-10-PCS; principal; 2021-08-16)
DX: F11.23 Opioid dependence with withdrawal (principal); F14.20 Cocaine dependence, uncomplicated; F12.20 Cannabis dependence, uncomplicated; F17.210 Nicotine dependence, cigarettes, uncomplicated; I10 Essential (primary) hypertension; D72.819 Decreased white blood cell count, unspecified; M16.11 Unilateral primary osteoarthritis, right hip; M16.12 Unilateral primary osteoarthritis, left hip; G62.9 Polyneuropathy, unspecified; R26.2 Difficulty in walking, not elsewhere classified; Z99.89 Dependence on other enabling machines and devices; Z88.8 Allergy status to other drugs, medicaments and biological substances; Z91.018 Allergy to other foods
CPT/HCPCS: 36415; 80053; 85027; 86780; C9803; U0003; U0005

== ENCOUNTER 2021-08-21 13:54 | Inpatient (IN) | payer OTHER ==
[2021-08-21] MEDS ORDERED: MAGNESIUM HYDROX 2400MG/30ML ORAL SUSPENSION 30 ML CUP PO PRN (15:12)
[2021-08-21] MEDS ORDERED: LOPERAMIDE HCL 2 MG CAPSULE PO PRN (15:12)
[2021-08-21] MEDS ORDERED: MAGNESIUM CITRATE 300 ML BOTTLE PO PRN (15:12)
[2021-08-21] MEDS ORDERED: MAG HYDROX/AL HYDROX/SIMETH 30 ML UNIT-DOSE CUP PO PRN (15:12)
[2021-08-21] MEDS ORDERED: NICOTINE 10 MG CARTRIDGE (INHALER) IH PRN (15:12)
[2021-08-21] MEDS: hydrOXYzine PAMOATE 25 MG CAPSULE (FP) PO SCH ×2 (18:45→23:04)
[2021-08-21] MEDS ORDERED: PATIENT'S OWN MEDICATION (NON-FORMULARY) (Clonidine Hcl [Clonidine Hcl] 0.2 MG Tablet) PO SCH (22:00)
[2021-08-21] MEDS: THIAMINE HCL 100 MG TABLET (FP) PO SCH (23:04)
[2021-08-21] MEDS: MELATONIN 5 MG TABLETS PO SCH (23:04)
[2021-08-22 00:29] LABS: PH,URINE 6.5 (5.0-8.0); URINE APPEARANCE CLOUDY; URINE BILIRUBIN NEGATIVE (NEGATIVE); URINE COLOR YELLOW; URINE GLUCOSE (UA) NEGATIVE (NEGATIVE); URINE KETONE NEGATIVE (NEGATIVE); URINE LEUK ESTERASE NEGATIVE (NEGATIVE); URINE NITRITE NEGATIVE (NEGATIVE); URINE PROTEIN NEGATIVE (NEGATIVE); URINE UROBILINOGEN 0.2 mg/dL (0.2-1.0)
[2021-08-22] MEDS: guaiFENesin 200 MG/10 ML 10 ML UNIT-DOSE CUPS PO PRN (01:12)
[2021-08-22] MEDS: IBUPROFEN 400 MG TABLET (FP) PO PRN (03:25)
[2021-08-22] MEDS: P-EPHED 60MG/TRIPROLIDI 2.5MG TABLET PO PRN ×3 (03:25→21:22)
[2021-08-22] MEDS: hydrOXYzine PAMOATE 25 MG CAPSULE (FP) PO SCH ×5 (06:21→21:22)
[2021-08-22] MEDS ORDERED: PATIENT'S OWN MEDICATION (NON-FORMULARY) (Meloxicam 15 MG Tablet) PO SCH (10:00)
[2021-08-22] MEDS: ASPIRIN COATED 81 MG TABLET.EC PO SCH (10:24)
[2021-08-22] MEDS: PRENATAL VITAMINS W/ FOLIC ACID TABLET (FP) PO SCH (10:24)
[2021-08-22] MEDS: amLODIPine BESYLATE 10 MG TABLET (FP) PO SCH (10:24)
[2021-08-22] MEDS: NICOTINE 7 MG/24 HOURS TOPICAL PATCH TD SCH (10:24)
[2021-08-22] MEDS: ACETAMINOPHEN 325 MG TABLET (FP) PO PRN ×2 (10:27→21:22)
[2021-08-22] MEDS: BENZOCAINE/MENTHOL 1 EACH LOZENGE MM PRN (10:29)
[2021-08-22] MEDS: PATIENT'S OWN MEDICATION (NON-FORMULARY) (Meloxicam 15 MG) PO SCH (13:50)
[2021-08-22] MEDS: THIAMINE HCL 100 MG TABLET (FP) PO SCH (21:20)
[2021-08-22] MEDS: MELATONIN 5 MG TABLETS PO SCH (21:20)
[2021-08-23] MEDS: IBUPROFEN 400 MG TABLET (FP) PO PRN (06:10)
[2021-08-23] MEDS: guaiFENesin 200 MG/10 ML 10 ML UNIT-DOSE CUPS PO PRN (06:13)
[2021-08-23] MEDS: BENZOCAINE/MENTHOL 1 EACH LOZENGE MM PRN ×2 (06:15→21:31)
[2021-08-23] MEDS: hydrOXYzine PAMOATE 25 MG CAPSULE (FP) PO SCH ×5 (06:16→21:30)
[2021-08-23] MEDS: PATIENT'S OWN MEDICATION (NON-FORMULARY) (Meloxicam 15 MG) PO SCH (09:05)
[2021-08-23] MEDS: ASPIRIN COATED 81 MG TABLET.EC PO SCH (09:05)
[2021-08-23] MEDS: amLODIPine BESYLATE 10 MG TABLET (FP) PO SCH (09:06)
[2021-08-23] MEDS: NICOTINE 7 MG/24 HOURS TOPICAL PATCH TD SCH (09:06)
[2021-08-23] MEDS: PRENATAL VITAMINS W/ FOLIC ACID TABLET (FP) PO SCH (09:06)
[2021-08-23] MEDS: ACETAMINOPHEN 325 MG TABLET (FP) PO PRN (09:07)
[2021-08-23] MEDS: MELATONIN 5 MG TABLETS PO SCH (21:30)
[2021-08-23] MEDS: THIAMINE HCL 100 MG TABLET (FP) PO SCH (21:30)
[2021-08-24] MEDS: hydrOXYzine PAMOATE 25 MG CAPSULE (FP) PO SCH ×5 (06:06→21:35)
[2021-08-24] MEDS: ACETAMINOPHEN 325 MG TABLET (FP) PO PRN (06:08)
[2021-08-24] MEDS: BENZOCAINE/MENTHOL 1 EACH LOZENGE MM PRN ×2 (06:27→21:38)
[2021-08-24] MEDS: amLODIPine BESYLATE 10 MG TABLET (FP) PO SCH (09:39)
[2021-08-24] MEDS: PRENATAL VITAMINS W/ FOLIC ACID TABLET (FP) PO SCH (09:39)
[2021-08-24] MEDS: ERGOCALCIFEROL (VIT D2) 50,000 UNIT (1.25 MG) CAPSULE PO SCH ×2 (09:39→14:34)
[2021-08-24] MEDS: PATIENT'S OWN MEDICATION (NON-FORMULARY) (Meloxicam 15 MG) PO SCH (09:40)
[2021-08-24] MEDS: ASPIRIN COATED 81 MG TABLET.EC PO SCH (09:40)
[2021-08-24] MEDS: NICOTINE 7 MG/24 HOURS TOPICAL PATCH TD SCH (09:40)
[2021-08-24] MEDS: THIAMINE HCL 100 MG TABLET (FP) PO SCH (21:35)
[2021-08-24] MEDS: MELATONIN 5 MG TABLETS PO SCH (21:36)
[2021-08-25] MEDS: BENZOCAINE/MENTHOL 1 EACH LOZENGE MM PRN ×3 (03:13→23:41)
[2021-08-25] MEDS: ACETAMINOPHEN 325 MG TABLET (FP) PO PRN (05:51)
[2021-08-25] MEDS: hydrOXYzine PAMOATE 25 MG CAPSULE (FP) PO SCH ×5 (06:42→23:40)
[2021-08-25] MEDS ORDERED: PT OWN MED DRAWER 7, Y5N ONE (08:45)
[2021-08-25] MEDS: PATIENT'S OWN MEDICATION (NON-FORMULARY) (Meloxicam 15 MG) PO SCH (10:07)
[2021-08-25] MEDS: amLODIPine BESYLATE 10 MG TABLET (FP) PO SCH (10:07)
[2021-08-25] MEDS: ASPIRIN COATED 81 MG TABLET.EC PO SCH (10:07)
[2021-08-25] MEDS: NICOTINE 7 MG/24 HOURS TOPICAL PATCH TD SCH (10:07)
[2021-08-25] MEDS: PRENATAL VITAMINS W/ FOLIC ACID TABLET (FP) PO SCH (10:07)
[2021-08-25] MEDS: MELATONIN 5 MG TABLETS PO SCH (23:40)
[2021-08-25] MEDS: THIAMINE HCL 100 MG TABLET (FP) PO SCH (23:40)
[2021-08-25] MEDS: traZODone HCL 50 MG TABLET (FP) PO SCH (23:40)
[2021-08-26] MEDS: hydrOXYzine PAMOATE 25 MG CAPSULE (FP) PO SCH ×5 (06:28→21:14)
[2021-08-26] MEDS: NICOTINE 7 MG/24 HOURS TOPICAL PATCH TD SCH (10:26)
[2021-08-26] MEDS: amLODIPine BESYLATE 10 MG TABLET (FP) PO SCH (10:26)
[2021-08-26] MEDS: PATIENT'S OWN MEDICATION (NON-FORMULARY) (Meloxicam 15 MG) PO SCH (10:26)
[2021-08-26] MEDS: ASPIRIN COATED 81 MG TABLET.EC PO SCH (10:26)
[2021-08-26] MEDS: PRENATAL VITAMINS W/ FOLIC ACID TABLET (FP) PO SCH (10:26)
[2021-08-26] MEDS: AMOXICILLIN 500 MG CAPSULE (FP) PO SCH ×2 (13:21→21:14)
[2021-08-26] MEDS: THIAMINE HCL 100 MG TABLET (FP) PO SCH (21:14)
[2021-08-26] MEDS: MELATONIN 5 MG TABLETS PO SCH (21:14)
[2021-08-26] MEDS: traZODone HCL 50 MG TABLET (FP) PO SCH (21:14)
[2021-08-26] MEDS ORDERED: PT OWN MED DRAWER 7, Y5N ONE (21:16)
[2021-08-27] MEDS: AMOXICILLIN 500 MG CAPSULE (FP) PO SCH ×3 (06:13→21:26)
[2021-08-27] MEDS: hydrOXYzine PAMOATE 25 MG CAPSULE (FP) PO SCH ×5 (06:13→21:26)
[2021-08-27] MEDS: NICOTINE 7 MG/24 HOURS TOPICAL PATCH TD SCH (09:18)
[2021-08-27] MEDS: PRENATAL VITAMINS W/ FOLIC ACID TABLET (FP) PO SCH (09:18)
[2021-08-27] MEDS: PATIENT'S OWN MEDICATION (NON-FORMULARY) (Meloxicam 15 MG) PO SCH (09:18)
[2021-08-27] MEDS: ASPIRIN COATED 81 MG TABLET.EC PO SCH (09:18)
[2021-08-27] MEDS: amLODIPine BESYLATE 10 MG TABLET (FP) PO SCH (09:18)
[2021-08-27] MEDS ORDERED: BENZOCAINE/MENTH/CETYLPYRD CL 1 EACH LOZENGE MM PRN (10:06)
[2021-08-27] MEDS: P-EPHED 60MG/TRIPROLIDI 2.5MG TABLET PO PRN ×2 (10:12→21:29)
[2021-08-27] MEDS: guaiFENesin 200 MG/10 ML 10 ML UNIT-DOSE CUPS PO PRN ×2 (10:12→21:28)
[2021-08-27] MEDS: BENZOCAINE/MENTHOL 1 EACH LOZENGE MM PRN ×2 (13:22→21:26)
[2021-08-27] MEDS: THIAMINE HCL 100 MG TABLET (FP) PO SCH (21:26)
[2021-08-27] MEDS: traZODone HCL 100 MG TABLET (FP) PO SCH (21:27)
[2021-08-27] MEDS ORDERED: traZODone HCL 50 MG TABLET (FP) PO SCH (22:00)
[2021-08-28] MEDS: BENZOCAINE/MENTHOL 1 EACH LOZENGE MM PRN ×3 (06:11→21:13)
[2021-08-28] MEDS: P-EPHED 60MG/TRIPROLIDI 2.5MG TABLET PO PRN ×2 (06:13→21:12)
[2021-08-28] MEDS: hydrOXYzine PAMOATE 25 MG CAPSULE (FP) PO SCH ×5 (06:13→21:11)
[2021-08-28] MEDS: AMOXICILLIN 500 MG CAPSULE (FP) PO SCH ×3 (06:13→21:11)
[2021-08-28] MEDS: guaiFENesin 200 MG/10 ML 10 ML UNIT-DOSE CUPS PO PRN ×2 (06:13→21:12)
[2021-08-28] MEDS: PATIENT'S OWN MEDICATION (NON-FORMULARY) (Meloxicam 15 MG) PO SCH (14:49)
[2021-08-28] MEDS: ASPIRIN COATED 81 MG TABLET.EC PO SCH (14:49)
[2021-08-28] MEDS: amLODIPine BESYLATE 10 MG TABLET (FP) PO SCH (14:49)
[2021-08-28] MEDS: PRENATAL VITAMINS W/ FOLIC ACID TABLET (FP) PO SCH (14:50)
[2021-08-28] MEDS: cloNIDine HCL 0.1 MG TABLET PO SCH (17:06)
[2021-08-28] MEDS: THIAMINE HCL 100 MG TABLET (FP) PO SCH (21:11)
[2021-08-28] MEDS: traZODone HCL 100 MG TABLET (FP) PO SCH (21:11)
[2021-08-28] MEDS ORDERED: cloNIDine HCL 0.1 MG TABLET PO SCH (22:00)
[2021-08-29] MEDS: hydrOXYzine PAMOATE 25 MG CAPSULE (FP) PO SCH ×5 (06:16→22:10)
[2021-08-29] MEDS: guaiFENesin 200 MG/10 ML 10 ML UNIT-DOSE CUPS PO PRN (06:16)
[2021-08-29] MEDS: AMOXICILLIN 500 MG CAPSULE (FP) PO SCH ×3 (06:17→22:10)
[2021-08-29] MEDS: cloNIDine HCL 0.1 MG TABLET PO SCH ×2 (06:18→17:55)
[2021-08-29] MEDS: ASPIRIN COATED 81 MG TABLET.EC PO SCH (10:41)
[2021-08-29] MEDS: PRENATAL VITAMINS W/ FOLIC ACID TABLET (FP) PO SCH (10:42)
[2021-08-29] MEDS: amLODIPine BESYLATE 10 MG TABLET (FP) PO SCH (10:42)
[2021-08-29] MEDS: PATIENT'S OWN MEDICATION (NON-FORMULARY) (Meloxicam 15 MG) PO SCH (10:43)
[2021-08-29] MEDS: THIAMINE HCL 100 MG TABLET (FP) PO SCH (22:10)
[2021-08-29] MEDS: traZODone HCL 100 MG TABLET (FP) PO SCH (22:10)
[2021-08-29] MEDS: BENZOCAINE/MENTHOL 1 EACH LOZENGE MM PRN (22:11)
[2021-08-30] MEDS: AMOXICILLIN 500 MG CAPSULE (FP) PO SCH (06:25)
[2021-08-30] MEDS: hydrOXYzine PAMOATE 25 MG CAPSULE (FP) PO SCH ×2 (06:25→09:20)
[2021-08-30] MEDS: cloNIDine HCL 0.1 MG TABLET PO SCH ×2 (06:26→09:26)
[2021-08-30] MEDS: BENZOCAINE/MENTHOL 1 EACH LOZENGE MM PRN (06:29)
[2021-08-30] MEDS: P-EPHED 60MG/TRIPROLIDI 2.5MG TABLET PO PRN (06:29)
[2021-08-30] MEDS: guaiFENesin 200 MG/10 ML 10 ML UNIT-DOSE CUPS PO PRN (06:29)
[2021-08-30 08:23] VITALS: TEMP 98.2
[2021-08-30] MEDS: ASPIRIN COATED 81 MG TABLET.EC PO SCH (09:20)
[2021-08-30] MEDS: amLODIPine BESYLATE 10 MG TABLET (FP) PO SCH (09:20)
[2021-08-30] MEDS: PRENATAL VITAMINS W/ FOLIC ACID TABLET (FP) PO SCH (09:20)
[2021-08-30] MEDS: PATIENT'S OWN MEDICATION (NON-FORMULARY) (Meloxicam 15 MG) PO SCH (09:28)
[2021-08-30 09:51] VITALS: BP 164/94; PULSE 94
== END 2021-08-30 09:35 | disposition home or self-care (01) | DRG 895 ==
LOC: YASAS 13:54 → Y3W 13:55
PROVIDERS: ADMIT Allergy & Immunology; ATTEND Allergy & Immunology
PROC: HZ42ZZZ Group Counseling for Substance Abuse Treatment, Cognitive-Behavioral (ICD-10-PCS; principal; 2021-08-21)
DX: F11.20 Opioid dependence, uncomplicated (principal); F19.282 Other psychoactive substance dependence with psychoactive substance-induced sleep disorder; F10.20 Alcohol dependence, uncomplicated; I10 Essential (primary) hypertension; J06.9 Acute upper respiratory infection, unspecified; G62.9 Polyneuropathy, unspecified; M54.59 Other low back pain; G89.29 Other chronic pain; M19.90 Unspecified osteoarthritis, unspecified site; R79.89 Other specified abnormal findings of blood chemistry; Z56.0 Unemployment, unspecified
CPT/HCPCS: 81003; 87070; C9803; J0735; U0003; U0005

== ENCOUNTER 2021-09-16 18:03 | Inpatient (IN) | payer OTHER ==
[2021-09-16 20:12] VITALS: BMI 23.7
[2021-09-16] MEDS ORDERED: MENTHOL/PHENOL 1 EACH UD MM PRN (22:28)
[2021-09-16] MEDS ORDERED: MAGNESIUM CITRATE 300 ML BOTTLE PO PRN (22:28)
[2021-09-16] MEDS ORDERED: ONDANSETRON *ODT* 4 MG TABLET SL PRN (22:28)
[2021-09-16] MEDS ORDERED: BISMUTH SUBSALICYLATE 524 MG/30 ML PO PRN (22:28)
[2021-09-16] MEDS ORDERED: MAG HYDROX/AL HYDROX/SIMETH 30 ML UNIT-DOSE CUP PO PRN (22:28)
[2021-09-16] MEDS ORDERED: IBUPROFEN 400 MG TABLET (FP) PO PRN (22:28)
[2021-09-16] MEDS ORDERED: hydrOXYzine PAMOATE 25 MG CAPSULE (FP) PO PRN (22:28)
[2021-09-16] MEDS ORDERED: DICYCLOMINE HCL 10 MG CAPSULE PO PRN (22:28)
[2021-09-16] MEDS ORDERED: ACETAMINOPHEN 325 MG TABLET (FP) PO PRN ×2 (22:28)
[2021-09-16] MEDS ORDERED: MAGNESIUM HYDROX 2400MG/30ML ORAL SUSPENSION 30 ML CUP PO PRN (22:28)
[2021-09-16] MEDS ORDERED: P-EPHED 60MG/TRIPROLIDI 2.5MG TABLET PO PRN (22:28)
[2021-09-16] MEDS ORDERED: methaDONE HCL 10 MG TABLET (FOR DETOX USE ONLY) PO ONE (23:00)
[2021-09-17] MEDS ORDERED: methaDONE HCL 10 MG TABLET (FOR DETOX USE ONLY) ONE (03:52)
[2021-09-17] MEDS ORDERED: hydrOXYzine PAMOATE 25 MG CAPSULE (FP) PO ONE (04:15)
[2021-09-17] MEDS: cloNIDine HCL 0.1 MG TABLET PO PRN (04:56)
[2021-09-17] MEDS ORDERED: methaDONE HCL 10 MG TABLET (FOR DETOX USE ONLY) PO ONE (10:44)
[2021-09-17 10:49] LABS: HEMATOCRIT 41.4 % (35.4-49); HEMOGLOBIN 13.4 GM/dL (11.7-16.9); MCH 28.4 pg (25.7-33.7); MCHC 32.4 g/dl (32.0-35.9); MEAN CELL VOLUME 87.7 fl (80-96); MEAN PLT VOLUME 9.4 fl (7.5-11.1); PLATELET COUNT 155 10^3/uL (134-434); RBC 4.73 M/mm3 (4.00-5.60); RDW 14.8 % (11.9-15.9); WHITE BLOOD COUNT 3.9 K/mm3 (4.0-10.0)
[2021-09-17 11:16] LABS: ALBUMIN 3.9 g/dl (3.4-5.0); BLOOD UREA NITROGEN 23.9 mg/dL (7-18)
[2021-09-17 11:19] LABS: CREATININE 1.7 mg/dL (0.55-1.3)
[2021-09-17 11:20] LABS: BILIRUBIN,TOTAL 0.8 mg/dL (0.2-1)
[2021-09-17 11:21] LABS: TOT PROT 7.5 g/dl (6.4-8.2)
[2021-09-17] MEDS: PRENATAL VITAMINS W/ FOLIC ACID TABLET (FP) PO SCH (11:29)
[2021-09-17] MEDS: FLUOCINONIDE 0.05% CREAM (60 GM TUBE) TP SCH ×2 (14:18→22:34)
[2021-09-17] MEDS: THIAMINE HCL 100 MG TABLET (FP) PO SCH (22:34)
[2021-09-17] MEDS: MELATONIN 5 MG TABLETS PO SCH (22:34)
[2021-09-18] MEDS ORDERED: methaDONE HCL 10 MG TABLET (FOR DETOX USE ONLY) ONE (09:18)
[2021-09-18] MEDS ORDERED: methaDONE HCL 10 MG TABLET (FOR DETOX USE ONLY) PO ONE (10:00)
[2021-09-18] MEDS: cloNIDine HCL 0.1 MG TABLET PO PRN (10:18)
[2021-09-18] MEDS: PRENATAL VITAMINS W/ FOLIC ACID TABLET (FP) PO SCH (10:18)
[2021-09-18] MEDS: FLUOCINONIDE 0.05% CREAM (60 GM TUBE) TP SCH ×2 (10:19→22:43)
[2021-09-18] MEDS: ASPIRIN COATED 81 MG TABLET.EC PO SCH (14:35)
[2021-09-18] MEDS: amLODIPine BESYLATE 10 MG TABLET (FP) PO SCH (14:35)
[2021-09-18] MEDS: THIAMINE HCL 100 MG TABLET (FP) PO SCH (22:43)
[2021-09-18] MEDS: MELATONIN 5 MG TABLETS PO SCH (22:43)
[2021-09-19] MEDS ORDERED: methaDONE HCL 10 MG TABLET (FOR DETOX USE ONLY) PO ONE ×2 (10:00)
[2021-09-19] MEDS: PRENATAL VITAMINS W/ FOLIC ACID TABLET (FP) PO SCH (10:12)
[2021-09-19] MEDS: amLODIPine BESYLATE 10 MG TABLET (FP) PO SCH (10:13)
[2021-09-19] MEDS: ASPIRIN COATED 81 MG TABLET.EC PO SCH (10:13)
[2021-09-19] MEDS: FLUOCINONIDE 0.05% CREAM (60 GM TUBE) TP SCH ×2 (10:13→22:00)
[2021-09-19 11:21] LABS: CALCIUM 8.9 mg/dL (8.5-10.1)
[2021-09-19] MEDS: THIAMINE HCL 100 MG TABLET (FP) PO SCH (21:41)
[2021-09-19] MEDS: MELATONIN 5 MG TABLETS PO SCH (23:03)
[2021-09-20] MEDS: ASPIRIN COATED 81 MG TABLET.EC PO SCH (11:06)
[2021-09-20] MEDS: amLODIPine BESYLATE 10 MG TABLET (FP) PO SCH (11:06)
[2021-09-20] MEDS: PRENATAL VITAMINS W/ FOLIC ACID TABLET (FP) PO SCH (11:09)
[2021-09-20] MEDS: FLUOCINONIDE 0.05% CREAM (60 GM TUBE) TP SCH ×2 (11:09→22:06)
[2021-09-20] MEDS: MELATONIN 5 MG TABLETS PO SCH (22:06)
[2021-09-20] MEDS: THIAMINE HCL 100 MG TABLET (FP) PO SCH (22:06)
[2021-09-21] MEDS ORDERED: methaDONE HCL 10 MG TABLET (FOR DETOX USE ONLY) PO ONE (10:00)
[2021-09-21] MEDS: PRENATAL VITAMINS W/ FOLIC ACID TABLET (FP) PO SCH (10:34)
[2021-09-21] MEDS: amLODIPine BESYLATE 10 MG TABLET (FP) PO SCH (10:34)
[2021-09-21] MEDS: ASPIRIN COATED 81 MG TABLET.EC PO SCH (10:34)
[2021-09-21] MEDS: FLUOCINONIDE 0.05% CREAM (60 GM TUBE) TP SCH ×2 (10:35→23:23)
[2021-09-21] MEDS: MELATONIN 5 MG TABLETS PO SCH (23:23)
[2021-09-21] MEDS: THIAMINE HCL 100 MG TABLET (FP) PO SCH (23:24)
[2021-09-22] MEDS: FLUOCINONIDE 0.05% CREAM (60 GM TUBE) TP SCH ×2 (10:16→22:20)
[2021-09-22] MEDS: amLODIPine BESYLATE 10 MG TABLET (FP) PO SCH (10:16)
[2021-09-22] MEDS: ASPIRIN COATED 81 MG TABLET.EC PO SCH (10:16)
[2021-09-22] MEDS: PRENATAL VITAMINS W/ FOLIC ACID TABLET (FP) PO SCH (10:16)
[2021-09-22] MEDS: THIAMINE HCL 100 MG TABLET (FP) PO SCH (22:20)
[2021-09-22] MEDS: MELATONIN 5 MG TABLETS PO SCH (22:20)
[2021-09-23 09:34] VITALS: BP 157/87; PULSE 61; TEMP 98.3
== END 2021-09-23 10:07 | disposition home or self-care (01) | DRG 897 ==
LOC: YASAS 18:03 → Y6N 09-17 01:28 → Y3N 09-17 03:02 → Y6N 09-17 03:04
PROVIDERS: ADMIT Allergy & Immunology; ATTEND Allergy & Immunology
PROC: HZ2ZZZZ Detoxification Services for Substance Abuse Treatment (ICD-10-PCS; principal; 2021-09-17)
DX: F11.23 Opioid dependence with withdrawal (principal); I10 Essential (primary) hypertension; M17.0 Bilateral primary osteoarthritis of knee; M16.0 Bilateral primary osteoarthritis of hip; M54.50 Low back pain, unspecified; G89.29 Other chronic pain; R79.89 Other specified abnormal findings of blood chemistry; Z99.89 Dependence on other enabling machines and devices; Z88.8 Allergy status to other drugs, medicaments and biological substances; Z91.018 Allergy to other foods
CPT/HCPCS: 36415; 80048; 80053; 85027; 86780; 93005; 93010; C9803; J0735; U0003; U0005

== ENCOUNTER 2021-09-24 11:03 | Inpatient (IN) | payer OTHER ==
[2021-09-24] MEDS ORDERED: MAGNESIUM CITRATE 300 ML BOTTLE PO PRN (11:23)
[2021-09-24] MEDS ORDERED: P-EPHED 60MG/TRIPROLIDI 2.5MG TABLET PO PRN (11:23)
[2021-09-24] MEDS ORDERED: MAGNESIUM HYDROX 2400MG/30ML ORAL SUSPENSION 30 ML CUP PO PRN (11:23)
[2021-09-24] MEDS ORDERED: IBUPROFEN 400 MG TABLET (FP) PO PRN (11:23)
[2021-09-24] MEDS ORDERED: MAG HYDROX/AL HYDROX/SIMETH 30 ML UNIT-DOSE CUP PO PRN (11:23)
[2021-09-24] MEDS ORDERED: guaiFENesin 200 MG/10 ML 10 ML UNIT-DOSE CUPS PO PRN (11:23)
[2021-09-24] MEDS ORDERED: ACETAMINOPHEN 325 MG TABLET (FP) PO PRN (11:23)
[2021-09-24] MEDS ORDERED: LOPERAMIDE HCL 2 MG CAPSULE PO PRN (11:23)
[2021-09-24] MEDS ORDERED: ERGOCALCIFEROL (VIT D2) 50,000 UNIT (1.25 MG) CAPSULE PO SCH (11:30)
[2021-09-24 17:31] VITALS: BMI 52.3
[2021-09-24] MEDS: amLODIPine BESYLATE 10 MG TABLET (FP) PO SCH (19:46)
[2021-09-24] MEDS: ASPIRIN COATED 81 MG TABLET.EC PO SCH (19:46)
[2021-09-24] MEDS: PRENATAL VITAMINS W/ FOLIC ACID TABLET (FP) PO SCH (19:46)
[2021-09-24] MEDS: THIAMINE HCL 100 MG TABLET (FP) PO SCH (21:14)
[2021-09-24] MEDS: MELATONIN 5 MG TABLETS PO SCH (21:15)
[2021-09-25] MEDS: hydrOXYzine PAMOATE 25 MG CAPSULE (FP) PO PRN (01:41)
[2021-09-25] MEDS: ASPIRIN COATED 81 MG TABLET.EC PO SCH (09:53)
[2021-09-25] MEDS: PRENATAL VITAMINS W/ FOLIC ACID TABLET (FP) PO SCH (09:53)
[2021-09-25] MEDS: amLODIPine BESYLATE 10 MG TABLET (FP) PO SCH (09:53)
[2021-09-25] MEDS ORDERED: PATIENT'S OWN MEDICATION (NON-FORMULARY) (Clonidine Hcl [Clonidine Hcl] 0.2 MG Tablet) PO SCH (10:30)
[2021-09-25] MEDS: cloNIDine HCL 0.1 MG TABLET PO SCH ×2 (10:32→21:21)
[2021-09-25] MEDS ORDERED: COLLOIDAL OATMEAL 1 BAR EACH TP PRN (11:57)
[2021-09-25] MEDS: PRAMOXINE HCL 1% (SARNA SENSITIVE) 222 ML BOTTLE TP SCH ×2 (14:17→23:23)
[2021-09-25 15:55] LABS: HIV INTERPRETATION NEGATIVE (NEGATIVE)
[2021-09-25] MEDS: MELATONIN 5 MG TABLETS PO SCH (21:22)
[2021-09-25] MEDS: THIAMINE HCL 100 MG TABLET (FP) PO SCH (21:22)
[2021-09-26] MEDS: ASPIRIN COATED 81 MG TABLET.EC PO SCH (09:37)
[2021-09-26] MEDS: amLODIPine BESYLATE 10 MG TABLET (FP) PO SCH (09:37)
[2021-09-26] MEDS: cloNIDine HCL 0.1 MG TABLET PO SCH ×2 (09:37→21:30)
[2021-09-26] MEDS: PRENATAL VITAMINS W/ FOLIC ACID TABLET (FP) PO SCH (09:37)
[2021-09-26] MEDS: PRAMOXINE HCL 1% (SARNA SENSITIVE) 222 ML BOTTLE TP SCH (12:53)
[2021-09-26] MEDS: NON-FORMULARY MED TP SCH ×2 (14:29→21:31)
[2021-09-26] MEDS: hydrOXYzine PAMOATE 25 MG CAPSULE (FP) PO PRN (21:30)
[2021-09-26] MEDS: THIAMINE HCL 100 MG TABLET (FP) PO SCH (21:30)
[2021-09-26] MEDS: MELATONIN 5 MG TABLETS PO SCH (21:30)
[2021-09-27] MEDS: cloNIDine HCL 0.1 MG TABLET PO SCH ×2 (10:20→21:22)
[2021-09-27] MEDS: ASPIRIN COATED 81 MG TABLET.EC PO SCH (10:21)
[2021-09-27] MEDS: amLODIPine BESYLATE 10 MG TABLET (FP) PO SCH (10:21)
[2021-09-27] MEDS: PRENATAL VITAMINS W/ FOLIC ACID TABLET (FP) PO SCH (10:22)
[2021-09-27] MEDS: NON-FORMULARY MED TP SCH ×2 (10:22→21:22)
[2021-09-27] MEDS: THIAMINE HCL 100 MG TABLET (FP) PO SCH (21:23)
[2021-09-27] MEDS: SUVOREXANT 10 MG TABLET PO PRN (22:17)
[2021-09-27] MEDS: hydrOXYzine PAMOATE 25 MG CAPSULE (FP) PO PRN (22:17)
[2021-09-28] MEDS: ASPIRIN COATED 81 MG TABLET.EC PO SCH (09:34)
[2021-09-28] MEDS: PRENATAL VITAMINS W/ FOLIC ACID TABLET (FP) PO SCH (09:34)
[2021-09-28] MEDS: cloNIDine HCL 0.1 MG TABLET PO SCH ×2 (09:34→21:12)
[2021-09-28] MEDS: amLODIPine BESYLATE 10 MG TABLET (FP) PO SCH (09:34)
[2021-09-28] MEDS: NON-FORMULARY MED TP SCH ×2 (09:35→21:13)
[2021-09-28] MEDS ORDERED: ERGOCALCIFEROL (VIT D2) 50,000 UNIT (1.25 MG) CAPSULE PO SCH (10:00)
[2021-09-28] MEDS: THIAMINE HCL 100 MG TABLET (FP) PO SCH (21:12)
[2021-09-29] MEDS: PRENATAL VITAMINS W/ FOLIC ACID TABLET (FP) PO SCH (09:45)
[2021-09-29] MEDS: NON-FORMULARY MED TP SCH ×2 (09:46→21:40)
[2021-09-29] MEDS: cloNIDine HCL 0.1 MG TABLET PO SCH ×2 (09:46→21:05)
[2021-09-29] MEDS: amLODIPine BESYLATE 10 MG TABLET (FP) PO SCH (09:46)
[2021-09-29] MEDS: ASPIRIN COATED 81 MG TABLET.EC PO SCH (09:46)
[2021-09-29] MEDS: hydrOXYzine PAMOATE 25 MG CAPSULE (FP) PO PRN (21:06)
[2021-09-29] MEDS: THIAMINE HCL 100 MG TABLET (FP) PO SCH (21:06)
[2021-09-29] MEDS: SUVOREXANT 10 MG TABLET PO PRN (21:07)
[2021-09-30 07:10] VITALS: BP 134/82; PULSE 54; TEMP 97.6
[2021-09-30] MEDS: ASPIRIN COATED 81 MG TABLET.EC PO SCH (10:57)
[2021-09-30] MEDS: NON-FORMULARY MED TP SCH (10:57)
[2021-09-30] MEDS: amLODIPine BESYLATE 10 MG TABLET (FP) PO SCH (10:57)
[2021-09-30] MEDS: cloNIDine HCL 0.1 MG TABLET PO SCH (10:57)
[2021-09-30] MEDS: PRENATAL VITAMINS W/ FOLIC ACID TABLET (FP) PO SCH (10:58)
== END 2021-09-30 11:13 | disposition left against medical advice (07) | DRG 894 ==
LOC: YASAS 11:03 → Y3W 18:57 → Y5N 09-27 13:39
PROVIDERS: ADMIT Allergy & Immunology; ATTEND Allergy & Immunology
PROC: HZ42ZZZ Group Counseling for Substance Abuse Treatment, Cognitive-Behavioral (ICD-10-PCS; principal; 2021-09-24)
DX: F11.20 Opioid dependence, uncomplicated (principal); F19.282 Other psychoactive substance dependence with psychoactive substance-induced sleep disorder; G62.9 Polyneuropathy, unspecified; I10 Essential (primary) hypertension; M17.0 Bilateral primary osteoarthritis of knee; M16.0 Bilateral primary osteoarthritis of hip; L85.3 Xerosis cutis; Z99.89 Dependence on other enabling machines and devices; Z91.018 Allergy to other foods; Z88.8 Allergy status to other drugs, medicaments and biological substances; Z56.0 Unemployment, unspecified
CPT/HCPCS: 36415; 86803; 87389; C9803; J0735; U0003; U0005

== ENCOUNTER 2021-10-26 08:55 | Inpatient (IN) | payer OTHER ==
[2021-10-26 10:22] VITALS: BMI 23.7
[2021-10-26] MEDS ORDERED: BISMUTH SUBSALICYLATE 524 MG/30 ML PO PRN (10:30)
[2021-10-26] MEDS ORDERED: IBUPROFEN 400 MG TABLET (FP) PO PRN (10:30)
[2021-10-26] MEDS ORDERED: ONDANSETRON *ODT* 4 MG TABLET SL PRN (10:30)
[2021-10-26] MEDS ORDERED: NALOXONE HCL 0.4 MG/ML VIAL IM PRN (10:30)
[2021-10-26] MEDS ORDERED: methaDONE HCL 10 MG TABLET (FOR DETOX USE ONLY) PO ONE (10:30)
[2021-10-26] MEDS ORDERED: ACETAMINOPHEN 325 MG TABLET (FP) PO PRN ×2 (10:30)
[2021-10-26] MEDS ORDERED: MAGNESIUM CITRATE 300 ML BOTTLE PO PRN (10:30)
[2021-10-26] MEDS ORDERED: MENTHOL/PHENOL 1 EACH UD MM PRN (10:30)
[2021-10-26] MEDS ORDERED: chlordiazePOXIDE HCL 25 MG CAPSULE PO PRN (10:30)
[2021-10-26] MEDS ORDERED: LOPERAMIDE HCL 2 MG CAPSULE PO PRN (10:30)
[2021-10-26] MEDS ORDERED: MAGNESIUM HYDROX 2400MG/30ML ORAL SUSPENSION 30 ML CUP PO PRN (10:30)
[2021-10-26] MEDS ORDERED: chlordiazePOXIDE HCL 25 MG CAPSULE PO ONE (10:30)
[2021-10-26] MEDS ORDERED: NALOXONE (NARCAN) HCL 4 MG/0.1 ML SPRAY NS PRN (10:30)
[2021-10-26] MEDS ORDERED: cloNIDine HCL 0.1 MG TABLET PO PRN (10:30)
[2021-10-26] MEDS ORDERED: MAG HYDROX/AL HYDROX/SIMETH 30 ML UNIT-DOSE CUP PO PRN (10:30)
[2021-10-26] MEDS ORDERED: AMMONIUM LACTATE 12% LOTION 225 GM BOTTLE TP PRN (10:47)
[2021-10-26] MEDS: chlordiazePOXIDE HCL 25 MG CAPSULE PO SCH ×3 (13:48→22:02)
[2021-10-26] MEDS ORDERED: SUVOREXANT 5 MG TABLET PO PRN (22:00)
[2021-10-26] MEDS: MELATONIN 5 MG TABLETS PO SCH (22:02)
[2021-10-26] MEDS: cloNIDine HCL 0.1 MG TABLET PO SCH (22:02)
[2021-10-26] MEDS: THIAMINE HCL 100 MG TABLET (FP) PO SCH (22:02)
[2021-10-27] MEDS: chlordiazePOXIDE HCL 25 MG CAPSULE PO SCH ×4 (06:47→23:42)
[2021-10-27] MEDS: amLODIPine BESYLATE 10 MG TABLET (FP) PO SCH (10:49)
[2021-10-27] MEDS: ASPIRIN COATED 81 MG TABLET.EC PO SCH (10:49)
[2021-10-27] MEDS: PRENATAL VITAMINS W/ FOLIC ACID TABLET (FP) PO SCH (10:50)
[2021-10-27] MEDS: cloNIDine HCL 0.1 MG TABLET PO SCH ×2 (10:50→23:42)
[2021-10-27] MEDS ORDERED: methaDONE HCL 10 MG TABLET (FOR DETOX USE ONLY) ONE (11:02)
[2021-10-27] MEDS: MELATONIN 5 MG TABLETS PO SCH (23:42)
[2021-10-27] MEDS: THIAMINE HCL 100 MG TABLET (FP) PO SCH (23:42)
[2021-10-28] MEDS: chlordiazePOXIDE HCL 25 MG CAPSULE PO SCH ×4 (05:42→22:23)
[2021-10-28] MEDS ORDERED: methaDONE HCL 10 MG TABLET (FOR DETOX USE ONLY) PO ONE (10:00)
[2021-10-28] MEDS: METHOCARBAMOL 500 MG TABLET PO PRN (10:48)
[2021-10-28] MEDS: PRENATAL VITAMINS W/ FOLIC ACID TABLET (FP) PO SCH (10:49)
[2021-10-28] MEDS: ASPIRIN COATED 81 MG TABLET.EC PO SCH (10:49)
[2021-10-28] MEDS: amLODIPine BESYLATE 10 MG TABLET (FP) PO SCH (10:49)
[2021-10-28] MEDS: cloNIDine HCL 0.1 MG TABLET PO SCH ×2 (10:50→22:26)
[2021-10-28] MEDS ORDERED: NALOXONE (NARCAN) HCL 4 MG/0.1 ML SPRAY NS PRN (13:59)
[2021-10-28 16:36] LABS: HEMATOCRIT 39.4 % (35.4-49); HEMOGLOBIN 13.3 GM/dL (11.7-16.9); MCH 29.1 pg (25.7-33.7); MCHC 33.7 g/dl (32.0-35.9); MEAN CELL VOLUME 86.2 fl (80-96); MEAN PLT VOLUME 9.1 fl (7.5-11.1); PLATELET COUNT 156 10^3/uL (134-434); RBC 4.57 M/mm3 (4.00-5.60); RDW 14.2 % (11.9-15.9)
[2021-10-28 16:43] LABS: CALCIUM 9.2 mg/dL (8.5-10.1)
[2021-10-28 16:44] LABS: BLOOD UREA NITROGEN 25.2 mg/dL (7-18)
[2021-10-28 16:45] LABS: ALBUMIN 3.6 g/dl (3.4-5.0); BILIRUBIN,TOTAL 0.5 mg/dL (0.2-1); TOT PROT 6.9 g/dl (6.4-8.2)
[2021-10-28 16:47] LABS: CREATININE 1.2 mg/dL (0.55-1.3)
[2021-10-28] MEDS: THIAMINE HCL 100 MG TABLET (FP) PO SCH (22:23)
[2021-10-28] MEDS: METHYL SALICYLATE/MENTHOL OINT 30 GM TUBE TP SCH (22:24)
[2021-10-28] MEDS: MELATONIN 5 MG TABLETS PO SCH (22:24)
[2021-10-29] MEDS ORDERED: chlordiazePOXIDE HCL 10 MG CAPSULE PO PRN
[2021-10-29] MEDS: chlordiazePOXIDE HCL 10 MG CAPSULE PO SCH ×4 (06:15→22:50)
[2021-10-29 08:10] LABS: SARS-CoV-2 NAA Not Detected (Not Detected)
[2021-10-29] MEDS ORDERED: methaDONE HCL 10 MG TABLET (FOR DETOX USE ONLY) ONE (09:20)
[2021-10-29] MEDS: METHOCARBAMOL 500 MG TABLET PO PRN ×2 (09:54→22:49)
[2021-10-29] MEDS: ASPIRIN COATED 81 MG TABLET.EC PO SCH (09:54)
[2021-10-29] MEDS: amLODIPine BESYLATE 10 MG TABLET (FP) PO SCH (09:54)
[2021-10-29] MEDS: METHYL SALICYLATE/MENTHOL OINT 30 GM TUBE TP SCH ×2 (10:01→22:49)
[2021-10-29] MEDS: PRENATAL VITAMINS W/ FOLIC ACID TABLET (FP) PO SCH (10:01)
[2021-10-29] MEDS: cloNIDine HCL 0.1 MG TABLET PO SCH ×2 (10:01→23:05)
[2021-10-29] MEDS: hydrOXYzine PAMOATE 25 MG CAPSULE (FP) PO PRN ×2 (18:21→22:50)
[2021-10-29] MEDS: MELATONIN 5 MG TABLETS PO SCH (22:49)
[2021-10-29] MEDS: THIAMINE HCL 100 MG TABLET (FP) PO SCH (22:49)
[2021-10-30] MEDS: chlordiazePOXIDE HCL 10 MG CAPSULE PO SCH ×2 (06:34→18:36)
[2021-10-30] MEDS ORDERED: methaDONE HCL 10 MG TABLET (FOR DETOX USE ONLY) PO ONE (10:00)
[2021-10-30] MEDS: cloNIDine HCL 0.1 MG TABLET PO SCH ×2 (11:08→22:47)
[2021-10-30] MEDS: amLODIPine BESYLATE 10 MG TABLET (FP) PO SCH (11:08)
[2021-10-30] MEDS: METHYL SALICYLATE/MENTHOL OINT 30 GM TUBE TP SCH ×2 (11:09→22:45)
[2021-10-30] MEDS: PRENATAL VITAMINS W/ FOLIC ACID TABLET (FP) PO SCH (11:09)
[2021-10-30] MEDS: ASPIRIN COATED 81 MG TABLET.EC PO SCH (11:09)
[2021-10-30] MEDS: METHOCARBAMOL 500 MG TABLET PO PRN (22:46)
[2021-10-30] MEDS: THIAMINE HCL 100 MG TABLET (FP) PO SCH (22:46)
[2021-10-30] MEDS: MELATONIN 5 MG TABLETS PO SCH (22:46)
[2021-10-30] MEDS: hydrOXYzine PAMOATE 25 MG CAPSULE (FP) PO PRN (22:46)
[2021-10-31] MEDS ORDERED: chlordiazePOXIDE HCL 10 MG CAPSULE PO ONE (05:00)
[2021-10-31 09:03] VITALS: BP 127/79; PULSE 54; TEMP 97
[2021-11-02] MEDS ORDERED: ERGOCALCIFEROL (VIT D2) 50,000 UNIT (1.25 MG) CAPSULE PO SCH (10:00)
== END 2021-10-31 09:55 | disposition home or self-care (01) | DRG 897 ==
LOC: YASAS 08:55 → Y3N 11:50
PROVIDERS: ADMIT Allergy & Immunology; ATTEND Allergy & Immunology
PROC: HZ2ZZZZ Detoxification Services for Substance Abuse Treatment (ICD-10-PCS; principal; 2021-10-26)
DX: F11.23 Opioid dependence with withdrawal (principal); F19.282 Other psychoactive substance dependence with psychoactive substance-induced sleep disorder; F10.20 Alcohol dependence, uncomplicated; F12.20 Cannabis dependence, uncomplicated; G47.00 Insomnia, unspecified; I10 Essential (primary) hypertension; G62.9 Polyneuropathy, unspecified; M17.0 Bilateral primary osteoarthritis of knee; M16.0 Bilateral primary osteoarthritis of hip; M54.50 Low back pain, unspecified; G89.29 Other chronic pain; Z99.89 Dependence on other enabling machines and devices; Z88.8 Allergy status to other drugs, medicaments and biological substances; Z91.018 Allergy to other foods
CPT/HCPCS: 36415; 80053; 85027; 86780; 93005; 93010; C9803; J0735; Q0162; U0003; U0005

== ENCOUNTER 2021-12-23 21:14 | Inpatient (IN) | payer OTHER ==
[2021-12-24] MEDS ORDERED: BENZOCAINE/MENTHOL (CHLORASEPTIC ) LOZENGE MM PRN (01:15)
[2021-12-24] MEDS ORDERED: IBUPROFEN 400 MG TABLET (FP) PO PRN (01:15)
[2021-12-24] MEDS ORDERED: BISMUTH SUBSALICYLATE 524 MG/30 ML PO PRN (01:15)
[2021-12-24] MEDS ORDERED: DICYCLOMINE HCL 10 MG CAPSULE PO PRN (01:15)
[2021-12-24] MEDS ORDERED: LOPERAMIDE HCL 2 MG CAPSULE PO PRN (01:15)
[2021-12-24] MEDS ORDERED: ONDANSETRON *ODT* 4 MG TABLET SL PRN (01:15)
[2021-12-24] MEDS ORDERED: MAGNESIUM CITRATE 300 ML BOTTLE PO PRN (01:15)
[2021-12-24] MEDS ORDERED: MAGNESIUM HYDROX 2400MG/30ML ORAL SUSPENSION 30 ML CUP PO PRN (01:15)
[2021-12-24] MEDS ORDERED: MAG HYDROX/AL HYDROX/SIMETH 30 ML UNIT-DOSE CUP PO PRN (01:15)
[2021-12-24] MEDS ORDERED: ACETAMINOPHEN 325 MG TABLET (FP) PO PRN ×2 (01:15)
[2021-12-24] MEDS ORDERED: methaDONE HCL 10 MG TABLET (FOR DETOX USE ONLY) PO ONE (01:22)
[2021-12-24] MEDS ORDERED: chlordiazePOXIDE HCL 25 MG CAPSULE PO PRN (01:23)
[2021-12-24] MEDS: chlordiazePOXIDE HCL 25 MG CAPSULE PO SCH ×4 (06:21→22:20)
[2021-12-24] MEDS: PRENATAL VITAMINS W/ FOLIC ACID TABLET (FP) PO SCH (10:45)
[2021-12-24 13:33] LABS: HEMATOCRIT 42.1 % (35.4-49); HEMOGLOBIN 13.9 GM/dL (11.7-16.9); MCH 29.1 pg (25.7-33.7); MCHC 33.1 g/dl (32.0-35.9); MEAN CELL VOLUME 87.9 fl (80-96); MEAN PLT VOLUME 9.8 fl (7.5-11.1); PLATELET COUNT 151 10^3/uL (134-434); RBC 4.79 M/mm3 (4.00-5.60); RDW 14.9 % (11.9-15.9)
[2021-12-24 13:37] LABS: CALCIUM 8.9 mg/dL (8.5-10.1)
[2021-12-24 13:38] LABS: ALBUMIN 3.8 g/dl (3.4-5.0); BLOOD UREA NITROGEN 29.2 mg/dL (7-18)
[2021-12-24 13:41] LABS: CREATININE 1.4 mg/dL (0.55-1.3)
[2021-12-24 13:43] LABS: BILIRUBIN,TOTAL 0.6 mg/dL (0.2-1); TOT PROT 7.2 g/dl (6.4-8.2)
[2021-12-24] MEDS: CLOPIDOGREL BISULFATE 75 MG TABLET (FP) PO SCH (17:34)
[2021-12-24] MEDS: ASPIRIN 81 MG CHEWABLE TABLETS PO SCH (17:35)
[2021-12-24] MEDS: metoPROLOL SUCCINATE 25 MG TAB.SR.24H (FP) PO SCH (17:35)
[2021-12-24] MEDS: LIDOCAINE 5% TOPICAL PATCH TP SCH (19:17)
[2021-12-24] MEDS: THIAMINE HCL 100 MG TABLET (FP) PO SCH (22:20)
[2021-12-24] MEDS: cloNIDine HCL 0.1 MG TABLET PO PRN (22:20)
[2021-12-24] MEDS: ATORVASTATIN CA 80 MG TABLET (FP) PO SCH (22:20)
[2021-12-24] MEDS: MELATONIN 5 MG TABLETS PO SCH (22:20)
[2021-12-24] MEDS: LIDOCAINE PATCH REMOVAL MC SCH (23:01)
[2021-12-25] MEDS: chlordiazePOXIDE HCL 25 MG CAPSULE PO SCH ×4 (06:55→22:16)
[2021-12-25] MEDS: PRENATAL VITAMINS W/ FOLIC ACID TABLET (FP) PO SCH (10:29)
[2021-12-25] MEDS ORDERED: methaDONE HCL 10 MG TABLET (FOR DETOX USE ONLY) ONE (10:29)
[2021-12-25] MEDS: ASPIRIN 81 MG CHEWABLE TABLETS PO SCH (10:30)
[2021-12-25] MEDS: metoPROLOL SUCCINATE 25 MG TAB.SR.24H (FP) PO SCH (10:30)
[2021-12-25] MEDS: CLOPIDOGREL BISULFATE 75 MG TABLET (FP) PO SCH (10:30)
[2021-12-25] MEDS: LIDOCAINE 5% TOPICAL PATCH TP SCH (10:35)
[2021-12-25 14:08] LABS: SARS-CoV-2 NAA Not Detected (Not Detected)
[2021-12-25] MEDS: ATORVASTATIN CA 80 MG TABLET (FP) PO SCH (22:16)
[2021-12-25] MEDS: LIDOCAINE PATCH REMOVAL MC SCH (22:16)
[2021-12-25] MEDS: MELATONIN 5 MG TABLETS PO SCH (22:16)
[2021-12-25] MEDS: THIAMINE HCL 100 MG TABLET (FP) PO SCH (22:16)
[2021-12-26] MEDS ORDERED: chlordiazePOXIDE HCL 10 MG CAPSULE PO PRN
[2021-12-26] MEDS: chlordiazePOXIDE HCL 10 MG CAPSULE PO SCH ×4 (07:29→22:13)
[2021-12-26] MEDS ORDERED: methaDONE HCL 10 MG TABLET (FOR DETOX USE ONLY) PO ONE (10:00)
[2021-12-26 10:11] LABS: CREATININE 1.1 mg/dL (0.55-1.3)
[2021-12-26] MEDS: LIDOCAINE 5% TOPICAL PATCH TP SCH (10:42)
[2021-12-26] MEDS: PRENATAL VITAMINS W/ FOLIC ACID TABLET (FP) PO SCH (10:42)
[2021-12-26] MEDS: CLOPIDOGREL BISULFATE 75 MG TABLET (FP) PO SCH (10:43)
[2021-12-26] MEDS: ASPIRIN 81 MG CHEWABLE TABLETS PO SCH (10:43)
[2021-12-26] MEDS: metoPROLOL SUCCINATE 25 MG TAB.SR.24H (FP) PO SCH (10:43)
[2021-12-26 16:08] LABS: SARS-CoV-2 NAA Not Detected (Not Detected)
[2021-12-26] MEDS: cloNIDine HCL 0.1 MG TABLET PO PRN (17:37)
[2021-12-26] MEDS: THIAMINE HCL 100 MG TABLET (FP) PO SCH (22:12)
[2021-12-26] MEDS: ATORVASTATIN CA 80 MG TABLET (FP) PO SCH (22:12)
[2021-12-26] MEDS: MELATONIN 5 MG TABLETS PO SCH (22:12)
[2021-12-26] MEDS: LIDOCAINE PATCH REMOVAL MC SCH (22:15)
[2021-12-27] MEDS: chlordiazePOXIDE HCL 10 MG CAPSULE PO SCH ×2 (06:41→18:06)
[2021-12-27] MEDS ORDERED: methaDONE HCL 10 MG TABLET (FOR DETOX USE ONLY) ONE (08:52)
[2021-12-27] MEDS: PRENATAL VITAMINS W/ FOLIC ACID TABLET (FP) PO SCH (11:08)
[2021-12-27] MEDS: LIDOCAINE 5% TOPICAL PATCH TP SCH (11:08)
[2021-12-27] MEDS: ASPIRIN 81 MG CHEWABLE TABLETS PO SCH (11:08)
[2021-12-27] MEDS: metoPROLOL SUCCINATE 25 MG TAB.SR.24H (FP) PO SCH (11:08)
[2021-12-27] MEDS: CLOPIDOGREL BISULFATE 75 MG TABLET (FP) PO SCH (11:08)
[2021-12-27] MEDS: MELATONIN 5 MG TABLETS PO SCH (22:28)
[2021-12-27] MEDS: THIAMINE HCL 100 MG TABLET (FP) PO SCH (22:28)
[2021-12-27] MEDS: ATORVASTATIN CA 80 MG TABLET (FP) PO SCH (22:28)
[2021-12-27] MEDS: LIDOCAINE PATCH REMOVAL MC SCH (22:28)
[2021-12-28] MEDS ORDERED: chlordiazePOXIDE HCL 10 MG CAPSULE PO ONE (05:00)
[2021-12-28] MEDS ORDERED: methaDONE HCL 10 MG TABLET (FOR DETOX USE ONLY) PO ONE (10:00)
[2021-12-28] MEDS: PRENATAL VITAMINS W/ FOLIC ACID TABLET (FP) PO SCH (11:05)
[2021-12-28] MEDS: METHOCARBAMOL 500 MG TABLET PO PRN ×2 (11:07→17:23)
[2021-12-28] MEDS: LIDOCAINE 5% TOPICAL PATCH TP SCH (11:07)
[2021-12-28] MEDS: metoPROLOL SUCCINATE 25 MG TAB.SR.24H (FP) PO SCH (11:07)
[2021-12-28] MEDS: CLOPIDOGREL BISULFATE 75 MG TABLET (FP) PO SCH (11:07)
[2021-12-28] MEDS: ASPIRIN 81 MG CHEWABLE TABLETS PO SCH (11:07)
[2021-12-28] MEDS: ATORVASTATIN CA 80 MG TABLET (FP) PO SCH (22:26)
[2021-12-28] MEDS: THIAMINE HCL 100 MG TABLET (FP) PO SCH (22:26)
[2021-12-28] MEDS: MELATONIN 5 MG TABLETS PO SCH (22:26)
[2021-12-28] MEDS: LIDOCAINE PATCH REMOVAL MC SCH (23:09)
[2021-12-29 09:06] VITALS: BP 120/81; PULSE 76; TEMP 97.5
== END 2021-12-29 11:07 | disposition home or self-care (01) | DRG 897 ==
LOC: YASAS 21:14 → Y3N 12-24 02:32
PROVIDERS: ADMIT Allergy & Immunology; ATTEND Allergy & Immunology
PROC: HZ2ZZZZ Detoxification Services for Substance Abuse Treatment (ICD-10-PCS; principal; 2021-12-24)
DX: F11.23 Opioid dependence with withdrawal (principal); F19.282 Other psychoactive substance dependence with psychoactive substance-induced sleep disorder; F10.230 Alcohol dependence with withdrawal, uncomplicated; F12.20 Cannabis dependence, uncomplicated; E55.9 Vitamin D deficiency, unspecified; G47.00 Insomnia, unspecified; G62.9 Polyneuropathy, unspecified; I10 Essential (primary) hypertension; I25.2 Old myocardial infarction; M17.0 Bilateral primary osteoarthritis of knee; M16.0 Bilateral primary osteoarthritis of hip; M54.50 Low back pain, unspecified; G89.29 Other chronic pain; R26.89 Other abnormalities of gait and mobility; Z99.89 Dependence on other enabling machines and devices; Z28.310 Unvaccinated for COVID-19; Z28.21 Immunization not carried out because of patient refusal; Z88.8 Allergy status to other drugs, medicaments and biological substances; Z91.014 Allergy to mammalian meats
CPT/HCPCS: 36415; 80053; 82565; 84520; 85027; 86780; 93005; 93010; C9803-CS; J0735; U0003; U0005

== ENCOUNTER 2022-01-22 11:13 | Inpatient (IN) | payer OTHER ==
[2022-01-22 11:35] VITALS: BMI 23.7
[2022-01-22] MEDS ORDERED: NALOXONE HCL (KLOXXADO) 8 MG SPRAY NS PRN (12:12)
[2022-01-22] MEDS ORDERED: ONDANSETRON *ODT* 4 MG TABLET SL PRN (12:12)
[2022-01-22] MEDS ORDERED: MAGNESIUM HYDROX 2400MG/30ML ORAL SUSPENSION 30 ML CUP PO PRN (12:12)
[2022-01-22] MEDS ORDERED: LOPERAMIDE HCL 2 MG CAPSULE PO PRN (12:12)
[2022-01-22] MEDS ORDERED: MAG HYDROX/AL HYDROX/SIMETH 30 ML UNIT-DOSE CUP PO PRN (12:12)
[2022-01-22] MEDS ORDERED: MAGNESIUM CITRATE 300 ML BOTTLE PO PRN (12:12)
[2022-01-22] MEDS ORDERED: DICYCLOMINE HCL 10 MG CAPSULE PO PRN (12:12)
[2022-01-22] MEDS ORDERED: ACETAMINOPHEN 325 MG TABLET (FP) PO PRN (12:12)
[2022-01-22] MEDS ORDERED: cloNIDine HCL 0.1 MG TABLET PO PRN (12:12)
[2022-01-22] MEDS ORDERED: chlordiazePOXIDE HCL 25 MG CAPSULE PO PRN (12:12)
[2022-01-22] MEDS ORDERED: BISMUTH SUBSALICYLATE 262 MG/15 ML BTL PO PRN (12:12)
[2022-01-22] MEDS ORDERED: IBUPROFEN 400 MG TABLET (FP) PO PRN (12:12)
[2022-01-22] MEDS ORDERED: methaDONE HCL 10 MG TABLET (FOR DETOX USE ONLY) PO ONE (12:12)
[2022-01-22] MEDS ORDERED: BENZOCAINE/MENTHOL (CHLORASEPTIC ) LOZENGE MM PRN (12:12)
[2022-01-22] MEDS: LIDOCAINE 5% TOPICAL PATCH TP SCH (14:10)
[2022-01-22] MEDS: METHOCARBAMOL 500 MG TABLET PO PRN (14:10)
[2022-01-22] MEDS: ASPIRIN 81 MG CHEWABLE TABLETS PO SCH (14:10)
[2022-01-22] MEDS: PRENATAL VITAMINS W/ FOLIC ACID TABLET (FP) PO SCH (14:14)
[2022-01-22] MEDS: chlordiazePOXIDE HCL 25 MG CAPSULE PO SCH ×2 (17:42→22:20)
[2022-01-22] MEDS: THIAMINE HCL 100 MG TABLET (FP) PO SCH (22:19)
[2022-01-22] MEDS: ATORVASTATIN CA 80 MG TABLET (FP) PO SCH (22:19)
[2022-01-22] MEDS: MELATONIN 5 MG TABLETS PO SCH (22:19)
[2022-01-22] MEDS: LIDOCAINE PATCH REMOVAL MC SCH (22:20)
[2022-01-23] MEDS: chlordiazePOXIDE HCL 25 MG CAPSULE PO SCH ×4 (05:39→23:08)
[2022-01-23] MEDS ORDERED: methaDONE HCL 10 MG TABLET (FOR DETOX USE ONLY) ONE (09:16)
[2022-01-23] MEDS ORDERED: metoPROLOL SUCCINATE 25 MG TAB.SR.24H (FP) PO SCH (10:00)
[2022-01-23] MEDS ORDERED: CLOPIDOGREL BISULFATE 75 MG TABLET (FP) PO SCH (10:00)
[2022-01-23] MEDS: hydrOXYzine PAMOATE 25 MG CAPSULE (FP) PO PRN ×3 (10:09→17:49)
[2022-01-23] MEDS: LIDOCAINE 5% TOPICAL PATCH TP SCH (10:09)
[2022-01-23] MEDS: METHOCARBAMOL 500 MG TABLET PO PRN (10:09)
[2022-01-23] MEDS: PRENATAL VITAMINS W/ FOLIC ACID TABLET (FP) PO SCH (10:12)
[2022-01-23] MEDS: ASPIRIN 81 MG CHEWABLE TABLETS PO SCH ×2 (10:12→23:07)
[2022-01-23 10:42] LABS: HEMOGLOBIN 14.1 GM/dL (11.7-16.9); MCH 28.2 pg (25.7-33.7); MCHC 32.1 g/dl (32.0-35.9); MEAN CELL VOLUME 87.6 fl (80-96); MEAN PLT VOLUME 11.2 fl (7.5-11.1); PLATELET COUNT 138 10^3/uL (134-434); RBC 5.02 M/mm3 (4.00-5.60); RDW 14.2 % (11.9-15.9); WHITE BLOOD COUNT 2.6 K/mm3 (4.0-10.0)
[2022-01-23 10:57] LABS: CALCIUM 9.2 mg/dL (8.5-10.1)
[2022-01-23 10:58] LABS: ALBUMIN 3.9 g/dl (3.4-5.0); BLOOD UREA NITROGEN 26.2 mg/dL (7-18)
[2022-01-23 11:01] LABS: CREATININE 1.3 mg/dL (0.55-1.3)
[2022-01-23 11:02] LABS: BILIRUBIN,TOTAL 1.3 mg/dL (0.2-1); TOT PROT 7.6 g/dl (6.4-8.2)
[2022-01-23] MEDS: ACETAMINOPHEN 325 MG TABLET (FP) PO PRN (17:49)
[2022-01-23] MEDS: ATORVASTATIN CA 80 MG TABLET (FP) PO SCH (23:08)
[2022-01-23] MEDS: CLOPIDOGREL BISULFATE 75 MG TABLET (FP) PO SCH (23:08)
[2022-01-23] MEDS: THIAMINE HCL 100 MG TABLET (FP) PO SCH (23:09)
[2022-01-23] MEDS: MELATONIN 5 MG TABLETS PO SCH (23:09)
[2022-01-23] MEDS: LIDOCAINE PATCH REMOVAL MC SCH (23:09)
[2022-01-24] MEDS: chlordiazePOXIDE HCL 25 MG CAPSULE PO SCH ×4 (06:49→22:59)
[2022-01-24] MEDS ORDERED: methaDONE HCL 10 MG TABLET (FOR DETOX USE ONLY) PO ONE (10:00)
[2022-01-24] MEDS: LIDOCAINE 5% TOPICAL PATCH TP SCH (10:28)
[2022-01-24] MEDS: METHOCARBAMOL 500 MG TABLET PO PRN (10:29)
[2022-01-24] MEDS: PRENATAL VITAMINS W/ FOLIC ACID TABLET (FP) PO SCH (10:29)
[2022-01-24] MEDS: metoPROLOL SUCCINATE 25 MG TAB.SR.24H (FP) PO SCH (10:29)
[2022-01-24] MEDS: hydrOXYzine PAMOATE 25 MG CAPSULE (FP) PO PRN ×2 (10:30→18:10)
[2022-01-24] MEDS: ACETAMINOPHEN 325 MG TABLET (FP) PO PRN (18:10)
[2022-01-24] MEDS: CLOPIDOGREL BISULFATE 75 MG TABLET (FP) PO SCH (20:50)
[2022-01-24] MEDS: ASPIRIN 81 MG CHEWABLE TABLETS PO SCH (20:50)
[2022-01-24] MEDS: ATORVASTATIN CA 80 MG TABLET (FP) PO SCH (22:50)
[2022-01-24] MEDS: THIAMINE HCL 100 MG TABLET (FP) PO SCH (22:50)
[2022-01-24] MEDS: MELATONIN 5 MG TABLETS PO SCH (22:51)
[2022-01-24] MEDS: LIDOCAINE PATCH REMOVAL MC SCH (23:49)
[2022-01-25] MEDS ORDERED: chlordiazePOXIDE HCL 10 MG CAPSULE PO PRN
[2022-01-25 00:06] LABS: SARS-CoV-2 NAA Not Detected (Not Detected)
[2022-01-25] MEDS: chlordiazePOXIDE HCL 10 MG CAPSULE PO SCH ×4 (06:04→22:53)
[2022-01-25] MEDS: metoPROLOL SUCCINATE 25 MG TAB.SR.24H (FP) PO SCH (07:04)
[2022-01-25] MEDS ORDERED: methaDONE HCL 10 MG TABLET (FOR DETOX USE ONLY) ONE (09:13)
[2022-01-25] MEDS: PRENATAL VITAMINS W/ FOLIC ACID TABLET (FP) PO SCH (11:15)
[2022-01-25] MEDS: LIDOCAINE 5% TOPICAL PATCH TP SCH (11:15)
[2022-01-25] MEDS: ATORVASTATIN CA 80 MG TABLET (FP) PO SCH (22:52)
[2022-01-25] MEDS: THIAMINE HCL 100 MG TABLET (FP) PO SCH (22:52)
[2022-01-25] MEDS: ASPIRIN 81 MG CHEWABLE TABLETS PO SCH (22:52)
[2022-01-25] MEDS: CLOPIDOGREL BISULFATE 75 MG TABLET (FP) PO SCH (22:52)
[2022-01-25] MEDS: MELATONIN 5 MG TABLETS PO SCH (22:53)
[2022-01-25] MEDS: LIDOCAINE PATCH REMOVAL MC SCH (22:56)
[2022-01-26] MEDS: chlordiazePOXIDE HCL 10 MG CAPSULE PO SCH ×2 (05:51→17:43)
[2022-01-26] MEDS: metoPROLOL SUCCINATE 25 MG TAB.SR.24H (FP) PO SCH (07:14)
[2022-01-26] MEDS ORDERED: methaDONE HCL 10 MG TABLET (FOR DETOX USE ONLY) PO ONE (10:00)
[2022-01-26] MEDS: METHOCARBAMOL 500 MG TABLET PO PRN (10:24)
[2022-01-26] MEDS: hydrOXYzine PAMOATE 25 MG CAPSULE (FP) PO PRN (10:24)
[2022-01-26] MEDS: PRENATAL VITAMINS W/ FOLIC ACID TABLET (FP) PO SCH (10:24)
[2022-01-26] MEDS: LIDOCAINE 5% TOPICAL PATCH TP SCH (10:24)
[2022-01-26] MEDS: THIAMINE HCL 100 MG TABLET (FP) PO SCH (22:42)
[2022-01-26] MEDS: ATORVASTATIN CA 80 MG TABLET (FP) PO SCH (22:43)
[2022-01-26] MEDS: MELATONIN 5 MG TABLETS PO SCH (22:44)
[2022-01-26] MEDS: CLOPIDOGREL BISULFATE 75 MG TABLET (FP) PO SCH (22:44)
[2022-01-26] MEDS: ASPIRIN 81 MG CHEWABLE TABLETS PO SCH (22:44)
[2022-01-26] MEDS: LIDOCAINE PATCH REMOVAL MC SCH (22:44)
[2022-01-27] MEDS ORDERED: chlordiazePOXIDE HCL 10 MG CAPSULE PO ONE (05:00)
[2022-01-27] MEDS: metoPROLOL SUCCINATE 25 MG TAB.SR.24H (FP) PO SCH (07:05)
[2022-01-27 08:47] VITALS: BP 140/75; PULSE 80; TEMP 97
[2022-01-27] MEDS: PRENATAL VITAMINS W/ FOLIC ACID TABLET (FP) PO SCH (09:21)
[2022-01-27] MEDS: LIDOCAINE 5% TOPICAL PATCH TP SCH (09:21)
[2022-01-27] MEDS: hydrOXYzine PAMOATE 25 MG CAPSULE (FP) PO PRN (09:21)
== END 2022-01-27 09:31 | disposition home or self-care (01) | DRG 897 ==
LOC: YASAS 11:13 → Y6N 12:09
PROVIDERS: ADMIT Allergy & Immunology; ATTEND Surgery
PROC: HZ2ZZZZ Detoxification Services for Substance Abuse Treatment (ICD-10-PCS; principal; 2022-01-22)
DX: F11.23 Opioid dependence with withdrawal (principal); F10.230 Alcohol dependence with withdrawal, uncomplicated; F12.20 Cannabis dependence, uncomplicated; G62.9 Polyneuropathy, unspecified; I10 Essential (primary) hypertension; E78.5 Hyperlipidemia, unspecified; M16.0 Bilateral primary osteoarthritis of hip; M17.0 Bilateral primary osteoarthritis of knee; R79.89 Other specified abnormal findings of blood chemistry; M54.50 Low back pain, unspecified; G89.29 Other chronic pain; Z99.89 Dependence on other enabling machines and devices; Z28.310 Unvaccinated for COVID-19
CPT/HCPCS: 36415; 80053; 85027; 86780; 87811; C9803-CS; Q0162; U0003; U0005

== ENCOUNTER 2022-02-26 18:30 | Inpatient (IN) | payer OTHER ==
[2022-02-26 19:16] VITALS: BMI 24.4
[2022-02-26] MEDS ORDERED: MAGNESIUM HYDROX 2400MG/30ML ORAL SUSPENSION 30 ML CUP PO PRN (19:52)
[2022-02-26] MEDS ORDERED: LOPERAMIDE HCL 2 MG CAPSULE PO PRN (19:52)
[2022-02-26] MEDS ORDERED: ACETAMINOPHEN 325 MG TABLET (FP) PO PRN (19:52)
[2022-02-26] MEDS ORDERED: MELATONIN 5 MG TABLETS PO PRN (19:52)
[2022-02-26] MEDS ORDERED: IBUPROFEN 400 MG TABLET (FP) PO PRN (19:52)
[2022-02-26] MEDS ORDERED: MAGNESIUM CITRATE 300 ML BOTTLE PO PRN (19:52)
[2022-02-26] MEDS ORDERED: guaiFENesin 200 MG/10 ML 10 ML UNIT-DOSE CUPS PO PRN (19:52)
[2022-02-26] MEDS ORDERED: P-EPHED 60MG/TRIPROLIDI 2.5MG TABLET PO PRN (19:52)
[2022-02-26] MEDS ORDERED: ATORVASTATIN CA 40 MG TABLET (FP) ONE (23:48)
[2022-02-26] MEDS: FAMOTIDINE 20 MG TABLET PO SCH (23:52)
[2022-02-26] MEDS: ATORVASTATIN CA 80 MG TABLET (FP) PO SCH (23:52)
[2022-02-26] MEDS: CLOPIDOGREL BISULFATE 75 MG TABLET (FP) PO SCH (23:52)
[2022-02-26] MEDS: THIAMINE HCL 100 MG TABLET (FP) PO SCH (23:52)
[2022-02-27] MEDS ORDERED: NICOTINE 7 MG/24 HOURS TOPICAL PATCH TD SCH (10:00)
[2022-02-27] MEDS: FAMOTIDINE 20 MG TABLET PO SCH (10:36)
[2022-02-27] MEDS: CLOPIDOGREL BISULFATE 75 MG TABLET (FP) PO SCH (10:36)
[2022-02-27] MEDS: metoPROLOL SUCCINATE 25 MG TAB.SR.24H (FP) PO SCH (10:36)
[2022-02-27] MEDS: PRENATAL VITAMINS W/ FOLIC ACID TABLET (FP) PO SCH (10:36)
[2022-02-27] MEDS: ASPIRIN 81 MG CHEWABLE TABLETS PO SCH (10:37)
[2022-02-27] MEDS: CARBAMIDE PEROXIDE 6.5% OTIC 15 ML BOTTLE AU SCH ×2 (12:14→21:35)
[2022-02-27 12:53] LABS: CALCIUM 8.8 mg/dL (8.5-10.1)
[2022-02-27 12:55] LABS: ALBUMIN 3.4 g/dl (3.4-5.0); BLOOD UREA NITROGEN 13.6 mg/dL (7-18)
[2022-02-27 12:58] LABS: CREATININE 1.3 mg/dL (0.55-1.3)
[2022-02-27 13:00] LABS: BILIRUBIN,TOTAL 0.8 mg/dL (0.2-1); TOT PROT 6.6 g/dl (6.4-8.2)
[2022-02-27 13:01] LABS: HEMATOCRIT 39.1 % (35.4-49); HEMOGLOBIN 13.3 GM/dL (11.7-16.9); MCH 28.9 pg (25.7-33.7); MCHC 34.1 g/dl (32.0-35.9); MEAN CELL VOLUME 84.7 fl (80-96); MEAN PLT VOLUME 10.4 fl (7.5-11.1); PLATELET COUNT 122 10^3/uL (134-434); RBC 4.62 M/mm3 (4.00-5.60); RDW 14.1 % (11.9-15.9); WHITE BLOOD COUNT 3.1 K/mm3 (4.0-10.0)
[2022-02-27 15:01] LABS: PH,URINE 7.5 (5.0-8.0); URINE APPEARANCE CLEAR; URINE BILIRUBIN NEGATIVE (NEGATIVE); URINE COLOR YELLOW; URINE GLUCOSE (UA) NEGATIVE (NEGATIVE); URINE KETONE NEGATIVE (NEGATIVE); URINE LEUK ESTERASE NEGATIVE (NEGATIVE); URINE NITRITE NEGATIVE (NEGATIVE); URINE PROTEIN NEGATIVE (NEGATIVE); URINE UROBILINOGEN 0.2 mg/dL (0.2-1.0)
[2022-02-27] MEDS: ATORVASTATIN CA 80 MG TABLET (FP) PO SCH (21:33)
[2022-02-27] MEDS: THIAMINE HCL 100 MG TABLET (FP) PO SCH (21:34)
[2022-02-27] MEDS ORDERED: SUVOREXANT 10 MG TABLET PO PRN (22:00)
[2022-02-28] MEDS: CLOPIDOGREL BISULFATE 75 MG TABLET (FP) PO SCH (09:59)
[2022-02-28] MEDS: metoPROLOL SUCCINATE 25 MG TAB.SR.24H (FP) PO SCH (09:59)
[2022-02-28] MEDS: FAMOTIDINE 20 MG TABLET PO SCH (10:00)
[2022-02-28] MEDS: ASPIRIN 81 MG CHEWABLE TABLETS PO SCH (10:00)
[2022-02-28] MEDS: PRENATAL VITAMINS W/ FOLIC ACID TABLET (FP) PO SCH (10:00)
[2022-02-28] MEDS: CARBAMIDE PEROXIDE 6.5% OTIC 15 ML BOTTLE AU SCH ×2 (10:03→21:13)
[2022-02-28] MEDS: THIAMINE HCL 100 MG TABLET (FP) PO SCH (21:13)
[2022-02-28] MEDS: ATORVASTATIN CA 80 MG TABLET (FP) PO SCH (21:13)
[2022-02-28] MEDS: SUVOREXANT 15 MG TABLET PO PRN (21:14)
[2022-03-01] MEDS: ASPIRIN 81 MG CHEWABLE TABLETS PO SCH (09:55)
[2022-03-01] MEDS: PRENATAL VITAMINS W/ FOLIC ACID TABLET (FP) PO SCH (09:55)
[2022-03-01] MEDS: CLOPIDOGREL BISULFATE 75 MG TABLET (FP) PO SCH (09:55)
[2022-03-01] MEDS: FAMOTIDINE 20 MG TABLET PO SCH (09:55)
[2022-03-01] MEDS: CHOLECALCIFEROL (VIT D3) 1,000 UNIT (25 MCG) TABLET PO SCH (09:55)
[2022-03-01] MEDS: metoPROLOL SUCCINATE 25 MG TAB.SR.24H (FP) PO SCH (09:55)
[2022-03-01] MEDS: CARBAMIDE PEROXIDE 6.5% OTIC 15 ML BOTTLE AU SCH ×2 (10:57→21:35)
[2022-03-01] MEDS: MAG HYDROX/AL HYDROX/SIMETH 30 ML UNIT-DOSE CUP PO PRN (14:28)
[2022-03-01] MEDS ORDERED: ATORVASTATIN CA 40 MG TABLET (FP) ONE (18:43)
[2022-03-01] MEDS: THIAMINE HCL 100 MG TABLET (FP) PO SCH (21:33)
[2022-03-01] MEDS: ATORVASTATIN CA 80 MG TABLET (FP) PO SCH (21:33)
[2022-03-01] MEDS: SUVOREXANT 15 MG TABLET PO PRN (21:34)
[2022-03-01] MEDS: hydrOXYzine PAMOATE 25 MG CAPSULE (FP) PO PRN (21:34)
[2022-03-02] MEDS: PRENATAL VITAMINS W/ FOLIC ACID TABLET (FP) PO SCH (10:46)
[2022-03-02] MEDS: metoPROLOL SUCCINATE 25 MG TAB.SR.24H (FP) PO SCH (10:46)
[2022-03-02] MEDS: FAMOTIDINE 20 MG TABLET PO SCH (10:46)
[2022-03-02] MEDS: CLOPIDOGREL BISULFATE 75 MG TABLET (FP) PO SCH (10:46)
[2022-03-02] MEDS: ASPIRIN 81 MG CHEWABLE TABLETS PO SCH (10:46)
[2022-03-02] MEDS: CHOLECALCIFEROL (VIT D3) 1,000 UNIT (25 MCG) TABLET PO SCH (10:46)
[2022-03-02] MEDS: CARBAMIDE PEROXIDE 6.5% OTIC 15 ML BOTTLE AU SCH ×2 (10:47→21:25)
[2022-03-02] MEDS ORDERED: ATORVASTATIN CA 40 MG TABLET (FP) ONE (18:37)
[2022-03-02] MEDS: THIAMINE HCL 100 MG TABLET (FP) PO SCH (21:24)
[2022-03-02] MEDS: ATORVASTATIN CA 80 MG TABLET (FP) PO SCH (21:24)
[2022-03-02] MEDS: SUVOREXANT 15 MG TABLET PO PRN (21:25)
[2022-03-03] MEDS: ASPIRIN 81 MG CHEWABLE TABLETS PO SCH (10:29)
[2022-03-03] MEDS: CHOLECALCIFEROL (VIT D3) 1,000 UNIT (25 MCG) TABLET PO SCH (10:29)
[2022-03-03] MEDS: metoPROLOL SUCCINATE 25 MG TAB.SR.24H (FP) PO SCH (10:29)
[2022-03-03] MEDS: PRENATAL VITAMINS W/ FOLIC ACID TABLET (FP) PO SCH (10:29)
[2022-03-03] MEDS: CARBAMIDE PEROXIDE 6.5% OTIC 15 ML BOTTLE AU SCH ×2 (10:29→21:31)
[2022-03-03] MEDS: FAMOTIDINE 20 MG TABLET PO SCH (10:29)
[2022-03-03] MEDS: CLOPIDOGREL BISULFATE 75 MG TABLET (FP) PO SCH (10:29)
[2022-03-03] MEDS: MAG HYDROX/AL HYDROX/SIMETH 30 ML UNIT-DOSE CUP PO PRN (15:47)
[2022-03-03] MEDS: THIAMINE HCL 100 MG TABLET (FP) PO SCH (21:30)
[2022-03-03] MEDS: ATORVASTATIN CA 80 MG TABLET (FP) PO SCH (21:30)
[2022-03-03] MEDS: hydrOXYzine PAMOATE 25 MG CAPSULE (FP) PO PRN (21:30)
[2022-03-03] MEDS: SUVOREXANT 15 MG TABLET PO PRN (21:30)
[2022-03-04] MEDS: metoPROLOL SUCCINATE 25 MG TAB.SR.24H (FP) PO SCH (10:54)
[2022-03-04] MEDS: FAMOTIDINE 20 MG TABLET PO SCH (10:54)
[2022-03-04] MEDS: CHOLECALCIFEROL (VIT D3) 1,000 UNIT (25 MCG) TABLET PO SCH (10:54)
[2022-03-04] MEDS: CLOPIDOGREL BISULFATE 75 MG TABLET (FP) PO SCH (10:54)
[2022-03-04] MEDS: PRENATAL VITAMINS W/ FOLIC ACID TABLET (FP) PO SCH (10:54)
[2022-03-04] MEDS: CARBAMIDE PEROXIDE 6.5% OTIC 15 ML BOTTLE AU SCH ×2 (10:54→21:06)
[2022-03-04] MEDS: ASPIRIN 81 MG CHEWABLE TABLETS PO SCH (10:54)
[2022-03-04] MEDS ORDERED: ERGOCALCIFEROL (VIT D2) 50,000 UNIT (1.25 MG) CAPSULE PO SCH (14:00)
[2022-03-04] MEDS: ATORVASTATIN CA 80 MG TABLET (FP) PO SCH (21:04)
[2022-03-04] MEDS: THIAMINE HCL 100 MG TABLET (FP) PO SCH (21:04)
[2022-03-04] MEDS: SUVOREXANT 20 MG TABLET PO PRN (21:06)
[2022-03-04] MEDS: hydrOXYzine PAMOATE 25 MG CAPSULE (FP) PO PRN (21:06)
[2022-03-04] MEDS ORDERED: SUVOREXANT 10 MG TABLET PO PRN (22:00)
[2022-03-05] MEDS: CHOLECALCIFEROL (VIT D3) 1,000 UNIT (25 MCG) TABLET PO SCH (09:51)
[2022-03-05] MEDS: CLOPIDOGREL BISULFATE 75 MG TABLET (FP) PO SCH (09:51)
[2022-03-05] MEDS: metoPROLOL SUCCINATE 25 MG TAB.SR.24H (FP) PO SCH (09:51)
[2022-03-05] MEDS: ASPIRIN 81 MG CHEWABLE TABLETS PO SCH (09:51)
[2022-03-05] MEDS: PRENATAL VITAMINS W/ FOLIC ACID TABLET (FP) PO SCH (09:52)
[2022-03-05] MEDS: FAMOTIDINE 20 MG TABLET PO SCH (09:52)
[2022-03-05] MEDS: CARBAMIDE PEROXIDE 6.5% OTIC 15 ML BOTTLE AU SCH ×2 (09:53→21:17)
[2022-03-05] MEDS ORDERED: ATORVASTATIN CA 40 MG TABLET (FP) ONE (18:46)
[2022-03-05] MEDS: hydrOXYzine PAMOATE 25 MG CAPSULE (FP) PO PRN (21:16)
[2022-03-05] MEDS: ATORVASTATIN CA 80 MG TABLET (FP) PO SCH (21:16)
[2022-03-05] MEDS: SUVOREXANT 20 MG TABLET PO PRN (21:16)
[2022-03-05] MEDS: THIAMINE HCL 100 MG TABLET (FP) PO SCH (21:16)
[2022-03-06] MEDS ORDERED: CLOPIDOGREL BISULFATE 75 MG TABLET (FP) PO SCH (10:00)
[2022-03-06] MEDS: metoPROLOL SUCCINATE 25 MG TAB.SR.24H (FP) PO SCH (10:38)
[2022-03-06] MEDS: ASPIRIN 81 MG CHEWABLE TABLETS PO SCH (10:38)
[2022-03-06] MEDS: CLOPIDOGREL BISULFATE 75 MG TABLET (FP) PO SCH (10:39)
[2022-03-06] MEDS: FAMOTIDINE 20 MG TABLET PO SCH (10:39)
[2022-03-06] MEDS: PRENATAL VITAMINS W/ FOLIC ACID TABLET (FP) PO SCH (10:39)
[2022-03-06] MEDS: CARBAMIDE PEROXIDE 6.5% OTIC 15 ML BOTTLE AU SCH ×2 (10:39→21:19)
[2022-03-06] MEDS: METHYL SALICYLATE/MENTHOL OINT 30 GM TUBE TP SCH ×2 (13:25→21:19)
[2022-03-06] MEDS ORDERED: ATORVASTATIN CA 40 MG TABLET (FP) ONE (18:39)
[2022-03-06] MEDS: ATORVASTATIN CA 80 MG TABLET (FP) PO SCH (21:18)
[2022-03-06] MEDS: THIAMINE HCL 100 MG TABLET (FP) PO SCH (21:18)
[2022-03-06] MEDS: hydrOXYzine PAMOATE 25 MG CAPSULE (FP) PO PRN (21:19)
[2022-03-06] MEDS: SUVOREXANT 20 MG TABLET PO PRN (21:19)
[2022-03-07] MEDS: CARBAMIDE PEROXIDE 6.5% OTIC 15 ML BOTTLE AU SCH ×2 (10:29→21:07)
[2022-03-07] MEDS: CLOPIDOGREL BISULFATE 75 MG TABLET (FP) PO SCH (10:29)
[2022-03-07] MEDS: ASPIRIN 81 MG CHEWABLE TABLETS PO SCH (10:29)
[2022-03-07] MEDS: metoPROLOL SUCCINATE 25 MG TAB.SR.24H (FP) PO SCH (10:29)
[2022-03-07] MEDS: PRENATAL VITAMINS W/ FOLIC ACID TABLET (FP) PO SCH (10:29)
[2022-03-07] MEDS: FAMOTIDINE 20 MG TABLET PO SCH (10:29)
[2022-03-07] MEDS: METHYL SALICYLATE/MENTHOL OINT 30 GM TUBE TP SCH ×2 (10:30→21:07)
[2022-03-07] MEDS ORDERED: ATORVASTATIN CA 40 MG TABLET (FP) ONE (19:25)
[2022-03-07] MEDS: SUVOREXANT 20 MG TABLET PO PRN (21:04)
[2022-03-07] MEDS: hydrOXYzine PAMOATE 25 MG CAPSULE (FP) PO PRN (21:05)
[2022-03-07] MEDS: ATORVASTATIN CA 80 MG TABLET (FP) PO SCH (21:06)
[2022-03-07] MEDS: THIAMINE HCL 100 MG TABLET (FP) PO SCH (21:06)
[2022-03-08] MEDS: METHYL SALICYLATE/MENTHOL OINT 30 GM TUBE TP SCH ×2 (10:20→21:04)
[2022-03-08] MEDS: FAMOTIDINE 20 MG TABLET PO SCH (10:20)
[2022-03-08] MEDS: CLOPIDOGREL BISULFATE 75 MG TABLET (FP) PO SCH (10:20)
[2022-03-08] MEDS: PRENATAL VITAMINS W/ FOLIC ACID TABLET (FP) PO SCH (10:20)
[2022-03-08] MEDS: ASPIRIN 81 MG CHEWABLE TABLETS PO SCH (10:20)
[2022-03-08] MEDS: metoPROLOL SUCCINATE 25 MG TAB.SR.24H (FP) PO SCH (10:20)
[2022-03-08] MEDS: CARBAMIDE PEROXIDE 6.5% OTIC 15 ML BOTTLE AU SCH ×2 (10:20→21:04)
[2022-03-08] MEDS: ATORVASTATIN CA 80 MG TABLET (FP) PO SCH (21:02)
[2022-03-08] MEDS: THIAMINE HCL 100 MG TABLET (FP) PO SCH (21:03)
[2022-03-08] MEDS: hydrOXYzine PAMOATE 25 MG CAPSULE (FP) PO PRN (21:03)
[2022-03-09] MEDS: ASPIRIN 81 MG CHEWABLE TABLETS PO SCH (10:26)
[2022-03-09] MEDS: CLOPIDOGREL BISULFATE 75 MG TABLET (FP) PO SCH (10:26)
[2022-03-09] MEDS: metoPROLOL SUCCINATE 25 MG TAB.SR.24H (FP) PO SCH (10:26)
[2022-03-09] MEDS: CARBAMIDE PEROXIDE 6.5% OTIC 15 ML BOTTLE AU SCH ×2 (10:26→21:07)
[2022-03-09] MEDS: PRENATAL VITAMINS W/ FOLIC ACID TABLET (FP) PO SCH (10:26)
[2022-03-09] MEDS: FAMOTIDINE 20 MG TABLET PO SCH (10:26)
[2022-03-09] MEDS: METHYL SALICYLATE/MENTHOL OINT 30 GM TUBE TP SCH ×2 (10:28→21:07)
[2022-03-09] MEDS: ATORVASTATIN CA 80 MG TABLET (FP) PO SCH (21:05)
[2022-03-09] MEDS: hydrOXYzine PAMOATE 25 MG CAPSULE (FP) PO PRN (21:06)
[2022-03-09] MEDS: SUVOREXANT 20 MG TABLET PO PRN (21:06)
[2022-03-09] MEDS: THIAMINE HCL 100 MG TABLET (FP) PO SCH (21:06)
[2022-03-10] MEDS: metoPROLOL SUCCINATE 25 MG TAB.SR.24H (FP) PO SCH (09:59)
[2022-03-10] MEDS: PRENATAL VITAMINS W/ FOLIC ACID TABLET (FP) PO SCH (09:59)
[2022-03-10] MEDS: CLOPIDOGREL BISULFATE 75 MG TABLET (FP) PO SCH (09:59)
[2022-03-10] MEDS: ASPIRIN 81 MG CHEWABLE TABLETS PO SCH (09:59)
[2022-03-10] MEDS: FAMOTIDINE 20 MG TABLET PO SCH (09:59)
[2022-03-10] MEDS: METHYL SALICYLATE/MENTHOL OINT 30 GM TUBE TP SCH ×2 (10:00→21:34)
[2022-03-10] MEDS: CARBAMIDE PEROXIDE 6.5% OTIC 15 ML BOTTLE AU SCH ×2 (10:00→21:34)
[2022-03-10] MEDS: THIAMINE HCL 100 MG TABLET (FP) PO SCH (21:33)
[2022-03-10] MEDS: SUVOREXANT 20 MG TABLET PO PRN (21:33)
[2022-03-10] MEDS: ATORVASTATIN CA 80 MG TABLET (FP) PO SCH (21:33)
[2022-03-10] MEDS: hydrOXYzine PAMOATE 25 MG CAPSULE (FP) PO PRN (21:34)
[2022-03-11 06:57] VITALS: BP 144/93; PULSE 72; TEMP 97.7
[2022-03-11] MEDS: metoPROLOL SUCCINATE 25 MG TAB.SR.24H (FP) PO SCH (09:07)
[2022-03-11] MEDS: FAMOTIDINE 20 MG TABLET PO SCH (09:07)
[2022-03-11] MEDS: CLOPIDOGREL BISULFATE 75 MG TABLET (FP) PO SCH (09:07)
[2022-03-11] MEDS: ASPIRIN 81 MG CHEWABLE TABLETS PO SCH (09:07)
[2022-03-11] MEDS: PRENATAL VITAMINS W/ FOLIC ACID TABLET (FP) PO SCH (09:08)
== END 2022-03-11 09:19 | disposition home or self-care (01) | DRG 895 ==
LOC: YASAS 18:30 → Y3W 23:06
PROVIDERS: ADMIT Allergy & Immunology; ATTEND Psychiatry & Neurology Psychiatry
PROC: HZ42ZZZ Group Counseling for Substance Abuse Treatment, Cognitive-Behavioral (ICD-10-PCS; principal; 2022-02-26)
DX: F11.20 Opioid dependence, uncomplicated (principal); F19.282 Other psychoactive substance dependence with psychoactive substance-induced sleep disorder; F10.20 Alcohol dependence, uncomplicated; F12.20 Cannabis dependence, uncomplicated; I10 Essential (primary) hypertension; E78.5 Hyperlipidemia, unspecified; H61.23 Impacted cerumen, bilateral; M17.0 Bilateral primary osteoarthritis of knee; M16.0 Bilateral primary osteoarthritis of hip; Z95.5 Presence of coronary angioplasty implant and graft; Z88.8 Allergy status to other drugs, medicaments and biological substances; Z91.014 Allergy to mammalian meats; Z28.310 Unvaccinated for COVID-19
CPT/HCPCS: 36415; 80053; 81003; 82962; 85027; 86780; C9803-CS; U0003; U0005